=== PATIENT | female | born 1930 | race Caucasian/White ===

== ENCOUNTER 2017-01-26 10:52 | Inpatient (IN) | payer MEDICARE, BC ==
[2017-01-26] MEDS ORDERED: methylPREDNISolone SOD SUCCI 125 MG/2 ML VIAL IV STA (10:58)
[2017-01-26] MEDS ORDERED: MAGNESIUM SULFATE-D5W PMX 1 GM in DEXTROSE/WATER 1 100ML.BAG IVPB STA (10:58)
--- NOTE | 2017-01-26 11:02 | ED ---
SOB HPI - General Stated Complaint: Difficulty Breathing Time Seen by Provider: 01/26/17 10:52 Source: patient, EMS, RN notes reviewed Mode of arrival: EMS - History of Present Illness Initial Comments: This is a 86-year-old female history of COPD who states she's had about 3 days of increasing difficulty with breathing she's had a cough with green phlegm she is on home oxygen. EMS was called and she was found be hypoxemic. She did get an updraft in route with some improvement she still very dyspneic. She does however deny any overt fevers chills or sweats. No overt chest pain. No peripheral edema. MD Complaint: shortness of breath, cough - Related Data Home Medications Medication Instructions Recorded Confirmed Levothyroxine Sodium [Synthroid] 100 mcg PO DAILY 01/17/16 01/26/17 Multivit-Min/FA/Lycopene/Lut 1 tab PO HS 01/17/16 01/26/17 [Centrum Silver Tablet] ALPRAZolam [Xanax] 0.25 mg PO DAILY PRN 01/26/17 01/26/17 Aspirin 325 mg PO BID 01/26/17 01/26/17 Budesonide [Pulmicort] 0.5 mg INHALATION RT-BID 01/26/17 01/26/17 Ipratropium Nebulized [Atrovent 0.5 mg INHALATION RT-Q6H PRN 01/26/17 01/26/17 Nebulized] guaiFENesin [Mucinex] 600 mg PO Q12H PRN 01/26/17 01/26/17 Previous Rx's Medication Instructions Recorded Furosemide [Lasix] 20 mg PO DAILY #30 tab 01/25/16 Losartan [Cozaar] 50 mg PO DAILY #30 tab 01/25/16 Simvastatin [Zocor] 40 mg PO HS tab 01/25/16 Allergies Allergy/AdvReac Type Severity Reaction Status Date / Time Penicillins Allergy Unknown Verified 01/26/17 11:40 pneumococcal 23-valent Allergy Rash/Hives Verified 01/26/17 11:40 polysacchari [From Pneumovax 23] adhesive tape AdvReac Unknown Verified 01/26/17 11:40 Review of Systems ROS Statement: Those systems with pertinent positive or pertinent negative responses have been documented in the HPI. ROS Other: All systems not noted in ROS Statement are negative. Past Medical History Past Medical History: Asthma, Cancer, COPD, Hearing Disorder / Deafness, Hyperlipidemia, Myocardial Infarction ([place]), Osteoarthritis (OA), Respiratory Disorder, Thyroid Disorder Additional Past Medical History / Comment(s): 01/17/2016 Pt presented to [facility] ER via EMS with exacerbation of COPD starting yesterday. She is being admitted with acute exacerbation of COPD. Other HX: colon ca with SX, hypothyroid, larygotracheal bronchitis, pulmonary htn, arthiritis bilateral hands, [place] bilaterally, wears 3L at home, PA 09/2015 Last Myocardial Infarction Date:: 09/2016 History of Any Multi-Drug Resistant Organisms: None Reported Past Surgical History: Appendectomy, Bowel Resection, Section, Cholecystectomy, Hysterectomy, Orthopedic Surgery Additional Past Surgical History / Comment(s): colectomy for cancer, C- Sections x 3, L foot fx with surgical repair, colonoscopies with polypectomy. Past Anesthesia/Blood Transfusion Reactions: No Reported Reaction, Motion Sickness Additional Past Anesthesia/Blood Transfusion Reaction / Comment(s): Pt has never recieved blood. Past Psychological History: No Psychological Hx Reported Additional Psychological History / Comment(s): Pt resides with her spouse and their ervin. She is independent. She uses no assistive device. She drives. She has a nebulizer. Smoking Status: Former smoker Past Alcohol Use History: None Reported Additional Past Alcohol Use History / Comment(s): Pt quit smoking in 2009. She has one alcoholic drink on her birthday each year. Past Drug Use History: None Reported - Past Family History Father Additional Family Medical History / Comment(s): Pt did not know her father well. He was an alcoholic and from it. Mother Family Medical History: Myocardial Infarction ([place]) Additional Family Medical History / Comment(s): Mother of an PA at age 51yrs. General Exam - General Exam Comments Initial Comments: This is a well-developed well-nourished awake alert oriented 3 female she does appear dyspneic General appearance: alert, anxious, in distress Head exam: Present: atraumatic, normocephalic, normal inspection Eye exam: Present: normal appearance, PERRL, EOMI. Absent: scleral icterus, conjunctival injection, periorbital swelling ENT exam: Present: normal exam, mucous membranes moist Neck exam: Present: normal inspection. Absent: tenderness, meningismus, lymphadenopathy Respiratory exam: Present: wheezes, accessory muscle use, decreased breath sounds. Absent: respiratory distress, rales, rhonchi, stridor Cardiovascular Exam: Present: regular rate, normal rhythm, normal heart sounds. Absent: systolic murmur, diastolic murmur, rubs, gallop, clicks GI/Abdominal exam: Present: soft, normal bowel sounds. Absent: distended, tenderness, guarding, rebound, rigid Extremities exam: Present: normal inspection, full ROM, normal capillary refill. Absent: tenderness, pedal edema, joint swelling, calf tenderness Back exam: Present: normal inspection Neurological exam: Present: alert, oriented X3, CN II-XII intact Psychiatric exam: Present: normal affect, normal mood Skin exam: Present: warm, dry, intact, normal color. Absent: rash Course Vital Signs 01/26/17 01/26/17 01/26/17 10:57 11:32 12:41 Temperature 101.7 F H 99.4 F Pulse Rate 89 77 Respiratory 16 18 20 Rate Blood Pressure 132/61 122/57 O2 Sat by Pulse 95 95 Oximetry 01/26/17 13:17 Temperature Pulse Rate 77 Respiratory 20 Rate Blood Pressure 129/59 O2 Sat by Pulse 96 Oximetry - Reevaluation(s) Reevaluation #1: 01/26/17 13:13 Reevaluation patient did reveal that she felt a little bit better she was still wheezing however. All labs are back except for BNP. I did discuss case with Dr. Flores patient be admitted with consultation by Dr. Ceballos. Medical Decision Making - Medical Decision Making I did discuss findings with the patient and family. Patient will be admitted due to the fever white count and the cough and green phlegm patient will be started on antibiotics and dyspnea treatment for what appears be COPD exacerbation with CHF - Lab Data Result diagrams: 01/26/17 11:15 01/26/17 11:15 Lab Results 01/26/17 01/26/17 01/26/17 Range/Units 11:15 11:15 11:15 WBC 12.6 H (3.8-10.6) k/uL RBC 3.92 (3.80-5.40) m/uL Hgb 11.5 (11.4-16.0) gm/dL Hct 35.9 (34.0-46.0) % MCV 91.6 (80.0-100.0) fL MCH 29.3 (25.0-35.0) pg MCHC 32.0 (31.0-37.0) g/dL RDW 13.1 (11.5-15.5) % Plt Count 197 (150-450) k/uL Neutrophils % 80 % Lymphocytes % 13 % Monocytes % 5 % Eosinophils % 0 % Basophils % 0 % Neutrophils # 10.0 H (1.3-7.7) k/uL Lymphocytes # 1.6 (1.0-4.8) k/uL Monocytes # 0.7 (0-1.0) k/uL Eosinophils # 0.0 (0-0.7) k/uL Basophils # 0.0 (0-0.2) k/uL PT (9.0-12.0) sec INR (<1.1) APTT (22.0-30.0) sec Sodium 140 (137-145) mmol/L Potassium 4.2 (3.5-5.1) mmol/L Chloride 101 (98-107) mmol/L Carbon Dioxide 29 (22-30) mmol/L Anion Gap 10 mmol/L BUN 23 H (7-17) mg/dL Creatinine 0.80 (0.52-1.04) mg/dL Est GFR (MDRD) Af Amer >60 (>60 ml/min/1.73 sqM) Est GFR (MDRD) Non-Af >60 (>60 ml/min/1.73 sqM) Glucose 120 H (74-99) mg/dL Calcium 9.6 (8.4-10.2) mg/dL Magnesium 1.8 (1.6-2.3) mg/dL Total Bilirubin 1.3 (0.2-1.3) mg/dL AST 24 (14-36) U/L ALT 25 (9-52) U/L Alkaline Phosphatase 73 (38-126) U/L Total Creatine Kinase 56 (30-135) U/L CK-MB (CK-2) 0.8 (0.0-2.4) ng/mL CK-MB (CK-2) Rel Index 1.4 Troponin I 0.023 (0.000-0.034) ng/mL NT-Pro-B Natriuret Pep pg/mL Total Protein 6.6 (6.3-8.2) g/dL Albumin 3.7 (3.5-5.0) g/dL 01/26/17 01/26/17 Range/Units 11:15 11:15 WBC (3.8-10.6) k/uL RBC (3.80-5.40) m/uL Hgb (11.4-16.0) gm/dL Hct (34.0-46.0) % MCV (80.0-100.0) fL MCH (25.0-35.0) pg MCHC (31.0-37.0) g/dL RDW (11.5-15.5) % Plt Count (150-450) k/uL Neutrophils % % Lymphocytes % % Monocytes % % Eosinophils % % Basophils % % Neutrophils # (1.3-7.7) k/uL Lymphocytes # (1.0-4.8) k/uL Monocytes # (0-1.0) k/uL Eosinophils # (0-0.7) k/uL Basophils # (0-0.2) k/uL PT 11.1 (9.0-12.0) sec INR 1.1 (<1.1) APTT 31.3 H (22.0-30.0) sec Sodium (137-145) mmol/L Potassium (3.5-5.1) mmol/L Chloride (98-107) mmol/L Carbon Dioxide (22-30) mmol/L Anion Gap mmol/L BUN (7-17) mg/dL Creatinine (0.52-1.04) mg/dL Est GFR (MDRD) Af Amer (>60 ml/min/1.73 sqM) Est GFR (MDRD) Non-Af (>60 ml/min/1.73 sqM) Glucose (74-99) mg/dL Calcium (8.4-10.2) mg/dL Magnesium (1.6-2.3) mg/dL Total Bilirubin (0.2-1.3) mg/dL AST (14-36) U/L ALT (9-52) U/L Alkaline Phosphatase (38-126) U/L Total Creatine Kinase (30-135) U/L CK-MB (CK-2) (0.0-2.4) ng/mL CK-MB (CK-2) Rel Index Troponin I (0.000-0.034) ng/mL NT-Pro-B Natriuret Pep 3420 pg/mL Total Protein (6.3-8.2) g/dL Albumin (3.5-5.0) g/dL - Radiology Data Radiology results: report reviewed (I did review the x-ray reports no definite acute changes.), image reviewed Critical Care Time Critical Care Time: Yes Critical Care Time: 33 minutes of critical care time which includes initial monitoring of the EMS run and discussed with paramedics history and physical as well as lab and x-ray orders on the patient. Reevaluation several occasions for response to therapy. Discussion with the admitting physician admission orders and documentation the above. Disposition Clinical Impression: Acute exacerbation of chronic obstructive airways disease, Adult respiratory distress syndrome, CHF (congestive heart failure), Bronchitis, Acute febrile illness Disposition: ADMITTED IP TO THIS HOSP Referrals: Charanjit Torres MD [Primary Care Provider] - 1-2 days
[2017-01-26 11:34] LABS: Basophils % (A) 0 %; CH 30.2; CHCM 33.2; Eosinophils % (A) 0 %; HCT 35.9 % (34.0-46.0); HDW 2.91; HGB 11.5 gm/dL (11.4-16.0); Luc # (Auto) 0.26; Luc % (Auto) 2; Lymphocytes # (A) 1.6 k/uL (1.0-4.8); Lymphocytes % (A) 13 %; MCH 29.3 pg (25.0-35.0); MCV 91.6 fL (80.0-100.0); Mean Platelet Volume 7.7; Monocytes # (A) 0.7 k/uL (0-1.0); Monocytes % (A) 5 %; Neutrophils % (A) 80 %; RBC 3.92 m/uL (3.80-5.40); RDW 13.1 % (11.5-15.5); WBC 12.6 k/uL (3.8-10.6); WBC (Perox) 12.61
[2017-01-26 11:44] LABS: ALT 25 U/L (9-52); AST 24 U/L (14-36); Alkaline Phosphatase 73 U/L (38-126); Anion Gap 10 mmol/L; Blood Urea Nitrogen 23 mg/dL (7-17); Calcium 9.6 mg/dL (8.4-10.2); Carbon Dioxide 29 mmol/L (22-30); Chloride 101 mmol/L (98-107); Glucose 120 mg/dL (74-99); Magnesium 1.8 mg/dL (1.6-2.3); Non-African American GFR(MDRD) >60 (>60 ml/min/1.73 sqM); Potassium 4.2 mmol/L (3.5-5.1); Sodium 140 mmol/L (137-145); Total Bilirubin 1.3 mg/dL (0.2-1.3); Total Protein 6.6 g/dL (6.3-8.2)
--- NOTE | 2017-01-26 11:55 | XR ---
EXAMINATION TYPE: XR chest 2V DATE OF EXAM: 01/26/2017 11:48 AM HISTORY: difficulty breathing. REFERENCE: Previous study dated 01/22/2016. FINDINGS: The lungs are overinflated. The heart is mildly enlarged. There are chronic increased hayden ngs, particularly at the right lung base. There is some chronic scarring in the left midlung. There i s vascular congestion without cong edema. Pleural spaces are clear. IMPRESSION: 1. COPD. 2. CARDIOMEGALY. 3. SCARRING, LEFT MIDLUNG. 4. VASCULAR CONGESTION.
[2017-01-26 12:09] LABS: Creatine Kinase MB 0.8 ng/mL (0.0-2.4); Troponin I 0.023 ng/mL (0.000-0.034)
[2017-01-26 12:18] LABS: INR 1.1 (<1.1); Partial Thromboplastin Time 31.3 sec (22.0-30.0); Prothrombin Time 11.1 sec (9.0-12.0)
[2017-01-26] MEDS ORDERED: LEVOFLOXACIN 500MG-D5W PMX 500 MG in DEXTROSE/WATER 1 100ML.BAG IVPB STA (13:15)
[2017-01-26] MEDS ORDERED: FUROSEMIDE 10 MG/ML 4 ML VIAL IV STA (13:16)
[2017-01-26] MEDS ORDERED: NITROGLYCERIN OINT 1 INCH/GM PACKET TOPICAL STA (13:19)
[2017-01-26] MEDS ORDERED: ALPRAZolam 0.25 MG TAB PO PRN (13:24)
[2017-01-26] MEDS ORDERED: guaiFENesin 600 MG TABLET.ER PO PRN (13:24)
[2017-01-26] MEDS: IPRATROPIUM-ALBUTEROL 3 ML NEB INHALATION SCH ×3 (14:48→23:58)
[2017-01-26] MEDS ORDERED: FUROSEMIDE 10 MG/ML 2 ML VIAL IV ONE (15:18)
[2017-01-26] MEDS: methylPREDNISolone SOD SUCCI 125 MG/2 ML VIAL IV SCH ×2 (16:17→23:55)
[2017-01-26] MEDS: NITROGLYCERIN OINT 1 INCH/GM PACKET TOPICAL SCH ×2 (16:17→23:56)
[2017-01-26] MEDS: SODIUM CHLORIDE 0.9% 1,000 ML IV SCH (16:35)
--- NOTE | 2017-01-26 18:08 | HP ---
DATE OF ADMISSION: 01/26/2017 DATE OF SERVICE: 01/26/2017 CHIEF COMPLAINT: Severe shortness of breath. This is an 86-year-old white female who is known to have advanced chronic obstructive pulmonary disease. For the past week, patient was getting extremely dyspneic. She uses updraft treatments at home, but her condition was progressively deteriorating. She was brought to the emergency room. In the ER she was found to be febrile. Her CBC showed a WBC count of 12.6 and hemoglobin 11.5, platelet count of 197 and sodium 140, potassium 4.2, BUN 23, creatinine 0.80, blood sugar 120. Liver enzymes were within normal limits. BNP 3420. Chest x-ray showed cardiomegaly and mild vascular congestion. EKG showed no acute changes. Patient was admitted to the hospital for further evaluation and treatment. Her past medical history reveals that she has advanced chronic obstructive pulmonary disease and she has been seeing Dr. Tristen Ceballos for her lung problems. She also has hypertensive cardiovascular disease, history of coronary artery disease, hyperlipidemia and hypothyroidism. Her current medications include: 1. Mucinex 600 mg p.o. b.i.d. 2. Pulmicort. 3. Atrovent. 4. Aspirin 325 mg p.o. daily. 5. Simvastatin 40 mg p.o. daily. 6. Synthroid 100 mcg daily. 7. Xanax 0.25 mg daily p.r.n. 8. Losartan 50 mg p.o. daily. 9. Lasix 20 mg p.o. daily. ALLERGIES: PENICILLIN. She is a former smoker. She does not smoke now. FAMILY HISTORY: Positive for hypertension and lung disease. REVIEW OF SYSTEMS: Patient denies any headache. Appetite has been poor lately. She has severe shortness of breath. She has no chest pain. She has no cough. She is extremely short of breath and wheezy. She has no polyuria or dysuria. She has no neurological symptoms. Physical examination reveals an 86-year-old white female, moderately nourished. She is alert and oriented but extremely short of breath. She is using nasal oxygen constantly. Her temperature in the ER was 101.7 and respiration 18 per minute, blood pressure 132/62. There is no jaundice. There is no generalized lymphadenopathy. There are no petechiae or bruises. Neck is supple. There is no jugular venous distention. There is no goiter. There is no carotid bruit. Heart is in sinus rhythm. Lungs reveal diminished breath sound over both bases with a few scattered rhonchi and expiratory wheeze. Abdomen is soft and nontender. There is no mass palpable. Examination of the lower extremities reveals no pitting edema. Neurologic examination does not reveal any localizing signs. IMPRESSION: 1. Chronic obstructive pulmonary disease with acute exacerbation. 2. Acute bronchitis with asthma. 3. Hypertensive cardiovascular disease. 4. Coronary artery disease. 5. Hypothyroidism. PLAN: Patient will be admitted to hospital and will be started on IV antibiotics and updraft treatments and IV Solu-Medrol. We will also get a consultation from Dr. Tristen Ceballos, who is her assembler crimper. Prognosis guarded. The diagnoses, prognosis and therapeutic plans were discussed in detail with the patient.
[2017-01-26 20:57] LABS: Glucose,Whole Blood 207 mg/dL (75-99)
[2017-01-26] MEDS ORDERED: FUROSEMIDE 10 MG/ML 4 ML VIAL IV SCH (21:00)
[2017-01-26] MEDS: ATORVASTATIN 20 MG TAB PO SCH (21:25)
[2017-01-26] MEDS: INSULIN LISPRO (humaLOG) 300 UNIT/3 ML VIAL SQ SCH (21:25)
[2017-01-26] MEDS: ASPIRIN 325 MG TAB PO SCH (21:25)
[2017-01-26] MEDS: MULTIVITAMINS, THERA 1 EACH TAB PO SCH (21:26)
[2017-01-27] MEDS: IPRATROPIUM-ALBUTEROL 3 ML NEB INHALATION SCH ×6 (04:20→23:57)
[2017-01-27 05:42] LABS: Glucose,Whole Blood 179 mg/dL (75-99)
[2017-01-27] MEDS: methylPREDNISolone SOD SUCCI 125 MG/2 ML VIAL IV SCH ×4 (06:04→23:46)
[2017-01-27] MEDS: NITROGLYCERIN OINT 1 INCH/GM PACKET TOPICAL SCH ×4 (06:04→23:46)
[2017-01-27] MEDS: LEVOTHYROXINE 100 MCG TAB PO SCH (06:04)
[2017-01-27] MEDS: INSULIN LISPRO (humaLOG) 300 UNIT/3 ML VIAL SQ SCH ×4 (06:04→21:27)
[2017-01-27] MEDS: ASPIRIN 325 MG TAB PO SCH ×2 (08:51→21:25)
[2017-01-27] MEDS: LOSARTAN 50 MG TAB PO SCH (08:51)
[2017-01-27] MEDS: FUROSEMIDE 20 MG TAB PO SCH (08:51)
[2017-01-27] MEDS ORDERED: FUROSEMIDE 20 MG TAB PO SCH (09:00)
[2017-01-27 11:47] LABS: Glucose,Whole Blood 147 mg/dL (75-99)
--- NOTE | 2017-01-27 12:28 | PN ---
DATE OF SERVICE: 01/27/2017 This is an 86-year-old white female who was brought to the emergency room with severe shortness of breath and wheezing and she is known to have advanced chronic obstructive pulmonary disease. She was also found to have acute bronchitis and asthma. She has a past history of coronary artery disease and hypertensive cardiovascular disease. The patient was admitted to the hospital for further evaluation and treatment. Currently she is getting IV antibiotics and updraft treatments and IV Solu-Medrol and has been placed back on her on previous home medications. Patient is still very short of breath, but she is feeling slightly better than when she came. Chest x-ray showed some vascular congestion and she is getting Lasix. Dr. Tristen Ceballos has been consulted and patient has been following with him for her pulmonary problems. The patient is alert and oriented, but still very short of breath. Her blood pressure and other vital signs are stable. We will continue current medications and Dr. Tristen Ceballos is going to see the patient in consultation possibly today. Prognosis is guarded.
--- NOTE | 2017-01-27 13:39 | P.CNPUL ---
History of Present Illness Consult date: 01/27/17 Reason for consult: dyspnea, cough, COPD Chief complaint: cough and shortness of breath History of present illness: this is an 86-year-old female who presented to emergency department complaining of cough, shortness of breath for 3 days. The patient states that she has not been around anyone sick that she knows of. She does have a history of COPD and has followed with Dr. RADHA Ceballos in the office. She does wear home oxygen at 2 L nasal cannula around the clock. She also uses nebulizer and inhalers but does not know which ones. The patient has a cough productive of green phlegm. The emergency department she was also found to have a fever of 101.7. She states she has been going to pulmonary rehab recently. per the patient's home medicines dictation last she was on Atrovent, Pulmicort. Review of Systems All systems: negative Past Medical History Past Medical History: Asthma, Cancer, Heart Failure, COPD, Hearing Disorder / Deafness, Hyperlipidemia, Pneumonia, Respiratory Disorder, Thyroid Disorder Additional Past Medical History / Comment(s): Colon ca with SX, hypothyroid, tracheobronchitis, [place] bilaterally, wears 2L at home. Pt denies [place], arthritis, HTN or pulmonary HTN that are in PMR. Last Myocardial Infarction Date:: 09/2016 History of Any Multi-Drug Resistant Organisms: None Reported Past Surgical History: Appendectomy, Bowel Resection, Section, Cholecystectomy, Hysterectomy, Orthopedic Surgery, Tonsillectomy Additional Past Surgical History / Comment(s): colectomy for cancer, thyroidectomy, bilateral cataract removal with lens implants, C- Sections x 3, L foot fx with surgical repair, colonoscopies with polypectomy. Past Anesthesia/Blood Transfusion Reactions: No Reported Reaction, Motion Sickness Additional Past Anesthesia/Blood Transfusion Reaction / Comment(s): Pt has never recieved blood. Past Psychological History: Anxiety Additional Psychological History / Comment(s): Pt resides with her spouse and their ervin. She is independent. She uses no assistive device. She drives. She has a nebulizer and home oxygen. She lives in a single level home with 4 steps to get inside. Smoking Status: Former smoker Past Alcohol Use History: None Reported Additional Past Alcohol Use History / Comment(s): Pt quit smoking in 2009. She has one alcoholic drink on her birthday each year and a rare beer otherwise. Past Drug Use History: None Reported - Past Family History Father Additional Family Medical History / Comment(s): Pt did not know her father well. He was an alcoholic and from it. Mother Family Medical History: Myocardial Infarction ([place]) Additional Family Medical History / Comment(s): Mother of an [place] at age 51yrs. Medications and Allergies Home Medications Medication Instructions Recorded Confirmed Type Levothyroxine Sodium [Synthroid] 100 mcg PO DAILY 01/17/16 01/26/17 History Multivit-Min/FA/Lycopene/Lut 1 tab PO HS 01/17/16 01/26/17 History [Centrum Silver Tablet] ALPRAZolam [Xanax] 0.25 mg PO DAILY PRN 01/26/17 01/26/17 History Aspirin 325 mg PO BID 01/26/17 01/26/17 History Budesonide [Pulmicort] 0.5 mg INHALATION RT-BID 01/26/17 01/26/17 History Ipratropium Nebulized [Atrovent 0.5 mg INHALATION RT-Q6H PRN 01/26/17 01/26/17 History Nebulized] guaiFENesin [Mucinex] 600 mg PO Q12H PRN 01/26/17 01/26/17 History Allergies Allergy/AdvReac Type Severity Reaction Status Date / Time Penicillins Allergy Unknown Verified 01/26/17 11:40 pneumococcal 23-valent Allergy Rash/Hives Verified 01/26/17 11:40 polysacchari [From Pneumovax 23] adhesive tape AdvReac Unknown Verified 01/26/17 11:40 Physical Exam Osteopathic Statement: *. No significant issues noted on an osteopathic structural exam other than those noted in the History and Physical/Consult. Vitals: Vital Signs Temp Pulse Pulse Resp BP Pulse Ox 01/27/17 13:03 86 01/27/17 12:00 97.9 F 90 18 102/55 97 01/27/17 09:15 84 01/27/17 09:05 80 22 01/27/17 08:00 97.9 F 87 22 105/49 95 01/27/17 04:34 80 01/27/17 04:20 80 01/27/17 04:00 97.5 F L 81 18 97/45 93 L 01/27/17 00:14 88 01/27/17 00:00 83 18 107/55 95 01/26/17 23:59 88 01/26/17 20:02 92 01/26/17 20:00 97.4 F L 82 18 99/51 96 01/26/17 19:47 80 01/26/17 16:00 97.9 F 80 20 125/55 96 01/26/17 15:07 96 01/26/17 14:51 92 01/26/17 14:18 99.5 F 164 H 30 H 97 01/26/17 14:05 98.7 F Intake and Output 01/26/17 01/27/17 01/27/17 22:59 06:59 14:59 Intake Total 400 200 298 Balance 400 200 298 Intake: Oral 400 200 298 Other: Voiding Method Toilet Toilet Bedpan Bedpan # Bowel Movements 0 Weight 58.6 kg Gen.: Patient is alert and oriented 3, no acute distress Cardiovascular: Regular rate and rhythm, S1/S2 Lungs: Coarse breath sounds bilaterally with expiratory wheezing Abdomen: Soft nontender nondistended positive bowel sounds Extremities: No edema Results - Laboratory Findings CBC and BMP: 01/26/17 11:15 01/26/17 11:15 PT/INR, D-dimer PT 11.1 sec (9.0-12.0) 01/26/17 11:15 INR 1.1 (<1.1) 01/26/17 11:15 Abnormal lab findings: Abnormal Labs 01/26/17 01/27/17 01/27/17 20:55 05:37 11:41 POC Glucose (mg/dL) 207 H 179 H 147 H - Diagnostic Findings Chest x-ray: report reviewed, image reviewed Assessment and Plan Plan: acute on chronic hypoxic respiratory failure Acute exacerbation of COPD Emphysema Cardiomegaly Pulmonary vascular congestion Tracheobronchitis Sepsis with SIRS History of hypertension History of anxiety Hypothyroidism Dyslipidemia Former tobacco abuse O2 to maintain saturation greater than or equal to 88% Bronchodilators Pulmicort IV Solu-Medrol Antibiotics: Levaquin Sputum culture Mucinex Repeat CXR in AM Singulair Incentive spirometry and pulmonary hygiene GI and DVT prophylaxis Diuresis as able Continued smoking cessation outpatient pulmonary follow-up with Dr. RADHA Ceballos upon discharge Thank you for this consultation. We will continue to follow along.
[2017-01-27 13:55] LABS: Hemoglobin A1C 5.7 % (4.2-6.1)
[2017-01-27] MEDS ORDERED: LEVOFLOXACIN 500 MG TAB PO SCH (14:00)
[2017-01-27] MEDS: SODIUM CHLORIDE 0.9% 1,000 ML IV SCH (14:20)
[2017-01-27] MEDS: LEVOFLOXACIN 250MG-D5W PMX 250 MG in DEXTROSE/WATER 1 50ML.BAG IVPB SCH (14:20)
[2017-01-27 16:42] LABS: Glucose,Whole Blood 168 mg/dL (75-99)
[2017-01-27] MEDS: BUDESONIDE 0.5 MG/2 ML NEBU INHALATION SCH (20:51)
[2017-01-27 21:04] LABS: Glucose,Whole Blood 137 mg/dL (75-99)
[2017-01-27] MEDS: ATORVASTATIN 20 MG TAB PO SCH (21:25)
[2017-01-27] MEDS: MULTIVITAMINS, THERA 1 EACH TAB PO SCH (21:25)
[2017-01-27] MEDS: ZOLPIDEM 5 MG TAB PO PRN (21:25)
[2017-01-27] MEDS: MONTELUKAST 10 MG TAB PO SCH (21:26)
[2017-01-27] MEDS: DOCUSATE 100 MG CAP PO SCH (21:27)
[2017-01-28] MEDS: IPRATROPIUM-ALBUTEROL 3 ML NEB INHALATION SCH ×6 (04:11→23:49)
[2017-01-28 05:50] LABS: Glucose,Whole Blood 188 mg/dL (75-99)
[2017-01-28] MEDS: methylPREDNISolone SOD SUCCI 125 MG/2 ML VIAL IV SCH ×4 (06:29→23:03)
[2017-01-28] MEDS: LEVOTHYROXINE 100 MCG TAB PO SCH (06:30)
[2017-01-28] MEDS: INSULIN LISPRO (humaLOG) 300 UNIT/3 ML VIAL SQ SCH ×4 (06:30→22:31)
[2017-01-28] MEDS: NITROGLYCERIN OINT 1 INCH/GM PACKET TOPICAL SCH ×4 (06:30→23:09)
--- NOTE | 2017-01-28 06:50 | XR ---
EXAM: XR Chest, 2 Views. CLINICAL HISTORY: Reason: rule out pna TECHNIQUE: Frontal and lateral views of the chest. COMPARISON: Recent 01/26/17 radiographs. FINDINGS: Lungs: There are again mildly increased pulmonary vascular markings throughout, stable. As best seen on the lateral view there is increased density posteriorly at the left base, that may be on the basis of diaphragmatic elevation or eventration rather than a small infiltrate, the appearance of which is unchanged. Pleural spaces: Unremarkable. No pneumothorax. Heart: Stable cardiomegaly. Mediastinum: Unremarkable. Bones: Bones are stable including mild rightward curvature of the thoracic spine and multilevel degenerative changes. No acute fracture. Upper abdomen: Right upper quadrant clips suggest cholecystectomy. IMPRESSION: No definite interval change since the prior exam, as above.
[2017-01-28] MEDS: FUROSEMIDE 20 MG TAB PO SCH (08:23)
[2017-01-28] MEDS: DOCUSATE 100 MG CAP PO SCH ×2 (08:23→21:33)
[2017-01-28] MEDS: FAMOTIDINE 20 MG TAB PO SCH (08:23)
[2017-01-28] MEDS: LOSARTAN 50 MG TAB PO SCH (08:23)
[2017-01-28] MEDS: ASPIRIN 325 MG TAB PO SCH ×2 (08:23→21:32)
[2017-01-28] MEDS: ENOXAPARIN 40 MG/0.4 ML SYRINGE SQ SCH (08:24)
[2017-01-28] MEDS: BUDESONIDE 0.5 MG/2 ML NEBU INHALATION SCH ×2 (09:18→20:34)
[2017-01-28 11:56] LABS: Glucose,Whole Blood 171 mg/dL (75-99)
[2017-01-28] MEDS: LEVOFLOXACIN 250MG-D5W PMX 250 MG in DEXTROSE/WATER 1 50ML.BAG IVPB SCH (14:34)
[2017-01-28] MEDS: SODIUM CHLORIDE 0.9% 1,000 ML IV SCH (14:34)
--- NOTE | 2017-01-28 14:37 | P.PN ---
Subjective Principal diagnosis: acute exacerbation of COPD patient seen and examined. Patient states her breathing is a little bit better today. She was just up taking a shower. She denies cough, fevers, chills. Her daughter is at bedside. All their questions are answered to their apparent satisfaction. Objective - Vital Signs Vital signs: Vital Signs Temp 97.3 F L 01/28/17 12:00 Pulse 80 01/28/17 12:59 Resp 18 01/28/17 12:00 BP 113/50 01/28/17 12:00 Pulse Ox 95 01/28/17 12:00 Intake & Output 01/27/17 01/28/17 01/28/17 17:59 06:59 18:59 Intake Total 80 Balance 80 Weight Intake: IV Sodium Chloride 0.9% 1, 000 ml @ 20 mls/hr IV . Q24H NISHANT Rx#:[id number] Oral 80 Other: Voiding Method # Voids # Bowel Movements 0 - Exam Gen.: Patient is alert and oriented 3, no acute distress Cardiovascular: Regular rate and rhythm, S1/S2 Lungs: diminished breath sounds bilaterally, scattered expiratory wheezing Abdomen: Soft nontender nondistended positive bowel sounds Extremities: No edema - Labs CBC & Chem 7: 01/26/17 11:15 01/26/17 11:15 Labs: Abnormal Lab Results - Last 24 Hours (Table) 01/27/17 01/27/17 01/28/17 Range/Units 16:41 20:58 05:48 POC Glucose (mg/dL) 168 H 137 H 188 H (75-99) mg/dL 01/28/17 Range/Units 11:51 POC Glucose (mg/dL) 171 H (75-99) mg/dL Microbiology - Last 24 Hours (Table) 01/27/17 17:20 Gram Stain - Preliminary Sputum Assessment and Plan Plan: Acute on chronic hypoxic respiratory failure Acute exacerbation of COPD Emphysema Cardiomegaly Pulmonary vascular congestion Tracheobronchitis Sepsis with SIRS History of hypertension History of anxiety Hypothyroidism Dyslipidemia Former tobacco abuse O2 to maintain saturation greater than or equal to 88% Bronchodilators Pulmicort IV Solu-Medrol Antibiotics: Levaquin Sputum culture Mucinex Singulair Incentive spirometry and pulmonary hygiene GI and DVT prophylaxis Continued smoking cessation outpatient pulmonary follow-up with Dr. RADHA Ceballos upon discharge
[2017-01-28 16:44] LABS: Glucose,Whole Blood 136 mg/dL (75-99)
--- NOTE | 2017-01-28 18:51 | PN ---
DATE OF SERVICE: 01/28/2017 This is an 86-year-old white female who is known to have advanced chronic obstructive pulmonary disease and she was admitted to the hospital with severe shortness of breath and she was found to have chronic obstructive pulmonary disease with acute exacerbation, asthma and acute tracheobronchitis. Patient was started on IV antibiotics and updraft treatments and also she was placed back on her previous home medications. Patient was seen by Dr. Tristen Ceballos in consultation and patient is continuing on her current medications but today patient seems to be feeling better. She is still using nasal oxygen constantly, but overall she feels better. Her cough symptom is improving. She is getting updraft treatments and IV Solu-Medrol. We will increase her activities and when her condition becomes stable and improved, will discharge home. Patient was seen by me today for Dr. Torres who is her primary care physician and Dr. Torres has been off out of town and I was covering him during his absence. Dr. Torres will be coming back tomorrow and he will resume care of the patient starting tomorrow.
[2017-01-28] MEDS: ATORVASTATIN 20 MG TAB PO SCH (21:32)
[2017-01-28] MEDS: MULTIVITAMINS, THERA 1 EACH TAB PO SCH ×2 (21:33→23:03)
[2017-01-28] MEDS: MONTELUKAST 10 MG TAB PO SCH (21:33)
[2017-01-28 21:44] LABS: Glucose,Whole Blood 125 mg/dL (75-99)
[2017-01-28] MEDS: ZOLPIDEM 5 MG TAB PO PRN (23:03)
[2017-01-29] MEDS: IPRATROPIUM-ALBUTEROL 3 ML NEB INHALATION SCH ×5 (03:47→20:40)
[2017-01-29 06:14] LABS: Glucose,Whole Blood 177 mg/dL (75-99)
[2017-01-29] MEDS: INSULIN LISPRO (humaLOG) 300 UNIT/3 ML VIAL SQ SCH ×4 (06:30→21:31)
[2017-01-29] MEDS: LEVOTHYROXINE 100 MCG TAB PO SCH (06:31)
[2017-01-29] MEDS: NITROGLYCERIN OINT 1 INCH/GM PACKET TOPICAL SCH (06:31)
[2017-01-29] MEDS ORDERED: MAGNESIUM HYDROXIDE 2,400 MG/10 ML CUP PO PRN (07:03)
[2017-01-29] MEDS: BUDESONIDE 0.5 MG/2 ML NEBU INHALATION SCH ×2 (07:50→20:47)
[2017-01-29] MEDS: methylPREDNISolone SOD SUCCI 125 MG/2 ML VIAL IV SCH ×2 (08:13→16:12)
[2017-01-29] MEDS: DOCUSATE 100 MG CAP PO SCH ×2 (08:16→21:31)
[2017-01-29] MEDS: ASPIRIN 325 MG TAB PO SCH ×2 (08:16→21:31)
[2017-01-29] MEDS: ENOXAPARIN 40 MG/0.4 ML SYRINGE SQ SCH (08:16)
[2017-01-29] MEDS: FUROSEMIDE 20 MG TAB PO SCH (08:18)
[2017-01-29] MEDS: FAMOTIDINE 20 MG TAB PO SCH (08:18)
[2017-01-29] MEDS: LOSARTAN 50 MG TAB PO SCH (08:18)
--- NOTE | 2017-01-29 10:33 | ECHOF ---
Referral Reason:cardiomegaly MEASUREMENTS -------- HEIGHT: 157.5 cm WEIGHT: 58.5 kg BP: 127/53 IVSd: 1.4 cm (0.6 - 1.1) LVIDd: 5.1 cm (3.9 - 5.3) LVPWd: 1.4 cm (0.6 - 1.1) IVSs: 1.6 cm LVIDs: 4.4 cm LVPWs: 1.4 cm LA Diam: 3.9 cm (2.7 - 3.8) LAESV Index (A-L): 49.45 ml/m Ao Diam: 3.1 cm (2.0 - 3.7) AV Cusp: 1.3 cm (1.5 - 2.6) LA Diam: 3.8 cm (2.7 - 3.8) MV EXCURSION: 19.783 mm (> 18.000) MV EF SLOPE: 63 mm/s (70 - 150) EPSS: 1.2 cm MV E Corbin: 0.96 m/s MV DecT: 235 ms MV A Corbin: 1.00 m/s MV E/A Ratio: 0.97 AV maxP.06 mmHg AV meanP.83 mmHg RAP: 5.00 mmHg RVSP: 46.04 mmHg FINDINGS -------- Sinus rhythm. This was a technically adequate study. There is mild concentric left ventricular hypertrophy. Overall left ventricular systolic function is low-normal with, an EF between 50 - 55 %. The right ventricle is normal in size. LA is severely dilated >40 ml/m2 The right atrial size is normal. Moderate aortic stenosis with peak/mean pressure gradient of 28.06mmHg / 14.83mmHg, the aortic valve area by continuity equation is 1.4cm. Mild mitral annular calcification present. Mild mitral regurgitation is present. Mild tricuspid regurgitation present. There is mild to moderate pulmonary hypertension. The right ventricular systolic pressure, as measured by Doppler, is 46.04mmHg. There is no pulmonic regurgitation present. The aortic root size is normal. There is no pericardial effusion. CONCLUSIONS -------- 1. There is mild concentric left ventricular hypertrophy. 2. Overall left ventricular systolic function is low-normal with, an EF between 50 - 55 %. 3. LA is severely dilated >40 ml/m2 4. Moderate aortic stenosis with peak/mean pressure gradient of 28.06mmHg / 14.83mmHg, the aortic valve area by continuity equation is 1.4cm. 5. Mild mitral annular calcification present. 6. Mild mitral regurgitation is present. 7. Mild tricuspid regurgitation present. 8. There is mild to moderate pulmonary hypertension. 9. The right ventricular systolic pressure, as measured by Doppler, is 46.04mmHg. INS[employer]ANCE [employer] SALES MANAGER: Hedii Aldana RDCS
[2017-01-29 11:48] LABS: Glucose,Whole Blood 125 mg/dL (75-99)
[2017-01-29] MEDS ORDERED: BISACODYL 10 MG SUPP RECTAL STA (13:02)
[2017-01-29 13:27] VITALS: BMI 23.7
[2017-01-29 13:54] LABS: Basophils % (A) 0 %; CHCM 31.7; Eosinophils % (A) 0 %; HCT 36.6 % (34.0-46.0); HDW 2.82; HGB 11.5 gm/dL (11.4-16.0); Hypochromasia Slight; Luc # (Auto) 0.11; Luc % (Auto) 1; Lymphocytes # (A) 0.6 k/uL (1.0-4.8); Lymphocytes % (A) 3 %; MCH 29.9 pg (25.0-35.0); MCHC 31.4 g/dL (31.0-37.0); MCV 95.2 fL (80.0-100.0); Mean Platelet Volume 8.3; Monocytes # (A) 0.5 k/uL (0-1.0); Monocytes % (A) 3 %; Neutrophils # (A) 16.5 k/uL (1.3-7.7); Neutrophils % (A) 93 %; RBC 3.84 m/uL (3.80-5.40); RDW 13.2 % (11.5-15.5); WBC 17.8 k/uL (3.8-10.6); WBC (Perox) 18.84
[2017-01-29 14:16] LABS: Anion Gap 10 mmol/L; Blood Urea Nitrogen 38 mg/dL (7-17); Calcium 9.5 mg/dL (8.4-10.2); Carbon Dioxide 31 mmol/L (22-30); Chloride 104 mmol/L (98-107); Glucose 155 mg/dL (74-99); Non-African American GFR(MDRD) 60 (>60 ml/min/1.73 sqM); Potassium 4.2 mmol/L (3.5-5.1); Sodium 145 mmol/L (137-145)
[2017-01-29] MEDS: SODIUM CHLORIDE 0.9% 1,000 ML IV SCH ×2 (14:43→17:07)
[2017-01-29] MEDS: LEVOFLOXACIN 250 MG TAB PO SCH (14:58)
[2017-01-29 16:44] LABS: Glucose,Whole Blood 140 mg/dL (75-99)
--- NOTE | 2017-01-29 17:50 | PN ---
DATE OF SERVICE: 01/29/2017 HISTORY OF PRESENT ILLNESS: Patient is an 86-year-old female who came in with shortness of breath and cough with a known history of COPD where she follows with Dr. Tristen Ceballos. She is being followed for acute on chronic hypoxic respiratory failure, COPD and emphysema. She recently had an echocardiogram done that showed an EF of 50% to 55%. In addition, her RVSP was 46 mmHg and her LA was severely dilated. She has moderate aortic stenosis with mild to moderate pulmonary hypertension. Patient is complaining of problems with constipation today. She continues with IV steroids, Levaquin and nebulizer treatments. She states that she has been having a productive cough finally of green sputum. She does state that she is feeling better overall but would do considerably better if she had a bowel movement. On physical examination, vital signs show temperature of 96.8, heart rate 88, respiratory rate 18. Blood pressure is 122/62. Oxygen saturation on 3 L is 97%. Her labs for today showed glucose of 125. Blood cultures were negative. Sputum cultures negative. GENERAL: An 86-year-old female sitting up in chair. She is in no acute respiratory distress. She is oxygen-dependent. HEENT: Pupils are reactive. Mucous membranes are moist. NECK: Supple. Trachea midline. Lung sounds are diminished throughout. No clear rhonchi or rales heard. No significant wheezes. CARDIOVASCULAR: S1, S2 heard. Regular. ABDOMEN: Soft. Bowel sounds are heard. EXTREMITIES: No edema. NEUROLOGIC: She is awake, alert. IMPRESSION: 1. Acute on chronic hypoxic respiratory failure where patient is oxygen-dependent. 2. Acute exacerbation of chronic obstructive pulmonary disease with emphysema. 3. Pulmonary vascular congestion with tracheobronchitis. 4. Sepsis with systemic inflammatory response syndrome, improved. 5. Cardiomegaly with RVSP 46 mmHg with moderate aortic stenosis. 6. Known history of hypertension. 7. Known history of anxiety. 8. Former tobacco abuse. 9. Hypothyroidism. 10. Dyslipidemia. PLAN: Will order lactulose to help with her constipation. Will continue with oxygen to keep her saturations 88% or better. Continue with her nebulizer treatments as ordered. Continue with antibiotic therapy. Continue with IV steroids. Continue with pulmonary hygiene. Continue with GI and DVT prophylaxis. She will need to follow up with Dr. Tristen Ceballos on discharge. Medications have been reviewed. Patient is probably at about her baseline, respiratory-singh.
[2017-01-29 20:57] LABS: Glucose,Whole Blood 164 mg/dL (75-99)
[2017-01-29] MEDS: ATORVASTATIN 20 MG TAB PO SCH (21:31)
[2017-01-29] MEDS: MONTELUKAST 10 MG TAB PO SCH (21:32)
[2017-01-29] MEDS: MULTIVITAMINS, THERA 1 EACH TAB PO SCH (21:32)
[2017-01-29] MEDS: ZOLPIDEM 5 MG TAB PO PRN (22:19)
[2017-01-30] MEDS: methylPREDNISolone SOD SUCCI 125 MG/2 ML VIAL IV SCH
[2017-01-30] MEDS: IPRATROPIUM-ALBUTEROL 3 ML NEB INHALATION SCH ×6 (00:50→19:45)
[2017-01-30] MEDS ORDERED: IPRATROPIUM-ALBUTEROL 3 ML NEB INHALATION PRN (03:53)
[2017-01-30 06:02] LABS: Glucose,Whole Blood 157 mg/dL (75-99)
[2017-01-30] MEDS: LEVOTHYROXINE 100 MCG TAB PO SCH (07:18)
[2017-01-30] MEDS: INSULIN LISPRO (humaLOG) 300 UNIT/3 ML VIAL SQ SCH ×4 (07:18→21:30)
[2017-01-30] MEDS: LACTULOSE 20 GM/30 ML CUP PO SCH (08:48)
[2017-01-30] MEDS: ASPIRIN 325 MG TAB PO SCH ×2 (08:50→21:30)
[2017-01-30] MEDS: DOCUSATE 100 MG CAP PO SCH ×2 (08:50→21:31)
[2017-01-30] MEDS: FUROSEMIDE 20 MG TAB PO SCH (08:50)
[2017-01-30] MEDS: predniSONE 20 MG TAB PO SCH (08:50)
[2017-01-30] MEDS: LOSARTAN 50 MG TAB PO SCH (08:50)
[2017-01-30] MEDS: ENOXAPARIN 40 MG/0.4 ML SYRINGE SQ SCH (08:50)
[2017-01-30] MEDS: FAMOTIDINE 20 MG TAB PO SCH (08:51)
[2017-01-30] MEDS: BUDESONIDE 0.5 MG/2 ML NEBU INHALATION SCH ×2 (09:02→19:45)
--- NOTE | 2017-01-30 09:56 | PN ---
DATE OF SERVICE: 01/29/2017 CHIEF COMPLAINT: Re-evaluation. HISTORY OF PRESENT ILLNESS: This 86-year-old female who was admitted to the hospital because of shortness of breath. She has a significant cough and congestion. She has underlying history of significant COPD . The patient is feeling better today. REVIEW OF SYSTEMS: NEURO: Denies any headaches, dizziness. PSYCH: No anxiety. CARDIAC: No chest pain, angina, palpitation. RESPIRATORY: No shortness of breath, cough or expectoration. No shortness of breath at rest. Does have some dyspnea on exertion. Does have some cough. No hemoptysis. GI: No nausea, vomiting, abdominal pain, diarrhea, significant constipation. : No symptoms of dysuria, hematuria, urgency, frequency. EXTREMITIES: Denies pain or edema. CONSTITUTIONAL: No fever or chills. PHYSICAL EXAMINATION: Pleasant female in no distress. Vital signs reveal temperature 96.8, pulse 80, respirations 18, blood pressure 122/62, pulse ox of 97% on 3 liters. HEENT: Normocephalic. NECK: Supple. No JVD. Chest is clear to auscultation. RESPIRATORY: Normal, with generalized decreased air flow and wheezing or rhonchi appreciated present. CARDIAC: Distant heart sounds. S1, S2 with no gallops. Systolic murmur 2/6 left sternal border. ABDOMEN: Soft. Bowel sounds present. EXTREMITIES: No edema. NEUROLOGICAL: Awake, alert, oriented with well-coordinated movements. Laboratory assessment: CBC showed a hemoglobin of 11.5 white count 17.8. Electrolytes were normal except for CO2 of 31. BUN 38, creatinine 0.9. ASSESSMENT: 1. Acute tracheobronchitis. 2. Chronic obstructive pulmonary disease with exacerbation. 3. Constipation. 4. Remote history of carcinoma of the colon. PLAN: Continue present medical regimen. Patient ( ) is symptomatic. ( ). Patient's condition is stable at present continue current regimen. Potential discharge in the next 24 to 48 hours.
--- NOTE | 2017-01-30 10:18 | CDI ---
In responding to this query, please exercise your independent professional judgment. The [facility] Coding Staff and Clinical Documentation Specialists appreciate your assistance in clarifying documentation, maintaining compliance with coding guidelines, accurately documenting patients condition and capturing severity of illness. The fact that a question is asked does not imply that any particular answer is desired or expected. Communication forms are a method of clarifying documentation and are not made part of the Legal Health Record. Thank you in advance for your clarification. Last Revision, September 2015 Naheed Soriano [address] [facility] [place] [address] Documentation Clarification Form Date: 01/30/2017 10:07:00 AM From: Tanisha Alfredo Admit Date: 01/26/2017 1:20:00 PM Patient Name: Cherelle Benítez Visit Number: [id number] Dr. Charanjit Torres Pulmonary progress notes include documentation of 'Sepsis'. History/Risk Factors: Tracheobronchitis COPD Home O2 Clinical Indicators: WBC on admission was 12.6 Blood cultures: preliminary shows no growth Vitals signs on admission: temp 101.7, hr 89, rr 16, bp 132/61, sats 95% on 3L nc 'Sepsis' documented by Pulmonary Treatment: Antibiotics: IV Levaquin administered - changed to PO IV fluids @ 20 cc/hr In your professional opinion, can you please clarify if these findings signify one of the following conditions, whether the condition is POA, and cause, if known? Sepsis Ruled In Sepsis Ruled Out Unable to determine Other, please specify Please document in your progress notes and discharge summary in order to capture severity of illness and risk of mortality. Include clinical findings that support your diagnosis. FYI: Press F11 to launch patient chart. Place X here if this finding has no clinical significance, is not applicable or if you are not able to provide any additional documentation. ALEJANDRA
--- NOTE | 2017-01-30 10:32 | CDI ---
In responding to this query, please exercise your independent professional judgment. The [facility] Coding Staff and Clinical Documentation Specialists appreciate your assistance in clarifying documentation, maintaining compliance with coding guidelines, accurately documenting patients condition and capturing severity of illness. The fact that a question is asked does not imply that any particular answer is desired or expected. Communication forms are a method of clarifying documentation and are not made part of the Legal Health Record. Thank you in advance for your clarification. Last Revision, January 2016 Naheed Soriano [address] [facility] [place] [address] Documentation Clarification Form Date: 01/30/2017 10:18:00 AM From: Tanishabryanna Palaciosbayron Admit Date: 01/26/2017 1:20:00 PM Patient Name: Cherelle Benítez Visit Number: [id number] Dr. Charanjit Torres CHF is documented in the ED disposition. History/Risk Factors: COPD Previous [place] Hypertensive Cardiovascular Disease per H&P Clinical Indicators: Presented to ED with difficulty breathing, EMS found to be hypoxemic Respiratory exam on admission: wheezes, accessory muscle use, decreased breath sounds There was no peripheral edema VS/Pulse OX on admission: HR 89, RR 16, O2 sats 95% on 3L BNP on admission: 3420 Echocardiogram Results on 01/29: ef 50-55%, mild left ventricular hypertrophy, moderate pulmonary hypertension Chest X Ray: showed 'vascular congestion' Treatment: IV Lasix administered and changed to PO In your professional opinion, can you please clarify the acuity and type of CHF if known? Acute Chronic Acute on Chronic AND Systolic Diastolic Systolic and Diastolic Cor Pulmonale (Right Sided HF w/ Pulmonary HTN) Unable to determine Other, please specify Please document in your progress notes and discharge summary in order to capture severity of illness and risk of mortality. Include clinical findings that support your diagnosis. FYI: Press F11 to launch patient chart. Place X here if this finding has no clinical significance, is not applicable or if you are not able to provide any additional documentation. MTDD
[2017-01-30 11:49] LABS: Glucose,Whole Blood 123 mg/dL (75-99)
--- NOTE | 2017-01-30 14:08 | P.PN ---
Subjective Principal diagnosis: Acute exacerbation of COPD Patient seen and examined. Patient states her breathing is much better. She states she received a sleeping pill last night and is still very sleepy. She is otherwise doing well. She has no complaints are needed at this time. Objective - Vital Signs Vital signs: Vital Signs Temp 97.0 F L 01/30/17 12:00 Pulse 86 01/30/17 13:11 Resp 20 01/30/17 12:00 BP 120/74 01/30/17 12:00 Pulse Ox 98 01/30/17 12:00 Intake & Output 01/29/17 01/30/17 01/30/17 18:59 06:59 18:59 Intake Total 393 100 690 Balance 393 100 690 Weight 58.9 kg 59.5 kg Intake: IV 153 100 10 Sodium Chloride 0.9% 1, 153 100 10 000 ml @ 20 mls/hr IV . Q24H [facility] Rx#:[id number] Oral 240 680 Other: Voiding Method Toilet Toilet Toilet Diaper Diaper Diaper Incontinent Incontinent Incontinent # Voids 1 - Exam Gen.: Patient is alert and oriented 3, no acute distress Cardiovascular: Regular rate and rhythm, S1/S2 Lungs: diminished breath sounds bilaterally, scattered expiratory wheezing Abdomen: Soft nontender nondistended positive bowel sounds Extremities: No edema - Labs CBC & Chem 7: 01/29/17 13:30 01/29/17 13:30 Labs: Abnormal Lab Results - Last 24 Hours (Table) 01/29/17 01/29/17 01/29/17 Range/Units 13:30 16:42 20:55 Carbon Dioxide 31 H (22-30) mmol/L BUN 38 H (7-17) mg/dL Glucose 155 H (74-99) mg/dL POC Glucose (mg/dL) 140 H 164 H (75-99) mg/dL 01/30/17 01/30/17 Range/Units 06:01 11:47 Carbon Dioxide (22-30) mmol/L BUN (7-17) mg/dL Glucose (74-99) mg/dL POC Glucose (mg/dL) 157 H 123 H (75-99) mg/dL Microbiology - Last 24 Hours (Table) 01/27/17 17:20 Gram Stain - Final Sputum Sputum Culture - Final Assessment and Plan Plan: Acute on chronic hypoxic respiratory failure Acute exacerbation of COPD Emphysema Cardiomegaly Pulmonary vascular congestion Mild Pulmonary hypertension, Likely WHO group 2-3 Tracheobronchitis Sepsis with SIRS History of hypertension History of anxiety Hypothyroidism Dyslipidemia Former tobacco abuse O2 to maintain saturation greater than or equal to 88% Bronchodilators Pulmicort Prednisone taper Antibiotics: Levaquin Mucinex Singulair Incentive spirometry and pulmonary hygiene GI and DVT prophylaxis Continued smoking cessation outpatient pulmonary follow-up with Dr. RADHA Ceballos upon discharge OK to DC from pulmonary standpoint
[2017-01-30] MEDS: LEVOFLOXACIN 250 MG TAB PO SCH (15:15)
[2017-01-30 16:31] LABS: Glucose,Whole Blood 124 mg/dL (75-99)
[2017-01-30 20:18] LABS: Glucose,Whole Blood 142 mg/dL (75-99)
[2017-01-30] MEDS: MONTELUKAST 10 MG TAB PO SCH (21:30)
[2017-01-30] MEDS: MULTIVITAMINS, THERA 1 EACH TAB PO SCH (21:30)
[2017-01-30] MEDS: ATORVASTATIN 20 MG TAB PO SCH (21:30)
--- NOTE | 2017-01-30 22:57 | PN ---
DATE OF SERVICE: 01/30/2017 CHIEF COMPLAINT: Re-evaluation. HISTORY OF PRESENT ILLNESS: This is an 86-year-old was admitted to the hospital with shortness of breath. The patient has a history of COPD, suggestion of exacerbation of COPD. REVIEW OF SYSTEMS: NEURO: Denies any headaches, dizziness. PSYCH: No anxiety. CARDIAC: No chest pain, angina, palpitation. RESPIRATORY: Denies shortness of breath with oxygen. The patient has some cough. No hemoptysis. GI: No nausea, vomiting, abdominal pain, diarrhea. : No symptoms of dysuria, hematuria, urgency, frequency. EXTREMITIES: No pain or edema. CONSTITUTIONAL: No fever or chills. PHYSICAL EXAMINATION: Pleasant female in no distress. VITAL SIGNS: Temperature 97, pulse 81, respirations 18, blood pressure 132/66, pulse ox 99% on 2 liters. HEENT: Normocephalic. NECK: Supple. No JVD. CHEST: Clear to percussion. The patient has increased percussion noted bilaterally. The lung reyes reveal generalized decreased air flow. No rhonchi or wheezing appreciated today. CARDIAC: Distant heart sounds. S1, S2 with no gallops, murmurs. ABDOMEN: Soft. Bowel sounds normal. No organomegaly. No abdominal bruits. Extremities reveal no edema. Good pulses in both upper and lower extremities. Neurologically awake, alert, oriented with well-coordinated movements. ASSESSMENT: 1. Chronic obstructive pulmonary disease exacerbation. 2. Constipation, resolved. 3. History of carcinoma of the colon. 4. History of hypertension ( ). PLAN: The patient is stable. Continue present medical regimen. Patient's IV steroids will be discontinued. Started on oral prednisone. Potential discharge home tomorrow.
[2017-01-31] MEDS: LEVOTHYROXINE 100 MCG TAB PO SCH (06:02)
[2017-01-31] MEDS: INSULIN LISPRO (humaLOG) 300 UNIT/3 ML VIAL SQ SCH (06:27)
[2017-01-31 06:44] LABS: Glucose,Whole Blood 93 mg/dL (75-99)
[2017-01-31] MEDS: IPRATROPIUM-ALBUTEROL 3 ML NEB INHALATION SCH ×2 (07:12→11:17)
[2017-01-31] MEDS: BUDESONIDE 0.5 MG/2 ML NEBU INHALATION SCH (07:12)
[2017-01-31] MEDS: ENOXAPARIN 40 MG/0.4 ML SYRINGE SQ SCH (09:35)
[2017-01-31] MEDS: DOCUSATE 100 MG CAP PO SCH (09:35)
[2017-01-31] MEDS: ASPIRIN 325 MG TAB PO SCH (09:35)
[2017-01-31] MEDS: FUROSEMIDE 20 MG TAB PO SCH (09:36)
[2017-01-31] MEDS: FAMOTIDINE 20 MG TAB PO SCH (09:36)
[2017-01-31] MEDS: LACTULOSE 20 GM/30 ML CUP PO SCH (09:37)
[2017-01-31] MEDS: LOSARTAN 50 MG TAB PO SCH (09:38)
[2017-01-31] MEDS: predniSONE 20 MG TAB PO SCH (09:38)
[2017-01-31 11:44] VITALS: BP 127/60; PULSE 69; RESP 18; TEMP 96.8
--- NOTE | 2017-01-31 22:49 | PN ---
DATE OF SERVICE: 01/31/2017 CHIEF COMPLAINT: Re-evaluation. HISTORY OF PRESENT ILLNESS: This is an elderly female, 86 years of age, was admitted to the hospital with shortness of breath. The patient had COPD exacerbation. She is actually doing much better. REVIEW OF SYSTEMS: NEURO: Denies any headaches, dizziness. PSYCH: No anxiety. CARDIAC: No chest pain, angina, palpitation. RESPIRATORY: Denies shortness of breath at rest. Does have some mild dyspnea on exertion with activity, but no difficulty. EXTREMITIES: Reveal no pain or edema. CONSTITUTIONAL: No fevers, chills. PHYSICAL EXAMINATION: Pleasant female in no distress. VITAL SIGNS: Temperature 97.3, pulse 68, respirations 12, blood pressure 115/53. HEENT: Normocephalic. NECK: No JVD. Chest is clear to auscultation with decreased generalized air flow. No rhonchi or wheezing appreciated. CARDIAC: Distant heart sounds. S1, S2 with no gallops. Systolic murmur 2/6 left sternal border. ABDOMEN: Soft. Bowel sounds present. Extremities reveal no edema. NEUROLOGICAL: Awake, alert, oriented with well-coordinated movements. Laboratory assessment: ( ) negative blood cultures and normal respiratory jami on sputum culture. ASSESSMENT: 1. Chronic obstructive pulmonary disease exacerbation improved. 2. Hypertension. 3. Remote history of carcinoma of the colon. PLAN: The patient is stable. Continue present medical regimen. The patient's condition discussed with the patient. Prognosis guarded. Patient to follow up with ( ) in the next few days.
--- NOTE | 2017-02-06 13:23 | CDI ---
In responding to this query, please exercise your independent professional judgment. The [facility] Coding Staff and Clinical Documentation Specialists appreciate your assistance in clarifying documentation, maintaining compliance with coding guidelines, accurately documenting patients condition and capturing severity of illness. The fact that a question is asked does not imply that any particular answer is desired or expected. Communication forms are a method of clarifying documentation and are not made part of the Legal Health Record. Thank you in advance for your clarification. Last Revision, January 2016 Naheed Soriano [address] [facility] [place] [address] Documentation Clarification Form Date: 01/30/2017 10:18:00 AM From: Tanisha Fuentes Admit Date: 01/26/2017 1:20:00 PM Patient Name: Cherelle Benítez Visit Number: [id number] Discharge Date: 01/31/17 Dr. Charanjit Torres: CHF is documented in the ED disposition. History/Risk Factors: COPD Previous [place] Hypertensive Cardiovascular Disease per H&P Clinical Indicators: Presented to ED with difficulty breathing, EMS found to be hypoxemic Respiratory exam on admission: wheezes, accessory muscle use, decreased breath sounds There was no peripheral edema VS/Pulse OX on admission: HR 89, RR 16, O2 sats 95% on 3L BNP on admission: 3420 Echocardiogram Results on 01/29: ef 50-55%, mild left ventricular hypertrophy, moderate pulmonary hypertension Chest X Ray: showed 'vascular congestion' Treatment: IV Lasix administered and changed to PO In your professional opinion, can you please clarify the acuity and type of CHF if known? Acute Chronic Acute on Chronic AND Systolic Diastolic Systolic and Diastolic Cor Pulmonale (Right Sided HF w/ Pulmonary HTN) Unable to determine Other, please specify Please document in your progress notes and discharge summary in order to capture severity of illness and risk of mortality. Include clinical findings that support your diagnosis. FYI: Press F11 to launch patient chart. Place X here if this finding has no clinical significance, is not applicable or if you are not able to provide any additional documentation. MTDD
--- NOTE | 2017-02-06 13:25 | CDI ---
In responding to this query, please exercise your independent professional judgment. The [facility] Coding Staff and Clinical Documentation Specialists appreciate your assistance in clarifying documentation, maintaining compliance with coding guidelines, accurately documenting patients condition and capturing severity of illness. The fact that a question is asked does not imply that any particular answer is desired or expected. Communication forms are a method of clarifying documentation and are not made part of the Legal Health Record. Thank you in advance for your clarification. Last Revision, September 2015 Naheedfelipa Soriano [address] [facility] [place] [address] Documentation Clarification Form Date: 01/30/2017 10:07:00 AM From: Tanisha Fuentes Admit Date: 01/26/2017 1:20:00 PM Patient Name: Cherelle Benítez Visit Number: [id number] Discharge Date: 01/31/17 Dr. Charanjit Torres: Pulmonary progress notes include documentation of 'Sepsis'. History/Risk Factors: Tracheobronchitis COPD Home O2 Clinical Indicators: WBC on admission was 12.6 Blood cultures: preliminary shows no growth Vitals signs on admission: temp 101.7, hr 89, rr 16, bp 132/61, sats 95% on 3L nc 'Sepsis' documented by Pulmonary Treatment: Antibiotics: IV Levaquin administered - changed to PO IV fluids @ 20 cc/hr In your professional opinion, can you please clarify if these findings signify one of the following conditions, whether the condition is POA, and cause, if known? Sepsis Ruled In Sepsis Ruled Out Unable to determine Other, please specify Please document in your progress notes and discharge summary in order to capture severity of illness and risk of mortality. Include clinical findings that support your diagnosis. FYI: Press F11 to launch patient chart. Place X here if this finding has no clinical significance, is not applicable or if you are not able to provide any additional documentation. ALEJANDRA
--- NOTE | 2017-02-11 14:50 | P.DS ---
Providers Date of admission: 01/26/17 13:20 Attending physician: Charanjit Torres Primary care physician: Charanjit Torres Hospital Course: History present illness and Hospital course: This 86-year-old female was admitted to the hospital with complaints of shortness of breath cough congestion and a fever. Influenza was ruled out. Chest x-ray did not reveal any pneumonic process. Patient felt to have tracheobronchitis. The patient had no evidence of hypertension, history of mild temperature 101.7. The patient had no further fever after the initial fever. She had continued to have stable hemodynamics. The patient was seen by pulmonary who did label her as sepsis which I respectfully disagree. There was no clinical evidence of sepsis or any metabolic evidence. The patient had no lactic acid drawn. Patient's general condition improved and recovered. Patient is at time of discharge was stable. Patient does have a history of chronic respiratory failure. Her echocardiogram reveals 50-55% ejection fraction. She does have evidence of some pulmonary hypertension and probably had underlying mild diastolic distal function and associated mild congestive cardiac failure. Symptoms have improved significantly. At the time of discharge patient's stable. Final diagnoses 1. Acute on chronic respiratory failure 2. Tracheobronchitis 3. 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 History of carcinoma of the colon in remission. - Plan - Discharge Summary New Discharge Prescriptions: Levofloxacin [Levaquin] 250 mg PO Q24H #7 tab predniSONE 10 mg PO DIRECTED #32 tab Discharge Medication List Levothyroxine Sodium [Synthroid] 100 mcg PO DAILY 01/17/16 [History] Multivit-Min/FA/Lycopene/Lut [Centrum Silver Tablet] 1 tab PO HS 01/17/16 [ History] Furosemide [Lasix] 20 mg PO DAILY #30 tab 01/25/16 [Rx] Losartan [Cozaar] 50 mg PO DAILY #30 tab 01/25/16 [Rx] Simvastatin [Zocor] 40 mg PO HS tab 01/25/16 [Rx] ALPRAZolam [Xanax] 0.25 mg PO DAILY PRN 01/26/17 [History] Aspirin 325 mg PO BID 01/26/17 [History] Budesonide [Pulmicort] 0.5 mg INHALATION RT-BID 01/26/17 [History] Ipratropium Nebulized [Atrovent Nebulized] 0.5 mg INHALATION RT-Q6H PRN [History] guaiFENesin [Mucinex] 600 mg PO Q12H PRN 01/26/17 [History] Docusate [Colace] 100 mg PO BID cap 01/31/17 [Rx] Famotidine [Pepcid] 20 mg PO DAILY tab 01/31/17 [Rx] Ipratropium-Albuterol Nebulize [Duoneb 0.5 mg-3 mg/3 ml Soln] 3 ml INHALATION RT -QID ampul.neb 01/31/17 [Rx] Ipratropium-Albuterol Nebulize [Duoneb 0.5 mg-3 mg/3 ml Soln] 3 ml INHALATION RT -QID PRN #0 ampul.neb 01/31/17 [Rx] Levofloxacin [Levaquin] 250 mg PO Q24H #7 tab 01/31/17 [Rx] predniSONE 10 mg PO DIRECTED #32 tab 01/31/17 [Rx] Follow up Appointment(s)/Referral(s): Charanjit Torres MD [Primary Care Provider] - 02/05/17 2:15 pm Gabriel Ceballos MD [STAFF PHYSICIAN] - 02/09/17 4:00 pm Discharge Disposition: HOME SELF-CARE
== END 2017-01-31 12:15 | disposition home or self-care (01) | DRG 190 ==
LOC: EC 10:52 → 6SEL 13:20
PROVIDERS: ADMIT Internal Medicine; ATTEND Internal Medicine
DX: J44.0 Chronic obstructive pulmonary disease with (acute) lower respiratory infection (principal); J96.21 Acute and chronic respiratory failure with hypoxia; I50.30 Unspecified diastolic (congestive) heart failure; I11.0 Hypertensive heart disease with heart failure; I27.2 Other secondary pulmonary hypertension; J20.9 Acute bronchitis, unspecified; J44.1 Chronic obstructive pulmonary disease with (acute) exacerbation; I25.10 Atherosclerotic heart disease of native coronary artery without angina pectoris; E03.9 Hypothyroidism, unspecified; E78.5 Hyperlipidemia, unspecified; J45.909 Unspecified asthma, uncomplicated; H91.90 Unspecified hearing loss, unspecified ear; I25.2 Old myocardial infarction; F41.9 Anxiety disorder, unspecified; M19.90 Unspecified osteoarthritis, unspecified site; I35.0 Nonrheumatic aortic (valve) stenosis; K59.00 Constipation, unspecified; Z99.81 Dependence on supplemental oxygen; Z87.891 Personal history of nicotine dependence; Z85.038 Personal history of other malignant neoplasm of large intestine; Z79.51 Long term (current) use of inhaled steroids; Z79.82 Long term (current) use of aspirin; Z79.899 Other long term (current) drug therapy
CPT/HCPCS: 36415; 71020; 80048; 80053; 82550; 82553; 83036; 83735; 83880; 84484; 85025; 85610; 85730; 87040; 87070; 87205; 87502; 93005; 93306; 94640; 94760; 96365; 96367; 96375; 99291

== ENCOUNTER 2017-04-02 22:00 | Inpatient (IN) | payer MEDICARE, BC ==
[2017-04-02] MEDS ORDERED: IPRATROPIUM-ALBUTEROL 3 ML NEB INHALATION STA (22:06)
[2017-04-02] MEDS ORDERED: methylPREDNISolone SOD SUCCI 125 MG/2 ML VIAL IV STA (22:10)
--- NOTE | 2017-04-02 22:10 | ED ---
SOB HPI - General Chief Complaint: Shortness of Breath Stated Complaint: GEORGE Time Seen by Provider: 04/02/17 22:04 Source: patient, EMS Mode of arrival: EMS Limitations: no limitations - History of Present Illness Initial Comments: Is an 86-year-old female with a history of COPD and 2 L of oxygen at home who presents to the emergency department for worsening shortness of breath. She states it started this afternoon gradually worsened. She does state that she's had a little bit of a cough. She admits to some right-sided chest discomfort when she coughs. She denies any other complaints. She was given a DuoNeb treatment in route to the hospital by EMS. She states that she's not sure what usually triggers her COPD worse. She denies any fevers or chills. No other complaints. The patient has been admitted multiple times for COPD exacerbation. - Related Data Home Medications Medication Instructions Recorded Confirmed Levothyroxine Sodium [Synthroid] 100 mcg PO [id number] 01/17/16 04/02/17 Multivit-Min/FA/Lycopene/Lut 1 tab PO HS 01/17/16 04/02/17 [Centrum Silver Tablet] Aspirin 325 mg PO BID 01/26/17 04/02/17 guaiFENesin [Mucinex] 600 mg PO Q12H PRN 01/26/17 04/02/17 Budesonide [Pulmicort] 0.5 mg INHALATION RT-BID 04/02/17 04/02/17 Furosemide [Lasix] 20 mg PO Q48H 04/02/17 04/02/17 Ipratropium-Albuterol Nebulize 3 ml INHALATION RT-QID PRN 04/02/17 04/02/17 [Duoneb 0.5 mg-3 mg/3 ml Soln] Losartan [Cozaar] 50 mg PO QAM 04/02/17 04/02/17 Previous Rx's Medication Instructions Recorded Simvastatin [Zocor] 40 mg PO HS tab 01/25/16 Allergies Allergy/AdvReac Type Severity Reaction Status Date / Time Penicillins Allergy Unknown Verified 01/26/17 11:40 pneumococcal 23-valent Allergy Rash/Hives Verified 01/26/17 11:40 polysacchari [From Pneumovax 23] adhesive tape AdvReac Unknown Verified 01/26/17 11:40 Review of Systems ROS Statement: Those systems with pertinent positive or pertinent negative responses have been documented in the HPI. ROS Other: All systems not noted in ROS Statement are negative. Past Medical History Past Medical History: Asthma, Cancer, Heart Failure, COPD, Hearing Disorder / Deafness, Hyperlipidemia, Pneumonia, Respiratory Disorder, Thyroid Disorder Additional Past Medical History / Comment(s): Colon ca with SX, hypothyroid, tracheobronchitis, [place] bilaterally, wears 2L at home. Pt denies RI, arthritis, HTN or pulmonary HTN that are in PMR. Last Myocardial Infarction Date:: 09/2016 History of Any Multi-Drug Resistant Organisms: None Reported Past Surgical History: Appendectomy, Bowel Resection, Section, Cholecystectomy, Hysterectomy, Orthopedic Surgery, Tonsillectomy Additional Past Surgical History / Comment(s): colectomy for cancer, thyroidectomy, bilateral cataract removal with lens implants, C- Sections x 3, L foot fx with surgical repair, colonoscopies with polypectomy. Past Anesthesia/Blood Transfusion Reactions: No Reported Reaction, Motion Sickness Additional Past Anesthesia/Blood Transfusion Reaction / Comment(s): Pt has never recieved blood. Past Psychological History: Anxiety Additional Psychological History / Comment(s): Pt resides with her spouse and their ervin. She is independent. She uses no assistive device. She drives. She has a nebulizer and home oxygen. She lives in a single level home with 4 steps to get inside. Smoking Status: Former smoker Past Alcohol Use History: None Reported Additional Past Alcohol Use History / Comment(s): Pt quit smoking in 2009. She has one alcoholic drink on her birthday each year and a rare beer otherwise. Past Drug Use History: None Reported - Past Family History Father Additional Family Medical History / Comment(s): Pt did not know her father well. He was an alcoholic and from it. Mother Family Medical History: Myocardial Infarction (RI) Additional Family Medical History / Comment(s): Mother of an RI at age 51yrs. General Exam - General Exam Comments Initial Comments: Constitutional: Awake alert appears to be in moderate respiratory distress Head: Normocephalic atraumatic Eyes: no conjunctival injection No scleral icterus EOMI Neck: No JVD Supple Heart: Regular rate rhythm normal S1-S2 no murmurs Lungs: There is accessory muscle usage and moderate respiratory distress, very minimal expiratory wheezing and decreased breath sounds bilaterally Abdomen: Soft nondistended nontender Extremities: Non edematous DP pulses intact Radial pulses intact Neuro: A&Ox3 No focal neurologic deficits Psych: Appropriate mood and affect Limitations: no limitations Course Vital Signs 04/02/17 04/02/17 04/02/17 22:00 22:12 22:30 Temperature 99.2 F Pulse Rate 106 H 87 91 Respiratory 30 H Rate Blood Pressure 122/55 O2 Sat by Pulse 99 Oximetry 04/02/17 04/02/17 23:09 23:15 Temperature Pulse Rate 102 H Respiratory 26 H 26 H Rate Blood Pressure 130/59 O2 Sat by Pulse 98 Oximetry - Reevaluation(s) Reevaluation #1: 04/02/17 22:14 EKG showing sinus tachycardia with a rate of 105. There are no abnormal ST segment changes or T-wave inversions. QTC is 515. The rest of the intervals appear normal. There is some very minimal widening of the QRS complex which is nonspecific. Possible right bundle-branch etiology. No ectopy. Medical Decision Making - Medical Decision Making This is an 86-year-old female presents emergency department for shortness of breath. She was found to be in COPD and possibly CHF exacerbation. She was not able to be weaned off of BiPAP. She is currently on FiO2 of 50%. She is tolerating the BiPAP well. I spoke with Dr. Torres who knows the patient well who recommended admission. Patient will be admitted to the hospital with DuoNeb treatments, steroids, and Lasix Dr. Torres will take over care from this point forward. - Lab Data Result diagrams: 04/02/17 22:10 04/02/17 22:10 Lab Results 04/02/17 04/02/17 04/02/17 Range/Units 22:10 22:10 22:10 WBC 10.3 (3.8-10.6) k/uL RBC 3.42 L (3.80-5.40) m/uL Hgb 10.2 L (11.4-16.0) gm/dL Hct 32.2 L (34.0-46.0) % MCV 94.0 (80.0-100.0) fL MCH 29.9 (25.0-35.0) pg MCHC 31.8 (31.0-37.0) g/dL RDW 13.6 (11.5-15.5) % Plt Count 199 (150-450) k/uL Neutrophils % 79 % Lymphocytes % 13 % Monocytes % 3 % Eosinophils % 2 % Basophils % 0 % Neutrophils # 8.2 H (1.3-7.7) k/uL Lymphocytes # 1.4 (1.0-4.8) k/uL Monocytes # 0.4 (0-1.0) k/uL Eosinophils # 0.2 (0-0.7) k/uL Basophils # 0.0 (0-0.2) k/uL Hypochromasia Slight PT 10.4 (9.0-12.0) sec INR 1.0 (<1.1) APTT 27.3 (22.0-30.0) sec Sodium 140 (137-145) mmol/L Potassium 4.6 (3.5-5.1) mmol/L Chloride 108 H (98-107) mmol/L Carbon Dioxide 25 (22-30) mmol/L Anion Gap 7 mmol/L BUN 21 H (7-17) mg/dL Creatinine 0.68 (0.52-1.04) mg/dL Est GFR (MDRD) Af Amer >60 (>60 ml/min/1.73 sqM) Est GFR (MDRD) Non-Af >60 (>60 ml/min/1.73 sqM) Glucose 189 H (74-99) mg/dL Calcium 8.7 (8.4-10.2) mg/dL Magnesium 1.7 (1.6-2.3) mg/dL Total Bilirubin 0.6 (0.2-1.3) mg/dL AST 32 (14-36) U/L ALT 26 (9-52) U/L Alkaline Phosphatase 54 (38-126) U/L CK-MB (CK-2) (0.0-2.4) ng/mL Troponin I (0.000-0.034) ng/mL NT-Pro-B Natriuret Pep pg/mL Total Protein 6.0 L (6.3-8.2) g/dL Albumin 3.3 L (3.5-5.0) g/dL 04/02/17 04/02/17 Range/Units 22:10 22:10 WBC (3.8-10.6) k/uL RBC (3.80-5.40) m/uL Hgb (11.4-16.0) gm/dL Hct (34.0-46.0) % MCV (80.0-100.0) fL MCH (25.0-35.0) pg MCHC (31.0-37.0) g/dL RDW (11.5-15.5) % Plt Count (150-450) k/uL Neutrophils % % Lymphocytes % % Monocytes % % Eosinophils % % Basophils % % Neutrophils # (1.3-7.7) k/uL Lymphocytes # (1.0-4.8) k/uL Monocytes # (0-1.0) k/uL Eosinophils # (0-0.7) k/uL Basophils # (0-0.2) k/uL Hypochromasia PT (9.0-12.0) sec INR (<1.1) APTT (22.0-30.0) sec Sodium (137-145) mmol/L Potassium (3.5-5.1) mmol/L Chloride (98-107) mmol/L Carbon Dioxide (22-30) mmol/L Anion Gap mmol/L BUN (7-17) mg/dL Creatinine (0.52-1.04) mg/dL Est GFR (MDRD) Af Amer (>60 ml/min/1.73 sqM) Est GFR (MDRD) Non-Af (>60 ml/min/1.73 sqM) Glucose (74-99) mg/dL Calcium (8.4-10.2) mg/dL Magnesium (1.6-2.3) mg/dL Total Bilirubin (0.2-1.3) mg/dL AST (14-36) U/L ALT (9-52) U/L Alkaline Phosphatase (38-126) U/L CK-MB (CK-2) 2.8 H* (0.0-2.4) ng/mL Troponin I 0.229 H* (0.000-0.034) ng/mL NT-Pro-B Natriuret Pep 6810 pg/mL Total Protein (6.3-8.2) g/dL Albumin (3.5-5.0) g/dL Disposition Clinical Impression: COPD exacerbation, CHF exacerbation, NSTEMI (non-ST elevated myocardial infarction) Disposition: ADMITTED IP TO THIS HOSP Condition: Stable
[2017-04-02 22:24] LABS: Basophils % (A) 0 %; CH 29.4; CHCM 31.4; Eosinophils # (A) 0.2 k/uL (0-0.7); Eosinophils % (A) 2 %; HCT 32.2 % (34.0-46.0); HDW 2.93; HGB 10.2 gm/dL (11.4-16.0); Hypochromasia Slight; Luc # (Auto) 0.26; Luc % (Auto) 3; Lymphocytes # (A) 1.4 k/uL (1.0-4.8); Lymphocytes % (A) 13 %; MCH 29.9 pg (25.0-35.0); MCHC 31.8 g/dL (31.0-37.0); Mean Platelet Volume 7.8; Monocytes # (A) 0.4 k/uL (0-1.0); Monocytes % (A) 3 %; Neutrophils # (A) 8.2 k/uL (1.3-7.7); Neutrophils % (A) 79 %; RBC 3.42 m/uL (3.80-5.40); RDW 13.6 % (11.5-15.5); WBC 10.3 k/uL (3.8-10.6); WBC (Perox) 10.76
[2017-04-02 22:33] LABS: Partial Thromboplastin Time 27.3 sec (22.0-30.0); Prothrombin Time 10.4 sec (9.0-12.0)
[2017-04-02 22:39] LABS: ALT 26 U/L (9-52); AST 32 U/L (14-36); Alkaline Phosphatase 54 U/L (38-126); Anion Gap 7 mmol/L; Blood Urea Nitrogen 21 mg/dL (7-17); Calcium 8.7 mg/dL (8.4-10.2); Carbon Dioxide 25 mmol/L (22-30); Chloride 108 mmol/L (98-107); Glucose 189 mg/dL (74-99); Magnesium 1.7 mg/dL (1.6-2.3); Non-African American GFR(MDRD) >60 (>60 ml/min/1.73 sqM); Potassium 4.6 mmol/L (3.5-5.1); Sodium 140 mmol/L (137-145); Total Bilirubin 0.6 mg/dL (0.2-1.3)
--- NOTE | 2017-04-02 22:55 | XR ---
EXAM: XR Chest, 1 View CLINICAL HISTORY: Reason: sob TECHNIQUE: Frontal view of the chest. COMPARISON: 01/28/17 and 01/26/17 two-view exams. FINDINGS: Lungs: The pulmonary vascular markings remain prominent, perhaps somewhat more so than previously. There is minimal hazy density at the lung bases suggesting a combination of atelectasis and perhaps small amounts of pleural fluid. Pleural space: See above. Heart: Stable cardiomegaly. Mediastinum: Mediastinal contours are stable. Bones/joints: Degenerative change without acute displaced fracture seen. Upper abdomen: There is again probable elevation or eventration of the left diaphragm. Right upper quadrant clips suggest cholecystectomy. IMPRESSION: Constellation of findings suggests the presence of mild CHF. Follow-up is recommended to assess for clearing.
[2017-04-02] MEDS ORDERED: FUROSEMIDE 10 MG/ML 4 ML VIAL IV STA (23:00)
[2017-04-02 23:05] LABS: Creatine Kinase MB 2.8 ng/mL (0.0-2.4); Troponin I 0.229 ng/mL (0.000-0.034)
[2017-04-02] MEDS ORDERED: NALOXONE 0.4 MG/ML 1 ML VIAL IV PRN (23:50)
[2017-04-02] MEDS ORDERED: HEPARIN SODIUM,PORCINE 5,000 UNIT/ML 1 ML VIAL IV ONE (23:51)
[2017-04-02 23:55] LABS: VBG PH 7.38 (7.31-7.41)
[2017-04-03] MEDS: HEPARIN SODIUM,PORCINE/D5W PMX 25,000 UNIT in DEXTROSE/WATER 1 500ML.BAG IV SCH (00:41)
[2017-04-03 01:32] LABS: Glucose,Whole Blood 195 mg/dL (75-99)
[2017-04-03] MEDS: methylPREDNISolone SOD SUCCI 125 MG/2 ML VIAL IV SCH ×4 (01:38→17:13)
[2017-04-03 04:39] LABS: Glucose,Whole Blood 189 mg/dL (75-99)
[2017-04-03 05:34] LABS: Creatine Kinase MB 13.4 ng/mL (0.0-2.4); Troponin I 1.74 ng/mL (0.000-0.034)
[2017-04-03] MEDS: IPRATROPIUM-ALBUTEROL 3 ML NEB INHALATION PRN ×3 (06:03→21:08)
[2017-04-03] MEDS: BUDESONIDE 0.5 MG/2 ML NEBU INHALATION SCH ×2 (06:09→21:08)
[2017-04-03] MEDS: LEVOTHYROXINE 100 MCG TAB PO SCH (06:50)
[2017-04-03] MEDS: LEVOFLOXACIN 500 MG TAB PO SCH (06:50)
[2017-04-03 07:12] LABS: Glucose,Whole Blood 205 mg/dL (75-99)
[2017-04-03] MEDS: INSULIN LISPRO (humaLOG) 300 UNIT/3 ML VIAL SQ SCH ×4 (07:12→21:18)
[2017-04-03] MEDS ORDERED: guaiFENesin 600 MG TABLET.ER PO PRN (07:46)
[2017-04-03 08:35] LABS: Hemoglobin A1C 5.8 % (4.2-6.1)
[2017-04-03 08:36] LABS: Anion Gap 11 mmol/L; Blood Urea Nitrogen 21 mg/dL (7-17); Calcium 8.9 mg/dL (8.4-10.2); Carbon Dioxide 24 mmol/L (22-30); Chloride 107 mmol/L (98-107); Glucose 187 mg/dL (74-99); Non-African American GFR(MDRD) >60 (>60 ml/min/1.73 sqM); Sodium 142 mmol/L (137-145)
[2017-04-03] MEDS: ASPIRIN 325 MG TAB PO SCH ×2 (08:48→21:14)
[2017-04-03] MEDS: LOSARTAN 50 MG TAB PO SCH (08:48)
[2017-04-03 08:54] LABS: Basophils % (A) 0 %; CH 29.4; CHCM 31.7; Eosinophils % (A) 1 %; HCT 31.4 % (34.0-46.0); HDW 3.03; HGB 10.2 gm/dL (11.4-16.0); Hypochromasia Slight; Luc # (Auto) 0.04; Luc % (Auto) 1; Lymphocytes # (A) 0.6 k/uL (1.0-4.8); Lymphocytes % (A) 8 %; MCH 30.4 pg (25.0-35.0); MCHC 32.5 g/dL (31.0-37.0); MCV 93.4 fL (80.0-100.0); Mean Platelet Volume 9.4; Monocytes # (A) 0.1 k/uL (0-1.0); Monocytes % (A) 2 %; Neutrophils # (A) 5.9 k/uL (1.3-7.7); Neutrophils % (A) 89 %; RBC 3.36 m/uL (3.80-5.40); RDW 13.3 % (11.5-15.5); WBC 6.7 k/uL (3.8-10.6); WBC (Perox) 6.32
[2017-04-03] MEDS ORDERED: FUROSEMIDE 20 MG TAB PO SCH (09:00)
--- NOTE | 2017-04-03 11:52 | ECHOF ---
Referral Reason:chest pain/sob MEASUREMENTS -------- HEIGHT: 157.5 cm WEIGHT: 14.1 kg BP: 20/51 IVSd: 1.2 cm (0.6 - 1.1) LVIDd: 5.0 cm (3.9 - 5.3) LVPWd: 1.3 cm (0.6 - 1.1) IVSs: 1.4 cm LVIDs: 4.6 cm LVPWs: 1.4 cm LA Diam: 3.5 cm (2.7 - 3.8) LAESV Index (A-L): 98.19 ml/m Ao Diam: 3.0 cm (2.0 - 3.7) LA Diam: 4.0 cm (2.7 - 3.8) MV EXCURSION: 16.312 mm (> 18.000) MV EF SLOPE: 73 mm/s (70 - 150) EPSS: 1.2 cm MV E Corbin: 0.96 m/s MV DecT: 199 ms MV A Corbin: 0.97 m/s MV E/A Ratio: 0.99 AV maxP.47 mmHg AV meanP.12 mmHg RAP: 5.00 mmHg RVSP: 51.95 mmHg FINDINGS -------- Sinus rhythm. 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 There is mild concentric left ventricular hypertrophy. There is moderate global hypokinesis of LV . Overall left ventricular systolic function is moderate-severely impaired with, an EF between 30 - 35 %. Anterseptal Hypokinesis Inferior Hypokinesis Septal Hypokinesis The right ventricle is normal in size. LA is severely dilated >40 ml/m2 The right atrial size is normal. Peak/mean gradient across the Aortic Valve is 19.47mmHg / 11.12mmHg. Aov is stenotic with decrease opening. Aortic Valve Gradient is underestimated due to decreased EF. Mild mitral annular calcification present. Mild mitral regurgitation is present. Mild tricuspid regurgitation present. There is moderate pulmonary hypertension. The right ventricular systolic pressure, as measured by Doppler, is 51.95mmHg. Trace/mild (physiologic) pulmonic regurgitation. The aortic root size is normal. There is no pericardial effusion. CONCLUSIONS -------- 1. 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 Aov is stenotic with decrease opening. 3. Aortic Valve Gradient is underestimated due to decreased EF. 4. Mild mitral annular calcification present. 5. Mild mitral regurgitation is present. 6. Mild tricuspid regurgitation present. 7. There is moderate pulmonary hypertension. 8. The right ventricular systolic pressure, as measured by Doppler, is 51.95mmHg. 9. Trace/mild (physiologic) pulmonic regurgitation. 10. There is no pericardial effusion. 11. There is mild concentric left ventricular hypertrophy. 12. There is moderate global hypokinesis of LV . 13. Overall left ventricular systolic function is moderate-severely impaired with, an EF between 30 - 35 %. 14. Anterseptal Hypokinesis 15. Inferior Hypokinesis 16. Septal Hypokinesis 17. LA is severely dilated >40 ml/m2 18. Peak/mean gradient across the Aortic Valve is 19.47mmHg / 11.12mmHg. EXECUTIVE CANDIDATE DEVELOPER: Heidi Aldana RDCS
--- NOTE | 2017-04-03 11:57 | P.PN ---
Progress Note - Text Patient interviewed and examined, discussed with patient discussed with Dr. Torres Cardiac issues Presenting with Non-Q wave myocardial infarction, presented with shortness of breath and a viselike chest discomfort IVCD, and LBBB Aortic stenosis Advanced COPD/emphysema with pulmonary hypertension Burst lip breathing, chronic respiratory failure Hypertension Dyslipidemia Plan Right and left cardiac catheterization, evaluate coronary arteries for non-Q- wave myocardial infarction, evaluate right ventricular systolic pressures, evaluate aortic valve See full dictation by Dr. Marcos
[2017-04-03 12:02] LABS: Glucose,Whole Blood 127 mg/dL (75-99)
[2017-04-03] MEDS ORDERED: ASPIRIN 325 MG TAB PO STA (12:22)
[2017-04-03] MEDS ORDERED: ALPRAZolam 0.25 MG TAB PO PRN (12:22)
[2017-04-03] MEDS ORDERED: ALPRAZolam 0.5 MG TAB PO PRN (12:22)
[2017-04-03] MEDS ORDERED: NITROGLYCERIN SL TABS 0.4 MG TAB SUBLINGUAL PRN (12:22)
[2017-04-03] MEDS ORDERED: SODIUM CHLORIDE 0.9% 1,000 ML in EMPTY BAG 1 BAG IV ONE (12:22)
[2017-04-03] MEDS ORDERED: ATORVASTATIN 80 MG TAB PO STA (12:27)
--- NOTE | 2017-04-03 12:45 | CONS ---
DATE OF CONSULTATION: Mrs. Cherelle Benítez is an 86-year-old female who presented with shortness of breath and chest discomfort since yesterday. She felt this vice like sensation around her chest and came to the hospital. She feels hot and cold, but she does not have any fever or chills. White count was normal. She has a mild cough with no expectoration. Her main symptoms are short of breath. She is visibly short of breath at rest which she always has. She is always short of breath. She has advanced COPD with history of smoking. She stopped smoking now. Her main problem is chest discomfort. Her cardiac enzymes are abnormal. CPK is 111, troponin was 1.7. 12-lead ECG shows IVCD with a QRS width of 138 ms, sinus tachycardia. No definite ST segment abnormalities. She follows with Dr. Torres and Dr. Tristen Ceballos. Her past medical history of advanced chronic obstructive pulmonary disease, short of breath at rest. Chronic respiratory failure secondary to smoking, history of tracheobronchitis in the past, diastolic heart are and diastolic dysfunction, secondary pulmonary hypertension, carcinoma of the colon in remission. 2-D echo in the recent past history has shown normal LV size and systolic function. SOCIAL HISTORY: She was a heavy smoker in the past, now stopped smoking. No alcohol use. FAMILY HISTORY: Coronary artery disease. ALLERGIES TO PENICILLIN AND PNEUMOVAX. Medications at home include: 1. Inhalers. 2. Aspirin. 3. Levothyroxine. 4. Losartan. 5. Zocor 40 mg p.o. daily. 6. She also takes Lasix 20 mg every other day. REVIEW OF SYSTEMS: No fever, chills, or rigors. No cough or expectoration. No nausea, vomiting or diarrhea. No hematuria or dysuria. No strokes or seizures. Her main complaint is shortness of breath and vice like sensation in the chest, chest discomfort. On examination, blood pressure is 109/55 mmHg. She is afebrile, 96.7 degrees Fahrenheit, respirations are normal. Pulse rate is in the 70s to 80s. She is sitting in bed. Pursed lip breathing, mildly short of breath at rest which is chronic. She denies any chest discomfort at this time. ABDOMEN: Soft, nontender. EXTREMITIES: Warm. No edema. Heart sounds are S1 and S2 are normal. Ejection systolic soft ejection systolic audible. Breath sounds are reduced bilaterally with occasional rhonchi. LABS: Reviewed and electrolytes are normal. White count is normal. Hemoglobin is 10.6. CPK is 111, MB is 13.4. Troponin was 1.74. IMPRESSION: 1. Non-Q-wave myocardial infarction. 2. IVCD. 3. Moderate aortic stenosis by 2-D echo with dilated left atrium preserved LV systolic function in the past. 4. History of advanced chronic obstructive pulmonary disease/emphysema with burst of bleeding and chronic respiratory failure. 5. History of cancer colon in remission now. I had a discussion with the patient regarding management of coronary artery disease and myocardial infarction and I would suggest ( ) I had discussion about cardiac catheterization. She says she would like to find out why she is having chest discomfort and shortness of breath, which is worse than usual. I spoke to Dr. Torres and I will schedule her for cardiac catheterization, I will scheduled for right and left cardiac catheterization to evaluate for pulmonary hypertension as well as the degree of aortic stenosis and coronary angiography to evaluate the coronary arteries, because of her symptoms and abnormal troponins. I will also check a lipid panel. I will increase her dose of atorvastatin 40 mg p.o. daily and also add atenolol 12.5 mg p.o. daily, but continue aspirin and losartan.
[2017-04-03 12:50] LABS: Creatine Kinase MB 11.2 ng/mL (0.0-2.4); Troponin I 1.66 ng/mL (0.000-0.034)
[2017-04-03 12:51] LABS: Cholesterol 134 mg/dL (<200); HDL Cholesterol 61 mg/dL (40-60); Triglycerides 35 mg/dL (<150)
[2017-04-03] MEDS: ATENOLOL 12.5 MG TAB PO SCH (13:25)
[2017-04-03] MEDS ORDERED: HEPARIN SODIUM,PORCINE 5,000 UNIT/ML 1 ML VIAL IV PRN (13:36)
[2017-04-03 17:05] LABS: Glucose,Whole Blood 149 mg/dL (75-99)
[2017-04-03] MEDS ORDERED: ATORVASTATIN 20 MG TAB PO SCH (21:00)
[2017-04-03 21:07] LABS: Glucose,Whole Blood 157 mg/dL (75-99)
[2017-04-04] MEDS: methylPREDNISolone SOD SUCCI 125 MG/2 ML VIAL IV SCH ×4 (00:58→16:29)
[2017-04-04] MEDS: IPRATROPIUM-ALBUTEROL 3 ML NEB INHALATION PRN ×4 (02:27→23:53)
[2017-04-04 05:39] LABS: Anion Gap 9 mmol/L; Blood Urea Nitrogen 30 mg/dL (7-17); Calcium 9.1 mg/dL (8.4-10.2); Carbon Dioxide 27 mmol/L (22-30); Chloride 105 mmol/L (98-107); Glucose 161 mg/dL (74-99); Non-African American GFR(MDRD) >60 (>60 ml/min/1.73 sqM); Potassium 3.8 mmol/L (3.5-5.1); Sodium 141 mmol/L (137-145)
[2017-04-04] MEDS: LEVOTHYROXINE 100 MCG TAB PO SCH (05:59)
[2017-04-04 06:05] LABS: CH 29.3; CHCM 31.3; HCT 30.7 % (34.0-46.0); HDW 2.91; HGB 9.6 gm/dL (11.4-16.0); Hypochromasia Slight; MCH 29.4 pg (25.0-35.0); MCHC 31.2 g/dL (31.0-37.0); Mean Platelet Volume 8.3; RBC 3.27 m/uL (3.80-5.40); RDW 13.2 % (11.5-15.5); WBC 14.3 k/uL (3.8-10.6)
[2017-04-04] MEDS: HEPARIN SODIUM,PORCINE/D5W PMX 25,000 UNIT in DEXTROSE/WATER 1 500ML.BAG IV SCH (06:43)
[2017-04-04] MEDS: LEVOFLOXACIN 500 MG TAB PO SCH (06:43)
[2017-04-04] MEDS ORDERED: POTASSIUM CHLORIDE ER 20 MEQ TAB.ER PO SCH (07:00)
[2017-04-04 07:44] LABS: Glucose,Whole Blood 166 mg/dL (75-99)
[2017-04-04] MEDS: BUDESONIDE 0.5 MG/2 ML NEBU INHALATION SCH ×2 (07:44→20:03)
[2017-04-04] MEDS: INSULIN LISPRO (humaLOG) 300 UNIT/3 ML VIAL SQ SCH ×4 (08:14→20:54)
[2017-04-04] MEDS: ASPIRIN 325 MG TAB PO SCH (08:14)
[2017-04-04] MEDS: ATENOLOL 12.5 MG TAB PO SCH (08:14)
[2017-04-04] MEDS: LOSARTAN 50 MG TAB PO SCH (08:14)
[2017-04-04 09:22] VITALS: BMI 24.2
--- NOTE | 2017-04-04 11:15 | HP ---
DATE OF ADMISSION: 04/02/2017 CHIEF COMPLAINT: Shortness of breath. HISTORY OF PRESENT ILLNESS: This is an 86-year-old female presents with progressive shortness of breath for the past 3 days. The patient, however, states that yesterday she did have a chest pain, which retrosternal and lasted for over 10 to 15 minutes. The patient denied any radiation of the pain. She does have chronic shortness of breath which has been working gradually worsening over the past 3 days. She had no fever, chills, nausea, vomiting or heartburn associated with the pain. The patient has had no similar pain in the past. The patient does have a history of chronic respiratory failure associated with chronic obstructive pulmonary disease. She has no known history of coronary artery disease. Patient presents to the hospital for further findings. Past medical history is significant for COPD . The patient also is known to have history of COPD and history of hypertension. No history of diabetes mellitus. The patient did have a history of carcinoma of the colon back in 2010. No history of any liver disease, kidney disease, ulcers, TB, hepatitis. No history of any rheumatic fever, myocardial infarction or CVA. PAST SURGICAL HISTORY: History significant for cholecystectomy, C-sections times three, hysterectomy, appendectomy, and colectomy as mentioned above. PERSONAL HISTORY: Alcohol none. Ex-smoker, used to smoke heavy for over 40 years. ALLERGIES: PENICILLIN AND PNEUMOCOCCAL VACCINE PREVNAR 13, which caused local reaction and swelling. FAMILY MEDICAL HISTORY: The patient has 3 daughters, one has a history of degenerative arthritis affecting the lumbosacral spine. History of multiple sclerosis and she had one sister who of a stroke. Father had history of alcoholism. The medications at present include: 1. Xanax 0.25 p.r.n. 2. Aspirin 325 mg b.i.d. 3. Lipitor 20 mg daily. 4. Simvastatin 40 mg daily. 5. Multivitamin daily. 6. Losartan 50 mg daily. 7. Levothyroxine 100 mcg daily. 8. Lasix 20 mg every other day. 9. She also takes Pulmicort. 10. Uses updraft q.i.d. 11. She is also on oxygen 2 liters nasal cannula 11/06. REVIEW OF SYSTEMS: NEURO: Denies any headaches, dizziness. No double vision, blurred vision. No symptoms of TIA, syncope, seizures. PSYCH: No anxiety, depression. CARDIAC: Present complaint of chest pain and shortness of breath and cough. No hemoptysis. GI: No nausea, vomiting, abdominal pain, diarrhea, constipation, hematochezia, melena, heartburn. : No symptoms of dysuria, hematuria, urgency, frequency. EXTREMITIES: Denies pain or edema. CONSTITUTIONAL: No fever or chills. HEMATOLOGICAL: No anemia or bleeding disorder. ENDOCRINE: No history of diabetes mellitus. Does have a history of hypothyroidism. SKIN: No rashes. CONSTITUTIONAL: No fever or chills. PHYSICAL EXAMINATION: Pleasant female, at present in no distress. Vital signs revealed temperature 96.7, pulse 79, respirations 24, blood pressure 109/50, pulse ox 97% on 2 liters. HEENT: Normocephalic. NECK: No JVD. Pupils are reactive. Oral cavity moist, edentulous. Neck reveals no JVD, carotid bruits, or thyromegaly. Chest is clear to auscultation with generalized decreased air flow. Increased percussion noted bilateral. No rhonchi or wheezing appreciated at this time. CARDIAC: Distant heart sounds. S1, S2 with no gallops. Regular rhythm. Systolic murmur 2/6 left sternal border. ABDOMEN: Soft, protuberant. Bowel sounds are active. Extremities reveal no edema. Good pulses upper extremities. Mild decreased pedal pulses. Neurologically awake, alert, oriented x3 with well-coordinated movements. LABORATORY ASSESSMENT: Elevated troponin, hemoglobin 10.2, platelet count 199. Chemistry was normal range. Blood sugar was 189, random. Troponin was 0.229 at the time of admission with BNP 6810, albumin 3.3. Repeat troponin was 1.740. EKGs revealed left bundle branch block. ASSESSMENT: 1. Acute exacerbation of chronic obstructive pulmonary disease. 2. Acute on chronic respiratory failure. The patient requiring BiPAP support. 3. Symptoms strongly suggestive of coronary artery disease and possible subendocardial myocardial infarction. 4. Anemia of chronic ( ). 5. History of cancer of the colon. 6. Hypothyroidism. PLAN: The patient at present is stable. Continue present medical regimen. She is anticoagulated with heparin and continued on aspirin. We will have cardiology see the patient. The patient was seen by cardiology and contacted me saying that they plan to do a cardiac catheterization. The patient on steroids and Levaquin. Patient who is scheduled for cardiac cath tomorrow.
[2017-04-04] MEDS ORDERED: SODIUM CHLORIDE 0.9% 1,000 ML IV SCH (11:30)
[2017-04-04 12:01] LABS: Glucose,Whole Blood 129 mg/dL (75-99)
[2017-04-04] MEDS ORDERED: LIDOCAINE 2% INJ 20 MG/ML (20 ML MDV) ONE (12:47)
[2017-04-04] MEDS ORDERED: fentaNYL (PF) 50 MCG/ML 2 ML AMP ONE (12:48)
[2017-04-04] MEDS ORDERED: MIDAZOLAM 2 MG/2 ML VIAL ONE (12:48)
[2017-04-04] MEDS ORDERED: MIDAZOLAM 2 MG/2 ML VIAL IV ONE (12:55)
[2017-04-04] MEDS ORDERED: fentaNYL (PF) 50 MCG/ML 2 ML AMP IV ONE (12:55)
[2017-04-04] MEDS ORDERED: LIDOCAINE 2% INJ 20 MG/ML SQ ONE (13:02)
[2017-04-04] MEDS ORDERED: IV FLUID CONTINUATION 1,000 ML IV ONE (13:04)
[2017-04-04] MEDS ORDERED: IOHEXOL 350 MG/ML 125ML BOTTLE INJ ONE (13:32)
[2017-04-04] MEDS ORDERED: RX INFO: IV CONTRAST WAS GIVEN 1 EACH MISC MISCELLANE PRN (14:15)
[2017-04-04] MEDS ORDERED: HEPARIN SODIUM,PORCINE 5,000 UNIT/ML 1 ML VIAL IV PRN (14:17)
[2017-04-04 15:10] LABS: Basophils % (A) 0 %; CH 29.5; CHCM 31.1; Eosinophils % (A) 0 %; HCT 30.1 % (34.0-46.0); HDW 2.78; HGB 9.4 gm/dL (11.4-16.0); Hypochromasia Slight; Luc # (Auto) 0.06; Luc % (Auto) 0; Lymphocytes # (A) 0.7 k/uL (1.0-4.8); Lymphocytes % (A) 5 %; MCH 29.6 pg (25.0-35.0); MCHC 31.1 g/dL (31.0-37.0); MCV 95.2 fL (80.0-100.0); Mean Platelet Volume 7.6; Monocytes # (A) 0.3 k/uL (0-1.0); Monocytes % (A) 2 %; Neutrophils # (A) 12.3 k/uL (1.3-7.7); Neutrophils % (A) 92 %; RBC 3.16 m/uL (3.80-5.40); RDW 13.6 % (11.5-15.5); WBC 13.4 k/uL (3.8-10.6); WBC (Perox) 14.02
[2017-04-04 15:15] LABS: INR 1.1 (<1.1); Partial Thromboplastin Time 26.9 sec (22.0-30.0)
[2017-04-04] MEDS ORDERED: CLOPIDOGREL 75 MG TAB PO STA (15:55)
[2017-04-04] MEDS: SODIUM CHLORIDE 0.9% 1,000 ML IV SCH (16:27)
[2017-04-04] MEDS: NITROGLYCERIN OINT 1 INCH/GM PACKET TOPICAL SCH (16:32)
[2017-04-04 16:37] LABS: Glucose,Whole Blood 126 mg/dL (75-99)
[2017-04-04] MEDS ORDERED: HEPARIN SODIUM,PORCINE/D5W PMX 25,000 UNIT in DEXTROSE/WATER 1 500ML.BAG IV SCH (18:00)
--- NOTE | 2017-04-04 18:00 | PN ---
CHIEF COMPLAINT: Re-evaluation. HISTORY OF PRESENT ILLNESS: This is an 86-year-old who was admitted to the hospital with shortness of breath and subsequent chest pain. The patient is doing relatively well this morning, however, during the night she did have another episode of chest pain. The patient does have a left bundle branch block. Patient's cardiac enzymes were positive at the time of admission. The patient is being evaluated by boat canvas maker and installer and planned for cardiac catheterization. At the time of my dictation, the cardiac catheterization is also pending. Per nursing the patient is scheduled for an arthrectomy tomorrow. An echocardiogram does reveal significant left atrial dilatation and probably ischemic cardiomyopathy. The patient's breathing has improved. REVIEW OF SYSTEMS: NEURO: Denies any headaches, dizziness. PSYCH: No anxiety. CARDIAC: No chest pain, angina, palpitation, except for the episode during the night. RESPIRATORY: Present complaint of shortness of breath, which is back to almost baseline. Does have some cough with hardly any sputum production. She does have a history of chronic respiratory failure on home oxygen. GI: No nausea, vomiting, heartburn, diarrhea. No bowel movement. : No symptoms of dysuria, hematuria. EXTREMITIES: No pain or edema. CONSTITUTIONAL: No fever or chills. PHYSICAL EXAMINATION: Pleasant man in no distress. Vital signs revealed temperature 97.6, pulse 69, respirations 19, blood pressure 102/52, pulse ox 99% on 2 liters. HEENT: Normocephalic. NECK: No JVD. CHEST EXAMINATION: Generalized decreased air flow. No wheezing or rhonchi. CARDIAC: Distant heart sounds. S1, S2 with no gallops. Systolic murmur 2/6 left sternal border. ABDOMEN: Soft, with no palpable masses. Bowel sounds active. EXTREMITIES: No edema. Good pulses upper extremities. Decreased pedal pulses. NEUROLOGICALLY: Awake, alert, oriented with well coordinated movements. LABORATORY ASSESSMENT: CBC which revealed white count 13.4, hemoglobin 9.4 with no evidence of active bleeding. The INR was normal. ASSESSMENT: 1. Acute exacerbation of chronic obstructive pulmonary disease. 2. Acute respiratory failure. 3. Acute on chronic respiratory failure. 4. Chest pain with troponin leak suggestive of non-ST elevated myocardial infarction versus oxygen supply and demand causing troponin leak. Will await further cardiac evaluations. 5. Anemia. 6. Remote history of carcinoma of the colon. PLAN: The patient is stable. Continue present medical regimen. The patient's condition discussed with the patient. Awaiting cardiac cath.
--- NOTE | 2017-04-04 19:22 | CC ---
DATE OF SERVICE: This patient has a history of COPD, cardiomyopathy. Patient was admitted with chest discomfort suggestive of a non-Q-wave myocardial infarction with a positive troponin level. Patient has moderate to severely impaired left ventricular systolic function with an ejection fraction of 35% and mild aortic stenosis. Patient was recommended to have a cardiac catheterization for definitive diagnosis. PROCEDURE: Right groin was prepped and draped in the usual manner and the skin was infiltrated with 2% Xylocaine. The right femoral artery was entered using Seldinger technique. A #6 Egyptian sheath was placed in. Selective coronary angiography was then performed in multiple projections and left ventricular pressures were obtained. Patient tolerated the procedure well. Sheath was removed manually. The left main coronary artery is normal. The left anterior descending artery is mildly diffusely calcified. Mid LAD has about 30% to 40% stenosis. Distal LAD near the apex has 50% to 60% stenosis. Circumflex coronary artery is mildly diseased. There is mild irregularity noted in the proximal and mid portions. The right coronary artery is calcified and it proximally has 90% stenosis. Distally before bifurcation into the PDA and PLV branch it has an 80% stenosis. Left ventricular end-diastolic pressure was 25 to 30 mmHg prior to angiography. No significant gradient is noted across the aortic valve. FINAL IMPRESSION: There is significant disease in the proximal and distal RCA; 90% proximally and about 80% distally. There is diffuse irregularity noted in LAD and circumflex coronary arteries without any significant stenosis. There is no evidence of any significant aortic stenosis. Left ventricular end-diastolic pressure is elevated. RECOMMENDATIONS: Films were reviewed with Dr. Corado. In view that the patient's arteries are significantly calcified, the patient will be brought back tomorrow for the orbital atherectomy.
[2017-04-04 20:39] LABS: Glucose,Whole Blood 128 mg/dL (75-99)
[2017-04-04] MEDS ORDERED: ATORVASTATIN 40 MG TAB PO SCH (21:00)
[2017-04-04] MEDS: LACTULOSE 20 GM/30 ML CUP PO SCH (21:03)
[2017-04-05] MEDS: NITROGLYCERIN OINT 1 INCH/GM PACKET TOPICAL SCH (00:07)
[2017-04-05] MEDS: methylPREDNISolone SOD SUCCI 125 MG/2 ML VIAL IV SCH ×4 (00:08→18:44)
[2017-04-05 02:38] LABS: Basophils % (A) 0 %; CH 28.8; CHCM 30.9; Eosinophils % (A) 0 %; HCT 30.4 % (34.0-46.0); HDW 2.75; HGB 9.6 gm/dL (11.4-16.0); Hypochromasia Moderate; Luc # (Auto) 0.08; Luc % (Auto) 1; Lymphocytes # (A) 0.7 k/uL (1.0-4.8); Lymphocytes % (A) 5 %; MCH 29.6 pg (25.0-35.0); MCHC 31.6 g/dL (31.0-37.0); MCV 93.8 fL (80.0-100.0); Mean Platelet Volume 7.7; Monocytes # (A) 0.4 k/uL (0-1.0); Monocytes % (A) 3 %; Neutrophils # (A) 11.9 k/uL (1.3-7.7); Neutrophils % (A) 91 %; RBC 3.24 m/uL (3.80-5.40); RDW 13.6 % (11.5-15.5); WBC 13.1 k/uL (3.8-10.6); WBC (Perox) 12.65
[2017-04-05 06:13] LABS: Glucose,Whole Blood 180 mg/dL (75-99)
[2017-04-05] MEDS: IPRATROPIUM-ALBUTEROL 3 ML NEB INHALATION PRN ×3 (06:59→19:47)
[2017-04-05] MEDS: BUDESONIDE 0.5 MG/2 ML NEBU INHALATION SCH ×2 (06:59→19:48)
[2017-04-05] MEDS: INSULIN LISPRO (humaLOG) 300 UNIT/3 ML VIAL SQ SCH ×4 (07:08→21:43)
[2017-04-05] MEDS: LEVOTHYROXINE 100 MCG TAB PO SCH (07:13)
[2017-04-05] MEDS: LEVOFLOXACIN 250 MG TAB PO SCH (07:13)
[2017-04-05] MEDS ORDERED: diphenhydrAMINE 50 MG/ML 1 ML VIAL IVP ONE (08:00)
[2017-04-05] MEDS ORDERED: LIDOCAINE 2% INJ 20 MG/ML SQ ONE ×2 (08:01→08:19)
[2017-04-05] MEDS ORDERED: fentaNYL (PF) 50 MCG/ML 2 ML AMP IV ONE (08:02)
[2017-04-05] MEDS ORDERED: BIVALIRUDIN BOLUS 250 MG/50 ML IV ONE (08:23)
[2017-04-05] MEDS ORDERED: BIVALIRUDIN 250 MG in SODIUM CHLORIDE 0.9% 50 ML IV ONE (08:24)
[2017-04-05 08:58] LABS: Anion Gap 10 mmol/L; Blood Urea Nitrogen 39 mg/dL (7-17); Calcium 9.5 mg/dL (8.4-10.2); Carbon Dioxide 25 mmol/L (22-30); Chloride 109 mmol/L (98-107); Glucose 161 mg/dL (74-99); Non-African American GFR(MDRD) 59 (>60 ml/min/1.73 sqM); Potassium 5.2 mmol/L (3.5-5.1); Sodium 144 mmol/L (137-145)
[2017-04-05] MEDS ORDERED: ASPIRIN 81 MG CHEW PO SCH (09:00)
[2017-04-05] MEDS ORDERED: CLOPIDOGREL 75 MG TAB PO ONE (09:13)
[2017-04-05] MEDS ORDERED: ZOLPIDEM 5 MG TAB PO PRN (09:19)
[2017-04-05] MEDS ORDERED: NITROGLYCERIN SL TABS 0.4 MG TAB SUBLINGUAL PRN (09:19)
[2017-04-05] MEDS ORDERED: ATROPINE SULFATE 0.1 MG/ML 10ML SYRINGE IV PRN (09:19)
[2017-04-05] MEDS ORDERED: RX INFO: IV CONTRAST WAS GIVEN 1 EACH MISC MISCELLANE PRN (09:19)
[2017-04-05] MEDS ORDERED: MAG HYDROX/AL HYDROX/SIMETH 30 ML CUP PO PRN (09:19)
[2017-04-05] MEDS ORDERED: SODIUM CHLORIDE 0.9% 1,000 ML IV ONE (09:20)
[2017-04-05] MEDS ORDERED: IOHEXOL 350 MG/ML 125ML BOTTLE INJ ONE (09:20)
[2017-04-05] MEDS ORDERED: SODIUM CHLORIDE 0.9% 1,000 ML IV SCH (09:30)
[2017-04-05] MEDS ORDERED: FUROSEMIDE 10 MG/ML 4 ML VIAL IV ONE (09:36)
--- NOTE | 2017-04-05 09:54 | PTCA ---
DATE OF SERVICE: Ms. Benítez is an 86-year-old female with known history of hypertension, hyperlipidemia, diabetes mellitus as well history of chronic obstructive lung disease, who presented with non-ST segment elevation myocardial infarction and underwent cardiac catheterization on the march by Dr. Leif Foster Mario was found to have heavily calcified coronary arteries with severe stenosis involving a long segment of the right coronary artery. In view of that, recommendation was made regarding atherectomy and angioplasty and stenting. The procedure as well as risks and complications were discussed with the patient, who is in full understanding and agreement. PROCEDURE: Patient was brought to cathode washer in fasting semi-sedated state after receiving fentanyl and Benadryl and achieving moderate conscious sedated state. Following that using Xylocaine anesthesia and Seldinger technique, a 6 Romanian sheath was introduced in the left femoral vein and a 6 Romanian sheath in the left femoral artery. A temporary pacemaker was advanced to the right ventricle and pacing parameters were noted. Multiple attempts to advance guiding catheters through the left femoral artery sheaths were unsuccessful because of severe calcification and stenosis. In view of that, using Xylocaine anesthesia and Seldinger technique, a 6 Romanian sheath was introduced in the right femoral artery and subsequently 6 Romanian FR4 guiding catheter introduced in the system. After cannulating the right coronary ostium, the ViperWire was advanced with the help of a Finecross catheter. After positioned distally, the orbital 360 atherectomy device was advanced and multiple runs were done in the proximal and mid segment. Following that, the device was removed and the 2.5 x 12 mm Trek balloon was advanced and inflation in the proximal segment was done at a maximum of 10 atmospheres. Following that, the balloon was removed and a 2.5 x 23 mm Xience Alpine stent was deployed in the mid distal segment, post dilated at 16 atmospheres. Following that, the balloon was removed and a 2.5 x 33 mm Xience Alpine stent was deployed in the mid segment, post dilated to 16 atmospheres. Following that, the balloon was removed, and a 3.0 x 12 mm Xience Alpine stent was deployed in the proximal segment and post dilated at 14 atmospheres. After the last inflation, after appropriate wait the balloon and the guidewire withdrawn back in the guiding catheter. Images were obtained and repeated. Those images reveal stable successful stenting. At that point, the guiding catheter, the balloon and the guidewire removed. The sheaths were sutured in place . The patient was returned to her room in stable condition. Of note, the patient had chest discomfort with the inflations and has required a temporary pacemaker. She received Angiomax per protocol as well as received clopidogrel. The duration of the procedure was 73 minutes. RESULT: Successful stenting in the heavily calcified long segment of the proximal and mid right coronary artery with reduction in stenosis from 99% to 0%. RECOMMENDATION: Patient will be continued on aspirin, Plavix, beta jf, angiotensin receptor jf and statin. The importance of dual antiplatelet treatment was discussed with the patient and her family and are in full understanding and agreement. ALEJANDRA
--- NOTE | 2017-04-05 09:57 | LTR ---
April 05, 2017 MANNIE THOMAS MD RE: Cherelle Benítez Dear Dr. Thomas: I had the opportunity to perform coronary angioplasty and stenting on Mrs. Benítez at [facility] on the 05 of April and a full copy of the procedure note will be forwarded to you. In brief, she underwent successful stenting and atherectomy of a long segment of the right coronary artery. I am hopeful that this procedure will stabilize her status. Thank you again for allowing me the opportunity to participate in her care. Please feel free to call for any questions. Sincerely yours, KEVIN MARY MD
[2017-04-05 11:43] LABS: Glucose,Whole Blood 181 mg/dL (75-99)
[2017-04-05] MEDS: LACTULOSE 20 GM/30 ML CUP PO SCH (15:02)
[2017-04-05] MEDS: LOSARTAN 50 MG TAB PO SCH (15:03)
[2017-04-05] MEDS: SODIUM CHLORIDE 0.9% 1,000 ML IV SCH ×2 (15:08→17:38)
[2017-04-05 16:40] LABS: Glucose,Whole Blood 153 mg/dL (75-99)
[2017-04-05] MEDS: CARVEDILOL 3.125 MG TAB PO SCH (17:37)
[2017-04-05] MEDS: ATORVASTATIN 80 MG TAB PO SCH (20:54)
[2017-04-05 21:26] LABS: Glucose,Whole Blood 184 mg/dL (75-99)
--- NOTE | 2017-04-05 23:17 | PN ---
CHIEF COMPLAINT: Re-evaluation. HISTORY OF PRESENT ILLNESS: This lady was admitted to the hospital with shortness of breath. The patient was felt to have some congestive cardiac failure. The patient was felt to have acute exacerbation of COPD as well as acute congestive cardiac failure secondary to systolic dysfunction. The patient had mildly elevated cardiac enzymes progressively increased. In view of this, patient was taken for cardiac catheterization, noted to have significant blockage in the RCA system. There was a long lesion. She had significant calcified valves. In view of that she underwent atherectomy today. The patient is seen post procedure. She is tired of lying in bed with pressure on the left groin. Otherwise she feels well. Her breathing is better. She denies any chest pain. REVIEW OF SYSTEMS: NEURO: Denies any headaches, dizziness. PSYCH: No anxiety. CARDIAC: Denies chest pain, angina, palpitations. RESPIRATORY: Improved shortness of breath. Mild cough. No hemoptysis. GI: No nausea, vomiting, abdominal pain. No bowel movement. : No symptoms of dysuria, hematuria. EXTREMITIES: Some pain in the left groin. CONSTITUTIONAL: No fever or chills. PHYSICAL EXAMINATION: Pleasant female in no distress. VITAL SIGNS: Afebrile. Pulse 76, respirations 14, blood pressure 134/63, pulse ox 99% on 2 L. HEENT: Normocephalic. NECK: No JVD. Chest is clear to auscultation with generalized decreased air flow. No wheezing or rhonchi. CARDIAC: Distant heart sounds. S1, S2 with no gallops. Systolic murmur 2/6, left sternal border. ABDOMEN: Soft. Bowel sounds present. Extremities reveal no edema. Decreased pedal pulses. Neurologically awake, alert, oriented with well-coordinated movements in both upper extremities. LABORATORY ASSESSMENT: BUN 39, creatinine 0.91. Potassium was 5.2. Blood sugar is mildly elevated, controlled. PLAN: Continue present medical regimen. Patient's condition discussed with the patient. Patient has had atherectomy. Her COPD is improving. Potential discharge in 48 hours. Prognosis guarded. Patient's condition was discussed with the patient.
[2017-04-06] MEDS: methylPREDNISolone SOD SUCCI 125 MG/2 ML VIAL IV SCH ×2 (00:12→06:07)
[2017-04-06] MEDS: IPRATROPIUM-ALBUTEROL 3 ML NEB INHALATION PRN ×4 (01:23→20:41)
[2017-04-06 02:02] LABS: Anion Gap 7 mmol/L; Blood Urea Nitrogen 40 mg/dL (7-17); Calcium 9.2 mg/dL (8.4-10.2); Carbon Dioxide 25 mmol/L (22-30); Chloride 110 mmol/L (98-107); Glucose 109 mg/dL (74-99); Magnesium 2.2 mg/dL (1.6-2.3); Non-African American GFR(MDRD) 53 (>60 ml/min/1.73 sqM); Potassium 4.4 mmol/L (3.5-5.1); Sodium 142 mmol/L (137-145)
[2017-04-06] MEDS: LEVOFLOXACIN 250 MG TAB PO SCH (06:06)
[2017-04-06] MEDS: LEVOTHYROXINE 100 MCG TAB PO SCH (06:06)
[2017-04-06] MEDS: SODIUM CHLORIDE 0.9% 1,000 ML IV SCH (06:07)
[2017-04-06 06:50] LABS: Glucose,Whole Blood 154 mg/dL (75-99)
[2017-04-06] MEDS: INSULIN LISPRO (humaLOG) 300 UNIT/3 ML VIAL SQ SCH ×4 (06:58→22:28)
[2017-04-06] MEDS: CARVEDILOL 3.125 MG TAB PO SCH ×2 (06:58→16:57)
[2017-04-06 07:14] LABS: Basophils % (A) 0 %; CH 29.3; CHCM 31.3; Eosinophils % (A) 0 %; HCT 30.9 % (34.0-46.0); HDW 2.92; Hypochromasia Slight; Luc # (Auto) 0.05; Luc % (Auto) 1; Lymphocytes # (A) 0.7 k/uL (1.0-4.8); Lymphocytes % (A) 7 %; MCH 30.4 pg (25.0-35.0); MCHC 32.3 g/dL (31.0-37.0); MCV 94.1 fL (80.0-100.0); Mean Platelet Volume 7.8; Monocytes # (A) 0.4 k/uL (0-1.0); Monocytes % (A) 4 %; Neutrophils # (A) 8.9 k/uL (1.3-7.7); Neutrophils % (A) 88 %; RBC 3.29 m/uL (3.80-5.40); RDW 13.6 % (11.5-15.5); WBC 10.1 k/uL (3.8-10.6); WBC (Perox) 9.77
[2017-04-06 07:33] LABS: Anion Gap 6 mmol/L; Blood Urea Nitrogen 39 mg/dL (7-17); Calcium 8.9 mg/dL (8.4-10.2); Carbon Dioxide 26 mmol/L (22-30); Chloride 110 mmol/L (98-107); Glucose 145 mg/dL (74-99); Non-African American GFR(MDRD) 57 (>60 ml/min/1.73 sqM); Potassium 4.4 mmol/L (3.5-5.1); Sodium 142 mmol/L (137-145)
[2017-04-06] MEDS ORDERED: LACTULOSE 20 GM/30 ML CUP PO ONE (07:58)
[2017-04-06] MEDS: BUDESONIDE 0.5 MG/2 ML NEBU INHALATION SCH ×3 (08:23→20:42)
--- NOTE | 2017-04-06 08:33 | XR ---
EXAMINATION TYPE: XR chest 2V DATE OF EXAM: 04/06/2017 8:26 AM COMPARISON: 04/02/2017 INDICATION: Previous abnormal chest, left pleural effusion, short of breath TECHNIQUE: Single frontal view of the chest is obtained. FINDINGS: The heart size is mildly prominent. The pulmonary vasculature is mildly prominent. Left pleural effusion is present. This slightly increased. Left basilar infiltrate may be present. Co rrelate for atelectasis. Atypical pulmonary edema could be considered. Some Rigo B lines may be pre sent on the right. Correlate for early congestive heart failure. IMPRESSION: 1. Clinical correlation recommended for early congestive heart failure. 2. Mild left lower lobe infiltrate and/or small left pleural effusion.
[2017-04-06] MEDS: predniSONE 20 MG TAB PO SCH (09:07)
[2017-04-06] MEDS: CLOPIDOGREL 75 MG TAB PO SCH (09:07)
[2017-04-06] MEDS: LOSARTAN 50 MG TAB PO SCH (09:07)
[2017-04-06] MEDS: ASPIRIN 81 MG CHEW PO SCH (09:07)
[2017-04-06 11:59] LABS: Glucose,Whole Blood 164 mg/dL (75-99)
[2017-04-06] MEDS: SPIRONOLACTONE 25 MG TAB PO SCH (12:23)
--- NOTE | 2017-04-06 12:47 | PN ---
Cherelle Benítez is doing very well. She is not short of breath. She is lying flat and looks very comfortable in bed. I first saw her in the ICU. She presented with shortness of breath and chest discomfort which felt like a vice-like sensation. Her troponin was 1.7. She has an IVCD of left bundle branch block type with a QRS width of 138 ms. She is a patient of Dr. Torres and Dr. Tristen Ceballos. She has advanced chronic COPD. I recommended coronary angiography as an assessment of the aortic valve. Dr. Leif Martin performed the cardiac catheterization. This showed mid LAD stenosis of 30% to 40%, distal LAD of 50% to 60%, left circumflex showed mild disease. The right coronary artery was heavily calcified and has a proximal 90% stenosis and the PDA branch had its bifurcation and 80% stenosis. LVEDP was 25 to 30 mmHg prior to angiography. There was no significant gradient across the aortic valve. Dr. Corado performed the percutaneous coronary intervention and a drug-eluting stent was placed following atherectomy. She is pain free. She is not short of breath at this time. Her vitals are stable. Blood pressure is 117/93 mmHg, heart rates are normal. Respirations are normal. On examination, her breath sounds are reduced bilaterally without any rhonchi or crackles. Abdomen is soft. Heart sounds are normal. Extremities are warm. No edema. No JVD. Groin has healed well. IMPRESSION: 1. Coronary artery disease, triple vessel with ( ) disease involving the right coronary artery, status post atherectomy and stenting. 2. Non-Q-wave myocardial infarction on this admission. 3. Left bundle branch block with severe cardiomyopathy, ejection fraction of 25% to 30%. No significant aortic valve disease or gradient. Elevated LVEDP of 25 to 30 mmHg prior to coronary angiography. PLAN: Maximal medical therapy for heart failure as well as for coronary artery disease and atherosclerosis. I will see her as an outpatient subsequently.
[2017-04-06 16:27] LABS: Glucose,Whole Blood 142 mg/dL (75-99)
[2017-04-06 21:27] LABS: Glucose,Whole Blood 122 mg/dL (75-99)
[2017-04-06] MEDS: ATORVASTATIN 80 MG TAB PO SCH (22:29)
[2017-04-07] MEDS: IPRATROPIUM-ALBUTEROL 3 ML NEB INHALATION PRN ×3 (06:00→21:27)
[2017-04-07 06:28] LABS: Glucose,Whole Blood 108 mg/dL (75-99)
[2017-04-07] MEDS: INSULIN LISPRO (humaLOG) 300 UNIT/3 ML VIAL SQ SCH ×4 (06:42→22:02)
[2017-04-07] MEDS: CARVEDILOL 3.125 MG TAB PO SCH (06:44)
[2017-04-07] MEDS: LEVOFLOXACIN 250 MG TAB PO SCH (06:44)
[2017-04-07 07:28] LABS: Basophils % (A) 0 %; CH 28.9; CHCM 30.6; Eosinophils % (A) 0 %; HCT 31.5 % (34.0-46.0); HDW 2.76; HGB 9.8 gm/dL (11.4-16.0); Hypochromasia Moderate; Luc # (Auto) 0.17; Luc % (Auto) 2; Lymphocytes # (A) 1.3 k/uL (1.0-4.8); Lymphocytes % (A) 12 %; MCH 29.5 pg (25.0-35.0); MCHC 31.1 g/dL (31.0-37.0); MCV 94.8 fL (80.0-100.0); Monocytes # (A) 0.9 k/uL (0-1.0); Monocytes % (A) 9 %; Neutrophils # (A) 8.4 k/uL (1.3-7.7); Neutrophils % (A) 78 %; RBC 3.32 m/uL (3.80-5.40); RDW 13.8 % (11.5-15.5); WBC 10.8 k/uL (3.8-10.6); WBC (Perox) 11.38
[2017-04-07] MEDS: LEVOTHYROXINE 100 MCG TAB PO SCH (07:37)
--- NOTE | 2017-04-07 07:51 | PN ---
CHIEF COMPLAINT: Re-evaluation. HISTORY OF PRESENT ILLNESS: This is an 86-year-old female who was admitted to the hospital with shortness of breath with acute exacerbation of chronic obstructive pulmonary disease associated with CHF. She will also elevated chest pain and elevation of troponins. Subsequently undergone a cardiac cath and has had atherectomy of the right coronary. The patient is doing well. During the night she did have brief runs of nonsustained V. tach. The patient otherwise doing well. The patient is actually feeling relatively well. REVIEW OF SYSTEMS: NEURO: Denies any headaches, dizziness. PSYCH: No anxiety. CARDIAC: No chest pain, angina, palpitations. RESPIRATORY: No shortness of breath with oxygen. Does have some cough. No hemoptysis. GI: No nausea, vomiting, abdominal pain. No bowel movement. : No symptoms of dysuria, hematuria. Has IDC. EXTREMITIES: No pain. CONSTITUTIONAL: No fever or chills. PHYSICAL EXAMINATION: Pleasant female in no distress. Vital signs reveal temperature 97.6, pulse 95, respirations 18, blood pressure 110/53, pulse ox 95% with 2 liters nasal cannula. HEENT: Normocephalic. NECK: No JVD. Chest is clear to auscultation with decreased air flow at the bases especially left base with some dullness at the left base. CARDIAC: Distant heart sounds. S1, S2 with no gallops. Systolic murmur 2/6 left sternal border. Regular rhythm. ABDOMEN: Soft. Bowel sounds present. Extremities revealed no edema. Good pulses upper extremities. Decreased pedal pulses. NEUROLOGIC: Awake, alert, oriented with well-coordinated movements. Laboratory assessment: Chest x-ray ordered and suggested possibility of left pleural effusion with some CHF changes. Hemoglobin is 10.0, platelet count 193. BUN was 39. Glucose was 145. ASSESSMENT: 1. Acute non-ST elevated myocardial infarction. 2. Coronary atherosclerosis, status post right coronary artery atherectomy. 3. Brief run of nonsustained ventricular tachycardia. 4. Acute exacerbation of chronic obstructive pulmonary disease. 5. Acute on chronic respiratory failure. 6. Congestive cardiac failure secondary to systolic dysfunction. 7. Ischemic cardiomyopathy. 8. Mild chronic anemia. PLAN: The patient is stable. Continue present medical regimen. The patient's condition discussed with the patient. Prognosis guarded. Patient is being followed by cardiology. Potential discharge home in the next 24 to 48 hours.
[2017-04-07 08:12] LABS: Anion Gap 5 mmol/L; Blood Urea Nitrogen 45 mg/dL (7-17); Calcium 9.3 mg/dL (8.4-10.2); Carbon Dioxide 29 mmol/L (22-30); Chloride 110 mmol/L (98-107); Glucose 109 mg/dL (74-99); Non-African American GFR(MDRD) 53 (>60 ml/min/1.73 sqM); Potassium 4.5 mmol/L (3.5-5.1); Sodium 144 mmol/L (137-145)
[2017-04-07] MEDS: predniSONE 20 MG TAB PO SCH (08:52)
[2017-04-07] MEDS: LOSARTAN 50 MG TAB PO SCH (08:52)
[2017-04-07] MEDS: ASPIRIN 81 MG CHEW PO SCH (08:52)
[2017-04-07] MEDS: SPIRONOLACTONE 25 MG TAB PO SCH (08:52)
[2017-04-07] MEDS: CLOPIDOGREL 75 MG TAB PO SCH (08:52)
[2017-04-07] MEDS ORDERED: FUROSEMIDE 10 MG/ML 2 ML VIAL IV SCH (09:00)
[2017-04-07] MEDS: BUDESONIDE 0.5 MG/2 ML NEBU INHALATION SCH ×2 (09:54→21:27)
[2017-04-07 11:48] LABS: Glucose,Whole Blood 167 mg/dL (75-99)
--- NOTE | 2017-04-07 14:26 | P.PN ---
Subjective Principal diagnosis: Subendocardial myocardial infarction and COPD exacerbation History present illness, Hospital course: This 86-year-old female was admitted to the hospital with exacerbation of COPD and shortness of breath. Patient's also noted to have some congestive cardiac failure secondary to systolic dysfunction. She also has had chest pain and enzyme suggestion of some and subendocardial myocardial infarction. She did undergo cardiac catheterization and arthrectomy and stent placement. Patient is having some difficulty breathing and she still has evidence of CHF on x-ray. The patient otherwise feels well. On telemetry she does have some brief runs of nonsustained ventricular tachycardia. Patient's followed by cardiology. Denies any other symptoms of chest pain palpitations nausea vomiting. She has had increased urination today but had received Lasix this morning. REVIEW OF SYSTEMS: Neuro: Denies any headaches dizziness. Psych: Denies anxiety depression feels oriented. Cardiac: Denies chest pain and angina palpitations. Respiratory: Dyspnea with minimal activity some cough. GI: Denies nausea vomiting or abdominal pain. No diarrhea or constipation, no bowel movement yet. : Denies dysuria hematuria. Extremities: Denies pain. No edema. Skin: Intact. Constitutional: No fever, chills. Objective - Vital Signs Vital signs: Vital Signs Temp 96.9 F L 04/07/17 12:00 Pulse 65 04/07/17 12:00 Resp 18 04/07/17 12:00 BP 123/60 04/07/17 12:00 Pulse Ox 98 04/07/17 12:00 Intake & Output 04/06/17 04/07/17 04/07/17 18:59 06:59 18:59 Intake Total 480 520 Output Total 0 Balance 480 520 Weight 106 kg 60.1 kg Intake: Oral 480 520 Output: Urine 0 Other: Voiding Method Indwelling Catheter Bedside Commode Bedside Commode # Voids 1 1 # Bowel Movements 0 1 PHYSICAL EXAMINATION: Cooperative, at present in no acute distress. HEENT: Neck supple. No JVD. Chest: Clear to auscultation with generalized decreased airflow no wheezing rhonchi. Significant decrease in flow at the bases with some dullness in percussion bilateral bases Cardiac: Normal S1-S2 no gallops systolic murmur 2/6 left sternal border. Abdomen: Soft bowel sounds present. Extremities: No edema no tenderness (ecchymosis left groin Neurologically: Awake, alert, oriented with well-coordinated movements. - Labs CBC & Chem 7: 04/07/17 06:41 04/07/17 06:41 Labs: Abnormal Lab Results - Last 24 Hours (Table) 04/06/17 04/06/17 04/07/17 Range/Units 16:24 20:50 06:25 WBC (3.8-10.6) k/uL RBC (3.80-5.40) m/uL Hgb (11.4-16.0) gm/dL Hct (34.0-46.0) % Neutrophils # (1.3-7.7) k/uL Chloride (98-107) mmol/L BUN (7-17) mg/dL Glucose (74-99) mg/dL POC Glucose (mg/dL) 142 H 122 H 108 H (75-99) mg/dL 04/07/17 04/07/17 04/07/17 Range/Units 06:41 06:41 11:46 WBC 10.8 H (3.8-10.6) k/uL RBC 3.32 L (3.80-5.40) m/uL Hgb 9.8 L (11.4-16.0) gm/dL Hct 31.5 L (34.0-46.0) % Neutrophils # 8.4 H (1.3-7.7) k/uL Chloride 110 H (98-107) mmol/L BUN 45 H (7-17) mg/dL Glucose 109 H (74-99) mg/dL POC Glucose (mg/dL) 167 H (75-99) mg/dL Assessment and Plan Plan: ASSESSMENT: 1. Non-ST elevated myocardial infarction. 2. Coronary atherosclerosis post PTCA. 3. Acute congestive cardiac failure secondary to systolic dysfunction. 4. Acute on chronic respiratory failure. 5. COPD with exacerbation. 6. Anemia. 7. Remote history of carcinoma of the colon. 8. History of hypertension. PLAN: Continue present medical regimen patient's condition discussed with the patient and spouse. Also discussed with cardiology Dr. Olguin. He is going to evaluate the cardiac rhythms and adjust medications..
[2017-04-07] MEDS ORDERED: CARVEDILOL 3.125 MG TAB PO ONE (14:30)
--- NOTE | 2017-04-07 15:00 | P.PN ---
Subjective Mrs. Benítez is an 86-year-old female with advanced COPD scented with a non-ST elevation myocardial infarction. Underwent cardiac catheterization by Dr. VC Martin and subsequent stenting following arthrectomy by Dr. Corado. She has been having runs of nonsustained VT daily on the monitor. These are asymptomatic. This morning upon examination, patient is laying in bed says she feels her breathing is about her baseline. She does appear to be somewhat short of breath. Denies complaint of dizziness, palpitations or chest discomfort. Objective - Vital Signs Vital signs: Vital Signs Temp 96.9 F L 04/07/17 12:00 Pulse 65 04/07/17 12:00 Resp 18 04/07/17 12:00 BP 123/60 04/07/17 12:00 Pulse Ox 98 04/07/17 12:00 Intake & Output 04/06/17 04/07/17 04/07/17 18:59 06:59 18:59 Intake Total 480 638 Output Total 0 Balance 480 638 Weight 106 kg 60.1 kg Intake: Oral 480 638 Output: Urine 0 Other: Voiding Method Indwelling Catheter Bedside Commode Bedside Commode # Voids 1 1 # Bowel Movements 0 1 - Exam PHYSICAL EXAMINATION: HEENT: Head is atraumatic, normocephalic. Pupils equal, round. Neck is supple. There is no elevated jugular venous pressure. HEART EXAMINATION: Heart sounds regular, S1 and S2 normal. No murmur or gallop heard. CHEST EXAMINATION: Lungs reveal diminished breath sounds bilaterally. No chest wall tenderness is noted on palpation or with deep breathing. ABDOMEN: Soft, nontender. Bowel sounds are heard. No organomegaly noted. EXTREMITIES: 2+ peripheral pulses with no evidence of peripheral edema and no calf tenderness noted. Right groin soft without evidence of hematoma. NEUROLOGIC patient is awake, alert and oriented x3. . - Labs CBC & Chem 7: 04/07/17 06:41 04/07/17 06:41 Labs: Abnormal Lab Results - Last 24 Hours (Table) 04/06/17 04/06/17 04/07/17 Range/Units 16:24 20:50 06:25 WBC (3.8-10.6) k/uL RBC (3.80-5.40) m/uL Hgb (11.4-16.0) gm/dL Hct (34.0-46.0) % Neutrophils # (1.3-7.7) k/uL Chloride (98-107) mmol/L BUN (7-17) mg/dL Glucose (74-99) mg/dL POC Glucose (mg/dL) 142 H 122 H 108 H (75-99) mg/dL 04/07/17 04/07/17 04/07/17 Range/Units 06:41 06:41 11:46 WBC 10.8 H (3.8-10.6) k/uL RBC 3.32 L (3.80-5.40) m/uL Hgb 9.8 L (11.4-16.0) gm/dL Hct 31.5 L (34.0-46.0) % Neutrophils # 8.4 H (1.3-7.7) k/uL Chloride 110 H (98-107) mmol/L BUN 45 H (7-17) mg/dL Glucose 109 H (74-99) mg/dL POC Glucose (mg/dL) 167 H (75-99) mg/dL Assessment and Plan Plan: Assessment and plan #1 severe COPD #2 coronary artery disease, triple vessel status post arthrectomy and stenting of the RCA #[address] elevation myocardial infarction #4 left bundle branch block with severe cardiomyopathy, ejection fraction of 25- 30% #5 nonsustained ventricular tachycardia At this time we will change Lasix to 40 mg by mouth daily. We will increase the patient's carvedilol. We will continue to follow the patient and write further recommendations accordingly. SAFETY TECHNICIAN note has been reviewed, I agree with a documented findings and plan of care. Patient was seen and examined.
[2017-04-07 16:30] LABS: Glucose,Whole Blood 158 mg/dL (75-99)
[2017-04-07] MEDS: CARVEDILOL 6.25 MG TAB PO SCH (17:20)
[2017-04-07 21:17] LABS: Glucose,Whole Blood 171 mg/dL (75-99)
[2017-04-07] MEDS: ATORVASTATIN 80 MG TAB PO SCH (22:02)
--- NOTE | 2017-04-08 06:14 | P.PN ---
Subjective Principal diagnosis: NQWMI Patient is lying flat in bed. She looks comfortable. History status is a lot better than yesterday She denies any chest discomfort On examination Blood pressure 119/58 mmHg heart rate in the 60s afebrile 96.9F Heart sounds S1 and S2 are soft, soft systolic murmur Breath sounds are reduced bilaterally with bilateral rhonchi or sounds Abdomen soft nontender Extremities are warm no edema Impression Non-Q wave myocardial infarction Culprit vessel RCA Status post coronary stenting Nonobstructive CAD in LAD LVEDP 25 mmHg prior to angiogram Nonsustained ventricular tachycardia Pulmonary hypertension RVSP 50 mmHg Cardiomyopathy left ventricular ejection fraction 30-35% Severely dilated left atrium Aortic stenosis Suggest Continue aspirin 81 mg by mouth daily, atorvastatin 80 mg daily, carvedilol 6.25 mg twice daily Plavix and aspirin, Continue losartan and spironolactone Maximal medical treatment Objective - Vital Signs Vital signs: Vital Signs Temp 96.9 F L 04/08/17 00:00 Pulse 62 04/08/17 00:00 Resp 18 04/08/17 00:00 BP 119/58 04/08/17 00:00 Pulse Ox 98 04/08/17 00:00 Intake & Output 04/07/17 04/07/17 04/08/17 06:59 18:59 06:59 Intake Total 1118 Balance 1118 Weight 60.1 kg 58 kg Intake: Oral 1118 Other: Voiding Method Bedside Commode Bedside Commode Bedside Commode # Voids 1 3 1 # Bowel Movements 1 3 - Labs CBC & Chem 7: 04/07/17 06:41 04/07/17 06:41 Labs: Abnormal Lab Results - Last 24 Hours (Table) 04/07/17 04/07/17 04/07/17 Range/Units 06:25 06:41 06:41 WBC 10.8 H (3.8-10.6) k/uL RBC 3.32 L (3.80-5.40) m/uL Hgb 9.8 L (11.4-16.0) gm/dL Hct 31.5 L (34.0-46.0) % Neutrophils # 8.4 H (1.3-7.7) k/uL Chloride 110 H (98-107) mmol/L BUN 45 H (7-17) mg/dL Glucose 109 H (74-99) mg/dL POC Glucose (mg/dL) 108 H (75-99) mg/dL 04/07/17 04/07/17 04/07/17 Range/Units 11:46 16:29 21:07 WBC (3.8-10.6) k/uL RBC (3.80-5.40) m/uL Hgb (11.4-16.0) gm/dL Hct (34.0-46.0) % Neutrophils # (1.3-7.7) k/uL Chloride (98-107) mmol/L BUN (7-17) mg/dL Glucose (74-99) mg/dL POC Glucose (mg/dL) 167 H 158 H 171 H (75-99) mg/dL
[2017-04-08 06:32] LABS: Glucose,Whole Blood 97 mg/dL (75-99)
[2017-04-08] MEDS: INSULIN LISPRO (humaLOG) 300 UNIT/3 ML VIAL SQ SCH ×4 (06:35→22:19)
[2017-04-08] MEDS: LEVOFLOXACIN 250 MG TAB PO SCH (06:37)
[2017-04-08] MEDS: CARVEDILOL 6.25 MG TAB PO SCH ×2 (06:37→17:07)
[2017-04-08 07:00] LABS: Basophils % (A) 0 %; Eosinophils # (A) 0.1 k/uL (0-0.7); Eosinophils % (A) 1 %; HCT 28.9 % (34.0-46.0); HDW 2.76; HGB 9.3 gm/dL (11.4-16.0); Hypochromasia Slight; Luc # (Auto) 0.14; Luc % (Auto) 2; Lymphocytes # (A) 1.2 k/uL (1.0-4.8); Lymphocytes % (A) 13 %; MCH 30.2 pg (25.0-35.0); MCHC 32.2 g/dL (31.0-37.0); MCV 93.8 fL (80.0-100.0); Monocytes # (A) 0.7 k/uL (0-1.0); Monocytes % (A) 7 %; Neutrophils # (A) 7.2 k/uL (1.3-7.7); Neutrophils % (A) 78 %; RBC 3.08 m/uL (3.80-5.40); RDW 13.7 % (11.5-15.5); WBC 9.3 k/uL (3.8-10.6); WBC (Perox) 9.72
[2017-04-08 07:31] LABS: Reticulocyte % 1.4 % (0.5-2.0)
[2017-04-08 07:54] LABS: Anion Gap 4 mmol/L; Blood Urea Nitrogen 43 mg/dL (7-17); Calcium 8.8 mg/dL (8.4-10.2); Carbon Dioxide 30 mmol/L (22-30); Chloride 109 mmol/L (98-107); Glucose 87 mg/dL (74-99); Non-African American GFR(MDRD) >60 (>60 ml/min/1.73 sqM); Potassium 3.9 mmol/L (3.5-5.1); Sodium 143 mmol/L (137-145)
[2017-04-08] MEDS: CLOPIDOGREL 75 MG TAB PO SCH (08:31)
[2017-04-08] MEDS: LOSARTAN 50 MG TAB PO SCH (08:31)
[2017-04-08] MEDS: predniSONE 20 MG TAB PO SCH (08:31)
[2017-04-08] MEDS: ASPIRIN 81 MG CHEW PO SCH (08:31)
[2017-04-08] MEDS: SPIRONOLACTONE 25 MG TAB PO SCH (08:31)
[2017-04-08 09:44] LABS: Iron 30 ug/dL (37-170)
[2017-04-08 09:53] LABS: % Iron Saturation 12.1 % (20-50); Total Iron Binding Capacity 248 ug/dL (265-497)
[2017-04-08 12:23] LABS: Glucose,Whole Blood 134 mg/dL (75-99)
[2017-04-08] MEDS: BUDESONIDE 0.5 MG/2 ML NEBU INHALATION SCH ×2 (12:41→20:31)
[2017-04-08 17:49] LABS: Glucose,Whole Blood 168 mg/dL (75-99)
--- NOTE | 2017-04-08 19:36 | P.PN ---
Subjective history present illness: This 86-year-old was admitted to the hospital with acute on chronic respiratory failure. Patient had associated retrosternal chest pain. Troponins were elevated EKG did not reveal any acute changes she has a bundle branch block. Patient underwent cardiac catheterization and arthrectomy of a tight lesion in the right coronary artery. She is doing well regarding that. She does have improvement in her shortness of breath with periodic exacerbation symptoms related to congestive cardiac failure and underlying COPD. She has minimal cough now. Has no purulent sputum production. Denies any chest pain. Patient's medications been adjusted by check and transfer beader for nonsustained ventricular tachycardia. Patient does exhibit mild prerenal azotemia due to use of steroids and diuretics. Overall she is feeling better. She is at some increased stooling with loose stools. No blood or mucus REVIEW OF SYSTEMS: Neuro:[ Denies any headaches dizziness.] Psych: [Denies anxiety depression feels oriented.] Cardiac: [Denies chest pain and angina palpitations.] Respiratory: [Denies shortness of breath cough]. GI: [Denies nausea vomiting or abdominal pain. :[ Denies dysuria hematuria.] Extremities:[ Denies pain. No edema.] Skin:[ Intact]. Constitutional: [No fever, chills.] Objective - Vital Signs Vital signs: Vital Signs Temp 97.4 F L 04/08/17 16:00 Pulse 66 04/08/17 16:00 Resp 16 04/08/17 16:00 BP 132/63 04/08/17 16:00 Pulse Ox 99 04/08/17 16:00 Intake & Output 04/08/17 04/08/17 04/09/17 06:59 18:59 06:59 Intake Total 660 180 Output Total 0 Balance 660 180 Weight 58 kg Intake: Oral 660 180 Output: Urine 0 Other: Voiding Method Bedside Commode # Voids 1 2 # Bowel Movements 1 PHYSICAL EXAMINATION: Cooperative, at present in no acute distress. HEENT: [Neck supple. No JVD.] Chest: [Clear to auscultationwith generalized decreased airflow with patient at the bases no rhonchi or wheezing][some dullness on percussion percussion.at the bases] Cardiac: [Normal S1-S2] [no gallops] [systolic murmur 2/6 left sternal border]. Abdomen:[ Soft ][bowel sounds present.] Extremities: [No edema] [no tenderness ] Neurologically: [Awake, alert, oriented with well-coordinated movements.] - Labs CBC & Chem 7: 04/08/17 06:28 04/08/17 06:28 Labs: Abnormal Lab Results - Last 24 Hours (Table) 04/07/17 04/08/17 04/08/17 Range/Units 21:07 06:28 06:28 RBC 3.08 L (3.80-5.40) m/uL Hgb 9.3 L (11.4-16.0) gm/dL Hct 28.9 L (34.0-46.0) % Chloride 109 H (98-107) mmol/L BUN 43 H (7-17) mg/dL POC Glucose (mg/dL) 171 H (75-99) mg/dL Iron 30 L (37-170) ug/dL TIBC 248 L (265-497) ug/dL % Saturation 12.1 L (20-50) % 04/08/17 04/08/17 Range/Units 12:03 17:18 RBC (3.80-5.40) m/uL Hgb (11.4-16.0) gm/dL Hct (34.0-46.0) % Chloride (98-107) mmol/L BUN (7-17) mg/dL POC Glucose (mg/dL) 134 H 168 H (75-99) mg/dL Iron (37-170) ug/dL TIBC (265-497) ug/dL % Saturation (20-50) % Assessment and Plan Plan: ASSESSMENT: 1. Non-ST elevated myocardial infarction. 2. Coronary atherosclerosis post PTCA. 3. Acute congestive cardiac failure secondary to systolic dysfunction. 4. Acute on chronic respiratory failure. 5. COPD with exacerbation. 6. iron def. Anemia. 7. Remote history of carcinoma of the colon. 8. History of hypertension. PLAN: continue present medical regimen. Patient's anemia studies reveal iron deficiency. We will place the patient on IV iron. Billing her hemoglobin should help her breathing. Patient's condition discussed with patient andpossible discharge home within next 48 hours
[2017-04-08] MEDS: IPRATROPIUM-ALBUTEROL 3 ML NEB INHALATION PRN (20:31)
[2017-04-08 21:14] LABS: Glucose,Whole Blood 195 mg/dL (75-99)
[2017-04-08] MEDS: SODIUM FERRIC GLUCONAT-SUCROSE 125 MG in SODIUM CHLORIDE 0.9% 100 ML IVPB SCH (22:16)
[2017-04-08] MEDS: ATORVASTATIN 80 MG TAB PO SCH (22:16)
[2017-04-09 03:30] VITALS: RESP 18
[2017-04-09 06:18] LABS: Glucose,Whole Blood 103 mg/dL (75-99)
[2017-04-09 06:43] LABS: Basophils % (A) 0 %; CH 29.4; Eosinophils # (A) 0.2 k/uL (0-0.7); Eosinophils % (A) 2 %; HCT 31.6 % (34.0-46.0); HDW 2.78; HGB 9.6 gm/dL (11.4-16.0); Hypochromasia Slight; Luc # (Auto) 0.14; Luc % (Auto) 2; Lymphocytes # (A) 1.1 k/uL (1.0-4.8); Lymphocytes % (A) 11 %; MCH 28.8 pg (25.0-35.0); MCHC 30.2 g/dL (31.0-37.0); MCV 95.2 fL (80.0-100.0); Mean Platelet Volume 8.1; Monocytes # (A) 0.6 k/uL (0-1.0); Monocytes % (A) 6 %; Neutrophils # (A) 7.8 k/uL (1.3-7.7); Neutrophils % (A) 80 %; RBC 3.32 m/uL (3.80-5.40); RDW 13.9 % (11.5-15.5); WBC 9.8 k/uL (3.8-10.6); WBC (Perox) 10.28
[2017-04-09 07:07] VITALS: TEMP 97
[2017-04-09 07:43] LABS: Anion Gap 6 mmol/L; Blood Urea Nitrogen 39 mg/dL (7-17); Calcium 8.9 mg/dL (8.4-10.2); Carbon Dioxide 29 mmol/L (22-30); Chloride 109 mmol/L (98-107); Glucose 89 mg/dL (74-99); Non-African American GFR(MDRD) >60 (>60 ml/min/1.73 sqM); Potassium 3.9 mmol/L (3.5-5.1); Sodium 144 mmol/L (137-145)
[2017-04-09] MEDS: LEVOTHYROXINE 100 MCG TAB PO SCH (08:17)
[2017-04-09] MEDS: LEVOFLOXACIN 250 MG TAB PO SCH (08:18)
[2017-04-09] MEDS: CARVEDILOL 6.25 MG TAB PO SCH (08:18)
[2017-04-09] MEDS: INSULIN LISPRO (humaLOG) 300 UNIT/3 ML VIAL SQ SCH ×2 (08:19→11:25)
[2017-04-09] MEDS: CLOPIDOGREL 75 MG TAB PO SCH (08:31)
[2017-04-09] MEDS: ASPIRIN 81 MG CHEW PO SCH (08:31)
[2017-04-09] MEDS: SPIRONOLACTONE 25 MG TAB PO SCH (08:31)
[2017-04-09] MEDS: predniSONE 20 MG TAB PO SCH (08:31)
[2017-04-09] MEDS: SODIUM FERRIC GLUCONAT-SUCROSE 125 MG in SODIUM CHLORIDE 0.9% 100 ML IVPB SCH (08:31)
[2017-04-09] MEDS: LOSARTAN 50 MG TAB PO SCH (08:32)
[2017-04-09] MEDS: ATENOLOL 12.5 MG TAB PO SCH (09:24)
[2017-04-09] MEDS: NITROGLYCERIN OINT 1 INCH/GM PACKET TOPICAL SCH (09:24)
[2017-04-09] MEDS: BUDESONIDE 0.5 MG/2 ML NEBU INHALATION SCH (09:30)
[2017-04-09] MEDS: IPRATROPIUM-ALBUTEROL 3 ML NEB INHALATION PRN (09:30)
[2017-04-09 11:18] LABS: Glucose,Whole Blood 126 mg/dL (75-99)
[2017-04-09 11:34] VITALS: BP 149/65; PULSE 51
--- NOTE | 2017-04-09 13:05 | P.PN ---
Subjective Principal diagnosis: Non-Q-wave NC This is an 86-year-old female who presented to the hospital with a non -Q-wave myocardial infarction. She was taken to the cardiac catheterization lab by Dr. VC Martin where she was found to have significant disease in the proximal and distal RCA, subsequent to that she underwent successful stenting of the proximal and mid RCA by Dr. Corado. Patient was seen and examined this morning, she states that her breathing is much improved from presentation here. Denies any chest discomfort. Pressure 140/60 with a heart rate in the 70s. Patient may be able to be discharged home today, a follow-up appointment will be made with Dr. Olguin in the office in one week. Patient will be discharged home on aspirin 81 mg daily, Lipitor 80 mg daily, Coreg 6.25 mg twice a day, Plavix 75 mg daily, losartan 50 mg daily, Aldactone 25 mg daily, and sublingual nitroglycerin as needed for chest pain. Objective - Vital Signs Vital signs: Vital Signs Temp 97.0 F L 04/09/17 08:00 Pulse 51 L 04/09/17 11:33 Resp 18 04/09/17 11:33 BP 149/65 04/09/17 11:33 Pulse Ox 99 04/09/17 11:33 Intake & Output 04/08/17 04/09/17 04/09/17 18:59 06:59 18:59 Intake Total 660 180 280 Output Total 0 2 Balance 660 178 280 Weight 58.2 kg Intake: Intake, IV Titration 100 Amount Sodium Ferric Gluconat- 100 Sucrose 125 mg In Sodium Chloride 0.9% 100 ml @ 100 mls/hr IVPB DAILY [facility] Rx#:[id number] Oral 660 180 180 Output: Urine 0 Urine/Stool Mix 2 Other: Voiding Method Bedside Commode # Voids 2 # Bowel Movements 1 - Exam PHYSICAL EXAMINATION: HEENT: Head is atraumatic, normocephalic. Pupils equal, round. Neck is supple. There is no elevated jugular venous pressure. HEART EXAMINATION: Heart S1, S2 normal. No murmur or gallop heard. CHEST EXAMINATION: Lungs reveal decreased air exchange with fine wheezing throughout. ABDOMEN: Soft, nontender. Bowel sounds are heard. No organomegaly noted. EXTREMITIES: 2+ peripheral pulses with no evidence of peripheral edema and no calf tenderness noted. NEUROLOGIC patient is awake, alert and oriented -3. . - Labs CBC & Chem 7: 04/09/17 06:05 04/09/17 06:05 Labs: Abnormal Lab Results - Last 24 Hours (Table) 04/08/17 04/08/17 04/09/17 Range/Units 17:18 21:02 06:05 RBC 3.32 L (3.80-5.40) m/uL Hgb 9.6 L (11.4-16.0) gm/dL Hct 31.6 L (34.0-46.0) % MCHC 30.2 L (31.0-37.0) g/dL Neutrophils # 7.8 H (1.3-7.7) k/uL Chloride (98-107) mmol/L BUN (7-17) mg/dL POC Glucose (mg/dL) 168 H 195 H (75-99) mg/dL 04/09/17 04/09/17 04/09/17 Range/Units 06:05 06:16 11:17 RBC (3.80-5.40) m/uL Hgb (11.4-16.0) gm/dL Hct (34.0-46.0) % MCHC (31.0-37.0) g/dL Neutrophils # (1.3-7.7) k/uL Chloride 109 H (98-107) mmol/L BUN 39 H (7-17) mg/dL POC Glucose (mg/dL) 103 H 126 H (75-99) mg/dL Assessment and Plan (1) Iron deficiency anemia Status: Acute (2) S/P right coronary artery (RCA) stent placement Status: Acute (3) HTN (hypertension) Status: Acute (4) Hyperlipemia Status: Acute (5) COPD exacerbation Status: Acute (6) NSTEMI (non-ST elevated myocardial infarction) Status: Acute Plan: Cardiology's perspective, patient may be able to be discharged home today. We will make her a follow-up appointment to see Dr. Zuleta in the office in one week. Prescriptions have been provided for her medications and she has been educated regarding them. DNP note has been reviewed, I agree with a documented findings and plan of care. Patient was seen and examined.
--- NOTE | 2017-04-14 13:40 | P.DS ---
Providers Date of admission: 04/02/17 23:55 Attending physician: Charanjit Torres Consults: 04/03/17 07:45 Consult Physician Urgent Consulting Provider: Jonatan Aguilar Consult Reason/Comments: chest pain Do you want consulting provider notified?: Yes 04/05/17 09:19 Consult Physician Routine Consulting Provider: [facility] Consult Reason/Comments: Post Interventional patient Do you want consulting provider notified?: Already Contacted Primary care physician: Charanjit Torres [facility] Course: Hospital course: This 86-year-old female was admitted to the hospital after presenting with a complaint of shortness of breath. The patient's shortness of breath and been for about 3 days' duration. She has known history of chronic respiratory failure secondary to COPD. The patient denied any symptoms of any significant upper respiratory infection. She however the day prior to admission he did have some chest pain which was retrosternal and significant. The patient the time of admission did have elevated troponins. EKG has a bundle -branch block. The patient in view of this sent by cardiology recommended cardiac catheterization. Patient was treated for COPD as well. She had evidence of congestive cardiac failure. Echocardiogram revealed decreased ejection fraction. The patient had cardiac catheterization was noted to have a large calcified high-grade occlusion. She did undergo an arthrectomy in a staged basis. The patient general condition basically remained stable following that. She had some runs brief runs of nonsustained ventricular tachycardia. Her medications were adjusted. Her congestive cardiac failure improved with diuresis. Patient's prognosis remains guarded. She was discharged home in a stable condition. Medications and potential side effects were reviewed with patient and recommended never to stop Plavix or aspirin without discussing with physicians. The patient to continue using oxygen. Patient was also noted to be anemic suggestive and deficiency. She received 2 doses of IV iron infusions prior to discharge Final diagnoses to include 1. Acute subendocardial myocardial infarction 2. Coronary atherosclerosis 3. Ex-smoker 4. Dilated ischemic cardiomyopathy 5. Acute congestive cardiac failure secondary to systolic dysfunction 6. COPD with exacerbation 7. Iron deficiency anemia. 8. Remote history of carcinoma of the colon. Patient Condition at Discharge: Stable Plan - Discharge Summary New Discharge Prescriptions: Atorvastatin [Lipitor] 80 mg PO HS #30 tab Carvedilol [Coreg] 6.25 mg PO BID-W/MEALS #60 tab Clopidogrel [Plavix] 75 mg PO DAILY #90 tab Nitroglycerin Sl Tabs [Nitrostat] 0.4 mg SUBLINGUAL Q5M PRN #100 tab PRN Reason: Chest Pain predniSONE 10 mg PO DAILY #5 tab Spironolactone [Aldactone] 25 mg PO DAILY #90 tab Discharge Medication List Levothyroxine Sodium [Synthroid] 100 mcg PO MOTUWETHFRSA 01/17/16 [History] Multivit-Min/FA/Lycopen/Lutein [Centrum Silver Tablet] 1 tab PO HS 01/17/16 [ History] Simvastatin [Zocor] 40 mg PO HS tab 01/25/16 [Rx] Aspirin 325 mg PO BID 01/26/17 [History] guaiFENesin [Mucinex] 600 mg PO Q12H PRN 01/26/17 [History] Budesonide [Pulmicort] 0.5 mg INHALATION RT-BID 04/02/17 [History] Furosemide [Lasix] 20 mg PO Q48H 04/02/17 [History] Ipratropium-Albuterol Nebulize [Duoneb 0.5 mg-3 mg/3 ml Soln] 3 ml INHALATION RT -QID PRN 04/02/17 [History] Losartan [Cozaar] 50 mg PO QAM 04/02/17 [History] Atorvastatin [Lipitor] 80 mg PO HS #30 tab 04/09/17 [Rx] Carvedilol [Coreg] 6.25 mg PO BID-W/MEALS #60 tab 04/09/17 [Rx] Clopidogrel [Plavix] 75 mg PO DAILY #90 tab 04/09/17 [Rx] Nitroglycerin Sl Tabs [Nitrostat] 0.4 mg SUBLINGUAL Q5M PRN #100 tab 04/09/17 [ Rx] Spironolactone [Aldactone] 25 mg PO DAILY #90 tab 04/09/17 [Rx] predniSONE 10 mg PO DAILY #5 tab 04/09/17 [Rx] Follow up Appointment(s)/Referral(s): Abhi Olguin MD [STAFF PHYSICIAN] - 04/19/17 9:45 am Charanjit Torres MD [Primary Care Provider] - 04/11/17 10:15 am Discharge Disposition: HOME SELF-CARE
== END 2017-04-09 14:16 | disposition home or self-care (01) | DRG 246 ==
LOC: EC 22:00 → 6ICU 23:55 → 6SEL 04-04 13:25
PROVIDERS: ADMIT Internal Medicine; ATTEND Internal Medicine
PROC: 4A023N7 Measurement of Cardiac Sampling and Pressure, Left Heart, Percutaneous Approach (ICD-10-PCS; 2017-04-04)
PROC: B2111ZZ Fluoroscopy of Multiple Coronary Arteries using Low Osmolar Contrast (ICD-10-PCS; 2017-04-04)
PROC: B2151ZZ Fluoroscopy of Left Heart using Low Osmolar Contrast (ICD-10-PCS; 2017-04-04)
PROC: X2C0361 Extirpation of Matter from Coronary Artery, One Artery using Orbital Atherectomy Technology, Percutaneous Approach, New Technology Group 1 (ICD-10-PCS; 2017-04-05)
PROC: B2101ZZ Fluoroscopy of Single Coronary Artery using Low Osmolar Contrast (ICD-10-PCS; 2017-04-05)
PROC: 027036Z Dilation of Coronary Artery, One Artery with Three Drug-eluting Intraluminal Devices, Percutaneous Approach (ICD-10-PCS; principal; 2017-04-05 07:43)
DX: I21.4 Non-ST elevation (NSTEMI) myocardial infarction (principal); J96.20 Acute and chronic respiratory failure, unspecified whether with hypoxia or hypercapnia; I47.2 Ventricular tachycardia; I50.23 Acute on chronic systolic (congestive) heart failure; J44.1 Chronic obstructive pulmonary disease with (acute) exacerbation; I25.5 Ischemic cardiomyopathy; I44.7 Left bundle-branch block, unspecified; I27.2 Other secondary pulmonary hypertension; I25.10 Atherosclerotic heart disease of native coronary artery without angina pectoris; D50.9 Iron deficiency anemia, unspecified; I11.0 Hypertensive heart disease with heart failure; R79.89 Other specified abnormal findings of blood chemistry; T38.0X5A Adverse effect of glucocorticoids and synthetic analogues, initial encounter; T50.1X5A Adverse effect of loop [high-ceiling] diuretics, initial encounter; I45.9 Conduction disorder, unspecified; I35.0 Nonrheumatic aortic (valve) stenosis; E78.5 Hyperlipidemia, unspecified; I25.2 Old myocardial infarction; E03.9 Hypothyroidism, unspecified; F41.9 Anxiety disorder, unspecified; H91.93 Unspecified hearing loss, bilateral; Z99.81 Dependence on supplemental oxygen; Z85.038 Personal history of other malignant neoplasm of large intestine; Z87.891 Personal history of nicotine dependence; Z82.3 Family history of stroke; Z82.0 Family history of epilepsy and other diseases of the nervous system; Z79.82 Long term (current) use of aspirin; Z79.899 Other long term (current) drug therapy; Z82.49 Family history of ischemic heart disease and other diseases of the circulatory system; Z98.42 Cataract extraction status, left eye; Z98.41 Cataract extraction status, right eye; Z96.1 Presence of intraocular lens; Z71.3 Dietary counseling and surveillance; Z90.49 Acquired absence of other specified parts of digestive tract; Z90.710 Acquired absence of both cervix and uterus; Z81.1 Family history of alcohol abuse and dependence; Z87.81 Personal history of (healed) traumatic fracture; Z86.010 Personal history of colon polyps; Z87.01 Personal history of pneumonia (recurrent); Z86.19 Personal history of other infectious and parasitic diseases; Z87.09 Personal history of other diseases of the respiratory system; Z88.0 Allergy status to penicillin; Z88.7 Allergy status to serum and vaccine; Z91.048 Other nonmedicinal substance allergy status; Z79.51 Long term (current) use of inhaled steroids; Z86.39 Personal history of other endocrine, nutritional and metabolic disease
CPT/HCPCS: 36415; 71010; 71020; 80048; 80053; 80061; 82550; 82553; 82728; 82803; 83036; 83540; 83550; 83735; 83880; 84484; 85025; 85027; 85045; 85347; 85610; 85730; 93005; 93306; 93460; 94640; 94660; 94760

== ENCOUNTER 2017-09-25 19:55 | Inpatient (IN) | payer MEDICARE, BC ==
[2017-09-25] MEDS ORDERED: methylPREDNISolone SOD SUCCI 125 MG/2 ML VIAL IV STA (20:01)
[2017-09-25] MEDS ORDERED: SODIUM CHLORIDE 0.9% 1,000 ML IV STA (20:01)
[2017-09-25] MEDS ORDERED: IPRATROPIUM-ALBUTEROL 3 ML NEB INHALATION STA (20:01)
--- NOTE | 2017-09-25 20:05 | ED ---
SOB HPI - General Stated Complaint: poss pneumonia Time Seen by Provider: 09/25/17 19:55 Source: patient, EMS, RN notes reviewed Mode of arrival: EMS - History of Present Illness Initial Comments: This is a 87-year-old female who presents by EMS with complaints of shortness of breath not feeling well for the past couple days fever cough with yellow phlegm. She's had increased weakness decreased appetite also chills. She was history of COPD history of [place] 3 no other complaints such as nausea vomiting or diarrhea MD Complaint: shortness of breath, cough - Related Data Home Medications Medication Instructions Recorded Confirmed Levothyroxine Sodium [Synthroid] 100 mcg PO MOTUWETHFRSA 01/17/16 04/02/17 Multivit-Min/FA/Lycopen/Lutein 1 tab PO HS 01/17/16 04/02/17 [Centrum Silver Tablet] Aspirin 325 mg PO BID 01/26/17 04/02/17 guaiFENesin [Mucinex] 600 mg PO Q12H PRN 01/26/17 04/02/17 Budesonide [Pulmicort] 0.5 mg INHALATION RT-BID 04/02/17 04/02/17 Furosemide [Lasix] 20 mg PO Q48H 04/02/17 04/02/17 Ipratropium-Albuterol Nebulize 3 ml INHALATION RT-QID PRN 04/02/17 04/02/17 [Duoneb 0.5 mg-3 mg/3 ml Soln] Losartan [Cozaar] 50 mg PO QAM 04/02/17 04/02/17 Previous Rx's Medication Instructions Recorded Simvastatin [Zocor] 40 mg PO HS tab 01/25/16 Atorvastatin [Lipitor] 80 mg PO HS #30 tab 04/09/17 Carvedilol [Coreg] 6.25 mg PO BID-W/MEALS #60 tab 04/09/17 Clopidogrel [Plavix] 75 mg PO DAILY #90 tab 04/09/17 Nitroglycerin Sl Tabs [Nitrostat] 0.4 mg SUBLINGUAL Q5M PRN #100 tab 04/09/17 Spironolactone [Aldactone] 25 mg PO DAILY #90 tab 04/09/17 predniSONE 10 mg PO DAILY #5 tab 04/09/17 Allergies Allergy/AdvReac Type Severity Reaction Status Date / Time Penicillins Allergy Unknown Verified 01/26/17 11:40 pneumococcal 23-valent Allergy Rash/Hives Verified 01/26/17 11:40 polysacchari [From Pneumovax 23] adhesive tape AdvReac Unknown Verified 01/26/17 11:40 Review of Systems ROS Statement: Those systems with pertinent positive or pertinent negative responses have been documented in the HPI. ROS Other: All systems not noted in ROS Statement are negative. Past Medical History Past Medical History: Asthma, Cancer, Heart Failure, COPD, Hearing Disorder / Deafness, Hyperlipidemia, Pneumonia, Respiratory Disorder, Thyroid Disorder Additional Past Medical History / Comment(s): Colon ca with SX, hypothyroid, tracheobronchitis, [place] bilaterally, wears 2L at home. Pt denies FL, arthritis, HTN or pulmonary HTN that are in PMR. Last Myocardial Infarction Date:: 09/2016 History of Any Multi-Drug Resistant Organisms: None Reported Past Surgical History: Appendectomy, Bowel Resection, Section, Cholecystectomy, Hysterectomy, Orthopedic Surgery, Tonsillectomy Additional Past Surgical History / Comment(s): colectomy for cancer, thyroidectomy, bilateral cataract removal with lens implants, C- Sections x 3, L foot fx with surgical repair, colonoscopies with polypectomy. Past Anesthesia/Blood Transfusion Reactions: No Reported Reaction, Motion Sickness Additional Past Anesthesia/Blood Transfusion Reaction / Comment(s): Pt has never recieved blood. Past Psychological History: Anxiety Additional Psychological History / Comment(s): Pt resides with her spouse and their ervin. She is independent. She uses no assistive device. She drives. She has a nebulizer and home oxygen. She lives in a single level home with 4 steps to get inside. Smoking Status: Never smoker Past Alcohol Use History: None Reported Additional Past Alcohol Use History / Comment(s): Pt quit smoking in 2009. She has one alcoholic drink on her birthday each year and a rare beer otherwise. Past Drug Use History: None Reported - Past Family History Father Additional Family Medical History / Comment(s): Pt did not know her father well. He was an alcoholic and from it. Mother Family Medical History: Myocardial Infarction (FL) Additional Family Medical History / Comment(s): Mother of an FL at age 51yrs. General Exam - General Exam Comments Initial Comments: This is a well-developed well-nourished awake alert oriented x 3 female General appearance: alert, in no apparent distress Head exam: Present: atraumatic, normocephalic, normal inspection Eye exam: Present: normal appearance, PERRL, EOMI. Absent: scleral icterus, conjunctival injection, periorbital swelling ENT exam: Present: mucous membranes dry Neck exam: Present: normal inspection. Absent: tenderness, meningismus, lymphadenopathy Respiratory exam: Present: rales, decreased breath sounds. Absent: respiratory distress, wheezes, stridor Cardiovascular Exam: Present: regular rate, normal rhythm, normal heart sounds. Absent: systolic murmur, diastolic murmur, rubs, gallop, clicks GI/Abdominal exam: Present: soft, normal bowel sounds. Absent: distended, tenderness, guarding, rebound, rigid Extremities exam: Present: normal inspection, full ROM, normal capillary refill. Absent: tenderness, pedal edema, joint swelling, calf tenderness Back exam: Present: normal inspection Neurological exam: Present: alert, oriented X3, CN II-XII intact Psychiatric exam: Present: normal affect, normal mood Skin exam: Present: warm, dry, intact, normal color. Absent: rash Course Vital Signs 09/25/17 09/25/17 09/25/17 19:57 20:04 20:42 Temperature 101.3 F H Pulse Rate 95 84 Respiratory 26 H Rate Blood Pressure 160/66 O2 Sat by Pulse 89 L 97 Oximetry 09/25/17 09/25/17 20:54 22:38 Temperature 98.1 F Pulse Rate 84 71 Respiratory 20 Rate Blood Pressure 117/56 O2 Sat by Pulse 97 Oximetry - Reevaluation(s) Reevaluation #1: 09/25/17 23:02 Reevaluation patient reveals some minimal improvement her sats are in the low 90s she does desaturate with effort and speech. Medical Decision Making - Medical Decision Making Reevaluation patient reveals some increased aeration with more prominent rales at the bases. I did discuss the findings with the patient family members as well as Dr. Torres patient be admitted. He does not seem to be bacterial source for the fever is likely viral. We treated symptomatically she'll be placed on IV Lasix pain with updraft treatments. - Lab Data Result diagrams: 09/25/17 20:10 09/25/17 20:10 Lab Results 09/25/17 09/25/17 09/25/17 Range/Units 20:05 20:10 20:10 WBC 8.6 (3.8-10.6) k/uL RBC 3.65 L (3.80-5.40) m/uL Hgb 11.1 L (11.4-16.0) gm/dL Hct 34.0 (34.0-46.0) % MCV 93.3 (80.0-100.0) fL MCH 30.5 (25.0-35.0) pg MCHC 32.7 (31.0-37.0) g/dL RDW 14.6 (11.5-15.5) % Plt Count 194 (150-450) k/uL Neutrophils % 75 % Lymphocytes % 14 % Monocytes % 7 % Eosinophils % 2 % Basophils % 0 % Neutrophils # 6.5 (1.3-7.7) k/uL Lymphocytes # 1.2 (1.0-4.8) k/uL Monocytes # 0.6 (0-1.0) k/uL Eosinophils # 0.2 (0-0.7) k/uL Basophils # 0.0 (0-0.2) k/uL PT (9.0-12.0) sec INR (<1.2) APTT (22.0-30.0) sec Sodium (137-145) mmol/L Potassium (3.5-5.1) mmol/L Chloride (98-107) mmol/L Carbon Dioxide (22-30) mmol/L Anion Gap mmol/L BUN (7-17) mg/dL Creatinine (0.52-1.04) mg/dL Est GFR (MDRD) Af Amer (>60 ml/min/1.73 sqM) Est GFR (MDRD) Non-Af (>60 ml/min/1.73 sqM) Glucose (74-99) mg/dL Plasma Lactic Acid Ethan (0.7-2.0) mmol/L Calcium (8.4-10.2) mg/dL Magnesium (1.6-2.3) mg/dL Total Bilirubin (0.2-1.3) mg/dL AST (14-36) U/L ALT (9-52) U/L Alkaline Phosphatase (38-126) U/L Total Creatine Kinase 31 (30-135) U/L CK-MB (CK-2) 0.8 (0.0-2.4) ng/mL CK-MB (CK-2) Rel Index 2.6 Troponin I 0.022 (0.000-0.034) ng/mL NT-Pro-B Natriuret Pep pg/mL Total Protein (6.3-8.2) g/dL Albumin (3.5-5.0) g/dL Influenza Type A RNA Not Detected (Not Detectd) Influenza Type B (PCR) Not Detected (Not Detectd) 09/25/17 09/25/17 09/25/17 Range/Units 20:10 20:10 20:10 WBC (3.8-10.6) k/uL RBC (3.80-5.40) m/uL Hgb (11.4-16.0) gm/dL Hct (34.0-46.0) % MCV (80.0-100.0) fL MCH (25.0-35.0) pg MCHC (31.0-37.0) g/dL RDW (11.5-15.5) % Plt Count (150-450) k/uL Neutrophils % % Lymphocytes % % Monocytes % % Eosinophils % % Basophils % % Neutrophils # (1.3-7.7) k/uL Lymphocytes # (1.0-4.8) k/uL Monocytes # (0-1.0) k/uL Eosinophils # (0-0.7) k/uL Basophils # (0-0.2) k/uL PT 11.1 (9.0-12.0) sec INR 1.1 (<1.2) APTT 29.7 (22.0-30.0) sec Sodium 141 (137-145) mmol/L Potassium 4.2 (3.5-5.1) mmol/L Chloride 104 (98-107) mmol/L Carbon Dioxide 31 H (22-30) mmol/L Anion Gap 6 mmol/L BUN 18 H (7-17) mg/dL Creatinine 0.70 (0.52-1.04) mg/dL Est GFR (MDRD) Af Amer >60 (>60 ml/min/1.73 sqM) Est GFR (MDRD) Non-Af >60 (>60 ml/min/1.73 sqM) Glucose 127 H (74-99) mg/dL Plasma Lactic Acid Ethan (0.7-2.0) mmol/L Calcium 9.4 (8.4-10.2) mg/dL Magnesium 1.5 L (1.6-2.3) mg/dL Total Bilirubin 1.2 (0.2-1.3) mg/dL AST 25 (14-36) U/L ALT 35 (9-52) U/L Alkaline Phosphatase 74 (38-126) U/L Total Creatine Kinase (30-135) U/L CK-MB (CK-2) (0.0-2.4) ng/mL CK-MB (CK-2) Rel Index Troponin I (0.000-0.034) ng/mL NT-Pro-B Natriuret Pep 08687 pg/mL Total Protein 6.2 L (6.3-8.2) g/dL Albumin 3.7 (3.5-5.0) g/dL Influenza Type A RNA (Not Detectd) Influenza Type B (PCR) (Not Detectd) 09/25/17 Range/Units 20:10 WBC (3.8-10.6) k/uL RBC (3.80-5.40) m/uL Hgb (11.4-16.0) gm/dL Hct (34.0-46.0) % MCV (80.0-100.0) fL MCH (25.0-35.0) pg MCHC (31.0-37.0) g/dL RDW (11.5-15.5) % Plt Count (150-450) k/uL Neutrophils % % Lymphocytes % % Monocytes % % Eosinophils % % Basophils % % Neutrophils # (1.3-7.7) k/uL Lymphocytes # (1.0-4.8) k/uL Monocytes # (0-1.0) k/uL Eosinophils # (0-0.7) k/uL Basophils # (0-0.2) k/uL PT (9.0-12.0) sec INR (<1.2) APTT (22.0-30.0) sec Sodium (137-145) mmol/L Potassium (3.5-5.1) mmol/L Chloride (98-107) mmol/L Carbon Dioxide (22-30) mmol/L Anion Gap mmol/L BUN (7-17) mg/dL Creatinine (0.52-1.04) mg/dL Est GFR (MDRD) Af Amer (>60 ml/min/1.73 sqM) Est GFR (MDRD) Non-Af (>60 ml/min/1.73 sqM) Glucose (74-99) mg/dL Plasma Lactic Acid Ethan 0.7 (0.7-2.0) mmol/L Calcium (8.4-10.2) mg/dL Magnesium (1.6-2.3) mg/dL Total Bilirubin (0.2-1.3) mg/dL AST (14-36) U/L ALT (9-52) U/L Alkaline Phosphatase (38-126) U/L Total Creatine Kinase (30-135) U/L CK-MB (CK-2) (0.0-2.4) ng/mL CK-MB (CK-2) Rel Index Troponin I (0.000-0.034) ng/mL NT-Pro-B Natriuret Pep pg/mL Total Protein (6.3-8.2) g/dL Albumin (3.5-5.0) g/dL Influenza Type A RNA (Not Detectd) Influenza Type B (PCR) (Not Detectd) - EKG Data -: EKG Interpreted by [place] EKG shows normal: sinus rhythm (Sinus rhythm of 88. Interval 162 QRS 136 QT since QTC of 400/44 nonspecific interventricular block.) - Radiology Data Radiology results: report reviewed (No definite infiltrates borderline heart size. No definite infiltrate there are some increased markings), image reviewed Critical Care Time Critical Care Time: Yes Critical Care Time: 3 minutes of critical care time which includes initial presentation with history physical labs x-rays reevaluation the patient several occasions discussion with the patient family members and different times. Discussed with Dr. Song admission orders documentation of the above Disposition Clinical Impression: Congestive heart failure (CHF), Febrile illness, acute, Acute exacerbation of chronic obstructive airways disease Disposition: ADMITTED IP TO THIS HOSP Condition: Stable Referrals: Charanjit Torres MD [Primary Care Provider] - 1-2 days
[2017-09-25 20:28] LABS: Basophils % (A) 0 %; CH 29.6; Eosinophils # (A) 0.2 k/uL (0-0.7); Eosinophils % (A) 2 %; HDW 2.61; HGB 11.1 gm/dL (11.4-16.0); Luc # (Auto) 0.17; Luc % (Auto) 2; Lymphocytes # (A) 1.2 k/uL (1.0-4.8); Lymphocytes % (A) 14 %; MCH 30.5 pg (25.0-35.0); MCHC 32.7 g/dL (31.0-37.0); MCV 93.3 fL (80.0-100.0); Mean Platelet Volume 8.1; Monocytes # (A) 0.6 k/uL (0-1.0); Monocytes % (A) 7 %; Neutrophils # (A) 6.5 k/uL (1.3-7.7); Neutrophils % (A) 75 %; RBC 3.65 m/uL (3.80-5.40); RDW 14.6 % (11.5-15.5); WBC 8.6 k/uL (3.8-10.6); WBC (Perox) 8.95
[2017-09-25 20:40] LABS: INR 1.1 (<1.2); Partial Thromboplastin Time 29.7 sec (22.0-30.0); Prothrombin Time 11.1 sec (9.0-12.0)
[2017-09-25 20:41] LABS: ALT 35 U/L (9-52); AST 25 U/L (14-36); Alkaline Phosphatase 74 U/L (38-126); Anion Gap 6 mmol/L; Blood Urea Nitrogen 18 mg/dL (7-17); Calcium 9.4 mg/dL (8.4-10.2); Carbon Dioxide 31 mmol/L (22-30); Chloride 104 mmol/L (98-107); Glucose 127 mg/dL (74-99); Magnesium 1.5 mg/dL (1.6-2.3); Non-African American GFR(MDRD) >60 (>60 ml/min/1.73 sqM); Potassium 4.2 mmol/L (3.5-5.1); Sodium 141 mmol/L (137-145); Total Bilirubin 1.2 mg/dL (0.2-1.3); Total Protein 6.2 g/dL (6.3-8.2)
[2017-09-25 20:57] LABS: Creatine Kinase MB 0.8 ng/mL (0.0-2.4); Troponin I 0.022 ng/mL (0.000-0.034)
[2017-09-25] MEDS ORDERED: MAGNESIUM SULFATE-D5W PMX 1 GM in DEXTROSE/WATER 1 100ML.BAG IVPB ONE (21:02)
--- NOTE | 2017-09-25 21:18 | XR ---
EXAMINATION TYPE: XR chest 2V DATE OF EXAM: 09/25/2017 COMPARISON: 04/06/2017 HISTORY: Shortness of breath TECHNIQUE: Frontal and lateral views of the chest are obtained. FINDINGS: Scattered senescent parenchymal changes noted. Hyperinflation compatible with COPD. No evidence for infiltrate. No evidence for atelectasis. Heart size is stable. Mediastinal structures are stable and grossly unremarkable. No evidence for hilar prominence. Degenerative changes dorsal spine. IMPRESSION: 1. No evidence for acute pulmonary disease.
[2017-09-25] MEDS ORDERED: FUROSEMIDE 10 MG/ML 4 ML VIAL IV STA (22:47)
[2017-09-25] MEDS ORDERED: NITROGLYCERIN SL TABS 0.4 MG TAB SUBLINGUAL PRN (23:10)
[2017-09-25] MEDS ORDERED: guaiFENesin 600 MG TABLET.ER PO PRN (23:10)
--- NOTE | 2017-09-25 23:18 | ED ---
Medical Decision Making - Lab Data Result diagrams: 09/25/17 20:10 09/25/17 20:10 Lab Results 09/25/17 09/25/17 09/25/17 Range/Units 20:05 20:10 20:10 WBC 8.6 (3.8-10.6) k/uL RBC 3.65 L (3.80-5.40) m/uL Hgb 11.1 L (11.4-16.0) gm/dL Hct 34.0 (34.0-46.0) % MCV 93.3 (80.0-100.0) fL MCH 30.5 (25.0-35.0) pg MCHC 32.7 (31.0-37.0) g/dL RDW 14.6 (11.5-15.5) % Plt Count 194 (150-450) k/uL Neutrophils % 75 % Lymphocytes % 14 % Monocytes % 7 % Eosinophils % 2 % Basophils % 0 % Neutrophils # 6.5 (1.3-7.7) k/uL Lymphocytes # 1.2 (1.0-4.8) k/uL Monocytes # 0.6 (0-1.0) k/uL Eosinophils # 0.2 (0-0.7) k/uL Basophils # 0.0 (0-0.2) k/uL PT (9.0-12.0) sec INR (<1.2) APTT (22.0-30.0) sec Sodium (137-145) mmol/L Potassium (3.5-5.1) mmol/L Chloride (98-107) mmol/L Carbon Dioxide (22-30) mmol/L Anion Gap mmol/L BUN (7-17) mg/dL Creatinine (0.52-1.04) mg/dL Est GFR (MDRD) Af Amer (>60 ml/min/1.73 sqM) Est GFR (MDRD) Non-Af (>60 ml/min/1.73 sqM) Glucose (74-99) mg/dL Plasma Lactic Acid Ethan (0.7-2.0) mmol/L Calcium (8.4-10.2) mg/dL Magnesium (1.6-2.3) mg/dL Total Bilirubin (0.2-1.3) mg/dL AST (14-36) U/L ALT (9-52) U/L Alkaline Phosphatase (38-126) U/L Total Creatine Kinase 31 (30-135) U/L CK-MB (CK-2) 0.8 (0.0-2.4) ng/mL CK-MB (CK-2) Rel Index 2.6 Troponin I 0.022 (0.000-0.034) ng/mL NT-Pro-B Natriuret Pep pg/mL Total Protein (6.3-8.2) g/dL Albumin (3.5-5.0) g/dL Influenza Type A RNA Not Detected (Not Detectd) Influenza Type B (PCR) Not Detected (Not Detectd) 09/25/17 09/25/17 09/25/17 Range/Units 20:10 20:10 20:10 WBC (3.8-10.6) k/uL RBC (3.80-5.40) m/uL Hgb (11.4-16.0) gm/dL Hct (34.0-46.0) % MCV (80.0-100.0) fL MCH (25.0-35.0) pg MCHC (31.0-37.0) g/dL RDW (11.5-15.5) % Plt Count (150-450) k/uL Neutrophils % % Lymphocytes % % Monocytes % % Eosinophils % % Basophils % % Neutrophils # (1.3-7.7) k/uL Lymphocytes # (1.0-4.8) k/uL Monocytes # (0-1.0) k/uL Eosinophils # (0-0.7) k/uL Basophils # (0-0.2) k/uL PT 11.1 (9.0-12.0) sec INR 1.1 (<1.2) APTT 29.7 (22.0-30.0) sec Sodium 141 (137-145) mmol/L Potassium 4.2 (3.5-5.1) mmol/L Chloride 104 (98-107) mmol/L Carbon Dioxide 31 H (22-30) mmol/L Anion Gap 6 mmol/L BUN 18 H (7-17) mg/dL Creatinine 0.70 (0.52-1.04) mg/dL Est GFR (MDRD) Af Amer >60 (>60 ml/min/1.73 sqM) Est GFR (MDRD) Non-Af >60 (>60 ml/min/1.73 sqM) Glucose 127 H (74-99) mg/dL Plasma Lactic Acid Ethan (0.7-2.0) mmol/L Calcium 9.4 (8.4-10.2) mg/dL Magnesium 1.5 L (1.6-2.3) mg/dL Total Bilirubin 1.2 (0.2-1.3) mg/dL AST 25 (14-36) U/L ALT 35 (9-52) U/L Alkaline Phosphatase 74 (38-126) U/L Total Creatine Kinase (30-135) U/L CK-MB (CK-2) (0.0-2.4) ng/mL CK-MB (CK-2) Rel Index Troponin I (0.000-0.034) ng/mL NT-Pro-B Natriuret Pep 97913 pg/mL Total Protein 6.2 L (6.3-8.2) g/dL Albumin 3.7 (3.5-5.0) g/dL Influenza Type A RNA (Not Detectd) Influenza Type B (PCR) (Not Detectd) 09/25/17 Range/Units 20:10 WBC (3.8-10.6) k/uL RBC (3.80-5.40) m/uL Hgb (11.4-16.0) gm/dL Hct (34.0-46.0) % MCV (80.0-100.0) fL MCH (25.0-35.0) pg MCHC (31.0-37.0) g/dL RDW (11.5-15.5) % Plt Count (150-450) k/uL Neutrophils % % Lymphocytes % % Monocytes % % Eosinophils % % Basophils % % Neutrophils # (1.3-7.7) k/uL Lymphocytes # (1.0-4.8) k/uL Monocytes # (0-1.0) k/uL Eosinophils # (0-0.7) k/uL Basophils # (0-0.2) k/uL PT (9.0-12.0) sec INR (<1.2) APTT (22.0-30.0) sec Sodium (137-145) mmol/L Potassium (3.5-5.1) mmol/L Chloride (98-107) mmol/L Carbon Dioxide (22-30) mmol/L Anion Gap mmol/L BUN (7-17) mg/dL Creatinine (0.52-1.04) mg/dL Est GFR (MDRD) Af Amer (>60 ml/min/1.73 sqM) Est GFR (MDRD) Non-Af (>60 ml/min/1.73 sqM) Glucose (74-99) mg/dL Plasma Lactic Acid Ethan 0.7 (0.7-2.0) mmol/L Calcium (8.4-10.2) mg/dL Magnesium (1.6-2.3) mg/dL Total Bilirubin (0.2-1.3) mg/dL AST (14-36) U/L ALT (9-52) U/L Alkaline Phosphatase (38-126) U/L Total Creatine Kinase (30-135) U/L CK-MB (CK-2) (0.0-2.4) ng/mL CK-MB (CK-2) Rel Index Troponin I (0.000-0.034) ng/mL NT-Pro-B Natriuret Pep pg/mL Total Protein (6.3-8.2) g/dL Albumin (3.5-5.0) g/dL Influenza Type A RNA (Not Detectd) Influenza Type B (PCR) (Not Detectd) Disposition Clinical Impression: Congestive heart failure (CHF), Febrile illness, acute, Acute exacerbation of chronic obstructive airways disease, Bronchitis Disposition: ADMITTED IP TO THIS HOSP Condition: Stable Referrals: Charanjit Torres MD [Primary Care Provider] - 1-2 days
[2017-09-26] MEDS ORDERED: IPRATROPIUM-ALBUTEROL 3 ML NEB INHALATION SCH
[2017-09-26] MEDS: FUROSEMIDE 10 MG/ML 4 ML VIAL IV SCH ×4 (03:06→23:03)
[2017-09-26] MEDS ORDERED: methylPREDNISolone SOD SUCCI 125 MG/2 ML VIAL IV SCH (06:00)
[2017-09-26 06:35] VITALS: BMI 21.9
[2017-09-26] MEDS: CARVEDILOL 6.25 MG TAB PO SCH ×2 (08:21→16:52)
[2017-09-26] MEDS: LEVOTHYROXINE 100 MCG TAB PO SCH (08:21)
[2017-09-26] MEDS: LOSARTAN 50 MG TAB PO SCH (08:21)
[2017-09-26] MEDS: SPIRONOLACTONE 25 MG TAB PO SCH (08:21)
[2017-09-26] MEDS: ASPIRIN 325 MG TAB PO SCH ×2 (08:21→20:51)
[2017-09-26] MEDS: IPRATROPIUM-ALBUTEROL 3 ML NEB INHALATION SCH ×3 (08:37→21:27)
[2017-09-26] MEDS: CLOPIDOGREL 75 MG TAB PO SCH (08:48)
[2017-09-26] MEDS ORDERED: FUROSEMIDE 20 MG TAB PO SCH (09:00)
[2017-09-26] MEDS ORDERED: NITROGLYCERIN OINT 1 INCH/GM PACKET TOPICAL SCH (09:00)
[2017-09-26] MEDS ORDERED: INSULIN LISPRO (humaLOG) 300 UNIT/3 ML VIAL SQ SCH (12:30)
[2017-09-26] MEDS: ATORVASTATIN 80 MG TAB PO SCH (20:51)
[2017-09-26] MEDS: MULTIVITAMINS, THERA 1 EACH TAB PO SCH (20:51)
[2017-09-26] MEDS ORDERED: NON-FORMULARY DRUG (Simvastatin 40 MG) PO SCH (21:00)
--- NOTE | 2017-09-26 21:08 | HP ---
HISTORY AND PHYSICAL ATTENDING PHYSICIAN: Dr. Lilia Torres. CHIEF COMPLAINT: Shortness of breath. HISTORY OF PRESENT ILLNESS: This 87-year-old female presents to the emergency room because of some progressive shortness of breath for the past couple of days. The patient was trying to take it easy at home, continued with her updrafts to see if it will subside. 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 The patient, however, presents to the emergency room. At that time, she is noted to have a temperature 101.3 and some significant shortness of breath. The patient basically is requiring increased oxygen. She does have a history of chronic respiratory failure. The patient's chest x-ray was unremarkable except for some COPD changes. However, a laboratory evaluation revealed a markedly elevated BNP of 11,600. She has had a history of coronary artery disease. The patient was negative for influenza. She does have some cough, but no significant sputum production. Denies any chest pain or palpitations. PAST MEDICAL HISTORY: Significant for COPD secondary to history of smoking. She is a nonsmoker now. History of coronary artery disease with recent PTCA on April 05 of the right coronary artery. History of past congestive cardiac failure secondary to systolic dysfunction, history of COPD, history of carcinoma of the colon. The patient does have some degenerative arthritis. PAST SURGICAL HISTORY: Significant for partial colectomy, cholecystectomy, x3, hysterectomy, appendectomy. PERSONAL HISTORY: Alcohol: None. Ex-smoker. Used to smoke heavy for over 40 years, has not smoked for about 10 years. ALLERGIES: TO PENICILLIN AND PNEUMOCOCCAL VACCINE WHICH CAUSED A LOCAL REACTION OF SWELLING. FAMILY MEDICAL HISTORY: The patient has 3 daughters. One has a history of degenerative arthritis affecting the lumbosacral spine. Another one has a history of multiple sclerosis. She had one sister who of a stroke. Father had a history of alcoholism. MEDICATIONS: At present include: 1. DuoNeb updrafts. 2. Mucinex. 3. Losartan 50 mg daily. 4. Levothyroxine 100 mcg 6 days a week. 5. Lasix 20 mg every other day. 6. Pulmicort 0.5 mg inhalation b.i.d. 7. Spironolactone 25 mg daily. 8. Nitrostat sublingual. 9. Plavix 75 mg daily. 10.Coreg 6.25 mg b.i.d. with meals. 11.Lipitor 80 mg daily. 12.Aspirin 325 mg b.i.d. REVIEW OF SYSTEMS: NEURO: Denies any headaches, dizziness. PSYCH: No anxiety, depression. CARDIAC: Denies chest pain, angina, palpitation. RESPIRATORY: Present complaint of shortness of breath. Mild cough. No hemoptysis. GI: No nausea, vomiting, abdominal pain, diarrhea. : No symptoms of dysuria, hematuria, urgency, frequency. EXTREMITIES: Denies pain, edema. CONSTITUTIONAL: No fever, chills. PHYSICAL EXAMINATION: Elderly female, presently in no distress. Vital signs reveal as mentioned about temperature was 101.3, pulse 95, respirations 26, blood pressure 160/66, pulse ox of 89% on room air. HEENT: Normocephalic. NECK: 1+ JVD. No thyromegaly or supraclavicular lymphadenopathy. CHEST: Clear to percussion. Patient has generalized decreased air flow. A few crackles at the right base. CARDIAC: Distant heart sounds S1, S2 with no gallops. Systolic murmur 2/6 left sternal border. ABDOMEN: Soft. Bowel sounds present. Extremities reveal no edema NEUROLOGICAL: Awake, alert, oriented x3 with well-coordinated movements, both upper and lower extremities. LABORATORY ASSESSMENT: CBC which revealed a hemoglobin of 11.1. INR is normal. Electrolytes reveal CO2 count of 31, otherwise normal potassium, sodium. BUN 18, creatinine 0.7, glucose 127. Magnesium 1.5. Troponin 0.022. BNP 11,600. Albumin 3.7. Chest x-ray as mentioned above. EKG reveals LVH. ASSESSMENT: 1. Acute on chronic congestive cardiac failure secondary to systolic dysfunction. 2. Fever, source unclear. Possible respiratory. 3. Chronic obstructive pulmonary disease. 4. Remote history of carcinoma of the colon. 5. Coronary artery disease with recent stent placement. 6. Mild chronic anemia. PLAN: The patient is stable at present. Condition has improved with diuresis. ER had put the patient's steroids. Will discontinue the steroids. The ER put the patient also on IV fluids which we will discontinue. Continue with IV Lasix. Potentially discharge in the next 48 hours. Patient's general condition discussed with the patient. Prognosis guarded. MMODL / IJN: [id number] /
[2017-09-27] MEDS: IPRATROPIUM-ALBUTEROL 3 ML NEB INHALATION SCH ×3 (07:02→20:11)
[2017-09-27] MEDS: ASPIRIN 325 MG TAB PO SCH ×2 (07:55→20:09)
[2017-09-27] MEDS: CARVEDILOL 6.25 MG TAB PO SCH ×2 (07:55→18:12)
[2017-09-27] MEDS: LEVOTHYROXINE 100 MCG TAB PO SCH (07:55)
[2017-09-27] MEDS: LOSARTAN 50 MG TAB PO SCH (07:55)
[2017-09-27] MEDS: CLOPIDOGREL 75 MG TAB PO SCH (07:55)
[2017-09-27] MEDS: SPIRONOLACTONE 25 MG TAB PO SCH (07:55)
[2017-09-27 08:28] LABS: Anion Gap 7 mmol/L; Blood Urea Nitrogen 22 mg/dL (7-17); Calcium 9.2 mg/dL (8.4-10.2); Carbon Dioxide 30 mmol/L (22-30); Chloride 105 mmol/L (98-107); Glucose 158 mg/dL (74-99); Non-African American GFR(MDRD) >60 (>60 ml/min/1.73 sqM); Potassium 3.7 mmol/L (3.5-5.1); Sodium 142 mmol/L (137-145)
[2017-09-27] MEDS: FUROSEMIDE 10 MG/ML 4 ML VIAL IV SCH ×2 (10:01→20:09)
[2017-09-27] MEDS: ATORVASTATIN 80 MG TAB PO SCH (20:09)
[2017-09-27] MEDS: MULTIVITAMINS, THERA 1 EACH TAB PO SCH (20:09)
[2017-09-28 06:25] VITALS: BP 118/62; PULSE 66; RESP 16; TEMP 97.4
[2017-09-28] MEDS ORDERED: ATORVASTATIN 40 MG TAB PO SCH (07:09)
[2017-09-28] MEDS: LOSARTAN 50 MG TAB PO SCH (08:40)
[2017-09-28] MEDS: CARVEDILOL 6.25 MG TAB PO SCH (08:41)
[2017-09-28] MEDS: CLOPIDOGREL 75 MG TAB PO SCH (08:41)
[2017-09-28] MEDS: LEVOTHYROXINE 100 MCG TAB PO SCH (08:41)
[2017-09-28] MEDS: SPIRONOLACTONE 25 MG TAB PO SCH (08:41)
--- NOTE | 2017-09-28 08:54 | PN ---
PROGRESS NOTE ATTENDING PHYSICIAN: Dr. Noelle Torres. CHIEF COMPLAINT: Re-evaluation. HISTORY OF PRESENT ILLNESS: 87-year-old who was admitted to the hospital with shortness of breath. The patient also had a temperature of 101.3, which is not clear why she had a fever. The patient actually feeling fairly well. She has had no further fever. She has not had any antibiotics. She had congestive heart failure symptoms which have resolved. REVIEW OF SYSTEMS: Neuro: Denies any headaches or dizziness. Psych: No anxiety. Cardiac: No chest pain, angina or palpitations. Respiratory: Denies shortness of breath. Does have some cough. No hemoptysis. GI no nausea, vomiting, abdominal pain, diarrhea. : No symptoms or hematuria. EXTREMITIES: No edema. Constitutional: No fever, chills. PHYSICAL EXAMINATION: Pleasant female in no distress. Vital signs: Actually the patient's weight has gone up by half a kg. Temperature is 96.6, pulse 84, respirations 18, blood pressure 105/49, pulse ox 100% on 3 L. HEENT: Normocephalic. Neck no JVD. CHEST: Clear to auscultation. Cardiac normal S1, S2 with no gallop. Systolic murmur 2/6. [place]. ABDOMEN: Soft. Bowel sounds present. EXTREMITIES: No edema. Neurological awake, alert, oriented with well-coordinated movements. LABORATORY ASSESSMENT: None today. ASSESSMENT: 1. Acute congestive cardiac failure secondary to systolic dysfunction. 2. Acute on chronic respiratory failure. 3. Chronic obstructive pulmonary disease. 4. Remote history of carcinoma colon. PLAN: The patient is stable. Continue present medical regimen. Patient's condition discussed with the patient. Prognosis guarded. Potential discharge home tomorrow. MMODL / IJN: [id number] /
[2017-09-28] MEDS ORDERED: FUROSEMIDE 40 MG TAB PO SCH ×2 (09:00)
[2017-09-28] MEDS ORDERED: ASPIRIN 81 MG PO SCH (09:00)
[2017-09-28 09:11] LABS: Anion Gap 9 mmol/L; Blood Urea Nitrogen 36 mg/dL (7-17); Calcium 9.2 mg/dL (8.4-10.2); Carbon Dioxide 33 mmol/L (22-30); Chloride 103 mmol/L (98-107); Glucose 107 mg/dL (74-99); Non-African American GFR(MDRD) 55 (>60 ml/min/1.73 sqM); Potassium 3.9 mmol/L (3.5-5.1); Sodium 145 mmol/L (137-145)
--- NOTE | 2017-10-20 12:18 | P.DS ---
Providers Date of admission: 09/25/17 23:06 Attending physician: Charanjit Torres Primary care physician: Charanjit Torres Hospital Course: Hospital course: This 87-year-old female is admitted to the hospital after presenting to the emergency room with shortness of breath. She is also febrile with a temperature of 102.5. No evidence of any source of infection. Patient' s shortness of breath was felt to be secondary to congestive heart failure. The patient does have underlying history of COPD. 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 Patient had no evidence of any upper respiratory infections unit tract infection or any cellulitis. Following admission patient's diuresed and her respiratory status significantly improved. The patient in view of this is discharged home. Medications as ordered. Final diagnosis to include 1. 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 Acute on chronic respiratory failure 3. Chronic obstructive lung disease 4. Remote history of carcinoma: Patient Condition at Discharge: Stable Plan - Discharge Summary Discharge Rx Participant: Yes New Discharge Prescriptions: New Aspirin 81 mg PO DAILY chew Furosemide [Lasix] 40 mg PO DAILY #30 tab Ipratropium-Albuterol Nebulize [Duoneb 0.5 mg-3 mg/3 ml Soln] 3 ml INHALATION RT-TID ampul.neb Continue Levothyroxine Sodium [Synthroid] 100 mcg PO MOTUWETHFRSA guaiFENesin [Mucinex] 600 mg PO Q12H PRN PRN Reason: Congestion Losartan [Cozaar] 50 mg PO QAM Budesonide [Pulmicort] 0.5 mg INHALATION RT-BID Ipratropium-Albuterol Nebulize [Duoneb 0.5 mg-3 mg/3 ml Soln] 3 ml INHALATION RT-QID PRN PRN Reason: Shortness Of Breath Atorvastatin [Lipitor] 80 mg PO HS #30 tab Carvedilol [Coreg] 6.25 mg PO BID-W/MEALS #60 tab Clopidogrel [Plavix] 75 mg PO DAILY #90 tab Nitroglycerin Sl Tabs [Nitrostat] 0.4 mg SUBLINGUAL Q5M PRN #100 tab PRN Reason: Chest Pain Spironolactone [Aldactone] 25 mg PO DAILY #90 tab Discontinued Aspirin 325 mg PO BID Furosemide [Lasix] 20 mg PO Q48H No Action ALPRAZolam [Xanax] 0.25 mg PO DAILY PRN PRN Reason: Anxiety Ciprofloxacin HCl [Cipro] 500 mg PO Q12HR #10 tablet Discharge Medication List Levothyroxine Sodium [Synthroid] 100 mcg PO MOTUWETHFRSA 01/17/16 [History] guaiFENesin [Mucinex] 600 mg PO Q12H PRN 01/26/17 [History] Budesonide [Pulmicort] 0.5 mg INHALATION RT-BID 04/02/17 [History] Ipratropium-Albuterol Nebulize [Duoneb 0.5 mg-3 mg/3 ml Soln] 3 ml INHALATION RT -QID PRN 04/02/17 [History] Losartan [Cozaar] 50 mg PO QAM 04/02/17 [History] Atorvastatin [Lipitor] 80 mg PO HS #30 tab 04/09/17 [Rx] Carvedilol [Coreg] 6.25 mg PO BID-W/MEALS #60 tab 04/09/17 [Rx] Clopidogrel [Plavix] 75 mg PO DAILY #90 tab 04/09/17 [Rx] Nitroglycerin Sl Tabs [Nitrostat] 0.4 mg SUBLINGUAL Q5M PRN #100 tab 04/09/17 [ Rx] Spironolactone [Aldactone] 25 mg PO DAILY #90 tab 04/09/17 [Rx] Aspirin 81 mg PO DAILY chew 09/28/17 [Rx] Furosemide [Lasix] 40 mg PO DAILY #30 tab 09/28/17 [Rx] Ipratropium-Albuterol Nebulize [Duoneb 0.5 mg-3 mg/3 ml Soln] 3 ml INHALATION RT -TID ampul.neb 09/28/17 [Rx] ALPRAZolam [Xanax] 0.25 mg PO DAILY PRN 10/13/17 [History] Ciprofloxacin HCl [Cipro] 500 mg PO Q12HR #10 tablet 10/13/17 [Rx] Follow up Appointment(s)/Referral(s): Charanjit Torres MD [Primary Care Provider] - 10/03/17 11:30 am Patient Instructions/Handouts: Heart Failure (DC), COPD (Chronic Obstructive Pulmonary Disease) (DC) Activity/Diet/Wound Care/Special Instructions: WEIGH SELF DAILY AND MONITOR Cardiac diet. Activity as tolerated. Home oxygen via nasal cannula at 2 liters. Discharge Disposition: HOME SELF-CARE
== END 2017-09-28 10:32 | disposition home or self-care (01) | DRG 291 ==
LOC: EC 19:55 → 4MS4W 23:06
PROVIDERS: ADMIT Internal Medicine; ATTEND Internal Medicine
DX: I11.0 Hypertensive heart disease with heart failure (principal); J96.20 Acute and chronic respiratory failure, unspecified whether with hypoxia or hypercapnia; J44.1 Chronic obstructive pulmonary disease with (acute) exacerbation; D64.9 Anemia, unspecified; I25.10 Atherosclerotic heart disease of native coronary artery without angina pectoris; I50.23 Acute on chronic systolic (congestive) heart failure; Z96.1 Presence of intraocular lens; M19.90 Unspecified osteoarthritis, unspecified site; H91.90 Unspecified hearing loss, unspecified ear; E03.9 Hypothyroidism, unspecified; F41.9 Anxiety disorder, unspecified; E78.5 Hyperlipidemia, unspecified; Z95.5 Presence of coronary angioplasty implant and graft; Z85.038 Personal history of other malignant neoplasm of large intestine; Z79.899 Other long term (current) drug therapy; Z79.82 Long term (current) use of aspirin; Z79.02 Long term (current) use of antithrombotics/antiplatelets; Z87.891 Personal history of nicotine dependence; Z82.49 Family history of ischemic heart disease and other diseases of the circulatory system; Z82.0 Family history of epilepsy and other diseases of the nervous system; Z82.3 Family history of stroke; Z98.41 Cataract extraction status, right eye; Z98.42 Cataract extraction status, left eye; Z90.710 Acquired absence of both cervix and uterus; Z90.49 Acquired absence of other specified parts of digestive tract; I25.2 Old myocardial infarction; Z88.0 Allergy status to penicillin; Z88.7 Allergy status to serum and vaccine; Z87.01 Personal history of pneumonia (recurrent); Z90.89 Acquired absence of other organs; Z99.81 Dependence on supplemental oxygen
CPT/HCPCS: 36415; 71020; 80048; 80053; 82550; 82553; 83036; 83605; 83735; 83880; 84484; 85025; 85610; 85730; 87040; 87502; 93005; 94640; 94760; 96361; 96365; 96366; 96375; 99285

== ENCOUNTER 2017-10-13 15:17 | Emergency (ER) | payer MEDICARE, BC ==
--- NOTE | 2017-10-13 15:57 | ED ---
General Adult HPI - General Chief complaint: Recheck/Abnormal Lab/Rx Stated complaint: DIZZINESS Time Seen by Provider: 10/13/17 15:34 Source: patient, family, EMS, RN notes reviewed, old records reviewed Mode of arrival: ambulatory Limitations: no limitations - History of Present Illness Initial comments: Chief complaint and history of present illness an 87-year-old female here with her significant other. Her called the ambulance because the patient was cold and clammy, shortness of breath increasing for 2 days as well as weakness. Patient denies any pain at this time - Related Data Home Medications Medication Instructions Recorded Confirmed Levothyroxine Sodium [Synthroid] 100 mcg PO [id number] 01/17/16 10/13/17 guaiFENesin [Mucinex] 600 mg PO Q12H PRN 01/26/17 10/13/17 Budesonide [Pulmicort] 0.5 mg INHALATION RT-BID 04/02/17 10/13/17 Ipratropium-Albuterol Nebulize 3 ml INHALATION RT-QID PRN 04/02/17 10/13/17 [Duoneb 0.5 mg-3 mg/3 ml Soln] Losartan [Cozaar] 50 mg PO QAM 04/02/17 10/13/17 ALPRAZolam [Xanax] 0.25 mg PO DAILY PRN 10/13/17 10/13/17 Previous Rx's Medication Instructions Recorded Atorvastatin [Lipitor] 80 mg PO HS #30 tab 04/09/17 Carvedilol [Coreg] 6.25 mg PO BID-W/MEALS #60 tab 04/09/17 Clopidogrel [Plavix] 75 mg PO DAILY #90 tab 04/09/17 Nitroglycerin Sl Tabs [Nitrostat] 0.4 mg SUBLINGUAL Q5M PRN #100 tab 04/09/17 Spironolactone [Aldactone] 25 mg PO DAILY #90 tab 04/09/17 Aspirin 81 mg PO DAILY chew 09/28/17 Furosemide [Lasix] 40 mg PO DAILY #30 tab 09/28/17 Ipratropium-Albuterol Nebulize 3 ml INHALATION RT-TID ampul.neb 09/28/17 [Duoneb 0.5 mg-3 mg/3 ml Soln] Ciprofloxacin HCl [Cipro] 500 mg PO Q12HR #10 tablet 10/13/17 Allergies Allergy/AdvReac Type Severity Reaction Status Date / Time Penicillins Allergy Unknown Verified 10/13/17 15:24 pneumococcal 23-valent Allergy Rash/Hives Verified 10/13/17 15:24 polysacchari [From Pneumovax 23] adhesive tape AdvReac Unknown Verified 10/13/17 15:24 Review of Systems ROS Statement: Those systems with pertinent positive or pertinent negative responses have been documented in the HPI. review of systems not complaining any visual acuity changes, no headache denies chest pain reports she is always short of breath, on oxygen at home all the time with history of COPD. Also recent history of CHF. Denies nausea vomiting or diarrhea states she is extremely weak the last 2 days. Did not fall. Uses a walker to get around when she needs to. No neuro deficits complained of. All systems are reviewed.Past medical problems significant for colon cancer, CHF, COPD, hearing disorder, hyperlipidemia, previous pneumonia, hypothyroidism. The patient's surgeries include bowel resection, appendectomy, , gallbladder, hysterectomy, foot surgery, tonsillectomy. Family history noncontributory. ALLERGIES to penicillin and pneumococcal polysaccharide. And adhesive tape. She reports quit smoking 7 years ago denies alcohol use. ROS Other: All systems not noted in ROS Statement are negative. Past Medical History Past Medical History: Cancer, Heart Failure, COPD, Hearing Disorder / Deafness, Hyperlipidemia, Pneumonia, Respiratory Disorder, Thyroid Disorder Additional Past Medical History / Comment(s): Colon ca with SX, hypothyroid, tracheobronchitis, [place] bilaterally, wears 2L at home. Pt denies AK, arthritis, HTN or pulmonary HTN that are in PMR. Recent heart stent placement on April 05, 2017. Last Myocardial Infarction Date:: 09/2016 History of Any Multi-Drug Resistant Organisms: None Reported Past Surgical History: Appendectomy, Bowel Resection, Section, Cholecystectomy, Hysterectomy, Orthopedic Surgery, Tonsillectomy Additional Past Surgical History / Comment(s): colectomy for cancer, thyroidectomy, bilateral cataract removal with lens implants, C- Sections x 3, L foot fx with surgical repair, colonoscopies with polypectomy. Past Anesthesia/Blood Transfusion Reactions: No Reported Reaction, Motion Sickness Additional Past Anesthesia/Blood Transfusion Reaction / Comment(s): none. Past Psychological History: Anxiety Smoking Status: Former smoker Past Alcohol Use History: None Reported Past Drug Use History: None Reported - Past Family History Father Additional Family Medical History / Comment(s): Pt did not know her father well. He was an alcoholic and from it. Mother Family Medical History: Myocardial Infarction (AK) Additional Family Medical History / Comment(s): Mother of an AK at age 51yrs. General Exam - General Exam Comments Initial Comments: General: The patient is awake , though complains of being tired and sleepy for 2 days. Complains of shortness of breath. On oxygen 24 hours a day at home. Denying any headache or chest pain. No nausea no vomiting no diarrhea. Complains of generalized weakness. Vital signs shows temperature 97.7 pulse 60 respiratory rate 22 pulse ox 98% on 2 L blood pressure 151/67 Eye: Pupils are equal, round and reactive to light, extra-ocular movements are intact ; there is normal conjunctiva bilaterally. No signs of icterus. evidence of cataract surgery. Ears, nose, mouth and throat: There are moist mucous membranes and no oral lesions. Neck: The neck is supple, there is no tenderness , no carotid bruit, thyroid not enlarged, no anterior cervical lymphadenopathy.. Cardiovascular: There is a regular rate and rhythm. No murmur, rub or gallop is appreciated.sinus bradycardia by EKG rate 59. Respiratory: workup in her rales both bases. Gastrointestinal: Soft, non-distended, non-tender abdomen without masses or organomegaly noted. There is no rebound or guarding present. No CVA tenderness. Bowel sounds are unremarkable. Back: There is no tenderness to palpation in the midline. There is no obvious deformity. No rashes noted. Musculoskeletal: Normal ROM, no tenderness, There is no pedal edema. There is no calf tenderness or swelling. Sensation intact. Pulses equal bilaterally 2+. Neurological: alert, oriented, answering questions appropriately. Complains of generalized weakness. No focal or lateralizing findings. Skin: Skin is warm and dry and no rashes or lesions are noted. Psychiatric: Cooperative, appropriate mood & affect, Limitations: no limitations Course Vital Signs 10/13/17 10/13/17 10/13/17 15:20 15:33 16:26 Temperature 97.7 F Pulse Rate 60 52 L Respiratory 22 22 20 Rate Blood Pressure 151/67 150/67 O2 Sat by Pulse 98 99 Oximetry EKG Findings - EKG Comments: EKG Findings:: EKG was done and reviewed at 1539 showing sinus bradycardia rate 58 possible left bundle branch block, sinus bradycardia. TN interval is 180 QRS 148 QTc 505 QTc 498. No acute ST elevation no ectopy. Dr. Kyle this EKG was compared to one done on September 25 of this year and they are similar. Dr. Klye Medical Decision Making - Medical Decision Making Medical decision-making. The patient is here because of weakness, extremely tired. She had an episode of being cold and clammy at home Labs show white count 6.6 hemoglobin 10 hematocrit 33. INR 1.1. Potassium 3.9 with a BUN of 31 creatinine 0.98 and GFR 54. Glucose 137. BNP elevated 2530. urine shows 36 whites positive leukoesterase. Cultures pending. The patient be placed on Cipro starting in emergency room. chest x-ray was done and reviewed by radiologist his findings are; the heart is borderline enlarged. Large appearance to the main right pulmonary artery on the lateral view. Diffuse interstitial prominence and hyperinflation. Rounded density posterior left base appears unchanged and probably represents an area of focal diaphragmatic eventration no significant pleural effusion. Impression 1 COPD, chronic parenchymal changes, and borderline heart size. Additional findings suggest underlying pulmonary arterial hypertension. Rounded masslike density posterior base was present back to thousand 14 and probably represents an area of focal diaphragmatic eventration. As read by Dr. Lyons patient rested and has good color, sees well. Speaks clearly and is oriented. Wants to go home. Advised to take Cipro twice a day for the next 5 days. Advised to have the urine rechecked several days afterwards to make sure infections gone away. - Lab Data Result diagrams: 10/13/17 15:30 10/13/17 15:30 Lab Results 10/13/17 10/13/17 10/13/17 Range/Units 15:30 15:30 15:30 WBC 6.6 (3.8-10.6) k/uL RBC 3.64 L (3.80-5.40) m/uL Hgb 10.8 L (11.4-16.0) gm/dL Hct 33.2 L (34.0-46.0) % MCV 91.1 (80.0-100.0) fL MCH 29.8 (25.0-35.0) pg MCHC 32.7 (31.0-37.0) g/dL RDW 12.6 (11.5-15.5) % Plt Count 209 (150-450) k/uL Neutrophils % 66 % Lymphocytes % 21 % Monocytes % 6 % Eosinophils % 4 % Basophils % 1 % Neutrophils # 4.3 (1.3-7.7) k/uL Lymphocytes # 1.4 (1.0-4.8) k/uL Monocytes # 0.4 (0-1.0) k/uL Eosinophils # 0.2 (0-0.7) k/uL Basophils # 0.0 (0-0.2) k/uL PT (9.0-12.0) sec INR (<1.2) APTT (22.0-30.0) sec Sodium 139 (137-145) mmol/L Potassium 3.9 (3.5-5.1) mmol/L Chloride 100 (98-107) mmol/L Carbon Dioxide 31 H (22-30) mmol/L Anion Gap 8 mmol/L BUN 31 H (7-17) mg/dL Creatinine 0.98 (0.52-1.04) mg/dL Est GFR (MDRD) Af Amer >60 (>60 ml/min/1.73 sqM) Est GFR (MDRD) Non-Af 54 (>60 ml/min/1.73 sqM) Glucose 137 H (74-99) mg/dL Calcium 9.7 (8.4-10.2) mg/dL Magnesium 1.8 (1.6-2.3) mg/dL Total Bilirubin 0.9 (0.2-1.3) mg/dL AST 29 (14-36) U/L ALT 31 (9-52) U/L Alkaline Phosphatase 71 (38-126) U/L Total Creatine Kinase 34 (30-135) U/L CK-MB (CK-2) 0.8 (0.0-2.4) ng/mL CK-MB (CK-2) Rel Index 2.4 Troponin I <0.012 (0.000-0.034) ng/mL NT-Pro-B Natriuret Pep pg/mL Total Protein 6.5 (6.3-8.2) g/dL Albumin 3.9 (3.5-5.0) g/dL Urine Color Urine Appearance (Clear) Urine pH (5.0-8.0) Ur Specific [place] (1.001-1.035) Urine Protein (Negative) Urine Glucose (UA) (Negative) Urine Ketones (Negative) Urine Blood (Negative) Urine Nitrite (Negative) Urine Bilirubin (Negative) Urine Urobilinogen (<2.0) mg/dL Ur Leukocyte Esterase (Negative) Urine WBC (0-5) /hpf Ur Squamous Epith Cells (0-4) /hpf Urine Bacteria (None) /hpf Hyaline Casts (0-2) /lpf Urine Mucus (None) /hpf 10/13/17 10/13/17 10/13/17 Range/Units 15:30 15:30 17:30 WBC (3.8-10.6) k/uL RBC (3.80-5.40) m/uL Hgb (11.4-16.0) gm/dL Hct (34.0-46.0) % MCV (80.0-100.0) fL MCH (25.0-35.0) pg MCHC (31.0-37.0) g/dL RDW (11.5-15.5) % Plt Count (150-450) k/uL Neutrophils % % Lymphocytes % % Monocytes % % Eosinophils % % Basophils % % Neutrophils # (1.3-7.7) k/uL Lymphocytes # (1.0-4.8) k/uL Monocytes # (0-1.0) k/uL Eosinophils # (0-0.7) k/uL Basophils # (0-0.2) k/uL PT 11.0 (9.0-12.0) sec INR 1.1 (<1.2) APTT 29.3 (22.0-30.0) sec Sodium (137-145) mmol/L Potassium (3.5-5.1) mmol/L Chloride (98-107) mmol/L Carbon Dioxide (22-30) mmol/L Anion Gap mmol/L BUN (7-17) mg/dL Creatinine (0.52-1.04) mg/dL Est GFR (MDRD) Af Amer (>60 ml/min/1.73 sqM) Est GFR (MDRD) Non-Af (>60 ml/min/1.73 sqM) Glucose (74-99) mg/dL Calcium (8.4-10.2) mg/dL Magnesium (1.6-2.3) mg/dL Total Bilirubin (0.2-1.3) mg/dL AST (14-36) U/L ALT (9-52) U/L Alkaline Phosphatase (38-126) U/L Total Creatine Kinase (30-135) U/L CK-MB (CK-2) (0.0-2.4) ng/mL CK-MB (CK-2) Rel Index Troponin I (0.000-0.034) ng/mL NT-Pro-B Natriuret Pep 2530 pg/mL Total Protein (6.3-8.2) g/dL Albumin (3.5-5.0) g/dL Urine Color Light Yellow Urine Appearance Cloudy H (Clear) Urine pH 6.0 (5.0-8.0) Ur Specific [place] 1.008 (1.001-1.035) Urine Protein Negative (Negative) Urine Glucose (UA) Negative (Negative) Urine Ketones Negative (Negative) Urine Blood Negative (Negative) Urine Nitrite Negative (Negative) Urine Bilirubin Negative (Negative) Urine Urobilinogen 2.0 (<2.0) mg/dL Ur Leukocyte Esterase Large H (Negative) Urine WBC 36 H (0-5) /hpf Ur Squamous Epith Cells 4 (0-4) /hpf Urine Bacteria Rare H (None) /hpf Hyaline Casts 7 H (0-2) /lpf Urine Mucus Rare H (None) /hpf Disposition Clinical Impression: Weakness generalized, UTI (urinary tract infection) Disposition: HOME SELF-CARE Condition: Stable Instructions: Urinary Tract Infection in Women (ED) Additional Instructions: Take medications as directed including Cipro 1 tablet twice day for 5 days. Suggested that she have urine rechecked several days later. Prescriptions: Ciprofloxacin HCl [Cipro] 500 mg PO Q12HR #10 tablet Referrals: Charanjit Torres MD [Primary Care Provider] - 1-2 days Time of Disposition: 18:30
[2017-10-13 15:58] LABS: Basophils % (A) 1 %; CH 30.6; CHCM 33.7; Eosinophils # (A) 0.2 k/uL (0-0.7); Eosinophils % (A) 4 %; HCT 33.2 % (34.0-46.0); HDW 2.73; HGB 10.8 gm/dL (11.4-16.0); Luc # (Auto) 0.24; Luc % (Auto) 4; Lymphocytes # (A) 1.4 k/uL (1.0-4.8); Lymphocytes % (A) 21 %; MCH 29.8 pg (25.0-35.0); MCHC 32.7 g/dL (31.0-37.0); MCV 91.1 fL (80.0-100.0); Mean Platelet Volume 7.3; Monocytes # (A) 0.4 k/uL (0-1.0); Monocytes % (A) 6 %; Neutrophils # (A) 4.3 k/uL (1.3-7.7); Neutrophils % (A) 66 %; RBC 3.64 m/uL (3.80-5.40); RDW 12.6 % (11.5-15.5); WBC 6.6 k/uL (3.8-10.6); WBC (Perox) 6.93
[2017-10-13 16:07] LABS: INR 1.1 (<1.2); Partial Thromboplastin Time 29.3 sec (22.0-30.0)
[2017-10-13 16:09] LABS: ALT 31 U/L (9-52); AST 29 U/L (14-36); Alkaline Phosphatase 71 U/L (38-126); Anion Gap 8 mmol/L; Blood Urea Nitrogen 31 mg/dL (7-17); Calcium 9.7 mg/dL (8.4-10.2); Carbon Dioxide 31 mmol/L (22-30); Chloride 100 mmol/L (98-107); Glucose 137 mg/dL (74-99); Magnesium 1.8 mg/dL (1.6-2.3); Non-African American GFR(MDRD) 54 (>60 ml/min/1.73 sqM); Sodium 139 mmol/L (137-145); Total Bilirubin 0.9 mg/dL (0.2-1.3); Total Protein 6.5 g/dL (6.3-8.2)
[2017-10-13 16:14] LABS: Potassium 3.9 mmol/L (3.5-5.1)
--- NOTE | 2017-10-13 16:15 | XR ---
EXAMINATION TYPE: XR chest 2V DATE OF EXAM: 10/13/2017 COMPARISON: 09/25/2017 and 10/31/2014. HISTORY: 87-year-old female difficulty in breathing TECHNIQUE: AP and lateral views FINDINGS: The heart is borderline enlarged. Large appearance to the main right pulmonary artery on the lateral view. Diffuse interstitial prominence and hyperinflation. Rounded density posterior left base appears unchanged and probably represents an area of focal diaphragmatic eventration. No significant pleural effusion. IMPRESSION: 1. COPD, chronic parenchymal changes, and borderline heart size. Additional findings suggest underlyi ng pulmonary arterial hypertension. 2. Rounded masslike density posterior base was present back in 2013 and probably represents an area o f focal diaphragmatic eventration.
[2017-10-13 17:05] LABS: Creatine Kinase 34 U/L (30-135)
[2017-10-13 17:17] LABS: Creatine Kinase MB 0.8 ng/mL (0.0-2.4); Troponin I <0.012 ng/mL (0.000-0.034)
[2017-10-13 17:56] LABS: Appearance,Urine Cloudy (Clear); Bacteria,Urine Rare /hpf; Bilirubin,Urine Negative (Negative); Glucose,Urine (UA) Negative (Negative); Ketones,Urine Negative (Negative); Leukocyte Esterase,Urine Large (Negative); Mucus,Urine Rare /hpf; Nitrite,Urine Negative (Negative); Particle Count 3886; Protein,Urine Negative (Negative); Specific Gravity,Urine 1.008 (1.001-1.035); Squamous Epithelial Cell,Urine 4 /hpf (0-4); UA Billing (MACRO vs. MICRO) MICRO; WBC,Urine 36 /hpf (0-5)
[2017-10-13] MEDS ORDERED: CIPROFLOXACIN HCL 500 MG TAB PO STA (18:29)
[2017-10-13 18:42] VITALS: BP 130/81; PULSE 78; RESP 16; TEMP 97.8
== END 2017-10-13 18:44 | disposition home or self-care (01) ==
LOC: EC 15:17
DX: N39.0 Urinary tract infection, site not specified (principal); R53.1 Weakness; J44.9 Chronic obstructive pulmonary disease, unspecified; E03.9 Hypothyroidism, unspecified; I50.9 Heart failure, unspecified; Z95.5 Presence of coronary angioplasty implant and graft; Z87.891 Personal history of nicotine dependence; Z85.038 Personal history of other malignant neoplasm of large intestine; Z79.51 Long term (current) use of inhaled steroids; Z79.899 Other long term (current) drug therapy; Z88.0 Allergy status to penicillin; Z88.7 Allergy status to serum and vaccine; Z91.048 Other nonmedicinal substance allergy status
CPT/HCPCS: 36415; 71020; 80053; 81001; 82550; 82553; 83735; 83880; 84484; 85025; 85610; 85730; 93005; 99285

== ENCOUNTER 2018-04-18 15:02 | Emergency (ER) | payer BC, MEDICARE ==
[2018-04-18] MEDS ORDERED: SODIUM CHLORIDE 0.9% 1,000 ML IV STA (15:19)
[2018-04-18] MEDS ORDERED: SODIUM CHLORIDE 0.9% 500 ML IV STA (15:19)
[2018-04-18] MEDS ORDERED: KETOROLAC 30 MG/ML 1 ML VIAL IVP STA (15:19)
--- NOTE | 2018-04-18 15:33 | ED ---
Abdominal Pain HPI - General Chief Complaint: Abdominal Pain Stated Complaint: Abd Pain Time Seen by Provider: 04/18/18 15:02 Source: patient, EMS, RN notes reviewed Mode of arrival: EMS Limitations: no limitations - History of Present Illness Initial Comments: This is a 87-year-old female with a history of COPD history of colon cancer and medical issues who presents by EMS today with complaints of abdominal pain and watery brown diarrhea. She states the symptoms started about 2 days ago she's also had burning with urination she states the pain is 15/10 in severity sharp in nature lower abdominal. She denies any overt fevers chills or sweats she does complain some weakness she's had decreased oral intake. MD Complaint: abdominal pain - Related Data Home Medications Medication Instructions Recorded Confirmed Levothyroxine Sodium [Synthroid] 100 mcg PO MOTUWETHFRSA 01/17/16 04/18/18 Budesonide [Pulmicort] 0.5 mg INHALATION RT-BID 04/02/17 04/18/18 Losartan [Cozaar] 50 mg PO QAM 04/02/17 04/18/18 ALPRAZolam [Xanax] 0.25 mg PO DAILY PRN 10/13/17 04/18/18 Aspirin 325 mg PO BID 04/18/18 04/18/18 Ferrous Sulfate [Feosol] 325 mg PO DAILY 04/18/18 04/18/18 Ipratropium-Albuterol Nebulize 3 ml INHALATION RT-QID PRN 04/18/18 04/18/18 [Duoneb 0.5 mg-3 mg/3 ml Soln] Multivit with Calcium,Iron,Min 1 tab PO DAILY 04/18/18 04/18/18 [Women's Multivitamin] Spironolactone [Aldactone] 12.5 mg PO DAILY 04/18/18 04/18/18 Previous Rx's Medication Instructions Recorded Atorvastatin [Lipitor] 80 mg PO HS #30 tab 04/09/17 Clopidogrel [Plavix] 75 mg PO DAILY #90 tab 04/09/17 Nitroglycerin Sl Tabs [Nitrostat] 0.4 mg SUBLINGUAL Q5M PRN #100 tab 04/09/17 Furosemide [Lasix] 40 mg PO DAILY #30 tab 09/28/17 Acetaminophen-Codeine 300-30mg 1 tab PO Q6H PRN 3 Days #12 tablet 04/18/18 [Tylenol w/codeine #3] Allergies Allergy/AdvReac Type Severity Reaction Status Date / Time Penicillins Allergy Unknown Verified 04/18/18 15:13 pneumococcal 23-valent Allergy Rash/Hives Verified 04/18/18 15:13 polysacchari [From Pneumovax 23] adhesive tape AdvReac Unknown Verified 04/18/18 15:13 Review of Systems ROS Statement: Those systems with pertinent positive or pertinent negative responses have been documented in the HPI. ROS Other: All systems not noted in ROS Statement are negative. Past Medical History Past Medical History: Cancer, Heart Failure, COPD, Hearing Disorder / Deafness, Hyperlipidemia, Pneumonia, Respiratory Disorder, Thyroid Disorder Additional Past Medical History / Comment(s): Colon ca with SX, hypothyroid, tracheobronchitis, [place] bilaterally, wears 2L at home. Pt denies PR, arthritis, HTN or pulmonary HTN that are in PMR. Recent heart stent placement on April 05, 2017. Last Myocardial Infarction Date:: 09/2016 History of Any Multi-Drug Resistant Organisms: None Reported Past Surgical History: Appendectomy, Bowel Resection, Section, Cholecystectomy, Hysterectomy, Orthopedic Surgery, Tonsillectomy Additional Past Surgical History / Comment(s): colectomy for cancer, thyroidectomy, bilateral cataract removal with lens implants, C- Sections x 3, L foot fx with surgical repair, colonoscopies with polypectomy. Past Anesthesia/Blood Transfusion Reactions: No Reported Reaction, Motion Sickness Additional Past Anesthesia/Blood Transfusion Reaction / Comment(s): none. Past Psychological History: Anxiety Smoking Status: Former smoker Past Alcohol Use History: None Reported Past Drug Use History: None Reported - Past Family History Father Additional Family Medical History / Comment(s): Pt did not know her father well. He was an alcoholic and from it. Mother Family Medical History: Myocardial Infarction (PR) Additional Family Medical History / Comment(s): Mother of an PR at age 51yrs. General Exam - General Exam Comments Initial Comments: This is a well-developed well-nourished awake alert oriented 3 female Limitations: no limitations General appearance: alert, anxious Head exam: Present: atraumatic, normocephalic, normal inspection Eye exam: Present: normal appearance, PERRL, EOMI. Absent: scleral icterus, conjunctival injection, periorbital swelling ENT exam: Present: mucous membranes dry Neck exam: Present: normal inspection. Absent: tenderness, meningismus, lymphadenopathy Respiratory exam: Present: normal lung sounds bilaterally. Absent: respiratory distress, wheezes, rales, rhonchi, stridor Cardiovascular Exam: Present: regular rate, normal rhythm, normal heart sounds. Absent: systolic murmur, diastolic murmur, rubs, gallop, clicks GI/Abdominal exam: Present: soft, tenderness (Tenderness palpation of the suprapubic region with some voluntary guarding no rebound), normal bowel sounds. Absent: distended, guarding, rebound, rigid, bruit, pulsatile mass, hernia Rectal exam: Present: deferred Extremities exam: Present: normal inspection, full ROM, normal capillary refill. Absent: tenderness, pedal edema, joint swelling, calf tenderness Back exam: Present: normal inspection Neurological exam: Present: alert, oriented X3, CN II-XII intact Psychiatric exam: Present: normal affect, normal mood Skin exam: Present: warm, dry, intact, normal color. Absent: rash Course Vital Signs 04/18/18 04/18/18 04/18/18 15:06 16:50 18:18 Temperature 97.5 F L Pulse Rate 80 75 75 Respiratory 18 18 16 Rate Blood Pressure 141/54 129/58 141/60 O2 Sat by Pulse 92 L 98 98 Oximetry Medical Decision Making - Medical Decision Making Reevaluation patient reveals she felt much improved after the catheterization placed to decompress the bladder though was not much urine at this time no definite evidence of infection patient is feeling improved CAT scan was negative for acute processes I did discuss case Dr. Torres patient be discharged with some pain medication increase oral fluids follow-up with Dr. Torres and return when necessary - Lab Data Result diagrams: 04/18/18 15:18 04/18/18 15:18 Lab Results 04/18/18 04/18/18 04/18/18 Range/Units 15:18 15:18 15:42 WBC 9.2 (3.8-10.6) k/uL RBC 3.45 L (3.80-5.40) m/uL Hgb 10.8 L (11.4-16.0) gm/dL Hct 31.8 L (34.0-46.0) % MCV 92.2 (80.0-100.0) fL MCH 31.3 (25.0-35.0) pg MCHC 33.9 (31.0-37.0) g/dL RDW 13.0 (11.5-15.5) % Plt Count 203 (150-450) k/uL Neutrophils % 81 % Lymphocytes % 10 % Monocytes % 6 % Eosinophils % 1 % Basophils % 0 % Neutrophils # 7.4 (1.3-7.7) k/uL Lymphocytes # 0.9 L (1.0-4.8) k/uL Monocytes # 0.5 (0-1.0) k/uL Eosinophils # 0.1 (0-0.7) k/uL Basophils # 0.0 (0-0.2) k/uL Sodium 138 (137-145) mmol/L Potassium 4.0 (3.5-5.1) mmol/L Chloride 103 (98-107) mmol/L Carbon Dioxide 21 L (22-30) mmol/L Anion Gap 14 mmol/L BUN 36 H (7-17) mg/dL Creatinine 1.53 H (0.52-1.04) mg/dL Est GFR (CKD-EPI)AfAm 36 (>60 ml/min/1.73 sqM) Est GFR (CKD-EPI)NonAf 31 (>60 ml/min/1.73 sqM) Glucose 100 H (74-99) mg/dL Calcium 9.4 (8.4-10.2) mg/dL Magnesium 1.7 (1.6-2.3) mg/dL Total Bilirubin 1.3 (0.2-1.3) mg/dL AST 28 (14-36) U/L ALT 31 (9-52) U/L Alkaline Phosphatase 71 (38-126) U/L Total Protein 6.0 L (6.3-8.2) g/dL Albumin 3.7 (3.5-5.0) g/dL Amylase 47 (30-110) U/L Lipase 62 (23-300) U/L Urine Color Urine Appearance (Clear) Urine pH (5.0-8.0) Ur Specific [place] (1.001-1.035) Urine Protein (Negative) Urine Glucose (UA) (Negative) Urine Ketones (Negative) Urine Blood (Negative) Urine Nitrite (Negative) Urine Bilirubin (Negative) Urine Urobilinogen (<2.0) mg/dL Ur Leukocyte Esterase (Negative) Urine RBC (0-5) /hpf Urine WBC (0-5) /hpf Hyaline Casts (0-2) /lpf C. difficile (EIA) Intrp Negative (Negative) 04/18/18 Range/Units 16:36 WBC (3.8-10.6) k/uL RBC (3.80-5.40) m/uL Hgb (11.4-16.0) gm/dL Hct (34.0-46.0) % MCV (80.0-100.0) fL MCH (25.0-35.0) pg MCHC (31.0-37.0) g/dL RDW (11.5-15.5) % Plt Count (150-450) k/uL Neutrophils % % Lymphocytes % % Monocytes % % Eosinophils % % Basophils % % Neutrophils # (1.3-7.7) k/uL Lymphocytes # (1.0-4.8) k/uL Monocytes # (0-1.0) k/uL Eosinophils # (0-0.7) k/uL Basophils # (0-0.2) k/uL Sodium (137-145) mmol/L Potassium (3.5-5.1) mmol/L Chloride (98-107) mmol/L Carbon Dioxide (22-30) mmol/L Anion Gap mmol/L BUN (7-17) mg/dL Creatinine (0.52-1.04) mg/dL Est GFR (CKD-EPI)AfAm (>60 ml/min/1.73 sqM) Est GFR (CKD-EPI)NonAf (>60 ml/min/1.73 sqM) Glucose (74-99) mg/dL Calcium (8.4-10.2) mg/dL Magnesium (1.6-2.3) mg/dL Total Bilirubin (0.2-1.3) mg/dL AST (14-36) U/L ALT (9-52) U/L Alkaline Phosphatase (38-126) U/L Total Protein (6.3-8.2) g/dL Albumin (3.5-5.0) g/dL Amylase (30-110) U/L Lipase (23-300) U/L Urine Color Yellow Urine Appearance Clear (Clear) Urine pH 5.0 (5.0-8.0) Ur Specific [place] 1.013 (1.001-1.035) Urine Protein Negative (Negative) Urine Glucose (UA) Negative (Negative) Urine Ketones Negative (Negative) Urine Blood Negative (Negative) Urine Nitrite Negative (Negative) Urine Bilirubin Negative (Negative) Urine Urobilinogen <2.0 (<2.0) mg/dL Ur Leukocyte Esterase Trace H (Negative) Urine RBC <1 (0-5) /hpf Urine WBC 1 (0-5) /hpf Hyaline Casts 7 H (0-2) /lpf C. difficile (EIA) Intrp (Negative) - Radiology Data Radiology results: report reviewed (I did review the imaging and reports no acute findings.), image reviewed Disposition Clinical Impression: Enteritis, Dehydration, Abdominal pain, Spastic intestine Disposition: HOME SELF-CARE Condition: Good Instructions: Abdominal Pain (ED), Irritable Bowel Syndrome (ED), Enteritis (ED ), Dehydration (ED) Prescriptions: Acetaminophen-Codeine 300-30mg [Tylenol w/codeine #3] 1 tab PO Q6H PRN 3 Days # 12 tablet PRN Reason: Pain Is patient prescribed a controlled substance at d/c from ED?: Yes When asked, does pt state using other controlled substances?: No If prescribed controlled substance>3 days was MAPS reviewed?: Prescribed <3 Days If opioid is for acute pain is fill amount 7 days or less?: Yes If Rx opioid, was Start Talking consent form obtained?: No Referrals: Charanjit Torres MD [Primary Care Provider] - 1-2 days
[2018-04-18 15:58] LABS: Basophils % (A) 0 %; Eosinophils # (A) 0.1 k/uL (0-0.7); Eosinophils % (A) 1 %; HCT 31.8 % (34.0-46.0); HGB 10.8 gm/dL (11.4-16.0); Lymphocytes # (A) 0.9 k/uL (1.0-4.8); Lymphocytes % (A) 10 %; MCH 31.3 pg (25.0-35.0); MCHC 33.9 g/dL (31.0-37.0); MCV 92.2 fL (80.0-100.0); Mean Platelet Volume 7.6; Monocytes # (A) 0.5 k/uL (0-1.0); Monocytes % (A) 6 %; Neutrophils # (A) 7.4 k/uL (1.3-7.7); Neutrophils % (A) 81 %; Platelet Count 203 k/uL (150-450); RBC 3.45 m/uL (3.80-5.40); WBC 9.2 k/uL (3.8-10.6)
--- NOTE | 2018-04-18 16:01 | XR ---
EXAMINATION TYPE: XR KUB DATE OF EXAM: 04/18/2018 3:55 PM CLINICAL HISTORY: Diarrhea for 2 days TECHNIQUE: Single upright image of the abdomen is obtained. COMPARISON: None. FINDINGS: There are multiple colonic air-fluid levels with no evidence of dilated large or small chica l. There is a levoscoliosis of the lumbar spine. Surgical clips are seen within the right para midlin e pelvis and right upper quadrant. Extensive degenerative changes the lumbar spine and moderate degen erative changes of the femoral acetabular joints are seen. No pneumoperitoneum is appreciated. Athero sclerosis of the abdominal aorta is seen. Lung bases are unremarkable. No suspicious calcification. 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 Nonobstructive bowel gas pattern.
[2018-04-18 16:02] LABS: Albumin 3.7 g/dL (3.5-5.0); Calcium 9.4 mg/dL (8.4-10.2); Magnesium 1.7 mg/dL (1.6-2.3); Total Bilirubin 1.3 mg/dL (0.2-1.3)
--- NOTE | 2018-04-18 16:03 | XR ---
EXAMINATION TYPE: XR chest 2V DATE OF EXAM: 04/18/2018 COMPARISON: 10/13/2017 HISTORY: Diarrhea and history of COPD. Chest pain. TECHNIQUE: Frontal and lateral views of the chest are obtained. FINDINGS: Is eventration of the right hemidiaphragm. Chronic changes of COPD are seen as pulmonary h yperinflation and biapical lucency. There is diffuse osseous demineralization and a dextroscoliosis o f the thoracic spine as well as degenerative changes of the shoulders. No new focal consolidation or pneumothorax is seen. No pleural effusion. IMPRESSION: No acute cardiopulmonary process. Radiographic sequela of COPD.
[2018-04-18 16:50] LABS: Appearance,Urine Clear (Clear); Bilirubin,Urine Negative (Negative); Blood,Urine Negative (Negative); Color,Urine Yellow; Glucose,Urine (UA) Negative (Negative); Hyaline Casts,Urine 7 /lpf (0-2); Ketones,Urine Negative (Negative); Leukocyte Esterase,Urine Trace (Negative); Nitrite,Urine Negative (Negative); Protein,Urine Negative (Negative); RBC,Urine <1 /hpf (0-5); Specific Gravity,Urine 1.013 (1.001-1.035); Urobilinogen,Urine <2.0 mg/dL (<2.0); WBC,Urine 1 /hpf (0-5)
--- NOTE | 2018-04-18 19:00 | CT ---
EXAMINATION TYPE: CT abdomen pelvis wo con DATE OF EXAM: 04/18/2018 COMPARISON: 3 views reveals the bones and joints and soft tissues are well seen radiographically, and are unremarkable. HISTORY: Abdominal pain x 2 days with diarrhea. History of colon cancer. CT DLP: 218 mGycm Automated exposure control for dose reduction was used. TECHNIQUE: Helical acquisition of images was performed from the lung bases through the pelvis. FINDINGS: LUNG BASES: No significant abnormality is appreciated. LIVER/GB: No significant abnormality is appreciated. PANCREAS: No significant abnormality is seen. SPLEEN: No significant abnormality is seen. ADRENALS: No significant abnormality is seen. KIDNEYS: No significant abnormality is seen. FREE AIR: No free air is visualized RETROPERITONEAL ADENOPATHY: None visualized REPRODUCTIVE ORGANS: No significant abnormality is seen URINARY BLADDER: No significant abnormality is seen. PELVIC ADENOPATHY: None visualized. OSSEOUS STRUCTURES: No significant abnormality is seen. BOWEL: No significant abnormality is seen. VASCULATURE: Nonaneurysmal atherosclerotic calcifications are seen throughout the visualized arterial anatomy, to a prominent degree, including coronary calcifications. IMPRESSION: NO ACUTE ABDOMINAL PELVIC PROCESS, CT WITHOUT CONTRAST.
[2018-04-18 19:36] VITALS: BP 154/62; PULSE 81; RESP 18; TEMP 97.8
== END 2018-04-18 19:35 | disposition home or self-care (01) ==
LOC: EC 15:02
DX: E86.0 Dehydration (principal); K52.9 Noninfective gastroenteritis and colitis, unspecified; R30.0 Dysuria; J44.9 Chronic obstructive pulmonary disease, unspecified; I50.9 Heart failure, unspecified; M19.90 Unspecified osteoarthritis, unspecified site; I25.2 Old myocardial infarction; H91.93 Unspecified hearing loss, bilateral; E89.0 Postprocedural hypothyroidism; Z87.891 Personal history of nicotine dependence; Z79.51 Long term (current) use of inhaled steroids; Z79.82 Long term (current) use of aspirin; Z79.899 Other long term (current) drug therapy; Z88.0 Allergy status to penicillin; Z88.1 Allergy status to other antibiotic agents; Z91.09 Other allergy status, other than to drugs and biological substances; Z85.038 Personal history of other malignant neoplasm of large intestine; Z90.49 Acquired absence of other specified parts of digestive tract
CPT/HCPCS: 36415; 51798; 71046; 74018; 74176; 80053; 81001; 82150; 83690; 83735; 85025; 87324; 96361; 96374; 99285

== ENCOUNTER 2018-12-10 11:06 | Inpatient (IN) | payer MEDICARE ==
[2018-12-10] MEDS ORDERED: methylPREDNISolone SOD SUCCI 125 MG/2 ML VIAL IV STA (11:42)
[2018-12-10] MEDS ORDERED: SODIUM CHLORIDE 0.9% 1,000 ML IV STA (11:42)
[2018-12-10] MEDS ORDERED: IPRATROPIUM-ALBUTEROL 3 ML NEB INHALATION STA (11:42)
--- NOTE | 2018-12-10 11:45 | ED ---
General Adult HPI - General Chief complaint: Shortness of Breath Stated complaint: Dyspnea Time Seen by Provider: 12/10/18 11:10 Source: patient, family, EMS, RN notes reviewed Mode of arrival: EMS Limitations: no limitations - History of Present Illness Initial comments: Patient is a pleasant 88-year-old female presenting to the emergency Department with complaints of difficulty breathing. Onset of symptoms was a few days ago. Patient did start oral steroids. Patient saw her doctor yesterday and received a steroid injection. Symptoms started worsening again last night. Patient does claim a cough with large amount of yellow sputum. No fevers. No chest pain. No leg pain or leg swelling. Symptoms are similar to previous COPD. Patient states her did recently of pneumonia. - Related Data Home Medications Medication Instructions Recorded Confirmed Levothyroxine Sodium [Synthroid] 100 mcg PO [id number] 01/17/16 12/10/18 Budesonide [Pulmicort] 0.5 mg INHALATION RT-BID 04/02/17 12/10/18 Losartan [Cozaar] 25 mg PO HS 04/02/17 12/10/18 Ferrous Sulfate [Feosol] 325 mg PO DAILY 04/18/18 12/10/18 Ipratropium-Albuterol Nebulize 3 ml INHALATION RT-QID PRN 04/18/18 12/10/18 [Duoneb 0.5 mg-3 mg/3 ml Soln] Multivit with Calcium,Iron,Min 1 tab PO DAILY 04/18/18 12/10/18 [Women's Multivitamin] Spironolactone [Aldactone] 12.5 mg PO DAILY 04/18/18 12/10/18 Aspirin EC [Ecotrin Low Dose] 81 mg PO DAILY 12/10/18 12/10/18 Carvedilol [Coreg] 6.25 mg PO BID 12/10/18 12/10/18 Previous Rx's Medication Instructions Recorded Atorvastatin [Lipitor] 80 mg PO HS #30 tab 04/09/17 Clopidogrel [Plavix] 75 mg PO DAILY #90 tab 04/09/17 Nitroglycerin Sl Tabs [Nitrostat] 0.4 mg SUBLINGUAL Q5M PRN #100 tab 04/09/17 Furosemide [Lasix] 40 mg PO DAILY #30 tab 09/28/17 Allergies Allergy/AdvReac Type Severity Reaction Status Date / Time Penicillins Allergy Unknown Verified 12/10/18 11:16 pneumococcal 23-valent Allergy Rash/Hives Verified 12/10/18 11:16 polysacchari [From Pneumovax 23] adhesive tape AdvReac Unknown Verified 12/10/18 11:16 Review of Systems ROS Statement: Those systems with pertinent positive or pertinent negative responses have been documented in the HPI. ROS Other: All systems not noted in ROS Statement are negative. Constitutional: Denies: fever, chills Eyes: Denies: eye pain ENT: Denies: ear pain Respiratory: Reports: cough, dyspnea Cardiovascular: Denies: chest pain Endocrine: Reports: fatigue Gastrointestinal: Denies: abdominal pain Genitourinary: Denies: dysuria Musculoskeletal: Denies: back pain Skin: Denies: rash Neurological: Denies: weakness Past Medical History Past Medical History: Cancer, Heart Failure, COPD, Hearing Disorder / Deafness, Hyperlipidemia, Pneumonia, Respiratory Disorder, Thyroid Disorder Additional Past Medical History / Comment(s): Colon ca with SX, hypothyroid, tracheobronchitis, huslia bilaterally, wears 2L at home. Pt denies SD, arthritis, HTN or pulmonary HTN that are in PMR. Recent heart stent placement on April 05, 2017. Last Myocardial Infarction Date:: 09/2016 History of Any Multi-Drug Resistant Organisms: None Reported Past Surgical History: Appendectomy, Bowel Resection, Section, Cholecystectomy, Hysterectomy, Orthopedic Surgery, Tonsillectomy Additional Past Surgical History / Comment(s): colectomy for cancer, thyroidectomy, bilateral cataract removal with lens implants, C- Sections x 3, L foot fx with surgical repair, colonoscopies with polypectomy. Past Anesthesia/Blood Transfusion Reactions: No Reported Reaction, Motion Sickness Additional Past Anesthesia/Blood Transfusion Reaction / Comment(s): none. Past Psychological History: Anxiety Smoking Status: Former smoker Past Alcohol Use History: None Reported Past Drug Use History: None Reported - Past Family History Father Additional Family Medical History / Comment(s): Pt did not know her father well. He was an alcoholic and from it. Mother Family Medical History: Myocardial Infarction (SD) Additional Family Medical History / Comment(s): Mother of an SD at age 51yrs. General Exam Limitations: no limitations General appearance: alert Head exam: Present: atraumatic Eye exam: Present: normal appearance, PERRL ENT exam: Present: normal oropharynx Neck exam: Present: normal inspection Respiratory exam: Present: respiratory distress, wheezes, decreased breath sounds Cardiovascular Exam: Present: tachycardia GI/Abdominal exam: Present: soft. Absent: tenderness Extremities exam: Present: normal inspection. Absent: pedal edema, calf tenderness Back exam: Present: normal inspection Neurological exam: Present: alert Psychiatric exam: Present: normal affect, normal mood Skin exam: Present: normal color Course Vital Signs 12/10/18 12/10/18 12/10/18 11:09 11:12 11:46 Temperature 99.1 F Pulse Rate 99 88 Respiratory 28 H 28 H Rate Blood Pressure 106/58 O2 Sat by Pulse 100 Oximetry 12/10/18 12/10/18 12/10/18 11:58 12:33 13:00 Temperature 98.3 F Pulse Rate 85 80 81 Respiratory 22 16 Rate Blood Pressure 142/61 O2 Sat by Pulse 99 100 Oximetry EKG Findings - EKG Comments: EKG Findings:: Normal sinus rhythm 98. OH 160. QRS 1:30. QT 374. QTC 477. Normal axis. Left bundle branch block. Nonspecific ST-T. Medical Decision Making - Medical Decision Making Patient reevaluated and is somewhat improved. Patient still remained somewhat short of breath. No chest discomfort. Daughter adds that patient did have chest discomfort earlier and patient at that point is agreeable to this. Daughter states chest discomfort improved with nitroglycerin. Case was discussed in detail with Dr. Torres, who is familiar with his patient and will admit, no consults at this time. He is agreeable to start heparin pending second troponin. Patient and family were updated on results and plan. - Lab Data Result diagrams: 12/10/18 12:20 12/10/18 12:20 Lab Results 12/10/18 12/10/18 12/10/18 Range/Units 12:20 12:20 12:20 WBC 13.9 H (3.8-10.6) k/uL RBC 2.90 L (3.80-5.40) m/uL Hgb 8.8 L (11.4-16.0) gm/dL Hct 27.3 L (34.0-46.0) % MCV 94.2 (80.0-100.0) fL MCH 30.4 (25.0-35.0) pg MCHC 32.3 (31.0-37.0) g/dL RDW 12.8 (11.5-15.5) % Plt Count 185 (150-450) k/uL Neutrophils % 85 % Lymphocytes % 9 % Monocytes % 5 % Eosinophils % 0 % Basophils % 0 % Neutrophils # 11.8 H (1.3-7.7) k/uL Lymphocytes # 1.2 (1.0-4.8) k/uL Monocytes # 0.7 (0-1.0) k/uL Eosinophils # 0.0 (0-0.7) k/uL Basophils # 0.0 (0-0.2) k/uL PT (9.0-12.0) sec INR (<1.2) APTT (22.0-30.0) sec Sodium 141 (137-145) mmol/L Potassium 4.2 (3.5-5.1) mmol/L Chloride 110 H (98-107) mmol/L Carbon Dioxide 26 (22-30) mmol/L Anion Gap 5 mmol/L BUN 27 H (7-17) mg/dL Creatinine 0.95 (0.52-1.04) mg/dL Est GFR (CKD-EPI)AfAm 63 (>60 ml/min/1.73 sqM) Est GFR (CKD-EPI)NonAf 55 (>60 ml/min/1.73 sqM) Glucose 129 H (74-99) mg/dL Plasma Lactic Acid Ethan (0.7-2.0) mmol/L Calcium 8.9 (8.4-10.2) mg/dL Magnesium 1.8 (1.6-2.3) mg/dL Total Bilirubin 0.6 (0.2-1.3) mg/dL AST 35 (14-36) U/L ALT 41 (9-52) U/L Alkaline Phosphatase 58 (38-126) U/L Total Creatine Kinase 40 (30-135) U/L CK-MB (CK-2) 1.4 (0.0-2.4) ng/mL CK-MB (CK-2) Rel Index 3.5 Troponin I 0.105 H* (0.000-0.034) ng/mL Total Protein 5.7 L (6.3-8.2) g/dL Albumin 3.2 L (3.5-5.0) g/dL 12/10/18 12/10/18 Range/Units 12:20 12:20 WBC (3.8-10.6) k/uL RBC (3.80-5.40) m/uL Hgb (11.4-16.0) gm/dL Hct (34.0-46.0) % MCV (80.0-100.0) fL MCH (25.0-35.0) pg MCHC (31.0-37.0) g/dL RDW (11.5-15.5) % Plt Count (150-450) k/uL Neutrophils % % Lymphocytes % % Monocytes % % Eosinophils % % Basophils % % Neutrophils # (1.3-7.7) k/uL Lymphocytes # (1.0-4.8) k/uL Monocytes # (0-1.0) k/uL Eosinophils # (0-0.7) k/uL Basophils # (0-0.2) k/uL PT 10.1 (9.0-12.0) sec INR 0.9 (<1.2) APTT 25.1 (22.0-30.0) sec Sodium (137-145) mmol/L Potassium (3.5-5.1) mmol/L Chloride (98-107) mmol/L Carbon Dioxide (22-30) mmol/L Anion Gap mmol/L BUN (7-17) mg/dL Creatinine (0.52-1.04) mg/dL Est GFR (CKD-EPI)AfAm (>60 ml/min/1.73 sqM) Est GFR (CKD-EPI)NonAf (>60 ml/min/1.73 sqM) Glucose (74-99) mg/dL Plasma Lactic Acid Ethan 1.5 (0.7-2.0) mmol/L Calcium (8.4-10.2) mg/dL Magnesium (1.6-2.3) mg/dL Total Bilirubin (0.2-1.3) mg/dL AST (14-36) U/L ALT (9-52) U/L Alkaline Phosphatase (38-126) U/L Total Creatine Kinase (30-135) U/L CK-MB (CK-2) (0.0-2.4) ng/mL CK-MB (CK-2) Rel Index Troponin I (0.000-0.034) ng/mL Total Protein (6.3-8.2) g/dL Albumin (3.5-5.0) g/dL - Radiology Data Radiology results: image reviewed (Chest x-ray does not show acute abnormality) Disposition Clinical Impression: Acute exacerbation of chronic obstructive airways disease Disposition: [facility]ITT[facility] Condition: Serious Is patient prescribed a controlled substance at d/c from ED?: No Referrals: Charanjit Torres MD [Primary Care Provider] - 1-2 days Decision Time: 15:21
--- NOTE | 2018-12-10 12:55 | XR ---
EXAMINATION TYPE: XR chest 2V DATE OF EXAM: 12/10/2018 COMPARISON: Chest x-ray April 18, 2018. HISTORY: History of COPD with shortness of breath TECHNIQUE: Frontal and lateral views of the chest are obtained. FINDINGS: There is background chronic emphysematous change with eventration of both hemidiaphragms re demonstrated There is no new suspicious focal air space opacity, pleural effusion, or pneumothorax se en. The cardiac silhouette size is mildly enlarged on current study with atherosclerotic thoracic ao rta. The osseous structures remain demineralized. IMPRESSION: Chronic emphysematous and parenchymal changes with new cardiomegaly but no new suspiciou s focal infiltrate.
[2018-12-10 13:00] LABS: Basophils % (A) 0 %; Eosinophils % (A) 0 %; HCT 27.3 % (34.0-46.0); HGB 8.8 gm/dL (11.4-16.0); Lymphocytes # (A) 1.2 k/uL (1.0-4.8); Lymphocytes % (A) 9 %; MCH 30.4 pg (25.0-35.0); MCHC 32.3 g/dL (31.0-37.0); MCV 94.2 fL (80.0-100.0); Mean Platelet Volume 7.6; Monocytes # (A) 0.7 k/uL (0-1.0); Monocytes % (A) 5 %; Neutrophils # (A) 11.8 k/uL (1.3-7.7); Neutrophils % (A) 85 %; Platelet Count 185 k/uL (150-450); RDW 12.8 % (11.5-15.5); WBC 13.9 k/uL (3.8-10.6)
[2018-12-10 13:06] LABS: Albumin 3.2 g/dL (3.5-5.0); Calcium 8.9 mg/dL (8.4-10.2); Magnesium 1.8 mg/dL (1.6-2.3); Potassium 4.2 mmol/L (3.5-5.1); Total Bilirubin 0.6 mg/dL (0.2-1.3); Total Protein 5.7 g/dL (6.3-8.2)
[2018-12-10 13:10] LABS: INR 0.9 (<1.2); Partial Thromboplastin Time 25.1 sec (22.0-30.0); Prothrombin Time 10.1 sec (9.0-12.0)
[2018-12-10 13:28] LABS: Creatine Kinase MB 1.4 ng/mL (0.0-2.4)
[2018-12-10 13:54] LABS: Troponin I 0.105 ng/mL (0.000-0.034)
[2018-12-10] MEDS ORDERED: ASPIRIN 81 MG PO STA (15:21)
[2018-12-10] MEDS ORDERED: NITROGLYCERIN SL TABS 0.4 MG TAB SUBLINGUAL PRN ×2 (15:21→18:06)
[2018-12-10] MEDS ORDERED: HEPARIN SODIUM,PORCINE 5,000 UNIT/ML 1 ML VIAL IV PRN (15:21)
[2018-12-10] MEDS ORDERED: HEPARIN SODIUM,PORCINE 5,000 UNIT/ML 1 ML VIAL IV ONE (15:21)
[2018-12-10] MEDS ORDERED: HEPARIN SOD,PORK IN 0.45% NACL 25,000 UNIT in 0.45% NACL 1 250ML.BAG IV SCH (15:30)
[2018-12-10] MEDS: IPRATROPIUM-ALBUTEROL 3 ML NEB INHALATION SCH ×2 (15:55→20:44)
[2018-12-10] MEDS ORDERED: IPRATROPIUM-ALBUTEROL 3 ML NEB INHALATION PRN (18:06)
[2018-12-10] MEDS ORDERED: FUROSEMIDE 10 MG/ML 2 ML VIAL IV ONE (18:20)
[2018-12-10] MEDS: methylPREDNISolone SOD SUCCI 125 MG/2 ML VIAL IV SCH ×2 (19:44→23:19)
[2018-12-10] MEDS: NITROGLYCERIN OINT 1 INCH/GM PACKET TOPICAL SCH ×2 (19:45→23:19)
[2018-12-10 19:58] LABS: Glucose,Whole Blood 198 mg/dL (75-99)
[2018-12-10] MEDS: CARVEDILOL 6.25 MG TAB PO SCH (19:59)
[2018-12-10 20:05] LABS: Creatine Kinase MB 1.7 ng/mL (0.0-2.4)
[2018-12-10 20:11] LABS: Troponin I 0.107 ng/mL (0.000-0.034)
[2018-12-10] MEDS: BUDESONIDE 0.5 MG/2 ML NEBU INHALATION SCH (20:44)
[2018-12-10] MEDS: INSULIN ASPART 100 UNIT/ML 1 ML 10 ML VIAL SQ SCH (21:07)
[2018-12-10] MEDS: LOSARTAN 25 MG TAB PO SCH (21:07)
[2018-12-10] MEDS: ATORVASTATIN 80 MG TAB PO SCH (21:07)
--- NOTE | 2018-12-11 00:13 | HP ---
HISTORY AND PHYSICAL ATTENDING PHYSICIAN: Dr. Noelle Torres. DATE OF ADMISSION: 12/10/2018. CHIEF COMPLAINT: Shortness of breath. HISTORY OF PRESENT ILLNESS: An 88-year-old female presents to the emergency room with increased shortness of breath. The patient was seen last week in the office as well as yesterday. She has had a history of chronic COPD and has some evidence of exacerbation with an upper respiratory viral infection. She was placed on steroids. She was re-evaluated yesterday. Continues to be afebrile. Mild shortness of breath. The patient was only doing updrafts twice a day, recommended to do at least 4 times a day. The patient was also given a steroid injection and continued on prednisone. She was on tapering prednisone and she had 30 mg a day yesterday. The patient, however, got increased shortness of breath and presented to the emergency room in view of this. She denied any fevers or chills. During the night she had heavy pressure sensation in the chest. There were no palpitations, fevers, chills, or chest pain except for the heavy feeling in the chest. 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 She also had some degenerative arthritis. PERSONAL HISTORY: No alcohol. She is an ex-smoker. She smoked heavy for about 40 years. Has quit smoking about 11 years now. PAST SURGICAL HISTORY: Significant for partial colectomy, cholecystectomy, C-sections x3, hysterectomy, appendectomy. SOCIAL HISTORY: Patient's this week. She has daughters who are helping her out. FAMILY MEDICAL HISTORY: Has 3 daughters, 1 has a history of degenerative arthritis of the lumbosacral spine. Another has a history of multiple sclerosis, The patient has a sister who of a stroke and patient's father had a history of alcohol dependence. MEDICATIONS: Medications at present include: 1. Multivitamins. 2. Calcium. 3. Cozaar 25 mg daily. 4. Coreg 6.25 mg b.i.d. 5. Synthroid 100 mcg 6 days a week. 6. DuoNeb q.i.d. 7. Lasix 40 daily. 8. Pulmicort 0.5 inhalation b.i.d. 9. Aspirin 81 mg daily. 10.Spironolactone 12.5 mg daily. 11.Nitroglycerin sublingual p.r.n. 12.Ferrous sulfate 1 daily. 13.Plavix 75 mg daily. 14.Atorvastatin 80 mg daily. REVIEW OF SYSTEMS: NEURO: Neuro denies any headaches, dizziness. No double vision or blurred vision. No symptoms of TIA, syncope, seizures. PSYCH: Denied any anxiety, depression. She is grieving appropriately. CARDIAC: Denies chest pain. Did have some heaviness in the chest last night. Denies any palpitations. RESPIRATORY: Presently complains of shortness of breath. No hemoptysis. Has had a cough. No sputum production. GI: No nausea, vomiting, abdominal pain, diarrhea. Appetite fair. No abdominal pain. No diarrhea. Does some mild chronic constipation. No hematochezia, melena. : No symptoms of dysuria, hematuria, urgency, frequency. EXTREMITIES: Denies pain, edema. CONSTITUTIONAL: No fevers or chills. PHYSICAL EXAMINATION: Chronically ill-appearing elderly female at present, improved with emergency room treatment. The patient was markedly dyspneic when she arrived, according to the nurse. Vital signs at the time of my evaluation revealed temperature 98.2, pulse 81, respirations 20, pulse ox 96 percent. Blood pressure earlier was 114/62. ER visit temperature initial was 99.1, pulse 90, respirations 28, blood pressure 106/58, 100% on 6 liters nasal cannula. HEENT: Normocephalic. Neck supple. Pupils are reactive. Nostrils clear. Oral cavity is moist. Ears reveal no drainage. Oral cavity is moist. Edentulous. Pharynx clear. Ears reveal no drainage. NECK: No JVD, carotid bruits or thyromegaly. CHEST: Examination increased percussion bilateral noted bilaterally. The patient is using some accessory muscles to breathe. Does have bilateral expiratory wheeze. Scattered rhonchi. CARDIAC: Sounds S1, S2 with no gallops. Systolic murmur 2/6 left sternal border. Regular rhythm. ABDOMEN: Soft. Bowel sounds present. No organomegaly. No abdominal bruits. Extremities reveal no edema. Good pulses both upper extremities. Decreased pedal pulses. NEUROLOGIC: Awake, alert, oriented with well-coordinated movements. LABORATORY ASSESSMENT: CBC revealed a white count of 13.9, hemoglobin is 8.8. PT/INR is normal. PTT normal. Electrolytes normal. BUN 27, creatinine 0.959. Random glucose 129. Lactic acid 1.5. Normal hepatic function. CPK is normal at 40. Troponin 0.105, albumin 3.2. Chest x- ray, no acute infiltrates. EKG, sinus rhythm, complete left bundle branch block. Chest x-ray suggests COPD changes and cardiomegaly with no suspicious of focal infiltrate. ASSESSMENT: 1. Chronic obstructive pulmonary disease with exacerbation. 2. Acute on chronic respiratory failure. 3. 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 4. History of coronary artery disease. 5. Anemia. 6. History of cancer of the colon. 7. Grief with recent loss of spouse. PLAN: Continue present medical regimen with steroids, updrafts, oxygen and Lasix. The patient was initially anticoagulated. Rule rule subendocardial WA. The patient's 2nd troponin also pretty much the same, indicating that the patient has this mismatch related troponin leak. Do not feel the patient has myocardial infarction. The patient is on heparin and will be evaluated by Cardiology. The patient will have anemia workup done with blood studies. The patient's condition is not good enough to have a colonoscopy done. We have discussed this with her previously and she declined that. Approach that after her condition settles down again. Prognosis guarded. MMODL / JOSE MIGUELN: [id number] /
[2018-12-11 01:01] LABS: Creatine Kinase MB 1.7 ng/mL (0.0-2.4)
[2018-12-11 01:08] LABS: Troponin I 0.088 ng/mL (0.000-0.034)
[2018-12-11 01:56] LABS: Glucose,Whole Blood 135 mg/dL (75-99)
[2018-12-11] MEDS ORDERED: FUROSEMIDE 10 MG/ML 4 ML VIAL IV STA (02:26)
[2018-12-11] MEDS: IPRATROPIUM-ALBUTEROL 3 ML NEB INHALATION PRN ×2 (02:27→23:28)
[2018-12-11] MEDS: ALPRAZolam 0.25 MG TAB PO PRN (02:27)
[2018-12-11] MEDS: guaiFENesin 600 MG TABLET.ER PO SCH ×3 (02:28→20:48)
[2018-12-11 02:45] LABS: Basophils % (A) 0 %; Eosinophils # (A) 0.1 k/uL (0-0.7); Eosinophils % (A) 1 %; HCT 27.9 % (34.0-46.0); HGB 9.2 gm/dL (11.4-16.0); Lymphocytes # (A) 0.9 k/uL (1.0-4.8); Lymphocytes % (A) 7 %; MCHC 32.8 g/dL (31.0-37.0); MCV 94.6 fL (80.0-100.0); Mean Platelet Volume 7.2; Monocytes # (A) 0.3 k/uL (0-1.0); Monocytes % (A) 3 %; Neutrophils % (A) 89 %; Platelet Count 208 k/uL (150-450); RBC 2.95 m/uL (3.80-5.40); RDW 12.7 % (11.5-15.5); WBC 12.4 k/uL (3.8-10.6)
[2018-12-11 03:04] LABS: Calcium 8.9 mg/dL (8.4-10.2); Potassium 4.4 mmol/L (3.5-5.1)
[2018-12-11 05:30] LABS: Glucose,Whole Blood 151 mg/dL (75-99)
[2018-12-11] MEDS: NITROGLYCERIN OINT 1 INCH/GM PACKET TOPICAL SCH (06:27)
[2018-12-11] MEDS: methylPREDNISolone SOD SUCCI 125 MG/2 ML VIAL IV SCH ×4 (06:27→23:02)
[2018-12-11] MEDS: LEVOTHYROXINE 100 MCG TAB PO SCH (06:28)
[2018-12-11] MEDS: INSULIN ASPART 100 UNIT/ML 1 ML 10 ML VIAL SQ SCH ×4 (06:28→20:59)
[2018-12-11] MEDS: CARVEDILOL 6.25 MG TAB PO SCH ×2 (06:29→18:12)
[2018-12-11] MEDS: IPRATROPIUM-ALBUTEROL 3 ML NEB INHALATION SCH ×4 (08:03→19:26)
[2018-12-11] MEDS: BUDESONIDE 0.5 MG/2 ML NEBU INHALATION SCH ×2 (08:03→19:26)
[2018-12-11] MEDS: CLOPIDOGREL 75 MG TAB PO SCH (08:37)
[2018-12-11] MEDS: SPIRONOLACTONE 25 MG TAB PO SCH (08:38)
[2018-12-11] MEDS: PANTOPRAZOLE 40 MG/10 ML VIAL IVP SCH (08:38)
[2018-12-11] MEDS: AZITHROMYCIN 500 MG TAB PO SCH (08:38)
[2018-12-11] MEDS: FUROSEMIDE 10 MG/ML 2 ML VIAL IV SCH ×2 (08:38→20:48)
[2018-12-11] MEDS: ASPIRIN 325 MG TAB PO SCH (08:38)
[2018-12-11] MEDS: HEPARIN SODIUM,PORCINE 5,000 UNIT/ML 1 ML VIAL SQ SCH ×3 (08:47→23:02)
[2018-12-11] MEDS ORDERED: FUROSEMIDE 40 MG TAB PO SCH (09:00)
[2018-12-11 09:25] LABS: HCT 25.7 % (34.0-46.0); HGB 8.3 gm/dL (11.4-16.0); MCH 29.9 pg (25.0-35.0); MCHC 32.2 g/dL (31.0-37.0); Mean Platelet Volume 7.2; Platelet Count 186 k/uL (150-450); RBC 2.76 m/uL (3.80-5.40); RDW 12.4 % (11.5-15.5); WBC 11.8 k/uL (3.8-10.6)
[2018-12-11 09:52] LABS: Reticulocyte % 1.2 % (0.5-2.0)
[2018-12-11 10:01] LABS: Calcium 8.7 mg/dL (8.4-10.2); Potassium 3.8 mmol/L (3.5-5.1)
--- NOTE | 2018-12-11 11:29 | P.CRDCN ---
History of Present Illness Consult date: 12/11/18 Requesting physician: Charanjit Torres Consult reason: chest pain Chief complaint: Shortness of breath History of present illness: This is an 88-year-old female who presented to the hospital with symptoms of progressively worsening shortness of breath. She follows as an outpatient with Dr. Torres, she had been placed on steroids as an outpatient and had increased her amount of updraft treatments that she was taking at home. In spite of the fact that she was on this treatment as an outpatient, she increasingly was getting more and more short of breath she came to the emergency room for further evaluation. Last evening, patient was complaining of significant amount of chest pressure and heaviness through the night last night. She states that it felt like an elephant was sitting on her chest. For this reason a cardiology consultation was requested. Patient does have a known history of coronary artery disease, she underwent successful stenting of a heavily calcified long segment of the proximal and mid RCA in March 2017, she also has history of hypertension, hyperlipidemia, diabetes, advanced COPD, and history of smoking. Chest x-ray on admission here showed chronic emphysema and parenchymal changes with new cardiomegaly but no new suspicious focal infiltrate. EKG on admission here showed a normal sinus rhythm with a left bundle-branch block pattern, no acute changes noted. Blood pressure 115/40 with a heart rate in the 60s, 97% on high flow cannula. White blood cell count 11.8, hemoglobin 8.3, platelet count 186. Sodium 142, potassium 3.8, BUN 32 and creatinine 1.0. Influenza A and B-. At the time of my examination this morning, patient is lying down in bed, appears to be quite short of breath, persistent cough. Denies chest pressure at present. Past Medical History Past Medical History: Cancer, Heart Failure, COPD, Hearing Disorder / Deafness, Hyperlipidemia, Myocardial Infarction (NV), Pneumonia, Respiratory Disorder, Thyroid Disorder Additional Past Medical History / Comment(s): Colon ca with SX, hypothyroid, tracheobronchitis, diverticulitis,ch[place]im[place] bilaterally, wears 2L at home. Pt denies arthritis, HTN or pulmonary HTN that are in PMR. Recent heart stent placement on April 05, 2017. Last Myocardial Infarction Date:: 2016 History of Any Multi-Drug Resistant Organisms: None Reported Past Surgical History: Appendectomy, Bowel Resection, Section, Cholecystectomy, Hysterectomy, Orthopedic Surgery, Tonsillectomy Additional Past Surgical History / Comment(s): colectomy for cancer, thyroidectomy, bilateral cataract removal with lens implants, C- Sections x 3, L foot fx with surgical repair, colonoscopies with polypectomy. Past Anesthesia/Blood Transfusion Reactions: Motion Sickness Additional Past Anesthesia/Blood Transfusion Reaction / Comment(s): has never had a blood transfusion Smoking Status: Former smoker - Past Family History Father Additional Family Medical History / Comment(s): Pt did not know her father well. He was an alcoholic and from it. Mother Family Medical History: Myocardial Infarction (NV) Additional Family Medical History / Comment(s): Mother of an NV at age 51yrs. Medications and Allergies Home Medications Medication Instructions Recorded Confirmed Type Levothyroxine Sodium [Synthroid] 100 mcg PO MOTUWETHFRSA 01/17/16 12/10/18 History Budesonide [Pulmicort] 0.5 mg INHALATION RT-BID 04/02/17 12/10/18 History Losartan [Cozaar] 25 mg PO HS 04/02/17 12/10/18 History Atorvastatin [Lipitor] 80 mg PO HS #30 tab 04/09/17 12/10/18 Rx Clopidogrel [Plavix] 75 mg PO DAILY #90 tab 04/09/17 12/10/18 Rx Nitroglycerin Sl Tabs [Nitrostat] 0.4 mg SUBLINGUAL Q5M PRN #100 tab 04/09/17 Rx Furosemide [Lasix] 40 mg PO DAILY #30 tab 09/28/17 12/10/18 Rx Ferrous Sulfate [Feosol] 325 mg PO DAILY 04/18/18 12/10/18 History Ipratropium-Albuterol Nebulize 3 ml INHALATION RT-QID PRN 04/18/18 12/10/18 History [Duoneb 0.5 mg-3 mg/3 ml Soln] Multivit with Calcium,Iron,Min 1 tab PO DAILY 04/18/18 12/10/18 History [Women's Multivitamin] Spironolactone [Aldactone] 12.5 mg PO DAILY 04/18/18 12/10/18 History Aspirin EC [Ecotrin Low Dose] 81 mg PO DAILY 12/10/18 12/10/18 History Carvedilol [Coreg] 6.25 mg PO BID 12/10/18 12/10/18 History Allergies Allergy/AdvReac Type Severity Reaction Status Date / Time Penicillins Allergy Unknown Verified 12/10/18 11:16 pneumococcal 23-valent Allergy Rash/Hives Verified 12/10/18 11:16 polysacchari [From Pneumovax 23] adhesive tape AdvReac Unknown Verified 12/10/18 11:16 Physical Exam Vitals: Vital Signs Temp Pulse Pulse Resp BP BP Pulse Ox 12/11/18 08:20 90 12/11/18 08:03 88 12/11/18 06:20 112/56 12/11/18 04:00 98.2 F 65 20 115/48 97 12/11/18 03:45 63 22 12/11/18 02:45 92 12/11/18 02:27 92 12/11/18 00:00 98 F 63 22 123/52 96 12/10/18 21:01 80 12/10/18 20:44 80 12/10/18 20:00 97.9 F 73 21 152/61 98 12/10/18 19:02 98.2 F 81 20 96 12/10/18 17:00 72 18 114/62 97 12/10/18 16:04 75 12/10/18 15:56 75 20 12/10/18 13:00 98.3 F 81 16 142/61 100 12/10/18 12:33 80 22 99 12/10/18 11:58 85 12/10/18 11:46 88 Intake and Output 12/10/18 12/11/18 12/11/18 22:59 06:59 14:59 Intake Total 500 559.456 90 Output Total 700 600 600 Balance -200 -40.544 -510 Intake: IV 220 normal saline 220 Intake, IV Titration 39.456 Amount Heparin Sod,Pork in 0.45% 39.456 NaCl 25,000 unit In 0.45 % NaCl 1 250ml.bag @ 12 UNITS/KG/HR 5.76 mls/hr IV .Q24H COUNT INCLUDES THE [facility] Rx#: [id number] Oral 500 300 90 Output: Urine 700 600 600 Other: Voiding Method Bedside Commode Bedside Commode # Voids 1 Weight 58.5 kg PHYSICAL EXAMINATION: GENERAL: 88-year-old, frail appearing female, markedly dyspneic. HEENT: Head is atraumatic, normocephalic. Pupils equal, round. Sclera anicteric. Conjunctiva are clear. Mucous membranes of the mouth are moist. Neck is supple. There is no elevated jugular venous pressure. No carotid bruit is heard. HEART EXAMINATION: Heart S1 S2 1 systolic murmur is heard. CHEST EXAMINATION: Lungs reveal bilateral expiratory wheezing with scattered rhonchi throughout. ABDOMEN: Soft, nontender. Bowel sounds are heard. No organomegaly noted. EXTREMITIES: 2+ peripheral pulses with no evidence of peripheral edema and no calf tenderness noted. NEUROLOGIC patient is awake, alert and oriented 3 . . Results 12/11/18 08:33 12/11/18 08:33 Cardiac Enzymes 12/10/18 12/10/18 12/10/18 Range/Units 12:20 12:20 19:05 AST 35 (14-36) U/L CK-MB (CK-2) 1.4 1.7 (0.0-2.4) ng/mL Troponin I 0.105 H* 0.107 H* (0.000-0.034) ng/mL 12/11/18 Range/Units 00:11 AST (14-36) U/L CK-MB (CK-2) 1.7 (0.0-2.4) ng/mL Troponin I 0.088 H* (0.000-0.034) ng/mL Coagulation 12/10/18 12/11/18 12/11/18 Range/Units 12:20 00:11 08:33 PT 10.1 (9.0-12.0) sec APTT 25.1 106.4 H* 47.2 H (22.0-30.0) sec Lipids 12/11/18 Range/Units 08:33 Triglycerides 36 (<150) mg/dL Cholesterol 90 (<200) mg/dL HDL Cholesterol 47 (40-60) mg/dL CBC 12/10/18 12/11/18 12/11/18 Range/Units 12:20 02:14 08:33 WBC 13.9 H 12.4 H 11.8 H (3.8-10.6) k/uL RBC 2.90 L 2.95 L 2.76 L (3.80-5.40) m/uL Hgb 8.8 L 9.2 L 8.3 L (11.4-16.0) gm/dL Hct 27.3 L 27.9 L 25.7 L (34.0-46.0) % Plt Count 185 208 186 (150-450) k/uL Comprehensive Metabolic Panel 12/10/18 12/11/18 12/11/18 Range/Units 12:20 02:14 08:33 Sodium 141 141 142 (137-145) mmol/L Potassium 4.2 4.4 3.8 (3.5-5.1) mmol/L Chloride 110 H 108 H 107 (98-107) mmol/L Carbon Dioxide 26 26 30 (22-30) mmol/L BUN 27 H 29 H 32 H (7-17) mg/dL Creatinine 0.95 0.95 1.03 (0.52-1.04) mg/dL Glucose 129 H 118 H 109 H (74-99) mg/dL Calcium 8.9 8.9 8.7 (8.4-10.2) mg/dL AST 35 (14-36) U/L ALT 41 (9-52) U/L Alkaline Phosphatase 58 (38-126) U/L Total Protein 5.7 L (6.3-8.2) g/dL Albumin 3.2 L (3.5-5.0) g/dL Current Medications Generic Name Dose Route Start Last Admin Trade Name Freq PRN Reason Stop Dose Admin Albuterol/Ipratropium 3 ml 12/10/18 16:00 12/11/18 08:03 Duoneb 0.5 Mg-3 Mg/3 Ml Soln INHALATION 3 ml RT-QID NISHANT Administration Albuterol/Ipratropium 3 ml 12/10/18 15:21 12/11/18 02:27 Duoneb 0.5 Mg-3 Mg/3 Ml Soln INHALATION 3 ml RT-Q4H PRN Administration Shortness Of Breath Or Wheezing Albuterol/Ipratropium 3 ml 12/10/18 18:06 Duoneb 0.5 Mg-3 Mg/3 Ml Soln INHALATION RT-QID PRN Shortness Of Breath Alprazolam 0.25 mg 12/11/18 02:18 12/11/18 02:27 Xanax PO 0.25 mg TID PRN Administration Agitation or Acute Anxiety Aspirin 325 mg 12/11/18 09:00 12/11/18 08:38 Aspirin PO 325 mg DAILY COUNT INCLUDES THE [facility] Administration Atorvastatin Calcium 80 mg 12/10/18 21:00 12/10/18 21:07 Lipitor PO 80 mg HS NISHANT Administration Azithromycin 500 mg 12/11/18 09:00 12/11/18 08:38 Zithromax PO 500 mg DAILY NISHANT Administration Budesonide 0.5 mg 12/10/18 20:00 12/11/18 08:03 Pulmicort INHALATION 0.5 mg RT-BID COUNT INCLUDES THE [facility] Administration Carvedilol 6.25 mg 12/10/18 19:00 12/11/18 06:29 Coreg PO 6.25 mg AC-BID COUNT INCLUDES THE [facility] Administration Clopidogrel Bisulfate 75 mg 12/11/18 09:00 12/11/18 08:37 Plavix PO 75 mg DAILY COUNT INCLUDES THE [facility] Administration Furosemide 20 mg 12/11/18 09:00 12/11/18 08:38 Lasix IV 20 mg Q12HR COUNT INCLUDES THE [facility] Administration Guaifenesin 1,200 mg 12/11/18 02:30 12/11/18 08:46 Mucinex PO 1,200 mg Q12HR COUNT INCLUDES THE [facility] Administration Heparin Sodium (Porcine) 5,000 unit 12/11/18 09:00 12/11/18 08:47 Heparin SQ Not Given Q8HR COUNT INCLUDES THE [facility] Insulin Aspart 0 unit 12/10/18 21:00 12/11/18 06:28 Novolog SQ 2 unit ACHS COUNT INCLUDES THE [facility] Administration Protocol Levothyroxine Sodium 100 mcg 12/11/18 06:30 12/11/18 06:28 Synthroid PO 100 mcg MOTUWETHFRSA COUNT INCLUDES THE [facility] Administration Losartan Potassium 25 mg 12/10/18 21:00 12/10/18 21:07 Cozaar PO 25 mg HS COUNT INCLUDES THE [facility] Administration Methylprednisolone Sodium Succinate 60 mg 12/10/18 18:00 12/11/18 06:27 Solu-Medrol IV 60 mg Q6HR COUNT INCLUDES THE [facility] Administration Multivitamins 1 each 12/11/18 12:00 Theragran PO DAILY@1200 COUNT INCLUDES THE [facility] Nitroglycerin 0.4 mg 12/10/18 15:21 Nitrostat SUBLINGUAL Q5M PRN Chest Pain Nitroglycerin 0.4 mg 12/10/18 18:06 Nitrostat SUBLINGUAL Q5M PRN Chest Pain Pantoprazole Sodium 40 mg 12/11/18 09:00 12/11/18 08:38 Protonix IVP 40 mg DAILY NISHANT Administration Sodium Chloride 10 ml 12/10/18 21:00 12/11/18 08:39 Saline Flush IV 10 ml BID NISHANT Administration Spironolactone 12.5 mg 12/11/18 09:00 12/11/18 08:38 Aldactone PO 12.5 mg DAILY NISHANT Administration Intake and Output 12/10/18 12/11/18 12/11/18 22:59 06:59 14:59 Intake Total 500 559.456 90 Output Total 700 600 600 Balance -200 -40.544 -510 Intake: IV 220 normal saline 220 Intake, IV Titration 39.456 Amount Heparin Sod,Pork in 0.45% 39.456 NaCl 25,000 unit In 0.45 % NaCl 1 250ml.bag @ 12 UNITS/KG/HR 5.76 mls/hr IV .Q24H NISHANT Rx#: [id number] Oral 500 300 90 Output: Urine 700 600 600 Other: Voiding Method Bedside Commode Bedside Commode # Voids 1 Weight 58.5 kg 12/11/18 08:33 12/11/18 08:33 EKG Interpretations (text) EKG shows a normal sinus rhythm with a left bundle-branch block pattern Assessment and Plan Plan: Assessment and plan #1 COPD exacerbation #2 chest pain in a patient with known history of coronary artery disease. Troponins 0.10, 0.10, 0.08. EKG shows normal sinus rhythm with a left bundle- branch block pattern #3 known history of coronary artery disease with history of successful stenting to have a calcified segment of the proximal and mid RCA in 2017 #4 advanced COPD #5 hypertension #6 hyperlipidemia #7 prior history of smoking #8 anemia Plan Patient's troponin abnormality not consistent with acute coronary syndrome with no significant rise and fall pattern, likely secondary to oxygen supply and demand mismatch. We will obtain an echocardiogram with Doppler study. Patient did have an echo performed in March 2017 which revealed an ejection fraction of 30 -35%, moderate pulmonary hypertension, anterior septal inferior and septal hypokinesia noted at that time. We will decrease her aspirin 81 mg daily, continue Lipitor 80, Coreg, Plavix, Cozaar and Aldactone. Obtain BNP level. Further recommendations to follow. DNP note has been reviewed, I agree with a documented findings and plan of care. Patient was seen and examined.
[2018-12-11 11:54] LABS: Glucose,Whole Blood 142 mg/dL (75-99)
[2018-12-11] MEDS: MULTIVITAMINS, THERA 1 EACH TAB PO SCH (12:14)
[2018-12-11 16:38] LABS: Glucose,Whole Blood 156 mg/dL (75-99)
[2018-12-11 16:59] LABS: Iron Saturation 26.54 (12.00-45.00)
--- NOTE | 2018-12-11 18:22 | PN ---
PROGRESS NOTE CHIEF COMPLAINT: Re-evaluation. HISTORY OF PRESENT ILLNESS: This 88-year-old female was admitted to the hospital with complaints of shortness of breath. The patient has underlying history of COPD. She also has a history of coronary artery disease. Her troponin was borderline elevated; however, it was felt to be secondary to oxygen supply/demand mismatch. The patient has no chest pain. She initially at the time of admission had said she had a very heavy chest. The patient during the night had significant dyspnea. She was recommended to use BiPAP, but she refused. The patient has been on oxygen via mask and was given some Lasix. She does feel comfortable this morning, though she is still a little dyspneic with activity. She has been on heparin, which is going to be discontinued. She is anemic with a hemoglobin of 8.3, with no evidence of any acute bleeding. Platelet count is normal 186. REVIEW OF SYSTEMS: NEURO: Denies any headaches, dizziness. PSYCH: Some apprehension, anxiety because of spouse having passed this last week. CARDIAC: Denies chest pain, angina, palpitations. RESPIRATORY: Patient complaint of shortness of breath, cough. No hemoptysis. GI: No nausea, vomiting, abdominal pain, diarrhea. No hematochezia or melena. : No symptoms of dysuria or hematuria, urgency, frequency. EXTREMITIES: Denies pain, edema. CONSTITUTIONAL: No fever or chills. PHYSICAL EXAMINATION: Pleasant female, at present in no distress, though she is mildly tachypneic. Vital signs reveal temperature 98.1, pulse 59, respirations 20, blood pressure 116/70, pulse ox 97% on high-flow cannula. HEENT: Normocephalic. NECK: Supple. No JVD. CHEST EXAMINATION: Increased percussion noted bilaterally. Generalized decreased air flow, especially at the bases. Patient has some expiratory wheeze and rhonchi. CARDIAC: Distant heart sounds S1, S2 with no gallops. Systolic murmur 2/6, left sternal border. ABDOMEN: Soft. Bowel sounds present. No organomegaly. No abdominal bruits. Extremities reveal no edema. Neurologically awake, alert, oriented x3 with well-coordinated movements. LABORATORY ASSESSMENT: Hemoglobin 8.3, white count 11.8, platelets 186. Retic count 1.2. PTT is 47.2, BUN 32, creatinine 1.03, glucose 109, iron 56, TIBC 211, ferritin 636. Influenza is negative. ASSESSMENT: 1. Acute exacerbation of chronic obstructive pulmonary disease. 2. Tracheobronchitis. 3. Acute congestive cardiac failure failure secondary to systolic dysfunction. 4. Anemia. 5. Grief. PLAN: The patient is stable. Continue present medical regimen. Patient's condition was discussed with the patient and daughter, who is a nurse. Prognosis remains guarded. Patient has requested NO CPR. MMODL / IJN: [id number] /
[2018-12-11 20:46] LABS: Glucose,Whole Blood 145 mg/dL (75-99)
[2018-12-11] MEDS: ATORVASTATIN 80 MG TAB PO SCH (20:48)
[2018-12-11] MEDS: LOSARTAN 25 MG TAB PO SCH (20:48)
[2018-12-12 05:26] LABS: Glucose,Whole Blood 156 mg/dL (75-99)
[2018-12-12] MEDS: CARVEDILOL 6.25 MG TAB PO SCH ×2 (05:52→17:35)
[2018-12-12] MEDS: LEVOTHYROXINE 100 MCG TAB PO SCH (06:31)
[2018-12-12] MEDS: methylPREDNISolone SOD SUCCI 125 MG/2 ML VIAL IV SCH ×4 (06:31→23:20)
[2018-12-12] MEDS: INSULIN ASPART 100 UNIT/ML 1 ML 10 ML VIAL SQ SCH ×4 (06:31→21:41)
[2018-12-12 06:52] LABS: Mean Platelet Volume 7.9; Platelet Count 201 k/uL (150-450)
[2018-12-12 07:04] LABS: Calcium 8.7 mg/dL (8.4-10.2); Potassium 3.4 mmol/L (3.5-5.1)
[2018-12-12] MEDS: BUDESONIDE 0.5 MG/2 ML NEBU INHALATION SCH ×2 (07:49→21:26)
[2018-12-12] MEDS: IPRATROPIUM-ALBUTEROL 3 ML NEB INHALATION SCH ×4 (07:49→21:26)
[2018-12-12] MEDS: PANTOPRAZOLE 40 MG/10 ML VIAL IVP SCH (08:45)
[2018-12-12] MEDS: SPIRONOLACTONE 25 MG TAB PO SCH (08:46)
[2018-12-12] MEDS: guaiFENesin 600 MG TABLET.ER PO SCH ×2 (08:46→21:45)
[2018-12-12] MEDS: ASPIRIN 325 MG TAB PO SCH (08:46)
[2018-12-12] MEDS: HEPARIN SODIUM,PORCINE 5,000 UNIT/ML 1 ML VIAL SQ SCH ×3 (08:46→23:20)
[2018-12-12] MEDS: FUROSEMIDE 10 MG/ML 2 ML VIAL IV SCH (08:46)
[2018-12-12] MEDS: AZITHROMYCIN 500 MG TAB PO SCH (08:46)
[2018-12-12] MEDS: CLOPIDOGREL 75 MG TAB PO SCH (08:46)
--- NOTE | 2018-12-12 09:44 | ECHOF ---
Referral Reason:chest pain MEASUREMENTS -------- HEIGHT: 157.5 cm WEIGHT: 58.1 kg BP: 112/56 RVIDd: 2.5 cm (< 3.3) IVSd: 1.2 cm (0.6 - 1.1) LVIDd: 4.9 cm (3.9 - 5.3) LVPWd: 1.1 cm (0.6 - 1.1) IVSs: 1.5 cm LVIDs: 4.0 cm LVPWs: 1.3 cm LA Diam: 3.0 cm (2.7 - 3.8) LAESV Index (A-L): 38.17 ml/m Ao Diam: 2.8 cm (2.0 - 3.7) AV Cusp: 1.6 cm (1.5 - 2.6) MV EXCURSION: 21.150 mm (> 18.000) MV EF SLOPE: 76 mm/s (70 - 150) EPSS: 1.0 cm MV E Corbin: 1.00 m/s MV DecT: 226 ms MV A Corbin: 1.25 m/s MV E/A Ratio: 0.80 AV maxP.25 mmHg AV meanP.39 mmHg RAP: 5.00 mmHg RVSP: 35.45 mmHg FINDINGS -------- BBB This was a technically good study. The left ventricular size is normal. There is borderline concentric left ventricular hypertrophy. Overall left ventricular systolic function is moderately impaired with, an EF between 35 - 40 %. B suresh inferoseptal LV wall motion is hypokinetic. Mid inferoseptal LV wall motion is hypokinetic. The right ventricle is normal in size. LA is moderately dilated 34-39 ml/m2 The right atrium is normal in size. There is mild aortic valve sclerosis. There is mild aortic stenosis present. Peak/mean gradient a cross the Aortic Valve is 23.25mmHg / 12.39mmHg. The mitral valve leaflets are mildly thickened. Mild mitral regurgitation is present. Mild tricuspid regurgitation present. There is mild pulmonary hypertension. The right ventricular systolic pressure, as measured by Doppler, is 35.45mmHg. Trace/mild (physiologic) pulmonic regurgitation. The aortic root size is normal. Normal inferior vena cava with normal inspiratory collapse consistent with estimated right atrial pre ssure of 5 mmHg. There is no pericardial effusion. CONCLUSIONS -------- 1. BBB 2. This was a technically good study. 3. The left ventricular size is normal. 4. There is borderline concentric left ventricular hypertrophy. 5. Overall left ventricular systolic function is moderately impaired with, an EF between 35 - 40 %. 6. Basal inferoseptal LV wall motion is hypokinetic. 7. Mid inferoseptal LV wall motion is hypokinetic. 8. The right ventricle is normal in size. 9. LA is moderately dilated 34-39 ml/m2 10. The right atrium is normal in size. 11. There is mild aortic valve sclerosis. 12. There is mild aortic stenosis present. 13. Peak/mean gradient across the Aortic Valve is 23.25mmHg / 12.39mmHg. 14. The mitral valve leaflets are mildly thickened. 15. Mild mitral regurgitation is present. 16. Mild tricuspid regurgitation present. 17. There is mild pulmonary hypertension. 18. The right ventricular systolic pressure, as measured by Doppler, is 35.45mmHg. 19. Trace/mild (physiologic) pulmonic regurgitation. 20. The aortic root size is normal. 21. Normal inferior vena cava with normal inspiratory collapse consistent with estimated right atrial pressure of 5 mmHg. 22. There is no pericardial effusion. CREW DIRECTOR: Risa Augustine RDCS
[2018-12-12 09:50] VITALS: BMI 18.8
[2018-12-12] MEDS: MULTIVITAMINS, THERA 1 EACH TAB PO SCH (11:43)
[2018-12-12 11:46] LABS: Glucose,Whole Blood 144 mg/dL (75-99)
--- NOTE | 2018-12-12 11:48 | XR ---
EXAMINATION TYPE: XR chest 1V DATE OF EXAM: 12/12/2018 COMPARISON: 12/10/2018 INDICATION: Short of breath TECHNIQUE: Single frontal view of the chest is obtained. FINDINGS: The heart size is normal. The pulmonary vasculature is normal. There is a focal area of increased density at the left base. Pneumonia or mass could be considered. T his should be followed to clearing. IMPRESSION: 1. Left basilar density. Pneumonia and mass could be considered. This should be followed to clearing. CT chest can be performed for additional evaluation.
[2018-12-12] MEDS: POTASSIUM CHLORIDE ER 20 MEQ TAB.ER PO SCH ×2 (13:22→14:30)
--- NOTE | 2018-12-12 13:24 | P.PN ---
Subjective Progress Note Date: 12/12/18 Principal diagnosis: Mildly abnormal cardiac enzymes This is a pleasant 88-year-old female patient with a past medical history significant for advanced chronic obstructive pulmonary disease, chronic hypoxic respiratory failure on home oxygen, coronary artery disease, as well as multiple comorbid conditions, was admitted to the hospital with acute on chronic respiratory failure secondary to COPD exacerbation. We get involved in the care of the patient because she did mention that she has some chest discomfort. The EKG showed sinus rhythm with LBBB. The cardiac enzymes came in to be slightly abnormal but below 1 and not consistent with acute coronary event. The echocardiogram revealed impaired LV function with EF around 35% with mild aortic stenosis. On follow-up with the patient today, 12/12/2018, she stated that she did have a good night's. She stated that the shortness of breath is slightly better. The creatinine is a slightly worse. Denies having any chest pain or chest discomfort at this moment. Objective - Vital Signs Vital signs: Vital Signs Temp 97.4 F L 12/12/18 08:00 Pulse 60 12/12/18 11:42 Resp 21 12/12/18 11:42 BP 136/59 12/12/18 11:42 Pulse Ox 91 L 12/12/18 11:42 Intake & Output 12/11/18 12/12/18 12/12/18 18:59 06:59 18:59 Intake Total 450 370 360 Output Total 600 600 500 Balance -150 -230 -140 Weight 46.9 kg 46.9 kg Intake: IV 170 normal saline 170 Oral 450 200 360 Output: Urine 600 600 500 Other: Voiding Method Bedside Commode Bedside Commode Bedside Commode # Voids 1 1 - Constitutional General appearance: Present: mild distress - Respiratory Respiratory: bilateral: diminished - Cardiovascular Rhythm: regular Heart sounds: normal: S1, S2 Abnormal Heart Sounds: Present: systolic murmur - Labs CBC & Chem 7: 12/12/18 06:15 12/12/18 06:15 Labs: Abnormal Lab Results - Last 24 Hours (Table) 12/11/18 12/11/18 12/11/18 Range/Units 08:34 16:36 20:43 Potassium (3.5-5.1) mmol/L Chloride (98-107) mmol/L BUN (7-17) mg/dL Creatinine (0.52-1.04) mg/dL Glucose (74-99) mg/dL POC Glucose (mg/dL) 156 H 145 H (75-99) mg/dL TIBC 211 L (228-460) ug/dL Ferritin 636.7 H (10.0-291.0) ng/mL 12/12/18 12/12/18 12/12/18 Range/Units 05:25 06:15 11:22 Potassium 3.4 L (3.5-5.1) mmol/L Chloride 108 H (98-107) mmol/L BUN 46 H (7-17) mg/dL Creatinine 1.15 H (0.52-1.04) mg/dL Glucose 141 H (74-99) mg/dL POC Glucose (mg/dL) 156 H 144 H (75-99) mg/dL TIBC (228-460) ug/dL Ferritin (10.0-291.0) ng/mL Microbiology - Last 24 Hours (Table) 12/10/18 11:50 Blood Culture - Preliminary Blood No Growth after 24 hours Assessment and Plan Assessment: Assessment #1 COPD exacerbation. #2 known advanced chronic obstructive pulmonary disease/chronic respiratory failure, hypoxic #3 known severe coronary artery disease and prior coronary artery angioplasty and stenting #4 ischemic cardiomyopathy with EF around 30% #5 mild aortic stenosis #6 all tubal comorbid conditions Plan #1 conservative medical approach from the cardiac standpoint, giving the patient age as well as the absence of any chest pain or chest discomfort #2 continue the aspirin and statin and coronary #3 monitor the kidney function and electrolytes #4 possible discharge in the next 24 hours
[2018-12-12] MEDS: ALPRAZolam 0.25 MG TAB PO PRN (15:27)
[2018-12-12 17:13] LABS: Glucose,Whole Blood 165 mg/dL (75-99)
[2018-12-12 20:31] LABS: Glucose,Whole Blood 127 mg/dL (75-99)
[2018-12-12] MEDS: LOSARTAN 25 MG TAB PO SCH (21:45)
[2018-12-12] MEDS: ATORVASTATIN 80 MG TAB PO SCH (21:45)
[2018-12-13] MEDS: methylPREDNISolone SOD SUCCI 125 MG/2 ML VIAL IV SCH ×4 (05:34→23:33)
[2018-12-13] MEDS: LEVOTHYROXINE 100 MCG TAB PO SCH (05:34)
[2018-12-13] MEDS: IPRATROPIUM-ALBUTEROL 3 ML NEB INHALATION SCH ×4 (06:54→20:20)
[2018-12-13] MEDS: BUDESONIDE 0.5 MG/2 ML NEBU INHALATION SCH ×2 (06:54→20:20)
[2018-12-13 07:12] LABS: Glucose,Whole Blood 159 mg/dL (75-99)
[2018-12-13 08:05] LABS: Mean Platelet Volume 7.9; Platelet Count 246 k/uL (150-450)
[2018-12-13 08:22] LABS: Calcium 9.3 mg/dL (8.4-10.2)
[2018-12-13] MEDS: guaiFENesin 600 MG TABLET.ER PO SCH ×2 (09:00→20:40)
[2018-12-13] MEDS: HEPARIN SODIUM,PORCINE 5,000 UNIT/ML 1 ML VIAL SQ SCH ×2 (09:00→16:28)
[2018-12-13] MEDS: CLOPIDOGREL 75 MG TAB PO SCH (09:00)
[2018-12-13] MEDS: SPIRONOLACTONE 25 MG TAB PO SCH (09:00)
[2018-12-13] MEDS: PANTOPRAZOLE 40 MG TABLET PO SCH (09:00)
[2018-12-13] MEDS: INSULIN ASPART 100 UNIT/ML 1 ML 10 ML VIAL SQ SCH ×4 (09:01→20:46)
[2018-12-13] MEDS: ASPIRIN 325 MG TAB PO SCH (09:01)
[2018-12-13] MEDS: CARVEDILOL 6.25 MG TAB PO SCH ×2 (09:01→16:06)
[2018-12-13] MEDS: LEVOFLOXACIN 250MG-D5W PMX 250 MG in DEXTROSE/WATER 1 50ML.BAG IVPB SCH (10:11)
[2018-12-13 11:53] LABS: Glucose,Whole Blood 116 mg/dL (75-99)
[2018-12-13] MEDS: MULTIVITAMINS, THERA 1 EACH TAB PO SCH (12:37)
--- NOTE | 2018-12-13 12:48 | XR ---
EXAMINATION TYPE: XR chest 1V portable DATE OF EXAM: 12/13/2018 HISTORY: Shortness of breath. COMPARISON: 12/12/2018 TECHNIQUE: Single view of the chest is submitted. FINDINGS: Demonstrated are scattered senescent parenchymal change. Hyperinflation compatible with COPD. Focal eventration left hemidiaphragm. Suspect small effusions. There is no evidence for focal infiltrate. The heart is enlarged Hilar and mediastinal structures are within normal limits. Degenerative changes are seen of the dorsal spine. IMPRESSION: 1. Small effusions with cardiomegaly. No evidence for overt failure.
--- NOTE | 2018-12-13 14:04 | P.CNPUL ---
<Charlee Glover E - Last Filed: 12/13/18 13:57> History of Present Illness Consult date: 12/13/18 Requesting physician: Charanjit Torres Reason for consult: COPD Chief complaint: shortness of breath History of present illness: HPI: This is an 88-year-old female being seen examined and evaluated today for consultation. This patient is well-known to our services. This patient came into the hospital with progressive worsening shortness of breath cough and congestion. She was bringing up yellow sputum. She was using breathing treatments at home which were not helping. She does use 2 L of supplemental oxygen via nasal cannula at home 11/06 as well. She did have a chest x-ray which did show chronic emphysema and parenchymal changes and cardiomegaly with no suspicious focal infiltrates. Repeat chest x-ray yesterday did show small effusions as well. She does have a past medical history of COPD, colon cancer status post resection 2010, nicotine dependence. She smoked half a pack per day for over 30-40 years, is not currently smoking. Her influenza A and B were both negative. Upon examination the patient is in mild acute respiratory distress. She is on airvo, at 40 L high flow. She states she has seen Dr. Ceballos in the past however has not followed up with him in many years. Review of Systems 14 point review of systems was completed and is negative unless noted above in the HPI Past Medical History Past Medical History: Cancer, Heart Failure, COPD, Hearing Disorder / Deafness, Hyperlipidemia, Myocardial Infarction ([place]), Pneumonia, Respiratory Disorder, Thyroid Disorder Additional Past Medical History / Comment(s): Colon ca with SX, hypothyroid, tracheobronchitis, diverticulitis,sun'aq bilaterally, wears 2L at home. Pt denies arthritis, HTN or pulmonary HTN that are in PMR. Recent heart stent placement on April 05, 2017. Last Myocardial Infarction Date:: 2017 History of Any Multi-Drug Resistant Organisms: None Reported Past Surgical History: Appendectomy, Bowel Resection, Section, Cholecystectomy, Hysterectomy, Orthopedic Surgery, Tonsillectomy Additional Past Surgical History / Comment(s): colectomy for cancer, thyroidectomy, bilateral cataract removal with lens implants, C- Sections x 3, L foot fx with surgical repair, colonoscopies with polypectomy. Past Anesthesia/Blood Transfusion Reactions: Motion Sickness Additional Past Anesthesia/Blood Transfusion Reaction / Comment(s): has never had a blood transfusion Smoking Status: Former smoker - Past Family History Father Additional Family Medical History / Comment(s): Pt did not know her father well. He was an alcoholic and from it. Mother Family Medical History: Myocardial Infarction ([place]) Additional Family Medical History / Comment(s): Mother of an MN at age 51yrs. Medications and Allergies Home Medications Medication Instructions Recorded Confirmed Type Levothyroxine Sodium [Synthroid] 100 mcg PO MOTUWETHFRSA 01/17/16 12/10/18 History Budesonide [Pulmicort] 0.5 mg INHALATION RT-BID 04/02/17 12/10/18 History Losartan [Cozaar] 25 mg PO HS 04/02/17 12/10/18 History Atorvastatin [Lipitor] 80 mg PO HS #30 tab 04/09/17 12/10/18 Rx Clopidogrel [Plavix] 75 mg PO DAILY #90 tab 04/09/17 12/10/18 Rx Nitroglycerin Sl Tabs [Nitrostat] 0.4 mg SUBLINGUAL Q5M PRN #100 tab 04/09/17 Rx Furosemide [Lasix] 40 mg PO DAILY #30 tab 09/28/17 12/10/18 Rx Ferrous Sulfate [Feosol] 325 mg PO DAILY 04/18/18 12/10/18 History Ipratropium-Albuterol Nebulize 3 ml INHALATION RT-QID PRN 04/18/18 12/10/18 History [Duoneb 0.5 mg-3 mg/3 ml Soln] Multivit with Calcium,Iron,Min 1 tab PO DAILY 04/18/18 12/10/18 History [Women's Multivitamin] Spironolactone [Aldactone] 12.5 mg PO DAILY 04/18/18 12/10/18 History Aspirin EC [Ecotrin Low Dose] 81 mg PO DAILY 12/10/18 12/10/18 History Carvedilol [Coreg] 6.25 mg PO BID 12/10/18 12/10/18 History Allergies Allergy/AdvReac Type Severity Reaction Status Date / Time Penicillins Allergy Unknown Verified 12/10/18 11:16 pneumococcal 23-valent Allergy Rash/Hives Verified 12/10/18 11:16 polysacchari [From Pneumovax 23] adhesive tape AdvReac Unknown Verified 12/10/18 11:16 Physical Exam Vitals: Vital Signs Temp Pulse Pulse Pulse Resp BP Pulse Ox 12/13/18 11:02 68 12/13/18 10:55 64 12/13/18 09:07 97.4 F L 65 16 136/56 96 12/13/18 07:10 68 12/13/18 06:58 69 12/13/18 00:00 97.6 F 59 L 22 107/44 97 12/12/18 21:42 72 12/12/18 21:28 72 12/12/18 19:50 98.0 F 60 96 22 110/53 12/12/18 15:43 69 15 114/55 97 12/12/18 15:10 74 12/12/18 15:00 73 Intake and Output 12/12/18 12/13/18 12/13/18 22:59 06:59 14:59 Intake Total 280 760 Balance 280 760 Intake: Oral 280 560 Other 200 Other: # Voids 1 3 GENERAL EXAM: Alert, , comfortable in mild distress. HEAD: Normocephalic. EYES: Normal reaction of pupils, equal size. NOSE: Clear with pink turbinates. THROAT: No erythema or exudates. NECK: No masses, no JVD. CHEST: No chest wall deformity. LUNGS: Lungs noted to have poor air entry with inspiratory and expiratory wheezes. Bases diminished CVS: S1 and S2 normal with no audible mumurs, regular rhythm. ABDOMEN: No hepatosplenomegaly, normal bowel sounds, no guarding or rigidity. EXTREMITIES: No edema noted, pedal pulses palpable. CENTRAL NERVOUS SYSTEM: No focal deficits, tone is normal in all 4 extremities. Results - Laboratory Findings CBC and BMP: 12/13/18 07:01 12/13/18 07:01 PT/INR, D-dimer PT 10.1 sec (9.0-12.0) 12/10/18 12:20 INR 0.9 (<1.2) 12/10/18 12:20 Abnormal lab findings: Abnormal Labs 12/10/18 12/10/18 12/10/18 12:20 12:20 12:20 WBC 13.9 H RBC 2.90 L Hgb 8.8 L Hct 27.3 L Neutrophils # 11.8 H Lymphocytes # APTT Potassium Chloride 110 H BUN 27 H Creatinine Glucose 129 H POC Glucose (mg/dL) TIBC Ferritin Troponin I 0.105 H* Total Protein 5.7 L Albumin 3.2 L 12/10/18 12/10/18 12/11/18 19:05 19:56 00:11 WBC RBC Hgb Hct Neutrophils # Lymphocytes # APTT 106.4 H* Potassium Chloride BUN Creatinine Glucose POC Glucose (mg/dL) 198 H TIBC Ferritin Troponin I 0.107 H* Total Protein Albumin 12/11/18 12/11/18 12/11/18 00:11 01:55 02:14 WBC 12.4 H RBC 2.95 L Hgb 9.2 L Hct 27.9 L Neutrophils # 11.0 H Lymphocytes # 0.9 L APTT Potassium Chloride BUN Creatinine Glucose POC Glucose (mg/dL) 135 H TIBC Ferritin Troponin I 0.088 H* Total Protein Albumin 12/11/18 12/11/18 12/11/18 02:14 05:28 08:33 WBC 11.8 H RBC 2.76 L Hgb 8.3 L Hct 25.7 L Neutrophils # Lymphocytes # APTT Potassium Chloride 108 H BUN 29 H Creatinine Glucose 118 H POC Glucose (mg/dL) 151 H TIBC Ferritin Troponin I Total Protein Albumin 12/11/18 12/11/18 12/11/18 08:33 08:33 08:34 WBC RBC Hgb Hct Neutrophils # Lymphocytes # APTT 47.2 H Potassium Chloride BUN 32 H Creatinine Glucose 109 H POC Glucose (mg/dL) TIBC 211 L Ferritin 636.7 H Troponin I Total Protein Albumin 12/11/18 12/11/18 12/11/18 11:50 16:36 20:43 WBC RBC Hgb Hct Neutrophils # Lymphocytes # APTT Potassium Chloride BUN Creatinine Glucose POC Glucose (mg/dL) 142 H 156 H 145 H TIBC Ferritin Troponin I Total Protein Albumin 12/12/18 12/12/18 12/12/18 05:25 06:15 11:22 WBC RBC Hgb Hct Neutrophils # Lymphocytes # APTT Potassium 3.4 L Chloride 108 H BUN 46 H Creatinine 1.15 H Glucose 141 H POC Glucose (mg/dL) 156 H 144 H TIBC Ferritin Troponin I Total Protein Albumin 12/12/18 12/12/18 12/13/18 17:01 20:19 07:01 WBC RBC Hgb Hct Neutrophils # Lymphocytes # APTT Potassium Chloride 110 H BUN 50 H Creatinine 1.11 H Glucose 160 H POC Glucose (mg/dL) 165 H 127 H TIBC Ferritin Troponin I Total Protein Albumin 12/13/18 12/13/18 07:01 11:41 WBC RBC Hgb Hct Neutrophils # Lymphocytes # APTT Potassium Chloride BUN Creatinine Glucose POC Glucose (mg/dL) 159 H 116 H TIBC Ferritin Troponin I Total Protein Albumin - Diagnostic Findings Chest x-ray: report reviewed, image reviewed Assessment and Plan Assessment: Assessment Acute on chronic hypoxic respiratory failure requiring supplemental oxygen Acute exacerbation of COPD Acute on chronic congestive heart failure Bilateral small pleural effusions Tracheobronchitis Plan Medications have been reviewed and will be continued as ordered. Continue with antibiotics and steroids as ordered Obtain sputum culture Chest x-rays reviewed Influenza A and B both negative Continue with pulmonary hygiene, coughing and deep breathing exercises, and supportive care. Supplemental oxygen to maintain oxygen saturations of 92% or better. Continue nebulizer treatments. GI and DVT prophylaxis. We will continue to monitor labs/results and adjust treatment as necessary. Further recommendations pending. I, the signing physician performed an examination of the patient, discussed and directed their management with the nurse practitioner. I have reviewed the nurse practitioner's note and agree with the documented findings, orders and plan of care. Nurse practitioner acting as a scribe for the signing physician. <Danuta Peralta - Last Filed: 12/13/18 16:03> Physical Exam Osteopathic Statement: *. No significant issues noted on an osteopathic structural exam other than those noted in the History and Physical/Consult. Vitals: Vital Signs Temp Pulse Pulse Pulse Resp BP Pulse Ox 12/13/18 15:35 68 12/13/18 15:14 67 95 12/13/18 14:38 97.9 F 55 L 109/60 98 12/13/18 11:02 68 12/13/18 10:55 64 12/13/18 09:07 97.4 F L 65 16 136/56 96 12/13/18 07:10 68 12/13/18 06:58 69 12/13/18 00:00 97.6 F 59 L 22 107/44 97 12/12/18 21:42 72 12/12/18 21:28 72 12/12/18 19:50 98.0 F 60 96 22 110/53 Intake and Output 12/13/18 12/13/18 12/13/18 06:59 14:59 22:59 Intake Total 280 760 Balance 280 760 Intake: Oral 280 560 Other 200 Other: # Voids 1 3 Results - Laboratory Findings CBC and BMP: 12/13/18 07:01 12/13/18 07:01 PT/INR, D-dimer PT 10.1 sec (9.0-12.0) 12/10/18 12:20 INR 0.9 (<1.2) 12/10/18 12:20 Abnormal lab findings: Abnormal Labs 12/10/18 12/10/18 12/10/18 12:20 12:20 12:20 WBC 13.9 H RBC 2.90 L Hgb 8.8 L Hct 27.3 L Neutrophils # 11.8 H Lymphocytes # APTT Potassium Chloride 110 H BUN 27 H Creatinine Glucose 129 H POC Glucose (mg/dL) TIBC Ferritin Troponin I 0.105 H* Total Protein 5.7 L Albumin 3.2 L 12/10/18 12/10/18 12/11/18 19:05 19:56 00:11 WBC RBC Hgb Hct Neutrophils # Lymphocytes # APTT 106.4 H* Potassium Chloride BUN Creatinine Glucose POC Glucose (mg/dL) 198 H TIBC Ferritin Troponin I 0.107 H* Total Protein Albumin 12/11/18 12/11/18 12/11/18 00:11 01:55 02:14 WBC 12.4 H RBC 2.95 L Hgb 9.2 L Hct 27.9 L Neutrophils # 11.0 H Lymphocytes # 0.9 L APTT Potassium Chloride BUN Creatinine Glucose POC Glucose (mg/dL) 135 H TIBC Ferritin Troponin I 0.088 H* Total Protein Albumin 12/11/18 12/11/18 12/11/18 02:14 05:28 08:33 WBC 11.8 H RBC 2.76 L Hgb 8.3 L Hct 25.7 L Neutrophils # Lymphocytes # APTT Potassium Chloride 108 H BUN 29 H Creatinine Glucose 118 H POC Glucose (mg/dL) 151 H TIBC Ferritin Troponin I Total Protein Albumin 12/11/18 12/11/18 12/11/18 08:33 08:33 08:34 WBC RBC Hgb Hct Neutrophils # Lymphocytes # APTT 47.2 H Potassium Chloride BUN 32 H Creatinine Glucose 109 H POC Glucose (mg/dL) TIBC 211 L Ferritin 636.7 H Troponin I Total Protein Albumin 12/11/18 12/11/18 12/11/18 11:50 16:36 20:43 WBC RBC Hgb Hct Neutrophils # Lymphocytes # APTT Potassium Chloride BUN Creatinine Glucose POC Glucose (mg/dL) 142 H 156 H 145 H TIBC Ferritin Troponin I Total Protein Albumin 12/12/18 12/12/18 12/12/18 05:25 06:15 11:22 WBC RBC Hgb Hct Neutrophils # Lymphocytes # APTT Potassium 3.4 L Chloride 108 H BUN 46 H Creatinine 1.15 H Glucose 141 H POC Glucose (mg/dL) 156 H 144 H TIBC Ferritin Troponin I Total Protein Albumin 12/12/18 12/12/18 12/13/18 17:01 20:19 07:01 WBC RBC Hgb Hct Neutrophils # Lymphocytes # APTT Potassium Chloride 110 H BUN 50 H Creatinine 1.11 H Glucose 160 H POC Glucose (mg/dL) 165 H 127 H TIBC Ferritin Troponin I Total Protein Albumin 12/13/18 12/13/18 07:01 11:41 WBC RBC Hgb Hct Neutrophils # Lymphocytes # APTT Potassium Chloride BUN Creatinine Glucose POC Glucose (mg/dL) 159 H 116 H TIBC Ferritin Troponin I Total Protein Albumin Assessment and Plan Plan: Patient seen and examined. Patient is on Airvo 27% FiO2 with 40 L/min flow. Patient's O2 sat is 97%. She does have conversational dyspnea. CXR shows tiny bilateral effusions, chronic emphysematous changes. Will order CT of the chest due to changes seen at the left base on CXR with possible eventration of the left hemidiaphragm. ~Danuta Peralta DO
--- NOTE | 2018-12-13 14:48 | CDI ---
Documentation Clarification Form Date: 12/13/2018 2:27:19 PM From: Yulisa Ramos RN, CCDS Admit Date: 12/10/2018 3:22:00 PM Patient Name: Cherelle Benítez Visit Number: [id number] Discharge Date: ATTENTION: The Clinical Documentation Specialists (CDI) and [facility] Coding Staff appreciate your assistance in clarifying documentation. Please respond to the clarification below the line at the bottom and electronically sign. The CDI & [facility] Coding staff will review the response and follow-up if needed. Please note: Queries are made part of the Legal Health Record. If you have any questions, please contact the author of this message via ITS. Dr. Charanjit Torres A diagnosis of anemia lacks specificity to accurately reflect your patients severity of condition and clarification is needed. History/Risk Factors: Heart Failure, COPD, Colon cancer, Clinical indicators: Present with shortness of breath with dyspnea. The patient is using some accessory muscles to breath. Does have bilateral expiratory wheeze scattered rhonchi. Hemoglobin: 8.8, 9.2 8.3 Hematocrit: 27.3, 27.9 25.7 Treatment: monitoring CBC Theragram PO In order to capture the severity of condition, please clarify the type of anemia and etiology if known: Acute blood loss anemia Acute on chronic blood loss anemia Chronic blood loss anemia Iron deficiency anemia Nutritional anemia Unable to determine Other, please specify (Last Revision: August 2017) MTDD
[2018-12-13] MEDS ORDERED: HEPARIN SODIUM,PORCINE 5,000 UNIT/ML 1 ML VIAL IV ONE (16:36)
[2018-12-13 17:06] LABS: Glucose,Whole Blood 133 mg/dL (75-99)
[2018-12-13] MEDS: HEPARIN SOD,PORK IN 0.45% NACL 25,000 UNIT in 0.45% NACL 1 250ML.BAG IV SCH (17:13)
[2018-12-13 18:24] LABS: Basophils % (A) 0 %; Eosinophils % (A) 0 %; HGB 9.5 gm/dL (11.4-16.0); Lymphocytes % (A) 6 %; MCH 31.1 pg (25.0-35.0); MCHC 32.8 g/dL (31.0-37.0); MCV 94.8 fL (80.0-100.0); Mean Platelet Volume 7.9; Monocytes # (A) 0.9 k/uL (0-1.0); Monocytes % (A) 5 %; Neutrophils # (A) 14.9 k/uL (1.3-7.7); Neutrophils % (A) 88 %; Platelet Count 270 k/uL (150-450); RBC 3.06 m/uL (3.80-5.40)
[2018-12-13 18:47] LABS: INR 1.1 (<1.2); Prothrombin Time 11.2 sec (9.0-12.0)
[2018-12-13 18:50] LABS: Partial Thromboplastin Time >200.0 sec (22.0-30.0)
[2018-12-13 20:31] LABS: Glucose,Whole Blood 192 mg/dL (75-99)
[2018-12-13] MEDS: ATORVASTATIN 80 MG TAB PO SCH (20:40)
[2018-12-13] MEDS: LOSARTAN 25 MG TAB PO SCH (20:40)
[2018-12-13] MEDS: IPRATROPIUM-ALBUTEROL 3 ML NEB INHALATION PRN (23:57)
--- NOTE | 2018-12-14 00:01 | PN ---
PROGRESS NOTE ATTENDING PHYSICIAN: Dr. Noelle Torres. CHIEF COMPLAINT: Re-evaluation. HISTORY OF PRESENT ILLNESS: This 88-year-old female who was admitted to the hospital with shortness of breath. The patient was noted to have evidence of exacerbation of her COPD. She has also some evidence of congestive cardiac failure. She is feeling weak. Otherwise, breathing at times is extremely difficult, especially in the night. REVIEW OF SYSTEMS: Neuro denies any headaches, dizziness. Psych: No anxiety. Cardiac: No chest pain, angina, palpitations. Respiratory: Shortness of breath. Blood pressure at rest respiratory shortness of breath, cough. No hemoptysis. GI no nausea, vomiting, abdominal pain, and some diarrhea. no symptoms dysuria or hematuria. Extremities: No pain or edema. CONSTITUTIONAL: No fever or chills. PHYSICAL EXAMINATION: Vital signs reveals temperature 97.4, pulse 65, respirations 16, blood pressure 136/56, pulse ox 96% on 40% FiO2. HEENT: Normocephalic. Neck no JVD. Chest examination decreased . She has had decreased air flow. Bilateral rhonchi. Cardiac distant sounds S1, S2 with no gallop. Systolic murmur 2/6 left sternal border. ABDOMEN: Soft. Bowel sounds present. EXTREMITIES: No edema. NEUROLOGICAL: Awake, alert, oriented x3 with well-coordinated movements. LABORATORY ASSESSMENT: Reveals a hemoglobin 9.5, white count of 17,000, PTT greater than 200, with no evidence of bleeding. Electrolytes normal. BUN 50, creatinine 1.11. Blood sugars mildly elevated at 159. ASSESSMENT: 1. Acute bilateral chronic respiratory failure. 2. Acute patient's COPD. 3. Acute on chronic congestive cardiac failure. 4. Severe systolic dysfunction. 5. Acute kidney injury. PLAN: Continue present medical regimen. Patient's condition discussed with the patient. Prognosis is guarded. The patient's condition is not improving. We will ask pulmonary to evaluate the patient as well. MMODL / IJN: [id number] /
[2018-12-14 02:37] LABS: Basophils % (A) 0 %; Eosinophils % (A) 0 %; HCT 29.6 % (34.0-46.0); HGB 9.4 gm/dL (11.4-16.0); Lymphocytes # (A) 0.6 k/uL (1.0-4.8); Lymphocytes % (A) 4 %; MCH 30.4 pg (25.0-35.0); MCHC 31.8 g/dL (31.0-37.0); MCV 95.5 fL (80.0-100.0); Mean Platelet Volume 7.6; Monocytes # (A) 0.4 k/uL (0-1.0); Monocytes % (A) 3 %; Neutrophils # (A) 13.4 k/uL (1.3-7.7); Neutrophils % (A) 92 %; Platelet Count 244 k/uL (150-450); WBC 14.5 k/uL (3.8-10.6)
[2018-12-14] MEDS: methylPREDNISolone SOD SUCCI 125 MG/2 ML VIAL IV SCH ×3 (05:29→23:49)
[2018-12-14] MEDS: LEVOTHYROXINE 100 MCG TAB PO SCH (05:41)
[2018-12-14 06:59] LABS: Glucose,Whole Blood 169 mg/dL (75-99)
[2018-12-14] MEDS: IPRATROPIUM-ALBUTEROL 3 ML NEB INHALATION SCH ×2 (07:42→21:31)
[2018-12-14] MEDS: BUDESONIDE 0.5 MG/2 ML NEBU INHALATION SCH ×2 (07:42→21:32)
[2018-12-14 08:59] LABS: Basophils % (A) 0 %; Eosinophils % (A) 0 %; HCT 29.1 % (34.0-46.0); HGB 9.3 gm/dL (11.4-16.0); Lymphocytes # (A) 0.7 k/uL (1.0-4.8); Lymphocytes % (A) 4 %; MCH 30.6 pg (25.0-35.0); MCHC 31.8 g/dL (31.0-37.0); MCV 96.4 fL (80.0-100.0); Mean Platelet Volume 7.8; Monocytes # (A) 0.3 k/uL (0-1.0); Monocytes % (A) 2 %; Neutrophils # (A) 14.5 k/uL (1.3-7.7); Neutrophils % (A) 93 %; Platelet Count 250 k/uL (150-450); RBC 3.02 m/uL (3.80-5.40); RDW 12.8 % (11.5-15.5); WBC 15.6 k/uL (3.8-10.6)
[2018-12-14 09:12] LABS: INR 1.1 (<1.2)
[2018-12-14] MEDS: INSULIN ASPART 100 UNIT/ML 1 ML 10 ML VIAL SQ SCH ×4 (09:12→23:50)
[2018-12-14 09:13] LABS: Prothrombin Time 11.2 sec (9.0-12.0)
[2018-12-14 09:20] LABS: Partial Thromboplastin Time 143.9 sec (22.0-30.0)
[2018-12-14 09:22] LABS: Calcium 9.2 mg/dL (8.4-10.2); Potassium 4.2 mmol/L (3.5-5.1); Total Bilirubin 0.7 mg/dL (0.2-1.3); Total Protein 5.7 g/dL (6.3-8.2)
[2018-12-14] MEDS: LEVOFLOXACIN 250MG-D5W PMX 250 MG in DEXTROSE/WATER 1 50ML.BAG IVPB SCH (10:23)
[2018-12-14] MEDS: PANTOPRAZOLE 40 MG TABLET PO SCH (10:32)
[2018-12-14] MEDS: MULTIVITAMINS, THERA 1 EACH TAB PO SCH (10:32)
[2018-12-14] MEDS: CARVEDILOL 6.25 MG TAB PO SCH ×2 (10:33→18:50)
[2018-12-14] MEDS: SPIRONOLACTONE 25 MG TAB PO SCH (10:33)
[2018-12-14] MEDS: guaiFENesin 600 MG TABLET.ER PO SCH ×2 (10:34→23:50)
--- NOTE | 2018-12-14 10:50 | CT ---
EXAMINATION TYPE: CT angio chest DATE OF EXAM: 12/14/2018 10:42 AM COMPARISON: None. HISTORY: Lt Hemidiaphragm Eventration on CXR CT DLP: 202.7 mGycm Automated exposure control for dose reduction was used. CONTRAST: CTA scan of the thorax is performed with IV Contrast, patient injected with 69 mL of Isovue 370, pulm onary embolism protocol. . There are diffuse emphysematous changes throughout the lungs. There is a 4 mm subpleural nodule which is noncalcified and best seen on image 23 in the posterior segment of the right upper lobe. There are some calcified pleural plaque present on the left. There is no significant axillary, internal mammary, mediastinal or hilar adenopathy. There is no evidence of pulmonary embolus. The heart is mildly enlarged. The aorta is normal in caliber without evidence of dissection. There is fullness in the left adrenal gland without a discrete mass. The gallbladder is been removed. There is degenerative disc disease, facet arthropathy and hypertrophic spondylosis within the spine. IMPRESSION: 1. THIS EXAMINATION IS NEGATIVE FOR PULMONARY EMBOLUS. 2. CHANGES CONSISTENT WITH EMPHYSEMA. 3. SOLITARY RIGHT-SIDED PULMONARY NODULE. 4. CARDIOMEGALY. 5. FULLNESS OF THE LEFT ADRENAL GLAND. 6. DEGENERATIVE CHANGES WITHIN THE SPINE.
--- NOTE | 2018-12-14 11:54 | P.PN ---
Subjective Progress Note Date: 12/14/18 History of present illness: HPI: This is an 88-year-old female being seen examined and evaluated today for consultation. This patient is well-known to our services. This patient came into the hospital with progressive worsening shortness of breath cough and congestion. She was bringing up yellow sputum. She was using breathing treatments at home which were not helping. She does use 2 L of supplemental oxygen via nasal cannula at home 11/06 as well. She did have a chest x-ray which did show chronic emphysema and parenchymal changes and cardiomegaly with no suspicious focal infiltrates. Repeat chest x-ray yesterday did show small effusions as well. She does have a past medical history of COPD, colon cancer status post resection 2010, nicotine dependence. She smoked half a pack per day for over 30-40 years, is not currently smoking. Her influenza A and B were both negative. Upon examination the patient is in mild acute respiratory distress. She is on airvo, at 40 L high flow. She states she has seen Dr. Ceballos in the past however has not followed up with him in many years. Interval History: 12/14/18- patient is being seen examined and evaluated today on rounds. She is resting up in bed on airvo 40L high flow nasal cannula. She continues to have shortness of breath cough and congestion. She has provided a sputum sample which will be sent down to the lab. The patient was started on a heparin drip yesterday for a probable PE. A CTA of the chest was ordered, however could not be completed yesterday therefore she will go down for the CTA today. All labs and reports have been reviewed. She has been afebrile no further complaints. Objective - Vital Signs Vital signs: Vital Signs Temp 98.0 F 12/14/18 07:36 Pulse 72 12/14/18 07:58 Resp 18 12/14/18 07:38 BP 126/57 12/14/18 07:36 Pulse Ox 93 L 12/14/18 07:36 Intake & Output 12/13/18 12/14/18 12/14/18 18:59 06:59 18:59 Intake Total 760 604.893 Balance 760 604.893 Intake: Intake, IV Titration 14.893 Amount Heparin Sod,Pork in 0.45% 14.893 NaCl 25,000 unit In 0.45 % NaCl 1 250ml.bag @ 12 UNITS/KG/HR 5.62 mls/hr IV .Q24H [facility] Rx#: [id number] Oral 560 590 Other 200 Other: Voiding Method Bedside Commode Bedside Commode # Voids 3 1 - Exam GENERAL EXAM: Alert, , comfortable in mild distress. HEAD: Normocephalic. EYES: Normal reaction of pupils, equal size. NOSE: Clear with pink turbinates. THROAT: No erythema or exudates. NECK: No masses, no JVD. CHEST: No chest wall deformity. LUNGS: Lungs noted to have poor air entry with inspiratory and expiratory wheezes. Bases diminished CVS: S1 and S2 normal with no audible mumurs, regular rhythm. ABDOMEN: No hepatosplenomegaly, normal bowel sounds, no guarding or rigidity. EXTREMITIES: No edema noted, pedal pulses palpable. CENTRAL NERVOUS SYSTEM: No focal deficits, tone is normal in all 4 extremities. - Labs CBC & Chem 7: 12/14/18 07:10 12/14/18 07:10 Labs: Abnormal Lab Results - Last 24 Hours (Table) 12/13/18 12/13/18 12/13/18 Range/Units 11:41 16:55 17:43 WBC 17.0 H (3.8-10.6) k/uL RBC 3.06 L (3.80-5.40) m/uL Hgb 9.5 L (11.4-16.0) gm/dL Hct 29.0 L (34.0-46.0) % Neutrophils # 14.9 H (1.3-7.7) k/uL Lymphocytes # (1.0-4.8) k/uL APTT (22.0-30.0) sec Chloride (98-107) mmol/L BUN (7-17) mg/dL Glucose (74-99) mg/dL POC Glucose (mg/dL) 116 H 133 H (75-99) mg/dL Total Protein (6.3-8.2) g/dL Albumin (3.5-5.0) g/dL 12/13/18 12/13/18 12/14/18 Range/Units 17:43 20:29 02:01 WBC (3.8-10.6) k/uL RBC (3.80-5.40) m/uL Hgb (11.4-16.0) gm/dL Hct (34.0-46.0) % Neutrophils # (1.3-7.7) k/uL Lymphocytes # (1.0-4.8) k/uL APTT >200.0 H* >200.0 H* (22.0-30.0) sec Chloride (98-107) mmol/L BUN (7-17) mg/dL Glucose (74-99) mg/dL POC Glucose (mg/dL) 192 H (75-99) mg/dL Total Protein (6.3-8.2) g/dL Albumin (3.5-5.0) g/dL 12/14/18 12/14/18 12/14/18 Range/Units 02:09 06:48 07:10 WBC 14.5 H (3.8-10.6) k/uL RBC 3.10 L (3.80-5.40) m/uL Hgb 9.4 L (11.4-16.0) gm/dL Hct 29.6 L (34.0-46.0) % Neutrophils # 13.4 H (1.3-7.7) k/uL Lymphocytes # 0.6 L (1.0-4.8) k/uL APTT 143.9 H* (22.0-30.0) sec Chloride (98-107) mmol/L BUN (7-17) mg/dL Glucose (74-99) mg/dL POC Glucose (mg/dL) 169 H (75-99) mg/dL Total Protein (6.3-8.2) g/dL Albumin (3.5-5.0) g/dL 12/14/18 12/14/18 Range/Units 07:10 07:10 WBC 15.6 H (3.8-10.6) k/uL RBC 3.02 L (3.80-5.40) m/uL Hgb 9.3 L (11.4-16.0) gm/dL Hct 29.1 L (34.0-46.0) % Neutrophils # 14.5 H (1.3-7.7) k/uL Lymphocytes # 0.7 L (1.0-4.8) k/uL APTT (22.0-30.0) sec Chloride 111 H (98-107) mmol/L BUN 49 H (7-17) mg/dL Glucose 144 H (74-99) mg/dL POC Glucose (mg/dL) (75-99) mg/dL Total Protein 5.7 L (6.3-8.2) g/dL Albumin 3.0 L (3.5-5.0) g/dL Microbiology - Last 24 Hours (Table) 12/10/18 11:50 Blood Culture - Preliminary Blood No Growth after 72 hours Assessment and Plan Assessment: Assessment Acute on chronic hypoxic respiratory failure requiring supplemental oxygen Acute exacerbation of COPD Acute on chronic congestive heart failure Bilateral small pleural effusions Tracheobronchitis Plan Medications have been reviewed and will be continued as ordered. Continue with antibiotics and steroids as ordered Obtain CTA of the chest Heparin drip until PE is ruled out Obtain sputum culture Chest x-rays reviewed Influenza A and B both negative Continue with pulmonary hygiene, coughing and deep breathing exercises, and supportive care. Supplemental oxygen to maintain oxygen saturations of 92% or better. Titrate oxygen down as tolerated Continue nebulizer treatments. GI and DVT prophylaxis. We will continue to monitor labs/results and adjust treatment as necessary. Further recommendations pending. I, the signing physician performed an examination of the patient, discussed and directed their management with the nurse practitioner. I have reviewed the nurse practitioner's note and agree with the documented findings, orders and plan of care. Nurse practitioner acting as a scribe for the signing physician.
[2018-12-14 12:14] LABS: Glucose,Whole Blood 152 mg/dL (75-99)
[2018-12-14 18:47] LABS: Glucose,Whole Blood 127 mg/dL (75-99)
[2018-12-14] MEDS: CLOPIDOGREL 75 MG TAB PO SCH (18:49)
[2018-12-14] MEDS: ASPIRIN 325 MG TAB PO SCH (18:49)
[2018-12-14 20:38] LABS: Glucose,Whole Blood 171 mg/dL (75-99)
[2018-12-14] MEDS: IPRATROPIUM-ALBUTEROL 3 ML NEB INHALATION PRN (23:24)
[2018-12-14] MEDS: HEPARIN SOD,PORK IN 0.45% NACL 25,000 UNIT in 0.45% NACL 1 250ML.BAG IV SCH (23:49)
[2018-12-14] MEDS: ATORVASTATIN 80 MG TAB PO SCH (23:49)
[2018-12-14] MEDS: LOSARTAN 25 MG TAB PO SCH (23:50)
[2018-12-15] MEDS: methylPREDNISolone SOD SUCCI 125 MG/2 ML VIAL IV SCH ×5 (00:11→23:24)
[2018-12-15 07:11] LABS: Glucose,Whole Blood 180 mg/dL (75-99)
[2018-12-15] MEDS: IPRATROPIUM-ALBUTEROL 3 ML NEB INHALATION SCH ×4 (07:34→20:29)
[2018-12-15] MEDS: BUDESONIDE 0.5 MG/2 ML NEBU INHALATION SCH ×2 (07:34→20:29)
--- NOTE | 2018-12-15 07:37 | PN ---
PROGRESS NOTE ATTENDING PHYSICIAN: Dr. Noelle Torres. CHIEF COMPLAINT: Re-evaluation. HISTORY OF PRESENT ILLNESS: 88-year-old gentleman was admitted to the hospital for shortness of breath. The patient has underlying history of severe COPD. She also has congestive cardiac failure. She is feeling some better today. Does have some dyspnea with minimal activity. Pulmonary is seeing the patient. They did order a CT scan of the chest, CTA which was negative for pulmonary embolism; cardiomegaly and changes consistent with emphysema. REVIEW OF SYSTEMS: NEURO: Denies any headaches, dizziness. PSYCH: Some anxiety. CARDIAC: Denies chest pain, angina, palpitations. RESPIRATORY: ( ) shortness of breath, cough. No hemoptysis. GI: No nausea, vomiting, abdominal pain, diarrhea. : No symptoms of dysuria or hematuria. EXTREMITIES: No pain, edema. CONSTITUTIONAL: No fever chills. PHYSICAL EXAMINATION: Pleasant female who gets dyspneic with minimal activity. She has a significant tight congested cough but not able to bring up much phlegm. Vital signs reveal temperature 98, pulse 70, respirations 18, blood pressure 126/57, pulse ox 93% on 40% FiO2. HEENT: Normocephalic. NECK: No JVD. CHEST: Increased percussion. Lung reyes reveal bilateral rhonchi and occasional expiratory wheeze. CARDIAC: Distant heart sounds S1, S2 with no gallop. Systolic murmur 2/6 left sternal border. ABDOMEN: Soft. Bowel sounds present. EXTREMITIES: Reveal no edema. Neurologically awake, alert, oriented with well-coordinated movements. LABORATORY ASSESSMENT: CBC which had a hemoglobin of 9.3, white count 15.6. INR normal. PTT was 143. Electrolytes normal. BUN 49, creatinine 0.97. ASSESSMENT: 1. Acute exacerbation of chronic obstructive pulmonary disease. 2. Acute on chronic respiratory failure. 3. Tracheobronchitis. 4. Acute on chronic congestive cardiac failure with systolic dysfunction, improved. 5. Stable coronary artery disease. 6. Grief. PLAN: Patient is stable. Continue present medical regimen. Patient's condition discussed with the patient. Prognosis is guarded. Continue present antibiotic, steroids, oxygen, and subcu heparin. MMODL / IJN: [id number] /
[2018-12-15 07:47] LABS: Basophils % (A) 0 %; Eosinophils % (A) 0 %; HCT 27.8 % (34.0-46.0); Lymphocytes # (A) 0.6 k/uL (1.0-4.8); Lymphocytes % (A) 5 %; MCH 30.6 pg (25.0-35.0); MCHC 32.4 g/dL (31.0-37.0); MCV 94.6 fL (80.0-100.0); Mean Platelet Volume 6.9; Monocytes # (A) 0.4 k/uL (0-1.0); Monocytes % (A) 3 %; Neutrophils # (A) 10.8 k/uL (1.3-7.7); Neutrophils % (A) 91 %; Platelet Count 236 k/uL (150-450); RBC 2.94 m/uL (3.80-5.40); RDW 12.7 % (11.5-15.5); WBC 11.8 k/uL (3.8-10.6)
[2018-12-15 07:52] LABS: Partial Thromboplastin Time 24.8 sec (22.0-30.0); Prothrombin Time 10.5 sec (9.0-12.0)
[2018-12-15 08:33] LABS: Calcium 9.1 mg/dL (8.4-10.2); Potassium 4.9 mmol/L (3.5-5.1)
[2018-12-15] MEDS: MULTIVITAMINS, THERA 1 EACH TAB PO SCH (09:11)
[2018-12-15] MEDS: LEVOFLOXACIN 250MG-D5W PMX 250 MG in DEXTROSE/WATER 1 50ML.BAG IVPB SCH (09:11)
[2018-12-15] MEDS: CARVEDILOL 6.25 MG TAB PO SCH ×2 (09:11→17:17)
[2018-12-15] MEDS: CLOPIDOGREL 75 MG TAB PO SCH (09:11)
[2018-12-15] MEDS: PANTOPRAZOLE 40 MG TABLET PO SCH (09:12)
[2018-12-15] MEDS: ASPIRIN 325 MG TAB PO SCH (09:12)
[2018-12-15] MEDS: SPIRONOLACTONE 25 MG TAB PO SCH (09:12)
[2018-12-15] MEDS: guaiFENesin 600 MG TABLET.ER PO SCH ×2 (09:12→21:40)
[2018-12-15] MEDS: INSULIN ASPART 100 UNIT/ML 1 ML 10 ML VIAL SQ SCH ×4 (09:18→21:55)
[2018-12-15] MEDS: HEPARIN SOD,PORK IN 0.45% NACL 25,000 UNIT in 0.45% NACL 1 250ML.BAG IV SCH (10:50)
[2018-12-15 11:37] LABS: Glucose,Whole Blood 240 mg/dL (75-99)
--- NOTE | 2018-12-15 12:00 | P.PN ---
Subjective Progress Note Date: 12/15/18 History of present illness: HPI: This is an 88-year-old female being seen examined and evaluated today for consultation. This patient is well-known to our services. This patient came into the hospital with progressive worsening shortness of breath cough and congestion. She was bringing up yellow sputum. She was using breathing treatments at home which were not helping. She does use 2 L of supplemental oxygen via nasal cannula at home 11/06 as well. She did have a chest x-ray which did show chronic emphysema and parenchymal changes and cardiomegaly with no suspicious focal infiltrates. Repeat chest x-ray yesterday did show small effusions as well. She does have a past medical history of COPD, colon cancer status post resection 2010, nicotine dependence. She smoked half a pack per day for over 30-40 years, is not currently smoking. Her influenza A and B were both negative. Upon examination the patient is in mild acute respiratory distress. She is on airvo, at 40 L high flow. She states she has seen Dr. Ceballos in the past however has not followed up with him in many years. Interval History: 12/14/18- patient is being seen examined and evaluated today on rounds. She is resting up in bed on airvo 40L high flow nasal cannula. She continues to have shortness of breath cough and congestion. She has provided a sputum sample which will be sent down to the lab. The patient was started on a heparin drip yesterday for a probable PE. A CTA of the chest was ordered, however could not be completed yesterday therefore she will go down for the CTA today. All labs and reports have been reviewed. She has been afebrile no further complaints. 12/15/18- patient is being seen examined and evaluated today on rounds. She is resting up in bed on 5 L of supplemental oxygen via nasal cannula. Her shortness of breath continues to improve. She does have a cough and congestion. She has provided a sputum sample which was never sent down to the lab yesterday she will require a new specimen to be obtained. She did have a CTA which was negative for any PE did show emphysema and a solitary right pulmonary nodules well as cardiomegaly. These are discussed with her. Heparin drip has been discontinued. All labs and reports reviewed. Objective - Vital Signs Vital signs: Vital Signs Temp 97.9 F 12/15/18 09:01 Pulse 76 12/15/18 11:30 Resp 17 12/15/18 09:21 BP 132/53 12/15/18 09:01 Pulse Ox 97 12/15/18 09:01 Intake & Output 12/14/18 12/15/18 12/15/18 18:59 06:59 18:59 Weight 46.9 kg Other: Voiding Method Bedside Commode Bedside Commode Bedside Commode # Voids 3 1 - Exam GENERAL EXAM: Alert, , comfortable in no distress. HEAD: Normocephalic. EYES: Normal reaction of pupils, equal size. NOSE: Clear with pink turbinates. THROAT: No erythema or exudates. NECK: No masses, no JVD. CHEST: No chest wall deformity. LUNGS: Lungs noted to have poor air entry with inspiratory and expiratory wheezes. Bases diminished CVS: S1 and S2 normal with no audible mumurs, regular rhythm. ABDOMEN: No hepatosplenomegaly, normal bowel sounds, no guarding or rigidity. EXTREMITIES: No edema noted, pedal pulses palpable. CENTRAL NERVOUS SYSTEM: No focal deficits, tone is normal in all 4 extremities. - Labs CBC & Chem 7: 12/15/18 07:02 12/15/18 07:02 Labs: Abnormal Lab Results - Last 24 Hours (Table) 12/14/18 12/14/18 12/14/18 Range/Units 12:03 17:21 20:27 WBC (3.8-10.6) k/uL RBC (3.80-5.40) m/uL Hgb (11.4-16.0) gm/dL Hct (34.0-46.0) % Neutrophils # (1.3-7.7) k/uL Lymphocytes # (1.0-4.8) k/uL Chloride (98-107) mmol/L BUN (7-17) mg/dL Glucose (74-99) mg/dL POC Glucose (mg/dL) 152 H 127 H 171 H (75-99) mg/dL 12/15/18 12/15/18 12/15/18 Range/Units 07:00 07:02 07:02 WBC 11.8 H (3.8-10.6) k/uL RBC 2.94 L (3.80-5.40) m/uL Hgb 9.0 L (11.4-16.0) gm/dL Hct 27.8 L (34.0-46.0) % Neutrophils # 10.8 H (1.3-7.7) k/uL Lymphocytes # 0.6 L (1.0-4.8) k/uL Chloride 112 H (98-107) mmol/L BUN 45 H (7-17) mg/dL Glucose 157 H (74-99) mg/dL POC Glucose (mg/dL) 180 H (75-99) mg/dL 12/15/18 Range/Units 11:25 WBC (3.8-10.6) k/uL RBC (3.80-5.40) m/uL Hgb (11.4-16.0) gm/dL Hct (34.0-46.0) % Neutrophils # (1.3-7.7) k/uL Lymphocytes # (1.0-4.8) k/uL Chloride (98-107) mmol/L BUN (7-17) mg/dL Glucose (74-99) mg/dL POC Glucose (mg/dL) 240 H (75-99) mg/dL Microbiology - Last 24 Hours (Table) 12/10/18 11:50 Blood Culture - Preliminary Blood No Growth after 96 hours Assessment and Plan Assessment: Assessment Acute on chronic hypoxic respiratory failure requiring supplemental oxygen Acute exacerbation of COPD Acute on chronic congestive heart failure Bilateral small pleural effusions Tracheobronchitis Plan Medications have been reviewed and will be continued as ordered. Continue with antibiotics and steroids as ordered CTA of the chest reviewed Heparin drip discontinued Obtain sputum culture Chest x-rays reviewed Influenza A and B both negative Continue with pulmonary hygiene, coughing and deep breathing exercises, and supportive care. Supplemental oxygen to maintain oxygen saturations of 92% or better. Titrate oxygen down as tolerated Continue nebulizer treatments. GI and DVT prophylaxis. We will continue to monitor labs/results and adjust treatment as necessary. Further recommendations pending. I, the signing physician performed an examination of the patient, discussed and directed their management with the nurse practitioner. I have reviewed the nurse practitioner's note and agree with the documented findings, orders and plan of care. Nurse practitioner acting as a scribe for the signing physician.
[2018-12-15 17:26] LABS: Glucose,Whole Blood 104 mg/dL (75-99)
[2018-12-15 19:39] LABS: Glucose,Whole Blood 179 mg/dL (75-99)
[2018-12-15] MEDS: ATORVASTATIN 80 MG TAB PO SCH (21:11)
[2018-12-15] MEDS: LOSARTAN 25 MG TAB PO SCH (21:12)
[2018-12-15] MEDS: HEPARIN SODIUM,PORCINE 5,000 UNIT/ML 1 ML VIAL SQ SCH (21:12)
[2018-12-15] MEDS: IPRATROPIUM-ALBUTEROL 3 ML NEB INHALATION PRN (22:56)
--- NOTE | 2018-12-16 00:31 | PN ---
PROGRESS NOTE ATTENDING PHYSICIAN: Dr. Noelle Torres. CHIEF COMPLAINT: Re-evaluation. HISTORY OF PRESENT ILLNESS: This lady was admitted to the hospital with shortness of breath. The patient has evidence suggestive of tracheobronchitis and exacerbation of COPD. She also has some congestive cardiac failure. The patient did develop acute renal failure, nonoliguric, but she was on diuresis. The patient was seen by Pulmonary, who ordered a CAT scan. However, the patient's CT scan does not reveal any evidence of pulmonary embolus. The patient continues to have dyspnea. Cardiac echocardiogram has revealed about the same degree of systolic dysfunction as prior to this acute illness. I suspect the patient's dyspnea is purely more of pulmonary element. We will continue the present regimen. Pulmonary has seen the patient as mentioned above. REVIEW OF SYSTEMS: Neuro: Denies any headaches or dizziness. Psych: No anxiety, some grief relating to spouse passing away. Cardiac: No chest pain, angina, palpitations. Respiratory: Shortness of breath, cough. No hemoptysis. GI no nausea, vomiting, abdominal pain, diarrhea. She had diarrhea yesterday. no symptoms of dysuria or hematuria. Extremities: No pain or edema. Constitutional: No fever or chills. PHYSICAL EXAMINATION: Pleasant female in no distress. Vital signs reveals temperature 97.9, pulse 66, respirations 20, blood pressure 132/53, pulse ox 97% on 5 L. HEENT: Normocephalic. Neck no JVD. CHEST: Clear to percussion, markedly decreased air flow, especially right base. CARDIAC: Distant heart sounds S1, S2 with no gallops. Systolic murmur 2/6 left sternal border. ABDOMEN: Soft. Bowel sounds active. Extremities revealed no edema. No tenderness. Neurologically awake, alert, oriented with well-coordinated movements. LAB ASSESSMENT: Negative blood culture, hemoglobin 9, BUN 45, creatinine 0.91. ASSESSMENT: 1. Acute on chronic respiratory failure. 2. Acute exacerbation of chronic obstructive pulmonary disease. 3. Acute bronchitis. 4. Acute on chronic congestive cardiac failure secondary to systolic dysfunction. 5. Acute kidney injury, improved. 6. Anemia, chronic. PLAN: The patient is stable. Continue present medical regimen. Patient's condition discussed with the patient. Prognosis guarded. Blood sugars monitored and covered. The patient should has a fairly thick sticky mucus and it is difficult for her to bring up the cough. When she coughs she does have a significant rattle. Continue present regimen. Prognosis guarded. Recheck patient's status tomorrow. Hopefully, patient will be able to be discharged in the next 48 hours. I suggested possibly rehab facility placement. She is going to consider that. MMLUNAL / JOSE MIGUELN: [id number] /
[2018-12-16] MEDS: LEVOTHYROXINE 100 MCG TAB PO SCH (05:27)
[2018-12-16] MEDS: methylPREDNISolone SOD SUCCI 125 MG/2 ML VIAL IV SCH ×2 (05:27→12:49)
[2018-12-16 07:13] LABS: Glucose,Whole Blood 208 mg/dL (75-99)
[2018-12-16] MEDS: SPIRONOLACTONE 25 MG TAB PO SCH (07:13)
[2018-12-16] MEDS: HEPARIN SODIUM,PORCINE 5,000 UNIT/ML 1 ML VIAL SQ SCH ×2 (07:13→21:58)
[2018-12-16] MEDS: CARVEDILOL 6.25 MG TAB PO SCH ×2 (07:14→16:25)
[2018-12-16] MEDS: PANTOPRAZOLE 40 MG TABLET PO SCH (07:14)
[2018-12-16] MEDS: CLOPIDOGREL 75 MG TAB PO SCH (07:14)
[2018-12-16] MEDS: ASPIRIN 325 MG TAB PO SCH (07:14)
[2018-12-16] MEDS: guaiFENesin 600 MG TABLET.ER PO SCH ×2 (07:14→21:58)
[2018-12-16] MEDS: MULTIVITAMINS, THERA 1 EACH TAB PO SCH (07:14)
[2018-12-16] MEDS: LEVOFLOXACIN 250MG-D5W PMX 250 MG in DEXTROSE/WATER 1 50ML.BAG IVPB SCH (07:14)
[2018-12-16 07:16] LABS: Basophils % (A) 0 %; Eosinophils % (A) 0 %; HCT 28.3 % (34.0-46.0); Lymphocytes # (A) 0.7 k/uL (1.0-4.8); Lymphocytes % (A) 4 %; MCH 30.2 pg (25.0-35.0); MCHC 31.7 g/dL (31.0-37.0); MCV 95.2 fL (80.0-100.0); Mean Platelet Volume 7.6; Monocytes # (A) 0.4 k/uL (0-1.0); Monocytes % (A) 3 %; Neutrophils # (A) 15.2 k/uL (1.3-7.7); Neutrophils % (A) 93 %; Platelet Count 228 k/uL (150-450); RBC 2.98 m/uL (3.80-5.40); WBC 16.4 k/uL (3.8-10.6)
[2018-12-16] MEDS: INSULIN ASPART 100 UNIT/ML 1 ML 10 ML VIAL SQ SCH ×4 (07:27→21:59)
[2018-12-16] MEDS: BUDESONIDE 0.5 MG/2 ML NEBU INHALATION SCH (08:20)
[2018-12-16] MEDS: IPRATROPIUM-ALBUTEROL 3 ML NEB INHALATION SCH ×5 (08:20→23:14)
--- NOTE | 2018-12-16 09:26 | P.PN ---
Subjective Progress Note Date: 12/16/18 History of present illness: HPI: This is an 88-year-old female being seen examined and evaluated today for consultation. This patient is well-known to our services. This patient came into the hospital with progressive worsening shortness of breath cough and congestion. She was bringing up yellow sputum. She was using breathing treatments at home which were not helping. She does use 2 L of supplemental oxygen via nasal cannula at home 11/06 as well. She did have a chest x-ray which did show chronic emphysema and parenchymal changes and cardiomegaly with no suspicious focal infiltrates. Repeat chest x-ray yesterday did show small effusions as well. She does have a past medical history of COPD, colon cancer status post resection 2010, nicotine dependence. She smoked half a pack per day for over 30-40 years, is not currently smoking. Her influenza A and B were both negative. Upon examination the patient is in mild acute respiratory distress. She is on airvo, at 40 L high flow. She states she has seen Dr. Ceballos in the past however has not followed up with him in many years. Interval History: 12/14/18- patient is being seen examined and evaluated today on rounds. She is resting up in bed on airvo 40L high flow nasal cannula. She continues to have shortness of breath cough and congestion. She has provided a sputum sample which will be sent down to the lab. The patient was started on a heparin drip yesterday for a probable PE. A CTA of the chest was ordered, however could not be completed yesterday therefore she will go down for the CTA today. All labs and reports have been reviewed. She has been afebrile no further complaints. 12/15/18- patient is being seen examined and evaluated today on rounds. She is resting up in bed on 5 L of supplemental oxygen via nasal cannula. Her shortness of breath continues to improve. She does have a cough and congestion. She has provided a sputum sample which was never sent down to the lab yesterday she will require a new specimen to be obtained. She did have a CTA which was negative for any PE did show emphysema and a solitary right pulmonary nodules well as cardiomegaly. These are discussed with her. Heparin drip has been discontinued. All labs and reports reviewed. 12/16/18- patient is being seen examined and evaluated today on rounds. She is resting up in bed on 5 L of supplemental oxygen. She has more congested today. Her sputum sample was never sent down to the lab therefore the specimen is no longer good. We will obtain a new sputum sample. Continues with her shortness of breath with exertion and activity. We will obtain a repeat chest x-ray today. We will add Mucomyst inhalation. Family at bedside updated on plan of care. Objective - Vital Signs Vital signs: Vital Signs Temp 98.1 F 12/16/18 07:38 Pulse 76 12/16/18 08:38 Resp 16 12/16/18 07:38 BP 153/63 12/16/18 07:38 Pulse Ox 98 12/16/18 07:38 Intake & Output 12/15/18 12/16/18 12/16/18 18:59 06:59 18:59 Other: Voiding Method Bedside Commode Bedside Commode # Voids 1 - Exam GENERAL EXAM: Alert, , comfortable in no distress. HEAD: Normocephalic. EYES: Normal reaction of pupils, equal size. NOSE: Clear with pink turbinates. THROAT: No erythema or exudates. NECK: No masses, no JVD. CHEST: No chest wall deformity. LUNGS: Lungs noted to be coarse with inspiratory and expiratory rhonchi and wheezes. CVS: S1 and S2 normal with no audible mumurs, regular rhythm. ABDOMEN: No hepatosplenomegaly, normal bowel sounds, no guarding or rigidity. EXTREMITIES: No edema noted, pedal pulses palpable. CENTRAL NERVOUS SYSTEM: No focal deficits, tone is normal in all 4 extremities. - Labs CBC & Chem 7: 12/16/18 06:15 12/15/18 07:02 Labs: Abnormal Lab Results - Last 24 Hours (Table) 12/15/18 12/15/18 12/15/18 Range/Units 11:25 17:15 19:27 WBC (3.8-10.6) k/uL RBC (3.80-5.40) m/uL Hgb (11.4-16.0) gm/dL Hct (34.0-46.0) % Neutrophils # (1.3-7.7) k/uL Lymphocytes # (1.0-4.8) k/uL POC Glucose (mg/dL) 240 H 104 H 179 H (75-99) mg/dL 12/16/18 12/16/18 Range/Units 06:15 07:02 WBC 16.4 H (3.8-10.6) k/uL RBC 2.98 L (3.80-5.40) m/uL Hgb 9.0 L (11.4-16.0) gm/dL Hct 28.3 L (34.0-46.0) % Neutrophils # 15.2 H (1.3-7.7) k/uL Lymphocytes # 0.7 L (1.0-4.8) k/uL POC Glucose (mg/dL) 208 H (75-99) mg/dL Microbiology - Last 24 Hours (Table) 12/10/18 11:50 Blood Culture - Preliminary Blood No Growth after 120 hours Assessment and Plan Assessment: Assessment Acute on chronic hypoxic respiratory failure requiring supplemental oxygen Acute exacerbation of COPD Acute on chronic congestive heart failure Bilateral small pleural effusions Tracheobronchitis Plan Medications have been reviewed and will be continued as ordered. Continue with antibiotics and steroids as ordered Add Mucomyst inhalation Get repeat x-ray of the chest CTA of the chest reviewed Heparin drip discontinued Obtain sputum culture Influenza A and B both negative Continue with pulmonary hygiene, coughing and deep breathing exercises, and supportive care. Supplemental oxygen to maintain oxygen saturations of 92% or better. Titrate oxygen down as tolerated Continue nebulizer treatments. GI and DVT prophylaxis. We will continue to monitor labs/results and adjust treatment as necessary. Further recommendations pending. I, the signing physician performed an examination of the patient, discussed and directed their management with the nurse practitioner. I have reviewed the nurse practitioner's note and agree with the documented findings, orders and plan of care. Nurse practitioner acting as a scribe for the signing physician.
[2018-12-16 11:36] LABS: Glucose,Whole Blood 146 mg/dL (75-99)
[2018-12-16] MEDS: ACETYLCYSTEINE 800 MG/4 ML VIAL INHALATION SCH ×3 (12:10→19:32)
[2018-12-16] MEDS ORDERED: methylPREDNISolone SOD SUCCI 40 MG/ML 1 ML VIAL IV SCH (16:00)
--- NOTE | 2018-12-16 17:12 | XR ---
EXAMINATION TYPE: XR chest 2V DATE OF EXAM: 12/16/2018 COMPARISON: 12/13/2018 HISTORY: Short of breath TECHNIQUE: Frontal and lateral views of the chest are obtained. FINDINGS: There is no heart failure. There is coarse lung markings in the left lower lobe. There is slight blunting of left costophrenic angle. There is a 1 cm nodular density in the lateral right uppe r lobe. Heart is enlarged. IMPRESSION: Cardiomegaly. Mild left basilar infiltrate and pleural fluid. There is clearing of the h eart failure compared to 04/06/2017. Right upper lobe nodule unchanged compared to yesterday. Right up per lobe nodular density unchanged compared to 04/18/2018.
[2018-12-16 17:30] LABS: Glucose,Whole Blood 128 mg/dL (75-99)
[2018-12-16] MEDS: BUDESONIDE 1 MG/2 ML NEBU INHALATION SCH (19:33)
[2018-12-16 20:50] LABS: Glucose,Whole Blood 233 mg/dL (75-99)
[2018-12-16] MEDS: ATORVASTATIN 80 MG TAB PO SCH (21:58)
[2018-12-16] MEDS: MIRTAZAPINE 15 MG TAB PO SCH (21:59)
[2018-12-16] MEDS: LOSARTAN 25 MG TAB PO SCH (21:59)
--- NOTE | 2018-12-16 23:56 | PN ---
PROGRESS NOTE CHIEF COMPLAINT: Re-evaluation. HISTORY OF PRESENT ILLNESS: This is an elderly female, 88 years old, who was admitted to the hospital as she had difficulty breathing. The patient has acute exacerbation of COPD. She has underlying history of chronic respiratory failure. Workup was suggestive of tracheobronchitis. The patient is on Levaquin, updrafts and steroids. The patient is showing some slow progress and improvement. I have reviewed with her daughter regarding placement in a nursing facility for rehab. The patient and her daughter agree. REVIEW OF SYSTEMS: NEURO: Denies any headaches, dizziness. PSYCH: No anxiety. Some depression and grief. CARDIAC: No chest pain, angina, palpitations. RESPIRATORY: Shortness of breath, cough. No hemoptysis. GI: No nausea, vomiting, abdominal pain, diarrhea. : No symptoms of dysuria or hematuria. EXTREMITIES: No pain, edema. CONSTITUTIONAL: No fever, chills. PHYSICAL EXAMINATION: Pleasant female, at present in no distress. VITAL SIGNS: Temperature 98.1, pulse 61, respirations 16, blood pressure 153/63, pulse ox 98% on 5 L. HEENT: Normocephalic. NECK: No JVD. CHEST: Clear to percussion. Decreased air flow at the bases, especially at the left base. CARDIAC: Normal S1, S2 with no gallops. Systolic murmur 2/6, left sternal border. ABDOMEN: Soft. No palpable masses. Bowel sounds normal. No organomegaly. No abdominal bruits. EXTREMITIES: No edema. No tenderness. Neurologically awake, alert, oriented with well-coordinated movements. LABORATORY ASSESSMENT: White count 16.4, hemoglobin 9.0, glucose 208. ASSESSMENT: 1. Acute exacerbation of chronic obstructive pulmonary disease. 2. Acute on chronic respiratory failure. 3. Acute kidney injury, improving. 4. Anemia, chronic. 5. Chronic congestive cardiac failure secondary to systolic dysfunction. PLAN: Continue present medical regimen. Patient's condition was discussed with the patient, her daughter and, as mentioned above, plan for nursing facility rehab. MMODL / JOSE MIGUELN: [id number] /
[2018-12-17] MEDS: IPRATROPIUM-ALBUTEROL 3 ML NEB INHALATION SCH ×5 (03:37→19:43)
[2018-12-17] MEDS: LEVOTHYROXINE 100 MCG TAB PO SCH (06:20)
[2018-12-17 07:02] LABS: Basophils % (A) 0 %; Eosinophils % (A) 0 %; HGB 9.2 gm/dL (11.4-16.0); Hypochromasia Slight; Lymphocytes # (A) 0.7 k/uL (1.0-4.8); Lymphocytes % (A) 5 %; MCH 30.5 pg (25.0-35.0); MCHC 31.7 g/dL (31.0-37.0); MCV 96.2 fL (80.0-100.0); Mean Platelet Volume 7.5; Monocytes # (A) 0.7 k/uL (0-1.0); Monocytes % (A) 4 %; Neutrophils # (A) 14.3 k/uL (1.3-7.7); Neutrophils % (A) 90 %; Platelet Count 223 k/uL (150-450); RBC 3.01 m/uL (3.80-5.40); RDW 13.1 % (11.5-15.5); WBC 15.9 k/uL (3.8-10.6)
[2018-12-17 07:04] LABS: Glucose,Whole Blood 135 mg/dL (75-99)
[2018-12-17 07:15] LABS: Calcium 9.2 mg/dL (8.4-10.2); Potassium 4.5 mmol/L (3.5-5.1)
[2018-12-17] MEDS: BUDESONIDE 1 MG/2 ML NEBU INHALATION SCH ×2 (09:19→19:43)
[2018-12-17] MEDS: ACETYLCYSTEINE 800 MG/4 ML VIAL INHALATION SCH ×4 (09:20→19:42)
[2018-12-17] MEDS: HEPARIN SODIUM,PORCINE 5,000 UNIT/ML 1 ML VIAL SQ SCH ×2 (09:22→21:42)
[2018-12-17] MEDS: ASPIRIN 325 MG TAB PO SCH (09:22)
[2018-12-17] MEDS: MULTIVITAMINS, THERA 1 EACH TAB PO SCH (09:23)
[2018-12-17] MEDS: PANTOPRAZOLE 40 MG TABLET PO SCH (09:23)
[2018-12-17] MEDS: CLOPIDOGREL 75 MG TAB PO SCH (09:23)
[2018-12-17] MEDS: guaiFENesin 600 MG TABLET.ER PO SCH ×2 (09:23→21:42)
[2018-12-17] MEDS: CARVEDILOL 6.25 MG TAB PO SCH ×2 (09:24→17:30)
[2018-12-17] MEDS: INSULIN ASPART 100 UNIT/ML 1 ML 10 ML VIAL SQ SCH ×4 (09:24→21:42)
[2018-12-17] MEDS: predniSONE 20 MG TAB PO SCH (09:25)
[2018-12-17] MEDS: LEVOFLOXACIN 250 MG TAB PO SCH (09:29)
[2018-12-17] MEDS: SPIRONOLACTONE 25 MG TAB PO SCH (09:30)
--- NOTE | 2018-12-17 11:02 | P.PN ---
Subjective Progress Note Date: 12/17/18 HPI: This is an 88-year-old female being seen examined and evaluated today for consultation. This patient is well-known to our services. This patient came into the hospital with progressive worsening shortness of breath cough and congestion. She was bringing up yellow sputum. She was using breathing treatments at home which were not helping. She does use 2 L of supplemental oxygen via nasal cannula at home 11/06 as well. She did have a chest x-ray which did show chronic emphysema and parenchymal changes and cardiomegaly with no suspicious focal infiltrates. Repeat chest x-ray yesterday did show small effusions as well. She does have a past medical history of COPD, colon cancer status post resection 2010, nicotine dependence. She smoked half a pack per day for over 30-40 years, is not currently smoking. Her influenza A and B were both negative. Upon examination the patient is in mild acute respiratory distress. She is on airvo, at 40 L high flow. She states she has seen Dr. Ceballos in the past however has not followed up with him in many years. Interval History: 12/14/18- patient is being seen examined and evaluated today on rounds. She is resting up in bed on airvo 40L high flow nasal cannula. She continues to have shortness of breath cough and congestion. She has provided a sputum sample which will be sent down to the lab. The patient was started on a heparin drip yesterday for a probable PE. A CTA of the chest was ordered, however could not be completed yesterday therefore she will go down for the CTA today. All labs and reports have been reviewed. She has been afebrile no further complaints. 12/15/18- patient is being seen examined and evaluated today on rounds. She is resting up in bed on 5 L of supplemental oxygen via nasal cannula. Her shortness of breath continues to improve. She does have a cough and congestion. She has provided a sputum sample which was never sent down to the lab yesterday she will require a new specimen to be obtained. She did have a CTA which was negative for any PE did show emphysema and a solitary right pulmonary nodules well as cardiomegaly. These are discussed with her. Heparin drip has been discontinued. All labs and reports reviewed. 12/16/18- patient is being seen examined and evaluated today on rounds. She is resting up in bed on 5 L of supplemental oxygen. She has more congested today. Her sputum sample was never sent down to the lab therefore the specimen is no longer good. We will obtain a new sputum sample. Continues with her shortness of breath with exertion and activity. We will obtain a repeat chest x-ray today. We will add Mucomyst inhalation. Family at bedside updated on plan of care. 12/17/2017: Patient seen and examined with family at bedside. The patient states her cough is starting to improve. She feels like she is able to expectorate her sputum. The patient is down to her home dose of oxygen which is 2 L nasal cannula. She was able to ambulate in the hallway on 2 L and her O2 saturation remains 93%. She is hoping to go home instead of to rehab because her 's is this weekend. Objective - Vital Signs Vital signs: Vital Signs Temp 98.0 F 12/17/18 09:34 Pulse 68 12/17/18 09:44 Resp 20 12/17/18 09:34 BP 160/67 12/17/18 09:34 Pulse Ox 99 12/17/18 09:34 Intake & Output 12/16/18 12/17/18 12/17/18 18:59 06:59 18:59 Intake Total 790 150 296 Balance 790 150 296 Weight 46.9 kg Intake: Oral 590 150 296 Other 200 Other: Voiding Method Bedside Commode # Voids 3 1 - Exam GENERAL EXAM: Alert, , comfortable in no distress. HEAD: Normocephalic. EYES: Normal reaction of pupils, equal size. NOSE: Clear with pink turbinates. THROAT: No erythema or exudates. NECK: No masses, no JVD. CHEST: No chest wall deformity. LUNGS: Coarse upper airway breath sounds,diminished in the lower zones CVS: S1 and S2 normal with no audible mumurs, regular rhythm. ABDOMEN: No hepatosplenomegaly, normal bowel sounds, no guarding or rigidity. EXTREMITIES: No edema noted, pedal pulses palpable. CENTRAL NERVOUS SYSTEM: No focal deficits, tone is normal in all 4 extremities. - Labs CBC & Chem 7: 12/17/18 06:33 12/17/18 06:33 Labs: Abnormal Lab Results - Last 24 Hours (Table) 12/16/18 12/16/18 12/16/18 Range/Units 11:24 17:19 20:48 WBC (3.8-10.6) k/uL RBC (3.80-5.40) m/uL Hgb (11.4-16.0) gm/dL Hct (34.0-46.0) % Neutrophils # (1.3-7.7) k/uL Lymphocytes # (1.0-4.8) k/uL Chloride (98-107) mmol/L BUN (7-17) mg/dL POC Glucose (mg/dL) 146 H 128 H 233 H (75-99) mg/dL 12/17/18 12/17/18 12/17/18 Range/Units 06:33 06:33 06:53 WBC 15.9 H (3.8-10.6) k/uL RBC 3.01 L (3.80-5.40) m/uL Hgb 9.2 L (11.4-16.0) gm/dL Hct 29.0 L (34.0-46.0) % Neutrophils # 14.3 H (1.3-7.7) k/uL Lymphocytes # 0.7 L (1.0-4.8) k/uL Chloride 113 H (98-107) mmol/L BUN 38 H (7-17) mg/dL POC Glucose (mg/dL) 135 H (75-99) mg/dL Microbiology - Last 24 Hours (Table) 12/16/18 13:10 Gram Stain - Preliminary Sputum 12/10/18 11:50 Blood Culture - Final Blood No Growth after 144 hours Assessment and Plan Assessment: Acute on chronic hypoxic respiratory failure requiring supplemental oxygen Acute exacerbation of COPD Acute on chronic congestive heart failure Left lower lobe atelectasis versus pneumonia Bilateral small pleural effusions Tracheobronchitis Plan Medications have been reviewed and will be continued as ordered. Continue with antibiotics and steroid taper Continue Mucomyst inhalation Influenza A and B both negative Continue with pulmonary hygiene, coughing and deep breathing exercises, and supportive care. Supplemental oxygen to maintain oxygen saturations of 92% or better. Titrate oxygen down as tolerated Continue nebulizer treatments. GI and DVT prophylaxis. Chest PT and flutter therapy Encourage ambulation Ok to DC from pulmonary standpoint. Follow up in 2-3 days
[2018-12-17 11:45] LABS: Glucose,Whole Blood 156 mg/dL (75-99)
[2018-12-17 17:05] LABS: Glucose,Whole Blood 97 mg/dL (75-99)
[2018-12-17] MEDS: MIRTAZAPINE 15 MG TAB PO SCH (21:41)
[2018-12-17] MEDS: ATORVASTATIN 80 MG TAB PO SCH (21:42)
[2018-12-17] MEDS: LOSARTAN 25 MG TAB PO SCH (21:42)
[2018-12-17 21:48] LABS: Glucose,Whole Blood 160 mg/dL (75-99)
--- NOTE | 2018-12-17 22:42 | PN ---
PROGRESS NOTE CHIEF COMPLAINT: Re-evaluation. HISTORY OF PRESENT ILLNESS: This patient is an 88-year-old female who was admitted to the hospital with acute exacerbation of COPD and acute on chronic respiratory failure. She is doing somewhat better. She was recommended to go to rehab. However, she feels she is strong enough to be home. I did discuss with her daughter that as long as somebody else is staying with her, she should be okay with present activity status. The patient denies any other symptoms of chest pain. She has a cough with minimal sputum production. REVIEW OF SYSTEMS: NEURO: Denies any headaches, dizziness. PSYCH: No anxiety. CARDIAC: No chest pain, angina, palpitations. RESPIRATORY: Shortness of breath with cough. No hemoptysis. GI: No nausea, vomiting, abdominal pain, diarrhea. : No symptoms of dysuria or hematuria. EXTREMITIES: No pain, edema. CONSTITUTIONAL: No fever, chills. PHYSICAL EXAMINATION: Pleasant 88-year-old. Vital signs revealed temperature 98, pulse 55, respirations 20, blood pressure 160/67, pulse ox of 99% on 3 L. HEENT: Normocephalic. NECK: No JVD. CHEST EXAMINATION: Clear to percussion. Decreased air flow bilaterally. Bilateral rhonchi which do clear with cough. CARDIAC: Normal S1, S2 with no gallops. Distant heart sounds. Systolic murmur 2/6, left sternal border. ABDOMEN: Soft. Bowel sounds present. EXTREMITIES: No edema. No tenderness. Neurologically awake, alert, oriented with well-coordinated movements. LABORATORY ASSESSMENT: Blood sugars in adequate range. CBC reveals white count of 15.9, hemoglobin 9.2, BUN 38, creatinine 0.99. ASSESSMENT: 1. Acute exacerbation of chronic obstructive pulmonary disease, improving. 2. Acute on chronic respiratory failure, improving. 3. Acute kidney injury, resolved. 4. Congestive cardiac failure secondary to systolic dysfunction, improved. 5. Tracheobronchitis. PLAN: The patient is stable. Continue present medical regimen. Patient's condition discussed with the patient and daughter. Potential discharge tomorrow. MMODL / IJN: [id number] /
[2018-12-18] MEDS: IPRATROPIUM-ALBUTEROL 3 ML NEB INHALATION SCH ×3 (00:52→09:31)
[2018-12-18 03:20] VITALS: RESP 16
[2018-12-18] MEDS: LEVOTHYROXINE 100 MCG TAB PO SCH (05:53)
[2018-12-18 07:26] LABS: Glucose,Whole Blood 114 mg/dL (75-99)
[2018-12-18 08:03] VITALS: BP 137/66; TEMP 98.5
[2018-12-18] MEDS: BUDESONIDE 1 MG/2 ML NEBU INHALATION SCH (09:31)
[2018-12-18] MEDS: ACETYLCYSTEINE 800 MG/4 ML VIAL INHALATION SCH (09:31)
[2018-12-18 09:37] VITALS: PULSE 76
[2018-12-18] MEDS: guaiFENesin 600 MG TABLET.ER PO SCH (10:50)
[2018-12-18] MEDS: CLOPIDOGREL 75 MG TAB PO SCH (10:50)
[2018-12-18] MEDS: LEVOFLOXACIN 250 MG TAB PO SCH (10:51)
[2018-12-18] MEDS: MULTIVITAMINS, THERA 1 EACH TAB PO SCH (10:51)
[2018-12-18] MEDS: ASPIRIN 325 MG TAB PO SCH (10:51)
[2018-12-18] MEDS: PANTOPRAZOLE 40 MG TABLET PO SCH (10:51)
[2018-12-18] MEDS: predniSONE 20 MG TAB PO SCH (10:51)
[2018-12-18] MEDS: SPIRONOLACTONE 25 MG TAB PO SCH (10:51)
[2018-12-18] MEDS: CARVEDILOL 6.25 MG TAB PO SCH (10:51)
[2018-12-18] MEDS: HEPARIN SODIUM,PORCINE 5,000 UNIT/ML 1 ML VIAL SQ SCH ×2 (10:52→10:59)
[2018-12-18] MEDS: INSULIN ASPART 100 UNIT/ML 1 ML 10 ML VIAL SQ SCH (10:57)
== END 2018-12-18 11:35 | disposition home health service (06) | DRG 190 ==
LOC: EC 11:06 → 3SCARD 15:22 → 4SSUR 12-12 14:48
PROVIDERS: ADMIT Internal Medicine; ATTEND Internal Medicine
DX: J44.1 Chronic obstructive pulmonary disease with (acute) exacerbation (principal); I50.23 Acute on chronic systolic (congestive) heart failure; J96.21 Acute and chronic respiratory failure with hypoxia; N17.9 Acute kidney failure, unspecified; J98.11 Atelectasis; D64.9 Anemia, unspecified; E11.9 Type 2 diabetes mellitus without complications; E78.5 Hyperlipidemia, unspecified; E89.0 Postprocedural hypothyroidism; H91.90 Unspecified hearing loss, unspecified ear; I11.0 Hypertensive heart disease with heart failure; I25.10 Atherosclerotic heart disease of native coronary artery without angina pectoris; I25.2 Old myocardial infarction; I25.5 Ischemic cardiomyopathy; I44.7 Left bundle-branch block, unspecified; J20.9 Acute bronchitis, unspecified; J44.0 Chronic obstructive pulmonary disease with (acute) lower respiratory infection; F41.9 Anxiety disorder, unspecified; K57.90 Diverticulosis of intestine, part unspecified, without perforation or abscess without bleeding; R77.9 Abnormality of plasma protein, unspecified; R07.9 Chest pain, unspecified; I27.20 Pulmonary hypertension, unspecified; M19.90 Unspecified osteoarthritis, unspecified site; I35.0 Nonrheumatic aortic (valve) stenosis; F43.20 Adjustment disorder, unspecified; R91.1 Solitary pulmonary nodule; Z79.02 Long term (current) use of antithrombotics/antiplatelets; Z79.82 Long term (current) use of aspirin; Z79.890 Hormone replacement therapy; Z79.899 Other long term (current) drug therapy; Z99.81 Dependence on supplemental oxygen; Z98.42 Cataract extraction status, left eye; Z98.41 Cataract extraction status, right eye; Z96.1 Presence of intraocular lens; Z95.5 Presence of coronary angioplasty implant and graft; Z90.710 Acquired absence of both cervix and uterus; Z87.891 Personal history of nicotine dependence; Z85.038 Personal history of other malignant neoplasm of large intestine; Z87.01 Personal history of pneumonia (recurrent); Z90.49 Acquired absence of other specified parts of digestive tract; Z88.0 Allergy status to penicillin; Z88.7 Allergy status to serum and vaccine; Z82.3 Family history of stroke; Z82.49 Family history of ischemic heart disease and other diseases of the circulatory system; Z82.0 Family history of epilepsy and other diseases of the nervous system; Z81.1 Family history of alcohol abuse and dependence
CPT/HCPCS: 36415; 71045; 71046; 71275; 80048; 80053; 80061; 82550; 82553; 82728; 83540; 83550; 83605; 83735; 83880; 84484; 85025; 85027; 85045; 85049; 85610; 85730; 87040; 87070; 87205; 87502; 93005; 93306; 94640; 94667; 94760; 96361; 96365; 96375; 96376; 99285

== ENCOUNTER 2018-12-30 03:42 | Emergency (ER) | payer MEDICARE ==
--- NOTE | 2018-12-30 04:18 | XR ---
EXAM: XR Chest, 1 View CLINICAL HISTORY: ITS.REASON XR Reason: chest pain TECHNIQUE: Frontal view of the chest. COMPARISON: 12/13/18 chest x-ray IMPRESSION: Unchanged heart size. All core eventration of the left hemidiaphragm. No consolidation or pleural effusion.
[2018-12-30 04:23] LABS: Basophils % (A) 0 %; Eosinophils # (A) 0.2 k/uL (0-0.7); Eosinophils % (A) 3 %; HGB 9.5 gm/dL (11.4-16.0); Lymphocytes # (A) 1.1 k/uL (1.0-4.8); Lymphocytes % (A) 17 %; MCHC 31.7 g/dL (31.0-37.0); MCV 94.5 fL (80.0-100.0); Mean Platelet Volume 7.3; Monocytes # (A) 0.3 k/uL (0-1.0); Monocytes % (A) 5 %; Neutrophils # (A) 4.8 k/uL (1.3-7.7); Neutrophils % (A) 73 %; Platelet Count 138 k/uL (150-450); RBC 3.18 m/uL (3.80-5.40); RDW 14.7 % (11.5-15.5); WBC 6.6 k/uL (3.8-10.6)
[2018-12-30 04:28] LABS: INR 0.9 (<1.2); Partial Thromboplastin Time 23.7 sec (22.0-30.0)
[2018-12-30 04:37] LABS: Albumin 3.1 g/dL (3.5-5.0); Calcium 8.9 mg/dL (8.4-10.2); Magnesium 1.8 mg/dL (1.6-2.3); Potassium 4.1 mmol/L (3.5-5.1); Total Bilirubin 0.6 mg/dL (0.2-1.3); Total Protein 5.6 g/dL (6.3-8.2)
[2018-12-30 04:56] LABS: Creatine Kinase MB 1.8 ng/mL (0.0-2.4)
[2018-12-30 05:16] LABS: Troponin I 0.112 ng/mL (0.000-0.034)
--- NOTE | 2018-12-30 05:38 | ED ---
Chest Pain HPI - General Chief Complaint: Chest Pain Stated Complaint: Chest Pain Time Seen by Provider: 12/30/18 03:53 Source: patient Mode of arrival: EMS Limitations: no limitations - History of Present Illness MD Complaint: chest pain -: hour(s) Onset: awoke with symptoms Pain Location: substernal Pain Radiation: none Severity: severe Quality: heaviness Consistency: now resolved Improves With: nitroglycerin Worsens With: nothing Anginal Symptoms: dyspnea Treatments Prior to Arrival: aspirin, nitroglycerin, oxygen - Related Data Home Medications Medication Instructions Recorded Confirmed Levothyroxine Sodium [Synthroid] 100 mcg PO [id number] 01/17/16 12/30/18 Budesonide [Pulmicort] 0.5 mg INHALATION RT-BID 04/02/17 12/30/18 Losartan [Cozaar] 25 mg PO HS 04/02/17 12/30/18 Ferrous Sulfate [Feosol] 325 mg PO DAILY 04/18/18 12/30/18 Ipratropium-Albuterol Nebulize 3 ml INHALATION RT-QID PRN 04/18/18 12/30/18 [Duoneb 0.5 mg-3 mg/3 ml Soln] Multivit with Calcium,Iron,Min 1 tab PO DAILY 04/18/18 12/30/18 [Women's Multivitamin] Spironolactone [Aldactone] 12.5 mg PO DAILY 04/18/18 12/30/18 Aspirin EC [Ecotrin Low Dose] 81 mg PO DAILY 12/10/18 12/30/18 Carvedilol [Coreg] 6.25 mg PO BID 12/10/18 12/30/18 Previous Rx's Medication Instructions Recorded Atorvastatin [Lipitor] 80 mg PO HS #30 tab 04/09/17 Clopidogrel [Plavix] 75 mg PO DAILY #90 tab 04/09/17 Nitroglycerin Sl Tabs [Nitrostat] 0.4 mg SUBLINGUAL Q5M PRN #100 tab 04/09/17 Furosemide [Lasix] 40 mg PO DAILY #30 tab 09/28/17 Mirtazapine [Remeron] 7.5 mg PO HS #30 tab 12/18/18 predniSONE See Taper PO TID #32 tab 12/18/18 Allergies Allergy/AdvReac Type Severity Reaction Status Date / Time Penicillins Allergy Unknown Verified 12/10/18 11:16 pneumococcal 23-valent Allergy Rash/Hives Verified 12/10/18 11:16 polysacchari [From Pneumovax 23] adhesive tape AdvReac Unknown Verified 12/10/18 11:16 Review of Systems ROS Statement: Those systems with pertinent positive or pertinent negative responses have been documented in the HPI. ROS Other: All systems not noted in ROS Statement are negative. Constitutional: Denies: fever, chills Respiratory: Reports: dyspnea. Denies: cough Cardiovascular: Reports: chest pain, palpitations. Denies: orthopnea, edema, syncope Gastrointestinal: Denies: abdominal pain, nausea, vomiting Genitourinary: Denies: dysuria, hematuria Musculoskeletal: Denies: back pain Skin: Denies: rash Neurological: Denies: headache, weakness, numbness Psychiatric: Reports: anxiety EKG Findings - EKG Comments: EKG Findings:: The ECG appears show sinus rhythm with a couple of couplets and one PVC, the rate is 66 bpm. There is a left bundle-branch block which is present from the previous ECG. - EKG Results: EKG: interpreted by ERMD, sinus rhythm, normal axis - Blocks, Mum[place], Hypertrophy, ST Abn: AV and intraventricular conduction: left bundle branch block (fixed/intermittent , complete/incomplete) Past Medical History Past Medical History: Cancer, Heart Failure, COPD, Hearing Disorder / Deafness, Hyperlipidemia, Myocardial Infarction ([place]), Pneumonia, Respiratory Disorder, Thyroid Disorder Additional Past Medical History / Comment(s): Colon ca with SX, hypothyroid, tracheobronchitis, diverticulitis,buckland bilaterally, wears 2L at home. Pt denies arthritis, HTN or pulmonary HTN that are in PMR. Recent heart stent placement on April 05, 2017. Last Myocardial Infarction Date:: 2016 History of Any Multi-Drug Resistant Organisms: None Reported Past Surgical History: Appendectomy, Bowel Resection, Section, Cholecystectomy, Hysterectomy, Orthopedic Surgery, Tonsillectomy Additional Past Surgical History / Comment(s): colectomy for cancer, thyroidectomy, bilateral cataract removal with lens implants, C- Sections x 3, L foot fx with surgical repair, colonoscopies with polypectomy. Past Anesthesia/Blood Transfusion Reactions: Motion Sickness Additional Past Anesthesia/Blood Transfusion Reaction / Comment(s): has never had a blood transfusion Past Psychological History: Anxiety Smoking Status: Former smoker - Past Family History Father Additional Family Medical History / Comment(s): Pt did not know her father well. He was an alcoholic and from it. Mother Family Medical History: Myocardial Infarction ([place]) Additional Family Medical History / Comment(s): Mother of an [place] at age 51yrs. General Exam Limitations: no limitations General appearance: alert, in no apparent distress Head exam: Present: atraumatic, normocephalic Eye exam: Present: normal appearance. Absent: scleral icterus, conjunctival injection ENT exam: Present: normal oropharynx Neck exam: Present: normal inspection Respiratory exam: Present: normal lung sounds bilaterally. Absent: respiratory distress, wheezes, rales, rhonchi, stridor Cardiovascular Exam: Present: regular rate, normal rhythm, normal heart sounds. Absent: systolic murmur, diastolic murmur, rubs, gallop GI/Abdominal exam: Present: soft. Absent: distended, tenderness, guarding, rebound, mass Extremities exam: Present: normal inspection, normal capillary refill. Absent: pedal edema, calf tenderness Back exam: Present: normal inspection. Absent: CVA tenderness (R), CVA tenderness (L) Neurological exam: Present: alert Skin exam: Present: warm, dry, intact, normal color. Absent: rash Course Vital Signs 12/30/18 03:55 Temperature 97.8 F Pulse Rate 69 Respiratory 24 Rate Blood Pressure 128/57 O2 Sat by Pulse 94 L Oximetry Chest Pain [facility] Patient is a 88-year-old woman who did have an episode of chest pain that woke her from sleep, and was relieved with nitroglycerin. As with a similar episode last month, she does have mild elevation of her troponin. I did discuss admission to have the forest fire management officer's see the patient, but the patient is declining. Case discussed with patient's daughters who are at the bedside, and they phoned a third daughter. After family discussion they are okay with the patient going home, as her symptoms have resolved. She did just have admission for this 2 weeks ago. She'll follow with the forest fire management officer. Disposition Clinical Impression: NSTEMI (non-ST elevated myocardial infarction) Disposition: Left Against Medical Advice Condition: Poor Instructions (If sedation given, give patient instructions): Heart Attack (DC) Is patient prescribed a controlled substance at d/c from ED?: No Referrals: Charanjit Torres MD [Primary Care Provider] - 1-2 days
[2018-12-30 06:23] VITALS: BP 137/52; PULSE 68; RESP 16; TEMP 97.7
== END 2018-12-30 06:23 | disposition left against medical advice (07) ==
LOC: EC 03:42
DX: I21.4 Non-ST elevation (NSTEMI) myocardial infarction (principal); I11.0 Hypertensive heart disease with heart failure; I50.9 Heart failure, unspecified; J44.9 Chronic obstructive pulmonary disease, unspecified; I25.2 Old myocardial infarction; E03.9 Hypothyroidism, unspecified; Z79.890 Hormone replacement therapy; Z79.51 Long term (current) use of inhaled steroids; Z79.02 Long term (current) use of antithrombotics/antiplatelets; Z79.82 Long term (current) use of aspirin; Z79.899 Other long term (current) drug therapy; Z88.0 Allergy status to penicillin; Z88.7 Allergy status to serum and vaccine; Z91.048 Other nonmedicinal substance allergy status; Z87.891 Personal history of nicotine dependence; Z95.5 Presence of coronary angioplasty implant and graft; Z85.038 Personal history of other malignant neoplasm of large intestine
CPT/HCPCS: 36415; 71045; 80053; 82550; 82553; 83735; 83880; 84484; 85025; 85610; 85730; 93005; 99285

== ENCOUNTER 2019-10-11 09:37 | Emergency (ER) | payer MEDICARE ==
[2019-10-11] MEDS ORDERED: SODIUM CHLORIDE 0.9% 500 ML 500 ML IV ONE ×2 (09:58→13:22)
[2019-10-11] MEDS ORDERED: SODIUM CHLORIDE 0.9% 1,000 ML IV ONE ×2 (09:58)
[2019-10-11] MEDS ORDERED: IPRATROPIUM-ALBUTEROL 3 ML NEB INHALATION STA (10:18)
[2019-10-11 10:20] LABS: Basophils % (A) 0 %; Eosinophils # (A) 0.1 k/uL (0-0.7); Eosinophils % (A) 2 %; HCT 27.7 % (34.0-46.0); HGB 9.2 gm/dL (11.4-16.0); Lymphocytes # (A) 1.7 k/uL (1.0-4.8); Lymphocytes % (A) 28 %; MCH 31.8 pg (25.0-35.0); MCHC 33.1 g/dL (31.0-37.0); MCV 95.9 fL (80.0-100.0); Mean Platelet Volume 6.4; Monocytes # (A) 0.3 k/uL (0-1.0); Monocytes % (A) 5 %; Neutrophils # (A) 3.9 k/uL (1.3-7.7); Neutrophils % (A) 63 %; Platelet Count 202 k/uL (150-450); RBC 2.89 m/uL (3.80-5.40); RDW 12.5 % (11.5-15.5); WBC 6.3 k/uL (3.8-10.6)
--- NOTE | 2019-10-11 10:23 | ED ---
Recheck HPI - General Chief Complaint: Recheck/Abnormal Lab/Rx Stated Complaint: Altered Mental Status Time Seen by Provider: 10/11/19 09:58 Source: patient Mode of arrival: EMS Limitations: no limitations - History of Present Illness Initial Comments: 89-year-old female with extensive past medical history including previous myocardial infarction per, COPD presents emergency department today for chief complaint of altered mental status 2-3 days. Family states the patient is probably new pain medication and muscle relaxer they believe that she was taking them at the same time. They state that initially when patient is beginning to confused about this was due to medications. However the symptoms persisted today and patient did not know the date when she was asked by EMS they felt was appropriate this time for transport to the hospital for further evaluation. Denies any slurred speech and facial droop weakness or falls. They deny patient having any specific complaints aside from low back pain a week ago. Family denies her complaining of chest pain shortness of breath. The only stay patient continues to ask for water. Patient upon arrival who is responsive states she has no complaints and does not want to be the hospital. Remaining review systems negative. AAXO x 2 (does not know the year). - Related Data Home Medications Medication Instructions Recorded Confirmed Levothyroxine Sodium [Synthroid] 100 mcg PO MOTUWETHFRSA 01/17/16 10/11/19 Budesonide [Pulmicort] 0.5 mg INHALATION RT-BID 04/02/17 10/11/19 Ferrous Sulfate [Feosol] 325 mg PO DAILY 04/18/18 10/11/19 Ipratropium-Albuterol Nebulize 3 ml INHALATION RT-QID PRN 04/18/18 10/11/19 [Duoneb 0.5 mg-3 mg/3 ml Soln] Multivit with Calcium,Iron,Min 1 tab PO DAILY 04/18/18 10/11/19 [Women's Multivitamin] Spironolactone [Aldactone] 12.5 mg PO DAILY 04/18/18 10/11/19 Aspirin EC [Ecotrin Low Dose] 81 mg PO DAILY 12/10/18 10/11/19 Carvedilol [Coreg] 6.25 mg PO BID 12/10/18 10/11/19 ALPRAZolam [Xanax] 0.25 mg PO DAILY PRN 10/11/19 10/11/19 Baclofen [Lioresal] 10 mg PO TID PRN 10/11/19 10/11/19 Losartan Potassium [Cozaar] 25 mg PO HS 10/11/19 10/11/19 Mirtazapine [Remeron] 15 mg PO HS 10/11/19 10/11/19 traMADol HCl [Ultram] 50 mg PO Q6H PRN 10/11/19 10/11/19 Previous Rx's Medication Instructions Recorded Atorvastatin [Lipitor] 80 mg PO HS #30 tab 04/09/17 Clopidogrel [Plavix] 75 mg PO DAILY #90 tab 04/09/17 Nitroglycerin Sl Tabs [Nitrostat] 0.4 mg SUBLINGUAL Q5M PRN #100 tab 04/09/17 Furosemide [Lasix] 40 mg PO DAILY #30 tab 09/28/17 Allergies Allergy/AdvReac Type Severity Reaction Status Date / Time Penicillins Allergy Unknown Verified 10/11/19 10:48 pneumococcal 23-valent Allergy Rash/Hives Verified 10/11/19 10:48 polysacchari [From Pneumovax ] adhesive tape AdvReac Unknown Verified 10/11/19 10:48 Review of Systems ROS Statement: Those systems with pertinent positive or pertinent negative responses have been documented in the HPI. ROS Other: All systems not noted in ROS Statement are negative. Past Medical History Past Medical History: Cancer, Heart Failure, COPD, Hearing Disorder / Deafness, Hyperlipidemia, Myocardial Infarction (ID), Pneumonia, Respiratory Disorder, Thyroid Disorder Additional Past Medical History / Comment(s): Colon ca with SX, hypothyroid, tracheobronchitis, diverticulitis,[place] bilaterally, wears 2L at home. Pt denies arthritis, HTN or pulmonary HTN that are in PMR. Recent heart stent placement on April 05, 2017. Last Myocardial Infarction Date:: 2016 History of Any Multi-Drug Resistant Organisms: None Reported Past Surgical History: Appendectomy, Bowel Resection, Section, Cholecystectomy, Hysterectomy, Orthopedic Surgery, Tonsillectomy Additional Past Surgical History / Comment(s): colectomy for cancer, thyroi dectomy, bilateral cataract removal with lens implants, C- Sections x 3, L foot fx with surgical repair, colonoscopies with polypectomy. Past Anesthesia/Blood Transfusion Reactions: Motion Sickness Additional Past Anesthesia/Blood Transfusion Reaction / Comment(s): has never had a blood transfusion Past Psychological History: Anxiety Smoking Status: Former smoker Past Alcohol Use History: None Reported Past Drug Use History: None Reported - Past Family History Father Additional Family Medical History / Comment(s): Pt did not know her father well. He was an alcoholic and from it. Mother Family Medical History: Myocardial Infarction (ID) Additional Family Medical History / Comment(s): Mother of an ID at age 51yrs. General Exam - General Exam Comments Initial Comments: General: The patient is awake and alert, in no distress Eye: +3 mm pupils are equal, round and reactive to light, extra-ocular movements are intact. No nystagmus. There is normal conjunctiva bilaterally. No signs of icterus. Ears, nose, mouth and throat: There are moist mucous membranes and no oral lesions. Neck: The neck is supple, there is no tenderness or JVD. Cardiovascular: There is a regular rate and rhythm. No murmur, rub or gallop is appreciated. Respiratory: Diminished lung sounds, slightly increased respiration rate, breath sounds are equal. No wheezes, stridor, rales, or rhonchi. Gastrointestinal: Soft, non-distended, non-tender abdomen without masses or organomegaly noted. There is no rebound or guarding present. Musculoskeletal: Normal ROM, no tenderness. Strength 5/5 of the upper and lower extremities equal and comparison bilaterally. Curriculum Development Manager strength. Sensation in tact face abdomen back upper and lower extremities patient has temperature sensation intact withdrawn and cold stimuli. Radial and DP pulses equal bilaterally 2+. No LE edema. Neurological: A&O x 3. CN II-XII intact, There are no obvious motor or sensory deficits. Coordination appears grossly intact. Speech is normal. No drift of the upper or lower extremities. Skin: Skin is warm and dry and no rashes or lesions are noted. Psychiatric: Cooperative, distracted easily NIH for date, otherwise no abnormalities. Limitations: no limitations Course Vital Signs 10/11/19 10/11/19 10/11/19 09:45 10:56 11:04 Temperature 98.0 F Pulse Rate 77 79 83 Respiratory 24 Rate Blood Pressure 113/77 O2 Sat by Pulse 97 Oximetry 10/11/19 12:39 Temperature 98.4 F Pulse Rate 68 Respiratory 18 Rate Blood Pressure 102/47 O2 Sat by Pulse 96 Oximetry Medical Decision Making - Medical Decision Making 89-year-old feel presents today for chief complaint of confusion. No focal neurological deficits. Patient is confused on the date. Patient's laboratory s tudies reveal acute kidney injury. No signs of urinary tract infection. EKG revealed a nonspecific intraventricular block. Patient is no complete a chest pain shortness of breath. Chest x-ray revealed no acute process. BNP is near baseline previous as high as 9000, no evidence of fluids overload on leg exam. Patient CT brain (-) for acute process. At this time however give patient continues to have global confusion she will be transferred to [facility] where neurology is available for consultation evaluation and MRI. I discussed cause with both attending and IM kayla Nino who are both in agreeable/recommend transfer. Patient family notified patient transferred in stable condition. - Lab Data Result diagrams: 10/11/19 09:55 10/11/19 09:55 Lab Results 10/11/19 10/11/19 10/11/19 Range/Units 09:55 09:55 09:55 WBC 6.3 (3.8-10.6) k/uL RBC 2.89 L (3.80-5.40) m/uL Hgb 9.2 L (11.4-16.0) gm/dL Hct 27.7 L (34.0-46.0) % MCV 95.9 (80.0-100.0) fL MCH 31.8 (25.0-35.0) pg MCHC 33.1 (31.0-37.0) g/dL RDW 12.5 (11.5-15.5) % Plt Count 202 (150-450) k/uL Neutrophils % 63 % Lymphocytes % 28 % Monocytes % 5 % Eosinophils % 2 % Basophils % 0 % Neutrophils # 3.9 (1.3-7.7) k/uL Lymphocytes # 1.7 (1.0-4.8) k/uL Monocytes # 0.3 (0-1.0) k/uL Eosinophils # 0.1 (0-0.7) k/uL Basophils # 0.0 (0-0.2) k/uL PT 10.1 (9.0-12.0) sec INR 0.9 (<1.2) APTT 24.9 (22.0-30.0) sec Sodium 143 (137-145) mmol/L Potassium 4.8 (3.5-5.1) mmol/L Chloride 108 H (98-107) mmol/L Carbon Dioxide 25 (22-30) mmol/L Anion Gap 10 mmol/L BUN 61 H (7-17) mg/dL Creatinine 2.22 H (0.52-1.04) mg/dL Est GFR (CKD-EPI)AfAm 22 (>60 ml/min/1.73 sqM) Est GFR (CKD-EPI)NonAf 19 (>60 ml/min/1.73 sqM) Glucose 101 H (74-99) mg/dL POC Glucose (mg/dL) (75-99) mg/dL POC Glu Locomotive Pipe Fitter ID Plasma Lactic Acid Ethan (0.7-2.0) mmol/L Calcium 9.5 (8.4-10.2) mg/dL Total Bilirubin 0.5 (0.2-1.3) mg/dL AST 30 (14-36) U/L ALT 28 (9-52) U/L Alkaline Phosphatase 105 (38-126) U/L Ammonia (<30) umol/L Troponin I (0.000-0.034) ng/mL NT-Pro-B Natriuret Pep pg/mL Total Protein 6.5 (6.3-8.2) g/dL Albumin 3.7 (3.5-5.0) g/dL Urine Color Urine Appearance (Clear) Urine pH (5.0-8.0) Ur Specific [place] (1.001-1.035) Urine Protein (Negative) Urine Glucose (UA) (Negative) Urine Ketones (Negative) Urine Blood (Negative) Urine Nitrite (Negative) Urine Bilirubin (Negative) Urine Urobilinogen (<2.0) mg/dL Ur Leukocyte Esterase (Negative) Urine Opiates Screen (NotDetected) Ur Oxycodone Screen (NotDetected) Urine Methadone Screen (NotDetected) Ur Propoxyphene Screen (NotDetected) Ur Barbiturates Screen (NotDetected) U Tricyclic Antidepress (NotDetected) Ur Phencyclidine Scrn (NotDetected) Ur Amphetamines Screen (NotDetected) U Methamphetamines Scrn (NotDetected) U Benzodiazepines Scrn (NotDetected) Urine Cocaine Screen (NotDetected) U Marijuana (THC) Screen (NotDetected) 10/11/19 10/11/19 10/11/19 Range/Units 09:55 09:55 09:55 WBC (3.8-10.6) k/uL RBC (3.80-5.40) m/uL Hgb (11.4-16.0) gm/dL Hct (34.0-46.0) % MCV (80.0-100.0) fL MCH (25.0-35.0) pg MCHC (31.0-37.0) g/dL RDW (11.5-15.5) % Plt Count (150-450) k/uL Neutrophils % % Lymphocytes % % Monocytes % % Eosinophils % % Basophils % % Neutrophils # (1.3-7.7) k/uL Lymphocytes # (1.0-4.8) k/uL Monocytes # (0-1.0) k/uL Eosinophils # (0-0.7) k/uL Basophils # (0-0.2) k/uL PT (9.0-12.0) sec INR (<1.2) APTT (22.0-30.0) sec Sodium (137-145) mmol/L Potassium (3.5-5.1) mmol/L Chloride (98-107) mmol/L Carbon Dioxide (22-30) mmol/L Anion Gap mmol/L BUN (7-17) mg/dL Creatinine (0.52-1.04) mg/dL Est GFR (CKD-EPI)AfAm (>60 ml/min/1.73 sqM) Est GFR (CKD-EPI)NonAf (>60 ml/min/1.73 sqM) Glucose (74-99) mg/dL POC Glucose (mg/dL) (75-99) mg/dL POC Glu Locomotive Pipe Fitter ID Plasma Lactic Acid Ethan 1.2 (0.7-2.0) mmol/L Calcium (8.4-10.2) mg/dL Total Bilirubin (0.2-1.3) mg/dL AST (14-36) U/L ALT (9-52) U/L Alkaline Phosphatase (38-126) U/L Ammonia <9 (<30) umol/L Troponin I 0.027 (0.000-0.034) ng/mL NT-Pro-B Natriuret Pep 7100 pg/mL Total Protein (6.3-8.2) g/dL Albumin (3.5-5.0) g/dL Urine Color Urine Appearance (Clear) Urine pH (5.0-8.0) Ur Specific [place] (1.001-1.035) Urine Protein (Negative) Urine Glucose (UA) (Negative) Urine Ketones (Negative) Urine Blood (Negative) Urine Nitrite (Negative) Urine Bilirubin (Negative) Urine Urobilinogen (<2.0) mg/dL Ur Leukocyte Esterase (Negative) Urine Opiates Screen (NotDetected) Ur Oxycodone Screen (NotDetected) Urine Methadone Screen (NotDetected) Ur Propoxyphene Screen (NotDetected) Ur Barbiturates Screen (NotDetected) U Tricyclic Antidepress (NotDetected) Ur Phencyclidine Scrn (NotDetected) Ur Amphetamines Screen (NotDetected) U Methamphetamines Scrn (NotDetected) U Benzodiazepines Scrn (NotDetected) Urine Cocaine Screen (NotDetected) U Marijuana (THC) Screen (NotDetected) 10/11/19 10/11/19 Range/Units 10:25 10:29 WBC (3.8-10.6) k/uL RBC (3.80-5.40) m/uL Hgb (11.4-16.0) gm/dL Hct (34.0-46.0) % MCV (80.0-100.0) fL MCH (25.0-35.0) pg MCHC (31.0-37.0) g/dL RDW (11.5-15.5) % Plt Count (150-450) k/uL Neutrophils % % Lymphocytes % % Monocytes % % Eosinophils % % Basophils % % Neutrophils # (1.3-7.7) k/uL Lymphocytes # (1.0-4.8) k/uL Monocytes # (0-1.0) k/uL Eosinophils # (0-0.7) k/uL Basophils # (0-0.2) k/uL PT (9.0-12.0) sec INR (<1.2) APTT (22.0-30.0) sec Sodium (137-145) mmol/L Potassium (3.5-5.1) mmol/L Chloride (98-107) mmol/L Carbon Dioxide (22-30) mmol/L Anion Gap mmol/L BUN (7-17) mg/dL Creatinine (0.52-1.04) mg/dL Est GFR (CKD-EPI)AfAm (>60 ml/min/1.73 sqM) Est GFR (CKD-EPI)NonAf (>60 ml/min/1.73 sqM) Glucose (74-99) mg/dL POC Glucose (mg/dL) 105 H (75-99) mg/dL POC Glu Locomotive Pipe Fitter ID Pat Burton Plasma Lactic Acid Ethan (0.7-2.0) mmol/L Calcium (8.4-10.2) mg/dL Total Bilirubin (0.2-1.3) mg/dL AST (14-36) U/L ALT (9-52) U/L Alkaline Phosphatase (38-126) U/L Ammonia (<30) umol/L Troponin I (0.000-0.034) ng/mL NT-Pro-B Natriuret Pep pg/mL Total Protein (6.3-8.2) g/dL Albumin (3.5-5.0) g/dL Urine Color Yellow Urine Appearance Clear (Clear) Urine pH 5.0 (5.0-8.0) Ur Specific [place] 1.011 (1.001-1.035) Urine Protein Negative (Negative) Urine Glucose (UA) Negative (Negative) Urine Ketones Negative (Negative) Urine Blood Negative (Negative) Urine Nitrite Negative (Negative) Urine Bilirubin Negative (Negative) Urine Urobilinogen <2.0 (<2.0) mg/dL Ur Leukocyte Esterase Negative (Negative) Urine Opiates Screen Not Detected (NotDetected) Ur Oxycodone Screen Not Detected (NotDetected) Urine Methadone Screen Not Detected (NotDetected) Ur Propoxyphene Screen Not Detected (NotDetected) Ur Barbiturates Screen Not Detected (NotDetected) U Tricyclic Antidepress Not Detected (NotDetected) Ur Phencyclidine Scrn Not Detected (NotDetected) Ur Amphetamines Screen Not Detected (NotDetected) U Methamphetamines Scrn Not Detected (NotDetected) U Benzodiazepines Scrn Not Detected (NotDetected) Urine Cocaine Screen Not Detected (NotDetected) U Marijuana (THC) Screen Not Detected (NotDetected) - EKG Data EKG Comments: Ventricular rate 73 bpm, MS interval 168 ms, QRS duration 138 ms, QT/QTC 448/493 ms. Normal sinus nonspecific interventricular block abnormal QRST angle Disposition Clinical Impression: ANGELES (acute kidney injury), Altered mental status, Confusion Disposition: OTHER INSTITUTION NOT DEFINED Condition: Stable Is patient prescribed a controlled substance at d/c from ED?: No Referrals: Charanjit Torres MD [Primary Care Provider] - 1-2 days Time of Disposition: 13:03 - Out of Hospital Transfer - Req. Specs Out of Hospital Transfer - Requested Specifics: Other Emergency Center ([facility])
[2019-10-11 10:30] LABS: Ammonia <9 umol/L (<30); Lactic Acid, Venous 1.2 mmol/L (0.7-2.0)
[2019-10-11 10:31] LABS: INR 0.9 (<1.2); Partial Thromboplastin Time 24.9 sec (22.0-30.0); Prothrombin Time 10.1 sec (9.0-12.0)
[2019-10-11 10:32] LABS: Glucose,Whole Blood 105 mg/dL (75-99)
[2019-10-11 10:33] LABS: Albumin 3.7 g/dL (3.5-5.0); Calcium 9.5 mg/dL (8.4-10.2); Potassium 4.8 mmol/L (3.5-5.1); Total Bilirubin 0.5 mg/dL (0.2-1.3); Total Protein 6.5 g/dL (6.3-8.2)
[2019-10-11 10:34] LABS: Appearance,Urine Clear (Clear); Bilirubin,Urine Negative (Negative); Blood,Urine Negative (Negative); Color,Urine Yellow; Glucose,Urine (UA) Negative (Negative); Ketones,Urine Negative (Negative); Leukocyte Esterase,Urine Negative (Negative); Nitrite,Urine Negative (Negative); Protein,Urine Negative (Negative); Specific Gravity,Urine 1.011 (1.001-1.035); Urobilinogen,Urine <2.0 mg/dL (<2.0)
[2019-10-11 10:43] LABS: Amphetamine Screen,Urine Not Detected (NotDetected); Barbiturate Screen,Urine Not Detected (NotDetected); Benzodiazepines Screen,Urine Not Detected (NotDetected); Cocaine Screen,Urine Not Detected (NotDetected); Methadone Screen, Urine Not Detected (NotDetected); Opiate Screen,Urine Not Detected (NotDetected); Oxycodone Screen, Urine Not Detected (NotDetected); Phencyclidine Screen,Urine Not Detected (NotDetected); Tricyclic Antidepressant,Urine Not Detected (NotDetected); Urn Cannabinoid Scrn Not Detected (NotDetected)
--- NOTE | 2019-10-11 11:29 | CT ---
EXAMINATION TYPE: CT brain wo con DATE OF EXAM: 10/11/2019 HISTORY: Altered mental status COMPARISON: None TECHNIQUE: 1. Axial CT images of the head without contrast. Bone windows and sagittal and coronal reformats were reviewed. 2. CT DLP: 1094.4 mGycm Automated exposure control for dose reduction was used. FINDINGS: No acute intracranial hemorrhage. Scattered periventricular and deep cortical white matter areas of l ow attenuation, likely representing sequela of chronic microangiopathy. No acute loss of trejo-white m atter differentiation to suggest large territorial infarction. Mild cerebral volume loss with appropriate size and morphology of the ventricular system. No extra-ax ial fluid collections or midline shift of structures. Patent basal cisterns. No depressed or displaced calvarial fracture. Intracranial vascular calcifications. Visualized parana hiram sinuses and temporal bone structures are well aerated. The orbits and skull base are unremarkable . IMPRESSION: 1. No acute intracranial abnormality. 2. Senescent changes including cerebral volume loss and sequale of chronic microangiopathy. 3. If there is sufficient clinical concern for acute ischemia, further evaluation with brain MRI is r ecommended.
--- NOTE | 2019-10-11 12:04 | XR ---
EXAMINATION TYPE: XR chest 1V portable DATE OF EXAM: 10/11/2019 COMPARISON: Chest x-ray 12/30/2018 HISTORY: Shortness of breath, fever, chills TECHNIQUE: Single frontal view of the chest is obtained. FINDINGS: Prominent cardiac silhouettes, unchanged. No pulmonary vascular congestion. Interstitial m arkings are prominent likely chronic. No focal airspace consolidation. Unchanged upper lung nodules. Left diaphragmatic eventration. No sizable pleural effusion or pneumothorax. IMPRESSION: No acute process.
[2019-10-11 12:45] VITALS: RESP 18
[2019-10-11 13:34] VITALS: BP 95/46; PULSE 78; TEMP 98.5
== END 2019-10-11 14:12 | disposition short-term general hospital (02) ==
LOC: EC 09:37
DX: N17.9 Acute kidney failure, unspecified (principal); I45.4 Nonspecific intraventricular block; R09.89 Other specified symptoms and signs involving the circulatory and respiratory systems; M54.5 Low back pain; J44.9 Chronic obstructive pulmonary disease, unspecified; I50.9 Heart failure, unspecified; E03.9 Hypothyroidism, unspecified; H91.93 Unspecified hearing loss, bilateral; Z87.891 Personal history of nicotine dependence; Z88.0 Allergy status to penicillin; Z88.1 Allergy status to other antibiotic agents; Z91.048 Other nonmedicinal substance allergy status; Z79.51 Long term (current) use of inhaled steroids; Z79.82 Long term (current) use of aspirin; Z79.890 Hormone replacement therapy; Z79.899 Other long term (current) drug therapy; Z85.038 Personal history of other malignant neoplasm of large intestine; Z90.49 Acquired absence of other specified parts of digestive tract; Z99.81 Dependence on supplemental oxygen; Z95.818 Presence of other cardiac implants and grafts; Z82.49 Family history of ischemic heart disease and other diseases of the circulatory system
CPT/HCPCS: 36415; 70450; 71045; 80053; 80306; 81003; 82140; 83605; 83880; 84484; 85025; 85610; 85730; 87040; 93005; 94640; 96360; 96361; 99285

== ENCOUNTER 2019-10-14 03:20 | Inpatient (IN) | payer MEDICARE ==
[2019-10-14] MEDS ORDERED: IPRATROPIUM-ALBUTEROL 3 ML NEB ONE (04:25)
[2019-10-14] MEDS ORDERED: methylPREDNISolone SOD SUCCI 125 MG/2 ML VIAL ONE (04:25)
[2019-10-14] MEDS ORDERED: SODIUM CHLORIDE 0.9% 1,000 ML BAG ONE (04:25)
[2019-10-14] MEDS ORDERED: NALOXONE 0.4 MG/ML 1 ML VIAL IV PRN (07:00)
--- NOTE | 2019-10-14 07:13 | P.HPIM ---
History of Present Illness H&P Date: 10/14/19 Patient is an 89-year-old female with a PMH of COPD, chronic hypoxic resp failure (on 2 L NC continuously at home), coronary artery disease status post single stent, significant history of tobacco abuse, systolic and diastolic CHF, and hx of colonic malignancy presented to the hospital with complaints of gradually worsening shortness of breath and nonproductive cough. She notes that her symptoms have been progressively worsening for about a week and that she has had minimal improvement with her breathing despite use of her inhalers. The patient however denied fever, chills, chest pain, dizziness, nausea, vomiting, or diaphoresis. She also denied abdominal pain, diarrhea, or leg pain. She underwent extensive evaluation in the emergency room with chest x-ray that revealed cardiomegaly along with mild bilateral pleural effusions with mild pulmonary edema and left lower lobe opacity concerning for atelectasis versus aspiration. Laboratory evaluation revealed a WBC count of 17, sodium 145, potassium 4.7, BUN 49, creatinine 1.24, with a troponin elevated at 0.64. She is being admitted to the medicine service for acute COPD exacerbation and community acquired pneumonia. Review of Systems Pertinent positives and negatives as discussed in HPI, a complete review of systems was performed and all other systems are negative. Past Medical History Past Medical History: Cancer, Heart Failure, COPD, Hearing Disorder / Deafness, Hyperlipidemia, Myocardial Infarction (NV), Pneumonia, Respiratory Disorder, Thyroid Disorder Additional Past Medical History / Comment(s): Colon ca with SX, hypothyroid, tracheobronchitis, diverticulitis,[place] bilaterally, wears 2L at home. Pt denies arthritis, HTN or pulmonary HTN that are in PMR. Recent heart stent placement on April 05, 2017. Last Myocardial Infarction Date:: 2016 History of Any Multi-Drug Resistant Organisms: None Reported Past Surgical History: Appendectomy, Bowel Resection, Section, Cholecystectomy, Hysterectomy, Orthopedic Surgery, Tonsillectomy Additional Past Surgical History / Comment(s): colectomy for cancer, thyroidectomy, bilateral cataract removal with lens implants, C- Sections x 3, L foot fx with surgical repair, colonoscopies with polypectomy. Past Anesthesia/Blood Transfusion Reactions: Motion Sickness Additional Past Anesthesia/Blood Transfusion Reaction / Comment(s): has never had a blood transfusion Past Psychological History: Anxiety Smoking Status: Former smoker Past Alcohol Use History: None Reported Past Drug Use History: None Reported - Past Family History Father Additional Family Medical History / Comment(s): Pt did not know her father well. He was an alcoholic and from it. Mother Family Medical History: Myocardial Infarction (NV) Additional Family Medical History / Comment(s): Mother of an NV at age 51yrs. Medications and Allergies Home Medications Medication Instructions Recorded Confirmed Type Levothyroxine Sodium [Synthroid] 100 mcg PO MOTUWETHFRSA 01/17/16 10/11/19 History Budesonide [Pulmicort] 0.5 mg INHALATION RT-BID 04/02/17 10/11/19 History Atorvastatin [Lipitor] 80 mg PO HS #30 tab 04/09/17 10/11/19 Rx Clopidogrel [Plavix] 75 mg PO DAILY #90 tab 04/09/17 10/11/19 Rx Nitroglycerin Sl Tabs [Nitrostat] 0.4 mg SUBLINGUAL Q5M PRN #100 tab 04/09/17 10/11/19 Rx Furosemide [Lasix] 40 mg PO DAILY #30 tab 09/28/17 10/11/19 Rx Ferrous Sulfate [Feosol] 325 mg PO DAILY 04/18/18 10/11/19 History Ipratropium-Albuterol Nebulize 3 ml INHALATION RT-QID PRN 04/18/18 10/11/19 History [Duoneb 0.5 mg-3 mg/3 ml Soln] Multivit with Calcium,Iron,Min 1 tab PO DAILY 04/18/18 10/11/19 History [Women's Multivitamin] Spironolactone [Aldactone] 12.5 mg PO DAILY 04/18/18 10/11/19 History Aspirin EC [Ecotrin Low Dose] 81 mg PO DAILY 12/10/18 10/11/19 History Carvedilol [Coreg] 6.25 mg PO BID 12/10/18 10/11/19 History ALPRAZolam [Xanax] 0.25 mg PO DAILY PRN 10/11/19 10/11/19 History Baclofen [Lioresal] 10 mg PO TID PRN 10/11/19 10/11/19 History Losartan Potassium [Cozaar] 25 mg PO HS 10/11/19 10/11/19 History Mirtazapine [Remeron] 15 mg PO HS 10/11/19 10/11/19 History traMADol HCl [Ultram] 50 mg PO Q6H PRN 10/11/19 10/11/19 History Allergies Allergy/AdvReac Type Severity Reaction Status Date / Time Penicillins Allergy Unknown Verified 10/11/19 10:48 pneumococcal 23-valent Allergy Rash/Hives Verified 10/11/19 10:48 polysacchari [From Pneumovax 23] adhesive tape AdvReac Unknown Verified 10/11/19 10:48 Physical Exam Vitals: Vital Signs Pulse 10/14/19 04:52 80 10/14/19 04:42 80 10/14/19 03:37 92 10/14/19 03:27 94 General: Elderly female in mild respiratory distress, appears at stated age, normal weight Derm: no unusual rashes/lesions no unusual ecchymoses, warm, dry Head: atraumatic, normocephalic, symmetric Eyes: EOMI, no lid lag, anicteric sclera, pupils equal round reactive to light ENT: Nose and ears atraumatic, no thrush, no pharyngeal erythema Neck: No thyromegaly, no cervical lymphadenopathy, trachea midline, supple Mouth: no lip lesion, mucus membranes moist Cardiovascular: S1S2 reg, no murmur, positive posterior tibial pulse bilateral, no edema, capillary refill less than 2 seconds Lungs: Poor air entry bilaterally with scattered coarse breath sounds and some wheezing, no rales , no accessory muscle use Abdominal: soft, nontender to palpation, no guarding, no appreciable organomegaly, normal bowel sounds Ext: no gross muscle atrophy, muscle strength 5 out of 5 in all 4 extremities grossly, no contractures, Neuro: CN II-XI grossly intact, light touch intact all 4 extremities, finger to nose within normal limits, Psych: Alert, oriented, appropriate affect Assessment and Plan Plan: Acute COPD exacerbation -Continue with DuoNeb's and Solu-Medrol -Pulmonary consult -Supplemental oxygen Community acquired pneumonia -Start Azithromycin and Ceftriaxone Acute on chronic hypoxic respiratory failure -Supplemental oxygen as needed Troponin elevation -Possibly secondary to demand ischemia due to acute COPD exacerbation -Cardiac monitoring -Continue with aspirin and statin -Trend troponin -Cardiology consult ANGELES, likely prerenal -Judicious use of IV fluids due to history of CHF -Hold home dose of Lasix and Aldactone for now -Monitor BMP Chronic systolic and diastolic CHF, not in acute exacerbation -Cardiac monitoring Chronic conditions: Hyperlipidemia, Hypertension, hypothyroidism -Continue with home meds DVT prophylaxis -Heparin subq The patient is admitted with an anticipated greater than 2 midnight stay for evaluation of acute COPD exacerbation and pneumonia CODE STATUS: Full Code Discussed with: Patient Anticipated discharge date: 2-[address]: Home A total of 40 minutes was spent on the care of this complex patient more than 50% of the time was spent in counseling and care coordination.
[2019-10-14 07:28] LABS: Basophils % (A) 0 %; Eosinophils % (A) 0 %; HCT 26.4 % (34.0-46.0); HGB 8.6 gm/dL (11.4-16.0); Hypochromasia Slight; Lymphocytes # (A) 1.2 k/uL (1.0-4.8); Lymphocytes % (A) 7 %; MCH 32.2 pg (25.0-35.0); MCHC 32.4 g/dL (31.0-37.0); MCV 99.2 fL (80.0-100.0); Mean Platelet Volume 6.9; Monocytes # (A) 0.7 k/uL (0-1.0); Monocytes % (A) 4 %; Neutrophils # (A) 15.5 k/uL (1.3-7.7); Neutrophils % (A) 88 %; Platelet Count 163 k/uL (150-450); RBC 2.66 m/uL (3.80-5.40); RDW 12.9 % (11.5-15.5); WBC 17.6 k/uL (3.8-10.6)
[2019-10-14 07:29] LABS: INR 0.9 (<1.2); Partial Thromboplastin Time 24.5 sec (22.0-30.0)
[2019-10-14 07:34] LABS: Albumin 3.7 g/dL (3.5-5.0); Calcium 9.8 mg/dL (8.4-10.2); Magnesium 2.3 mg/dL (1.6-2.3); Potassium 4.7 mmol/L (3.5-5.1); Total Bilirubin 0.5 mg/dL (0.2-1.3); Total Protein 6.4 g/dL (6.3-8.2)
[2019-10-14] MEDS ORDERED: IPRATROPIUM-ALBUTEROL 3 ML NEB INHALATION PRN ×2 (08:02→15:43)
[2019-10-14] MEDS ORDERED: ASPIRIN 325 MG TAB PO STA (08:02)
--- NOTE | 2019-10-14 08:41 | XR ---
EXAM: XR Chest, 2 Views CLINICAL HISTORY: SOB TECHNIQUE: Frontal and lateral views of the chest. COMPARISON: No relevant prior studies available. IMPRESSION: Cardiomegaly. Mild bilateral pleural effusions. Mild pulmonary edema. Left lower lobe opacity, possibly aspiration versus atelectasis.
[2019-10-14] MEDS: HEPARIN SODIUM,PORCINE 5,000 UNIT/ML 1 ML VIAL SQ SCH ×2 (10:11→16:05)
[2019-10-14] MEDS: AZITHROMYCIN 500 MG TAB PO SCH (10:11)
[2019-10-14] MEDS: IPRATROPIUM-ALBUTEROL 3 ML NEB INHALATION SCH ×3 (11:35→19:07)
[2019-10-14] MEDS ORDERED: NITROGLYCERIN SL TABS 0.4 MG TAB SUBLINGUAL PRN (15:43)
[2019-10-14] MEDS ORDERED: ALPRAZolam 0.25 MG TAB PO PRN (15:43)
[2019-10-14] MEDS ORDERED: traMADol 50 MG TAB PO PRN (15:43)
[2019-10-14] MEDS: methylPREDNISolone SOD SUCCI 125 MG/2 ML VIAL IV SCH ×2 (16:05→23:34)
[2019-10-14] MEDS ORDERED: HEPARIN SODIUM,PORCINE 5,000 UNIT/ML 1 ML VIAL IV ONE (16:21)
[2019-10-14] MEDS ORDERED: HEPARIN SODIUM,PORCINE 5,000 UNIT/ML 1 ML VIAL IV PRN (16:21)
--- NOTE | 2019-10-14 16:28 | P.CNPUL ---
History of Present Illness Consult date: 10/14/19 Requesting physician: Calos Mistry Reason for consult: dyspnea, cough, abnormal CXR/CT Chief complaint: Dyspnea and cough History of present illness: This is a 89-year-old white female patient with extensive medical history that includes COPD on home oxygen at 2 L, coronary artery disease with previous stenting, significant history of tobacco dependence, history of chronic systolic and diastolic congestive heart failure, hypothyroidism, previous history of myocardial infarction, hypertension, previous history of colectomy for colon cancer, anxiety, who presented to the emergency department today on 10/14/2019 for evaluation of worsening shortness of breath and nonproductive cough. Julieth nevarez has been having the symptoms for last week, and she was actually seen in the emergency department on 10/11/2019 for evaluation of altered mental status, brain CT was negative, in view of lack of neurology coverage at the time of this hospital patient was transferred to [facility] for neurological evaluation. Neurological evaluation determined that the cause of altered mentation was encephalopathy related to muscle relaxant and Xanax. Patient was discharged from there yesterday. Patient presented to the emergency department today on 10/14/2019 after she developed increasing shortness of breath, she had episode of midsternal chest pain early in the morning at 4:00 that lasted approximately 20 minutes and was relieved by sublingual nitroglycerin. Patient has denied any fever or chills, no nausea, vomiting or diarrhea. Chest x-ray showed mild bilateral pleural effusions, mild pulmonary edema and left lower lobe opacity concerning for atelectasis versus infiltrate. White blood cell count was 17, hemoglobin is 8.6, coagulation profile is within normal limits, sodium is 145, potassium is 4.7, part is 1:15, CO2 is 21, BUN is 49, creatinine is 1.2 for renal profile is actually improved from a few days ago on 10/11/2019, troponin is positive at 0.642, and 1.080. EKG showed normal sinus rhythm with left bundle branch block. Patient is afebrile, hemodynamically stable, he is on 3 L of oxygen with a pulse ox of 99 -100%. Lung sounds are positive for congestive cough, scattered rhonchi, wheezing. She has been started on nebulized bronchodilators, empiric antibiotics and IV steroids Review of Systems All systems: negative Constitutional: Denies chills, Denies fever Eyes: denies blurred vision, denies pain Ears, nose, mouth and throat: Denies headache, Denies sore throat Cardiovascular: Reports dyspnea on exertion, Denies chest pain, Denies shortness of breath Respiratory: Reports cough, Reports dyspnea Gastrointestinal: Denies abdominal pain, Denies diarrhea, Denies nausea, Denies vomiting Genitourinary: Denies dysuria, Denies hematuria Musculoskeletal: Denies myalgias Integumentary: Denies pruritus, Denies rash Neurological: Denies numbness, Denies weakness Psychiatric: Denies anxiety, Denies depression Endocrine: Denies fatigue, Denies weight change Past Medical History Past Medical History: Cancer, Heart Failure, COPD, Hearing Disorder / Deafness, Hyperlipidemia, Hypertension, Myocardial Infarction (LA), Osteoarthritis (OA), Pneumonia, Respiratory Disorder, Thyroid Disorder Additional Past Medical History / Comment(s): Pt recently came to [facility] on 10/11/19 with altered mental status/confusion/ANGELES and was transferred to [facility]- states she thinks her confusion was d/t medications, colon ca with SX, diverticular disease, hypothyroid, tracheobronchitis, cardiomyopathy, diverticulitis,cachil dehe bilaterally, wears 2L at home ATC, hypothyroid, anemia Last Myocardial Infarction Date:: 2016 History of Any Multi-Drug Resistant Organisms: None Reported Past Surgical History: Appendectomy, Bowel Resection, Section, Cholecystectomy, Hysterectomy, Orthopedic Surgery, Tonsillectomy Additional Past Surgical History / Comment(s): colectomy for cancer, thyroidectomy, bilateral cataract removal with lens implants, C- Sections x 3, L foot fx with surgical repair, colonoscopies with polypectomy. Past Anesthesia/Blood Transfusion Reactions: Motion Sickness Additional Past Anesthesia/Blood Transfusion Reaction / Comment(s): has never had a blood transfusion Smoking Status: Former smoker - Past Family History Father Additional Family Medical History / Comment(s): Pt did not know her father well. He was an alcoholic and from it. Mother Family Medical History: Myocardial Infarction (LA) Additional Family Medical History / Comment(s): Mother of an LA at age 51yrs. Medications and Allergies Home Medications Medication Instructions Recorded Confirmed Type Levothyroxine Sodium [Synthroid] 100 mcg PO MOTUWETHFRSA 01/17/16 10/14/19 History Budesonide [Pulmicort] 0.5 mg INHALATION RT-BID 04/02/17 10/14/19 History Atorvastatin [Lipitor] 80 mg PO HS #30 tab 04/09/17 10/14/19 Rx Clopidogrel [Plavix] 75 mg PO DAILY #90 tab 04/09/17 10/14/19 Rx Nitroglycerin Sl Tabs [Nitrostat] 0.4 mg SUBLINGUAL Q5M PRN #100 tab 04/09/17 10/14/19 Rx Furosemide [Lasix] 40 mg PO DAILY #30 tab 09/28/17 10/14/19 Rx Ferrous Sulfate [Feosol] 325 mg PO DAILY 04/18/18 10/14/19 History Ipratropium-Albuterol Nebulize 3 ml INHALATION RT-QID PRN 04/18/18 10/14/19 History [Duoneb 0.5 mg-3 mg/3 ml Soln] Multivit with Calcium,Iron,Min 1 tab PO DAILY 04/18/18 10/14/19 History [Women's Multivitamin] Aspirin EC [Ecotrin Low Dose] 81 mg PO DAILY 12/10/18 10/14/19 History Carvedilol [Coreg] 6.25 mg PO BID 12/10/18 10/14/19 History ALPRAZolam [Xanax] 0.25 mg PO DAILY PRN 10/11/19 10/14/19 History Losartan Potassium [Cozaar] 25 mg PO HS 10/11/19 10/14/19 History Mirtazapine [Remeron] 15 mg PO HS 10/11/19 10/14/19 History traMADol HCl [Ultram] 50 mg PO Q6H PRN 10/11/19 10/14/19 History predniSONE 20 mg PO DAILY 10/14/19 10/14/19 History Allergies Allergy/AdvReac Type Severity Reaction Status Date / Time Penicillins Allergy Unknown Verified 10/11/19 10:48 pneumococcal 23-valent Allergy Rash/Hives Verified 10/11/19 10:48 polysacchari [From Pneumovax 23] adhesive tape AdvReac Unknown Verified 10/11/19 10:48 Physical Exam Vitals: Vital Signs Temp Pulse Pulse Resp BP BP Pulse Ox 10/14/19 15:31 90 10/14/19 15:20 98.1 F 73 22 130/70 100 10/14/19 11:47 80 10/14/19 11:35 97.3 F L 77 77 24 136/64 99 10/14/19 08:23 92 10/14/19 08:13 92 10/14/19 08:00 97.7 F 89 24 115/63 96 10/14/19 04:52 80 10/14/19 04:42 80 10/14/19 03:37 92 10/14/19 03:27 94 Intake and Output 10/14/19 10/14/19 10/14/19 06:59 14:59 22:59 Intake Total 350 Output Total 300 Balance 50 Intake: IV 50 cefTRIAXone 1 gm In 50 Sodium Chloride 0.9% 50 ml @ 100 mls/hr IVPB Q24HR [facility] Rx#:[id number] Oral 300 Output: Urine 300 Other: Voiding Method Bedside Commode # Voids 1 Weight 50.9 kg GENERAL EXAM: Alert, pleasant, 89-year-old white female, on 3 L of oxygen with a possible subtle 100% comfortable in no apparent distress. HEAD: Normocephalic/atraumatic. EYES: Normal reaction of pupils, equal size. Conjunctiva pink, sclera white. NOSE: Clear with pink turbinates. THROAT: No erythema or exudates. NECK: No masses, positive JVD, no thyroid enlargement, no adenopathy. CHEST: No chest wall deformity. Symmetrical expansion. LUNGS: Equal air entry with diffuse rhonchi and wheezing CVS: Regular rate and rhythm, normal S1 and S2, no gallops, no murmurs, no rubs ABDOMEN: Soft, nontender. No hepatosplenomegaly, normal bowel sounds, no guarding or rigidity. EXTREMITIES: No clubbing, no edema, no cyanosis, 2+ pulses and upper and lower extremities. MUSCULOSKELETAL: Muscle strength and tone normal. SPINE: No scoliosis or deformity SKIN: No rashes CENTRAL NERVOUS SYSTEM: Alert and oriented -3. No focal deficits, tone is normal in all 4 extremities. PSYCHIATRIC: Alert and oriented -3. Appropriate affect. Intact judgment and insight. Results - Laboratory Findings CBC and BMP: 10/14/19 05:09 10/14/19 04:00 PT/INR, D-dimer PT 10.0 sec (9.0-12.0) 10/14/19 05:09 INR 0.9 (<1.2) 10/14/19 05:09 Abnormal lab findings: Abnormal Labs 10/14/19 10/14/19 10/14/19 04:00 04:00 05:09 WBC 17.6 H RBC 2.66 L Hgb 8.6 L Hct 26.4 L Neutrophils # 15.5 H Chloride 115 H Carbon Dioxide 21 L BUN 49 H Creatinine 1.24 H Glucose 148 H AST 42 H Troponin I 0.642 H* 10/14/19 10:45 WBC RBC Hgb Hct Neutrophils # Chloride Carbon Dioxide BUN Creatinine Glucose AST Troponin I 1.080 H* - Diagnostic Findings Chest x-ray: report reviewed, image reviewed Assessment and Plan Plan: Assessment: #1. Acute on chronic hypoxemic respiratory failure multifactorial related to possibility of acute systolic CHF, acute COPD exacerbation and possibility of left lower lobe pneumonia #2. Chest pain lasting 20 minutes, relieved with by nitroglycerin before presentation #3. Positive troponins #4. Acute kidney injury improving #5. Recent hospitalization for altered mental status, patient was transferred to [facility] for neurologic evaluation on 10/11/2019 #6. Extensive history of smoking #7. History of advanced COPD on home oxygen at 2 L #8. Previous history of myocardial infarction #9. Coronary artery disease with previous stenting #10. Hypothyroidism #11. Previous episodes of pneumonia #12. Anxiety Plan: Continue with empiric antibiotics, continue nebulized bronchodilators and IV steroids, obtain a sputum culture, send a procalcitonin level, we'll obtain a proBNP level, previous echocardiogram was reviewed, showing impaired left ventricle systolic function. Blood culture has been sent, and is pending, patient is afebrile. Patient did have a episode of chest pain before presentation that was relieved by sublingual nitroglycerin, she will likely need cardiology evaluation in view of elevated troponins. We will continue to follow. I performed a history & physical examination of the patient and discussed their management with my nurse practitioner, Jessa Galvez. I reviewed the nurse practitioner's note and agree with the documented findings and plan of care. Lung sounds are positive for diffuse rhonchi and wheezes The findings and the impression was discussed with the patient. I attest to the documentation by the nurse practitioner. Time with Patient: Greater than 30
[2019-10-14] MEDS ORDERED: HEPARIN SOD,PORK IN 0.45% NACL 25,000 UNIT in 0.45% NACL 1 250ML.BAG IV SCH (16:30)
[2019-10-14] MEDS: CARVEDILOL 6.25 MG TAB PO SCH (16:59)
[2019-10-14] MEDS ORDERED: FUROSEMIDE 10 MG/ML 4 ML VIAL IV STA (17:55)
--- NOTE | 2019-10-14 18:11 | P.PN ---
Progress Note - Text Progress Note Date: 10/14/19 (Delayed charting patient seen at 10 AM) Hospitalist Interval Note Patient seen and examined at bedside. Breathing is somewhat better. Still very dyspneic and winded. No overt chest pain now. Apparently the patient was hospitalized from Sunday. Yesterday evening at [facility] secondary to acute exacerbation of COPD and pneumonia. She had been sent there for altered mentation, was placed on BiPAP therapy, and had improvement of her mentation. She was only home for several hours prior to worsening of her shortness of breath, chest pain, and dyspnea. Therefore brought her back to the ER. Vital signs reviewed General: Ill appearing, moderate distress, appears at stated age Derm: warm, dry Head: atraumatic, normocephalic, symmetric Eyes: EOMI, no lid lag, anicteric sclera Mouth: no lip lesion, mucus membranes moist Cardiovascular: S1S2 reg, no murmur, positive posterior tibial pulse bilateral, Lungs: Rhonchi and rales bilaterally, 2 word conversational dyspnea, + accessory muscle use Abdominal: soft, nontender to palpation, no guarding, no appreciable organomegaly Ext: no gross muscle atrophy, 1+ edema, no contractures Neuro: CN II-XI grossly intact, no focal neuro deficits Psych: Alert, oriented, appropriate affect Assessment/Plan: Left lower lobe pneumonia with sepsis associated acute exacerbation of COPD -Continue with budesonide and Solu-Medrol, scheduled DuoNeb's, Mucinex, incentive spirometry, and Zithromax and Rocephin -Consult pulmonary. Patient sees S/P ready on a regular basis -Follow chest x-ray until clear -Pulmonary hygiene Acute on chronic hypoxic respiratory failure -Treatment as above Elevated troponin, suspect stress-induced -Serial troponins -Secondary troponin this afternoon came back elevated. Patient started on a heparin drip, cardiology had already been consulted. -Aspirin, statin, beta jf Acute exacerbation of systolic congestive heart failure, ejection fraction 35- 40% with known hypokinesis -Off oral Lasix and started on IV Lasix -Monitor signs of fluid overload -Continue with ARB and beta jf therapy -Strict I's and O's, daily weights -Cardiology consultation A CAT scan, improving. Creatinine was 2.22 on admission 10/11 -Continue with Lasix -Follow BMP closely with diuresis. Continue arm -Avoid additional nephrotoxic agents Chronic: Hypertension Dyslipidemia Hypothyroidism This is an update note for patient , for full note on 10/14 see H and P. There is no charge associated with this note.
[2019-10-14] MEDS: BUDESONIDE 0.5 MG/2 ML NEBU INHALATION SCH (19:07)
[2019-10-14] MEDS: FORMOTEROL FUMARATE 20 MCG/2 ML NEBU INHALATION SCH (19:40)
[2019-10-14] MEDS: LOSARTAN 25 MG TAB PO SCH (20:25)
[2019-10-14] MEDS: MIRTAZAPINE 15 MG TAB PO SCH (20:25)
[2019-10-14] MEDS: ATORVASTATIN 80 MG TAB PO SCH (20:25)
[2019-10-14] MEDS: guaiFENesin 600 MG TABLET.ER PO SCH (20:25)
[2019-10-15] MEDS: LEVOTHYROXINE 100 MCG TAB PO SCH (06:57)
[2019-10-15] MEDS: CARVEDILOL 6.25 MG TAB PO SCH ×2 (06:57→16:41)
[2019-10-15] MEDS: FUROSEMIDE 10 MG/ML 4 ML VIAL IV SCH ×2 (06:57→17:58)
[2019-10-15] MEDS: BUDESONIDE 0.5 MG/2 ML NEBU INHALATION SCH ×2 (07:04→19:32)
[2019-10-15] MEDS: IPRATROPIUM-ALBUTEROL 3 ML NEB INHALATION SCH ×4 (07:04→19:32)
[2019-10-15] MEDS: FORMOTEROL FUMARATE 20 MCG/2 ML NEBU INHALATION SCH ×2 (07:04→19:32)
[2019-10-15 07:15] LABS: Glucose,Whole Blood 158 mg/dL (75-99)
[2019-10-15 07:33] LABS: Basophils % (A) 0 %; Eosinophils % (A) 0 %; HCT 24.2 % (34.0-46.0); HGB 7.8 gm/dL (11.4-16.0); Lymphocytes # (A) 0.7 k/uL (1.0-4.8); Lymphocytes % (A) 6 %; MCH 31.6 pg (25.0-35.0); MCHC 32.3 g/dL (31.0-37.0); MCV 97.7 fL (80.0-100.0); Mean Platelet Volume 7.7; Monocytes # (A) 0.3 k/uL (0-1.0); Monocytes % (A) 3 %; Neutrophils # (A) 9.9 k/uL (1.3-7.7); Neutrophils % (A) 90 %; Platelet Count 149 k/uL (150-450); RBC 2.48 m/uL (3.80-5.40)
[2019-10-15] MEDS: AZITHROMYCIN 500 MG TAB PO SCH (08:13)
[2019-10-15] MEDS: methylPREDNISolone SOD SUCCI 125 MG/2 ML VIAL IV SCH ×3 (08:13→23:29)
[2019-10-15] MEDS: guaiFENesin 600 MG TABLET.ER PO SCH ×2 (08:13→20:39)
[2019-10-15] MEDS: ASPIRIN 81 MG PO SCH (08:13)
[2019-10-15] MEDS: MULTIVITAMINS, THERA 1 EACH TAB PO SCH (08:13)
[2019-10-15] MEDS: FERROUS SULFATE 325 MG TAB PO SCH (08:13)
[2019-10-15] MEDS: CLOPIDOGREL 75 MG TAB PO SCH (08:13)
[2019-10-15] MEDS: INSULIN ASPART (NovoLOG) 100 UNIT/ML VIAL SQ SCH ×4 (08:14→21:00)
--- NOTE | 2019-10-15 08:37 | P.CRDCN ---
History of Present Illness Consult date: 10/15/19 Requesting physician: Calos Mistry Reason for Consult (text): elevated troponins, chest pain Chief complaint: shortness of breath History of present illness: This is a pleasant 89-year-old female patient who follows with Dr. Olguin in the office. She has a history of CAD with prior [place] and stent placement to the RCA in 2017, ischemic cardiomyopathy, COPD, oxygen dependent, left bundle-branch block, atrial tachycardia, hypertension, hyperlipidemia, colon cancer with prior colectomy, former smoker. He was recently in the hospital on the of this month and was transferred to [facility] due to altered mental status and issues with neurology coverage. Was apparently discharged on Sunday and following discharge developed a brief episode of chest discomfort that lasted a few minutes and was relieved with nitroglycerin. Following that her breathing became progressively worse and she presented again to the emergency department. Chest x-ray showed cardiomegaly, mild bilateral pleural effusions, mild pulmonary edema and left lower lobe opacity, possibly aspiration versus atel ectasis. EKG on admission showed sinus rhythm. Bundle-branch block, with known history of left bundle branch block. Labs on admission showed hemoglobin of 8.6, previously 9.2 on 10/11/2019. White blood cell count ELEVATED AT 17,000, BUN 49 WITH CREATININE OF 1.24 WHICH WAS PREVIOUSLY 2.22 ON 10/11/2019 BUT STILL UP FROM BASELINE. Initial troponin came in to be somewhat elevated at 0.642 with subsequent levels of 1.08 and 2.05. NT proBNP is elevated at 28,600. Vital signs have been stable. Upon examination, patient is sitting up in bed. She does complain of significant shortness of breath that has worsened compared to her baseline. She is visibly dyspneic with talking. She also complains of orthopnea which is not new. Denies any edema, weight gain or PND. She's had no further complaints of chest discomfort. Labs this morning showed white blood cell of 11,000 and hemoglobin is down to 7.8. She is currently on aspirin 81 mg by mouth daily, Lipitor 80 mg by mouth daily at bedtime, carvedilol 6.25 mg by mouth twice a day, Plavix 75 mg daily, Lasix 40 mg IV push every 12 hours, losartan 25 mg by mouth daily and IV heparin. Past Medical History Past Medical History: Cancer, Heart Failure, COPD, Hearing Disorder / Deafness, Hyperlipidemia, Hypertension, Myocardial Infarction ([place]), Osteoarthritis (OA), Pneumonia, Respiratory Disorder, Thyroid Disorder Additional Past Medical History / Comment(s): Pt recently came to [facility] on 10/11/19 with altered mental status/confusion/ANGELES and was transferred to [facility]-pt states she thinks her confusion was d/t medications, colon ca with SX, diverticular disease, hypothyroid, tracheobronchitis, cardiomyopathy, diverticulitis,[place] bilaterally, wears 2L at home ATC, hypothyroid, anemia Last Myocardial Infarction Date:: 2016 History of Any Multi-Drug Resistant Organisms: None Reported Past Surgical History: Appendectomy, Bowel Resection, Section, Cholecystectomy, Hysterectomy, Orthopedic Surgery, Tonsillectomy Additional Past Surgical History / Comment(s): colectomy for cancer, thyroidectomy, bilateral cataract removal with lens implants, C- Sections x 3, L foot fx with surgical repair, colonoscopies with polypectomy. Past Anesthesia/Blood Transfusion Reactions: Motion Sickness Additional Past Anesthesia/Blood Transfusion Reaction / Comment(s): has never had a blood transfusion Smoking Status: Former smoker - Past Family History Father Additional Family Medical History / Comment(s): Pt did not know her father well. He was an alcoholic and from it. Mother Family Medical History: Myocardial Infarction ([place]) Additional Family Medical History / Comment(s): Mother of an [place] at age 51yrs. Medications and Allergies Home Medications Medication Instructions Recorded Confirmed Type Levothyroxine Sodium [Synthroid] 100 mcg PO MOTUWETHFRSA 01/17/16 10/14/19 History Budesonide [Pulmicort] 0.5 mg INHALATION RT-BID 04/02/17 10/14/19 History Atorvastatin [Lipitor] 80 mg PO HS #30 tab 04/09/17 10/14/19 Rx Clopidogrel [Plavix] 75 mg PO DAILY #90 tab 04/09/17 10/14/19 Rx Nitroglycerin Sl Tabs [Nitrostat] 0.4 mg SUBLINGUAL Q5M PRN #100 tab 04/09/17 10/14/19 Rx Furosemide [Lasix] 40 mg PO DAILY #30 tab 09/28/17 10/14/19 Rx Ferrous Sulfate [Feosol] 325 mg PO DAILY 04/18/18 10/14/19 History Ipratropium-Albuterol Nebulize 3 ml INHALATION RT-QID PRN 04/18/18 10/14/19 History [Duoneb 0.5 mg-3 mg/3 ml Soln] Multivit with Calcium,Iron,Min 1 tab PO DAILY 04/18/18 10/14/19 History [Women's Multivitamin] Aspirin EC [Ecotrin Low Dose] 81 mg PO DAILY 12/10/18 10/14/19 History Carvedilol [Coreg] 6.25 mg PO BID 12/10/18 10/14/19 History ALPRAZolam [Xanax] 0.25 mg PO DAILY PRN 10/11/19 10/14/19 History Losartan Potassium [Cozaar] 25 mg PO HS 10/11/19 10/14/19 History Mirtazapine [Remeron] 15 mg PO HS 10/11/19 10/14/19 History traMADol HCl [Ultram] 50 mg PO Q6H PRN 10/11/19 10/14/19 History predniSONE 20 mg PO DAILY 10/14/19 10/14/19 History Allergies Allergy/AdvReac Type Severity Reaction Status Date / Time Penicillins Allergy Unknown Verified 10/11/19 10:48 pneumococcal 23-valent Allergy Rash/Hives Verified 10/11/19 10:48 polysacchari [From Pneumovax 23] adhesive tape AdvReac Unknown Verified 10/11/19 10:48 Physical Exam Vitals: Vital Signs Temp Pulse Pulse Resp BP Pulse Ox 10/15/19 07:24 70 10/15/19 07:10 72 10/15/19 07:00 70 10/15/19 04:00 97.8 F 62 20 138/63 98 10/15/19 00:00 97.7 F 68 20 139/65 99 10/14/19 20:00 97.8 F 79 20 120/68 97 10/14/19 19:50 76 10/14/19 19:40 74 10/14/19 19:25 78 10/14/19 19:08 75 10/14/19 16:00 22 10/14/19 15:46 90 10/14/19 15:31 90 10/14/19 15:20 98.1 F 73 22 130/70 100 10/14/19 11:47 80 10/14/19 11:35 97.3 F L 77 77 24 136/64 99 10/14/19 08:23 92 Intake and Output 10/14/19 10/15/19 10/15/19 22:59 06:59 14:59 Intake Total 80 45.606 Balance 80 45.606 Intake: Intake, IV Titration 45.606 Amount Heparin Sod,Pork in 0.45% 45.606 NaCl 25,000 unit In 0.45 % NaCl 1 250ml.bag @ 12 UNITS/KG/HR 6.108 mls/hr IV .Q24H [facility] Rx#: [id number] Oral 80 Other: Voiding Method Toilet Toilet # Voids 1 Weight 53.3 kg PHYSICAL EXAMINATION: HEENT: Head is atraumatic, normocephalic. Pupils equal, round. Neck is supple. There is elevated jugular venous pressure. Hard of hearing. HEART EXAMINATION: Heart sounds regular, S1 and S2 with a systolic murmur. CHEST EXAMINATION: Lungs reveal diminished air entry bilaterally with crackles noted to the bilateral lower lobes. No chest wall tenderness is noted on palpation or with deep breathing. ABDOMEN: Soft, nontender. Bowel sounds are heard. No organomegaly noted. EXTREMITIES: 2+ peripheral pulses with no evidence of peripheral edema and no calf tenderness noted. NEUROLOGIC patient is awake, alert and oriented x3. . Results 10/15/19 07:19 10/14/19 04:00 Cardiac Enzymes 10/14/19 10/14/19 Range/Units 10:45 18:53 Troponin I 1.080 H* 2.050 H* (0.000-0.034) ng/mL Coagulation 10/14/19 Range/Units 22:32 APTT >200.0 H* (22.0-30.0) sec CBC 10/15/19 Range/Units 07:19 WBC 11.0 H (3.8-10.6) k/uL RBC 2.48 L (3.80-5.40) m/uL Hgb 7.8 L (11.4-16.0) gm/dL Hct 24.2 L (34.0-46.0) % Plt Count 149 L (150-450) k/uL Current Medications Generic Name Dose Route Start Last Admin Trade Name Freq PRN Reason Stop Dose Admin Albuterol/Ipratropium 3 ml 10/14/19 12:00 10/15/19 07:04 Duoneb 0.5 Mg-3 Mg/3 Ml Soln INHALATION 3 ml RT-QID [facility] Administration Albuterol/Ipratropium 3 ml 10/14/19 15:43 Duoneb 0.5 Mg-3 Mg/3 Ml Soln INHALATION RT-QID PRN Shortness Of Breath Alprazolam 0.25 mg 10/14/19 15:43 Xanax PO DAILY PRN Anxiety Aspirin 81 mg 10/15/19 09:00 Aspirin PO DAILY [facility] Atorvastatin Calcium 80 mg 10/14/19 21:00 10/14/19 20:25 Lipitor PO 80 mg HS NISHANT Administration Azithromycin 500 mg 10/14/19 09:00 10/14/19 10:11 Zithromax PO 500 mg DAILY NISH[facility] Administration Budesonide 0.5 mg 10/14/19 20:00 10/15/19 07:04 Pulmicort INHALATION 0.5 mg RT-BID [facility] Administration Carvedilol 6.25 mg 10/14/19 17:30 10/15/19 06:57 Coreg PO 6.25 mg BID-W/MEALS [facility] Administration Clopidogrel Bisulfate 75 mg 10/15/19 09:00 Plavix PO DAILY [facility] Ferrous Sulfate 325 mg 10/15/19 09:00 Feosol PO DAILY [facility] Formoterol Fumarate 20 mcg 10/14/19 20:00 10/15/19 07:04 Perforomist INHALATION 20 mcg RT-BID NISH[facility] Administration Furosemide 40 mg 10/15/19 06:00 10/15/19 06:57 Lasix IV 40 mg Q12H [facility] Administration Guaifenesin 1,200 mg 10/14/19 21:00 10/14/19 20:25 Mucinex PO 1,200 mg Q12HR [facility] Administration Heparin Sodium (Porcine) 0 unit 10/14/19 16:21 Heparin IV PER PROTOCOL PRN Low PTT Protocol Ceftriaxone Sodium 1 gm/ 50 mls @ 100 mls/hr 10/14/19 09:00 10/14/19 10:11 Sodium Chloride IVPB 100 mls/hr Q24HR [facility] Administration Heparin Sodium/Sodium Chloride 250 mls @ 6.108 mls/hr 10/14/19 16:30 10/15/19 01:35 25,000 unit/ Sodium Chloride IV 9 units/kg/hr .Q24H [facility] 4.581 mls/hr Titration Protocol 12 UNITS/KG/HR Insulin Aspart 0 unit 10/15/19 07:30 Novolog SQ ACHS [facility] Protocol Levothyroxine Sodium 100 mcg 10/15/19 06:30 10/15/19 06:57 Synthroid PO 100 mcg [id number] [facility] Administration Losartan Potassium 25 mg 10/14/19 21:00 10/14/19 20:25 Cozaar PO 25 mg HS N[facility] Administration Methylprednisolone Sodium Succinate 60 mg 10/14/19 16:00 10/14/19 23:34 Solu-Medrol IV 60 mg Q8HR [facility] Administration Mirtazapine 15 mg 10/14/19 21:00 10/14/19 20:25 Remeron PO 15 mg HS NISH[facility] Administration Multivitamins 1 each 10/15/19 09:00 Theragran PO DAILY [facility] Naloxone HCl 0.2 mg 10/14/19 07:00 Narcan IV Q2M PRN Opioid Reversal Nitroglycerin 0.4 mg 10/14/19 15:43 Nitrostat SUBLINGUAL Q5M PRN Chest Pain Tramadol HCl 50 mg 10/14/19 15:43 Ultram PO Q6H PRN Pain Intake and Output 10/14/19 10/15/19 10/15/19 22:59 06:59 14:59 Intake Total 80 45.606 Balance 80 45.606 Intake: Intake, IV Titration 45.606 Amount Heparin Sod,Pork in 0.45% 45.606 NaCl 25,000 unit In 0.45 % NaCl 1 250ml.bag @ 12 UNITS/KG/HR 6.108 mls/hr IV .Q24H [facility] Rx#: [id number] Oral 80 Other: Voiding Method Toilet Toilet # Voids 1 Weight 53.3 kg 10/15/19 07:19 10/14/19 04:00 EKG Interpretations (text) Sinus rhythm with left bundle branch block Assessment and Plan Assessment: #1 symptoms of shortness of breath, multifactorial due to acute COPD exacerbation, acute on chronic systolic congestive heart failure and possible pneumonia #2 ischemic cardiomyopathy #3 non-ST elevation [place] #4 anemia #5 acute kidney injury #6 CAD with prior stenting to the RCA in 2017 #7 hypertension #8 hyperlipidemia Plan: From cardiology's perspective, we will obtain a 2-D echo with Doppler. We will stop IV heparin due to anemia. Obtain a chest x-ray. Continue IV lasix. Monitor renal function, electrolytes, daily weights and intake/output. At this time we will hold off on any aggressive cardiac work-up due to compromised respiratory status and anemia. From our standpoint the patient would benefit from transfusion of PRBCs. We will continue to follow the patient and provide further recommendations accordingly. LEASING ASSOCIATE note has been reviewed, I agree with a documented findings and plan of care. Patient was seen and examined.
--- NOTE | 2019-10-15 08:53 | XR ---
EXAMINATION TYPE: XR chest 1V DATE OF EXAM: 10/15/2019 CLINICAL HISTORY: Difficulty breathing progress study. TECHNIQUE: Single AP portable upright view of the chest is obtained. COMPARISON: Chest x-ray from one day earlier and older studies. CTA chest December 14, 2018. FINDINGS: There is background chronic emphysematous and parenchymal fibrotic changes with elevated l eft hemidiaphragm. There is persistent left basilar opacity. Cardiac silhouette size is stable and en larged with atherosclerotic aorta. Osseous structures are demineralized with underlying scoliosis. Ch olecystectomy clips are present. IMPRESSION: Overall stable findings, cardiomegaly and chronic emphysematous along with parenchymal fibrotic changes with persistent left lower lobe acute infiltrate and/or atelectasis
[2019-10-15] MEDS ORDERED: ASPIRIN 81 MG PO SCH (09:00)
[2019-10-15] MEDS ORDERED: FUROSEMIDE 40 MG TAB PO SCH (09:00)
[2019-10-15 10:02] LABS: Calcium 9.6 mg/dL (8.4-10.2); Potassium 4.7 mmol/L (3.5-5.1)
[2019-10-15 11:23] VITALS: BMI 21.4
[2019-10-15 12:12] LABS: Glucose,Whole Blood 108 mg/dL (75-99)
--- NOTE | 2019-10-15 13:52 | P.CNPUL ---
History of Present Illness Consult date: 10/15/19 Reason for consult: dyspnea, cough, COPD, hypoxemia Chief complaint: Shortness of breath History of present illness: This is a 89-year-old white female patient with extensive medical history that includes COPD on home oxygen at 2 L, coronary artery disease with previous stenting, significant history of tobacco dependence, history of chronic systolic and diastolic congestive heart failure, hypothyroidism, previous history of myocardial infarction, hypertension, previous history of colectomy for colon cancer, anxiety, Patient presented to the emergency department on 10/14/2019 for evaluation of worsening shortness of breath and nonproductive cough. Patient has been having the symptoms for last week, and she was actually seen in the emergency department on 10/11/2019 for evaluation of altered mental status, brain CT was negative, in view of lack of neurology coverage at the time of this hospital patient was transferred to [facility] for neurological evaluation. Neurological evaluation determined that the cause of altered mentation was encephalopathy related to muscle relaxant and Xanax. Patient was discharged from there 10/13/2019. Patient presented to the emergency department on 10/14/2019 after she developed increasing shortness of breath, she had episode of midsternal chest pain early i n the morning at 4:00 that lasted approximately 20 minutes and was relieved by sublingual nitroglycerin. Patient has denied any fever or chills, no nausea, vomiting or diarrhea. Chest x-ray showed mild bilateral pleural effusions, mild pulmonary edema and left lower lobe opacity concerning for atelectasis versus infiltrate. White blood cell count was 17, hemoglobin is 8.6, coagulation profile is within normal limits, sodium is 145, potassium is 4.7, part is 1:15, CO2 is 21, BUN is 49, creatinine is 1.2 for renal profile is actually improved from a few days ago on 10/11/2019, troponin is positive at 0.642, and 1.080. EKG showed normal sinus rhythm with left bundle branch block. Patient is afebrile, hemodynamically stable, he is on 3 L of oxygen with a pulse ox of 99 -100%. Lung sounds are positive for congestive cough, scattered rhonchi, wheezing. She has been started on nebulized bronchodilators, empiric antibiotics and IV steroids She is extremely hard of hearing cannot get much history from her overall Today she is feeling better is still on supplemental oxygen less short of breath but minimal activity because more short of breath it appears that patient is having exacerbation of COPD along with some component of fluid overload she is off of BiPAP now Review of Systems All systems: negative Past Medical History Past Medical History: Cancer, Heart Failure, COPD, Hearing Disorder / Deafness, Hyperlipidemia, Hypertension, Myocardial Infarction ([place]), Osteoarthritis ([place]), Pneumonia, Respiratory Disorder, Thyroid Disorder Additional Past Medical History / Comment(s): Pt recently came to [facility] on 10/11/19 with altered mental status/confusion/ANGELES and was transferred to [facility]-pt states she thinks her confusion was d/t medications, colon ca with SX, diverticular disease, hypothyroid, tracheobronchitis, cardiomyopathy, diverticulitis,[place] bilaterally, wears 2L at home ATC, hypothyroid, anemia Last Myocardial Infarction Date:: 2016 History of Any Multi-Drug Resistant Organisms: None Reported Past Surgical History: Appendectomy, Bowel Resection, Section, Cholecystectomy, Hysterectomy, Orthopedic Surgery, Tonsillectomy Additional Past Surgical History / Comment(s): colectomy for cancer, thyroidectomy, bilateral cataract removal with lens implants, C- Sections x 3, L foot fx with surgical repair, colonoscopies with polypectomy. Past Anesthesia/Blood Transfusion Reactions: Motion Sickness Additional Past Anesthesia/Blood Transfusion Reaction / Comment(s): has never had a blood transfusion Smoking Status: Former smoker - Past Family History Father Additional Family Medical History / Comment(s): Pt did not know her father well. He was an alcoholic and from it. Mother Family Medical History: Myocardial Infarction ([place]) Additional Family Medical History / Comment(s): Mother of an [place] at age 51yrs. Medications and Allergies Home Medications Medication Instructions Recorded Confirmed Type Levothyroxine Sodium [Synthroid] 100 mcg PO MOTUWETHFRSA 01/17/16 10/14/19 History Budesonide [Pulmicort] 0.5 mg INHALATION RT-BID 04/02/17 10/14/19 History Atorvastatin [Lipitor] 80 mg PO HS #30 tab 04/09/17 10/14/19 Rx Clopidogrel [Plavix] 75 mg PO DAILY #90 tab 04/09/17 10/14/19 Rx Nitroglycerin Sl Tabs [Nitrostat] 0.4 mg SUBLINGUAL Q5M PRN #100 tab 04/09/17 10/14/19 Rx Furosemide [Lasix] 40 mg PO DAILY #30 tab 09/28/17 10/14/19 Rx Ferrous Sulfate [Feosol] 325 mg PO DAILY 04/18/18 10/14/19 History Ipratropium-Albuterol Nebulize 3 ml INHALATION RT-QID PRN 04/18/18 10/14/19 Hist ory [Duoneb 0.5 mg-3 mg/3 ml Soln] Multivit with Calcium,Iron,Min 1 tab PO DAILY 04/18/18 10/14/19 History [Women's Multivitamin] Aspirin EC [Ecotrin Low Dose] 81 mg PO DAILY 12/10/18 10/14/19 History Carvedilol [Coreg] 6.25 mg PO BID 12/10/18 10/14/19 History ALPRAZolam [Xanax] 0.25 mg PO DAILY PRN 10/11/19 10/14/19 History Losartan Potassium [Cozaar] 25 mg PO HS 10/11/19 10/14/19 History Mirtazapine [Remeron] 15 mg PO HS 10/11/19 10/14/19 History traMADol HCl [Ultram] 50 mg PO Q6H PRN 10/11/19 10/14/19 History predniSONE 20 mg PO DAILY 10/14/19 10/14/19 History Allergies Allergy/AdvReac Type Severity Reaction Status Date / Time Penicillins Allergy Unknown Verified 10/11/19 10:48 pneumococcal 23-valent Allergy Rash/Hives Verified 10/11/19 10:48 polysacchari [From Pneumovax 23] adhesive tape AdvReac Unknown Verified 10/11/19 10:48 Physical Exam Vitals: Vital Signs Temp Pulse Pulse Resp BP Pulse Ox 10/15/19 11:39 98.2 F 62 16 122/59 98 10/15/19 11:15 70 10/15/19 11:02 74 10/15/19 08:23 98.2 F 63 18 123/60 97 10/15/19 07:24 70 10/15/19 07:10 72 10/15/19 07:00 70 10/15/19 04:00 97.8 F 62 20 138/63 98 10/15/19 00:00 97.7 F 68 20 139/65 99 10/14/19 20:00 97.8 F 79 20 120/68 97 10/14/19 19:50 76 10/14/19 19:40 74 10/14/19 19:25 78 10/14/19 19:08 75 10/14/19 16:00 22 10/14/19 15:46 90 10/14/19 15:31 90 10/14/19 15:20 98.1 F 73 22 130/70 100 Intake and Output 10/14/19 10/15/19 10/15/19 22:59 06:59 14:59 Intake Total 80 45.606 720 Balance 80 45.606 720 Intake: Intake, IV Titration 45.606 Amount Heparin Sod,Pork in 0.45% 45.606 NaCl 25,000 unit In 0.45 % NaCl 1 250ml.bag @ 12 UNITS/KG/HR 6.108 mls/hr IV .Q24H [facility] Rx#: [id number] Oral 80 720 Other: Voiding Method Toilet Toilet Toilet # Voids 1 1 # Bowel Movements 1 Weight 53.3 kg 53.3 kg - Constitutional General appearance: average body habitus, disheveled, mild distress, no acute distress - EENT Eyes: EOMI, PERRLA, normal appearance ENT: normal oropharynx Ears: bilateral: normal - Neck Neck: normal ROM Carotids: bilateral: upstroke normal Thyroid: bilateral: normal size - Respiratory Respiratory: bilateral: diminished, rales, prolonged expiration, negative: CTA, dullness, rhonchi, wheezing, prolonged inspiration, other - Cardiovascular Rhythm: regular Heart sounds: normal: S1, S2 - Gastrointestinal General gastrointestinal: decreased bowel sounds, soft - Neurologic Neurologic: CNII-XII intact - Musculoskeletal Musculoskeletal: gait normal, generalized weakness, strength equal bilaterally - Psychiatric Psychiatric: A&O x's 3, appropriate affect, intact judgment & insight Results - Laboratory Findings CBC and BMP: 10/15/19 07:19 10/15/19 07:19 PT/INR, D-dimer PT 10.0 sec (9.0-12.0) 10/14/19 05:09 INR 0.9 (<1.2) 10/14/19 05:09 Abnormal lab findings: Abnormal Labs 10/14/19 10/14/19 10/14/19 04:00 04:00 05:09 WBC 17.6 H RBC 2.66 L Hgb 8.6 L Hct 26.4 L Plt Count Neutrophils # 15.5 H Lymphocytes # APTT Sodium Chloride 115 H Carbon Dioxide 21 L BUN 49 H Creatinine 1.24 H Glucose 148 H POC Glucose (mg/dL) AST 42 H Troponin I 0.642 H* 10/14/19 10/14/19 10/14/19 10:45 18:53 22:32 WBC RBC Hgb Hct Plt Count Neutrophils # Lymphocytes # APTT >200.0 H* Sodium Chloride Carbon Dioxide BUN Creatinine Glucose POC Glucose (mg/dL) AST Troponin I 1.080 H* 2.050 H* 10/15/19 10/15/19 10/15/19 07:12 07:19 07:19 WBC 11.0 H RBC 2.48 L Hgb 7.8 L Hct 24.2 L Plt Count 149 L Neutrophils # 9.9 H Lymphocytes # 0.7 L APTT Sodium 147 H Chloride 116 H Carbon Dioxide BUN 49 H Creatinine 1.16 H Glucose 143 H POC Glucose (mg/dL) 158 H AST Troponin I 10/15/19 10/15/19 07:22 11:57 WBC RBC Hgb Hct Plt Count Neutrophils # Lymphocytes # APTT 140.5 H* Sodium Chloride Carbon Dioxide BUN Creatinine Glucose POC Glucose (mg/dL) 108 H AST Troponin I - Diagnostic Findings Chest x-ray: report reviewed, image reviewed (Chest x-ray from October 14 and 2016 compared and reviewed along with cardiomegaly interstitial edema and emphysema patient has some infiltrate/atelectatic changes in the left lower lobe) Assessment and Plan Assessment: Left lower lobe pneumonia Fluid overload and exacerbation of heart failure acute on chronic systolic Ischemic cardiomyopathy Non-ST segment elevated CT 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
[2019-10-15 15:58] LABS: HCT 24.7 % (34.0-46.0); HGB 7.9 gm/dL (11.4-16.0); Hypochromasia Slight; MCH 31.5 pg (25.0-35.0); MCHC 32.1 g/dL (31.0-37.0); MCV 98.1 fL (80.0-100.0); Mean Platelet Volume 7.9; Platelet Count 160 k/uL (150-450); RBC 2.51 m/uL (3.80-5.40); WBC 11.8 k/uL (3.8-10.6)
[2019-10-15 17:00] LABS: Glucose,Whole Blood 154 mg/dL (75-99)
--- NOTE | 2019-10-15 19:13 | P.PN ---
Subjective Progress Note Date: 10/15/19 (delayed charting patient seen at 0930) Principal diagnosis: dyspnea Patient is an 89-year-old female with past medical history of severe COPD with chronic hypoxic respiratory failure on 2 L nasal cannula, coronary artery disease status post stent, history of significant tobacco abuse, systolic and diastolic congestive heart failure, and prior colon cancer who presented to the hospital with complaints of worsening shortness of breath and nonproductive cough. Apparently she presented here on 10/11 and was found to have altered mentation and therefore was transferred to [facility] for neurology evaluation. She was discharged from [facility] on 10/13 intermediate home several hours prior to re-presenting for severe dyspnea. She did have one episode of chest pain at home prior to presentation. On arrival to the ER here she underwent an extensive evaluation. Chest x-ray showed cardiomegaly with mild bilateral pleural effusions and pulmonary edema as well as a left lower lobe opacity concerning for atelectasis versus aspiration. She is on have an elevated white blood cell count at 17, BUN of 49 and a creatinine of 1.24 (this is down trending from creatinine on 10/11). She was also found to have a mildly elevated troponin at 0.64. She was given Solu-Medrol and bronchodilators in the emergency department. Arrangements were made for admission. She was started on Lasix for acute exacerbation of congestive heart failure. Her troponin was trended and continue to elevate with a max of 2. She was started on a heparin drip and cardiology was consulted. She was continued on antibiotics, bronchodilators, steroids, and Lasix. By the morning of 10/15 she reported significant improvement in her dyspnea. She was noted to have some anemia which dropped by half a gram of hemoglobin on heparin drip. Her heparin drip was discontinued by cardiology. Patient seen and examined at bedside. She denies any chest pain, she is still significantly short of breath but greatly improved from admission, her wheezing is at baseline, she denies any nausea, vomiting, or diarrhea. She is tolerating her steroids well. Objective - Vital Signs Vital signs: Vital Signs Temp 98.3 F 10/15/19 16:00 Pulse 70 10/15/19 16:04 Resp 18 10/15/19 16:04 BP 137/60 10/15/19 16:00 Pulse Ox 96 10/15/19 16:00 Intake & Output 10/14/19 10/15/19 10/15/19 18:59 06:59 18:59 Intake Total 350 125.606 960 Output Total 300 Balance 50 125.606 960 Weight 50.9 kg 53.3 kg 53.3 kg Intake: IV 50 cefTRIAXone 1 gm In 50 Sodium Chloride 0.9% 50 ml @ 100 mls/hr IVPB Q24HR NISHANT Rx#:[id number] Intake, IV Titration 45.606 Amount Heparin Sod,Pork in 0.45% 45.606 NaCl 25,000 unit In 0.45 % NaCl 1 250ml.bag @ 12 UNITS/KG/HR 6.108 mls/hr IV .Q24H NISHANT Rx#: [id number] Oral 300 80 960 Output: Urine 300 Other: Voiding Method Bedside Commode Toilet Toilet # Voids 1 1 0 # Bowel Movements 1 - Exam General: non toxic, mild distress, appears at stated age Derm: warm, dry Head: atraumatic, normocephalic, symmetric Eyes: EOMI, no lid lag, anicteric sclera Mouth: no lip lesion, mucus membranes moist Cardiovascular: S1S2 reg, no murmur, positive posterior tibial pulse bilateral, Lungs: Crackles bilateral bases with decreased breath sounds, accessory muscle use, 4 word conversational dyspnea Abdominal: soft, nontender to palpation, no guarding, no appreciable organomegaly Ext: no gross muscle atrophy, no edema, no contractures Neuro: CN II-XI grossly intact, no focal neuro deficits Psych: Alert, oriented, appropriate affect - Labs CBC & Chem 7: 10/15/19 15:45 10/15/19 07:19 Labs: Abnormal Lab Results - Last 24 Hours (Table) 10/14/19 10/14/19 10/15/19 Range/Units 18:53 22:32 07:12 WBC (3.8-10.6) k/uL RBC (3.80-5.40) m/uL Hgb (11.4-16.0) gm/dL Hct (34.0-46.0) % Plt Count (150-450) k/uL Neutrophils # (1.3-7.7) k/uL Lymphocytes # (1.0-4.8) k/uL APTT >200.0 H* (22.0-30.0) sec Sodium (137-145) mmol/L Chloride (98-107) mmol/L BUN (7-17) mg/dL Creatinine (0.52-1.04) mg/dL Glucose (74-99) mg/dL POC Glucose (mg/dL) 158 H (75-99) mg/dL Troponin I 2.050 H* (0.000-0.034) ng/mL 10/15/19 10/15/19 10/15/19 Range/Units 07:19 07:19 07:22 WBC 11.0 H (3.8-10.6) k/uL RBC 2.48 L (3.80-5.40) m/uL Hgb 7.8 L (11.4-16.0) gm/dL Hct 24.2 L (34.0-46.0) % Plt Count 149 L (150-450) k/uL Neutrophils # 9.9 H (1.3-7.7) k/uL Lymphocytes # 0.7 L (1.0-4.8) k/uL APTT 140.5 H* (22.0-30.0) sec Sodium 147 H (137-145) mmol/L Chloride 116 H (98-107) mmol/L BUN 49 H (7-17) mg/dL Creatinine 1.16 H (0.52-1.04) mg/dL Glucose 143 H (74-99) mg/dL POC Glucose (mg/dL) (75-99) mg/dL Troponin I (0.000-0.034) ng/mL 10/15/19 10/15/19 10/15/19 Range/Units 11:57 15:45 16:56 WBC 11.8 H (3.8-10.6) k/uL RBC 2.51 L (3.80-5.40) m/uL Hgb 7.9 L (11.4-16.0) gm/dL Hct 24.7 L (34.0-46.0) % Plt Count (150-450) k/uL Neutrophils # (1.3-7.7) k/uL Lymphocytes # (1.0-4.8) k/uL APTT (22.0-30.0) sec Sodium (137-145) mmol/L Chloride (98-107) mmol/L BUN (7-17) mg/dL Creatinine (0.52-1.04) mg/dL Glucose (74-99) mg/dL POC Glucose (mg/dL) 108 H 154 H (75-99) mg/dL Troponin I (0.000-0.034) ng/mL Microbiology - Last 24 Hours (Table) 10/14/19 06:16 Blood Culture - Preliminary Blood No Growth after 24 hours Assessment and Plan Assessment: Left lower lobe pneumonia with sepsis associated acute exacerbation of COPD -Continue with budesonide/peroformis and Solu-Medrol, scheduled DuoNeb's, Mucinex, incentive spirometry, and Zithromax and Rocephin -Consult pulmonary. Patient sees S/P ready on a regular basis -Follow chest x-ray until clear -Pulmonary hygiene NSTEMI - cardio recs appreciated, no plans for intervention due to pulmonary status - Off heparin gtt secondary to drop in HgB of 0.7 - ASA, consider stopping plavix as was taken off at home due to anemia - on BB and statin - tele Ischemic cardiomyopathy associated with acute exacerbation of systolic congestive heart failure with ejection fraction 35-40% -Continue with IV Lasix -Strict I's and O's, daily weights -ARB and beta jf -Cardiology recommendations appreciated Acute on chronic hypoxic respiratory failure -Treatment as above Acute kidney injury, improving. Creatinine was 2.22 on admission 10/11 -Continue with Lasix -Follow BMP closely with diuresis. Continue ARB -Avoid additional nephrotoxic agents Anemia -Chronic known anemia. Undetermined cause as patient has elected not to undergo EGD or colonoscopy. -Repeat CBC at noon was stable -Repeat CBC in a.m. -Transfuse if hemoglobin less than 7 DVT prophylaxis: SCDs Discussed with: Patient, cardiology Anticipated discharge: 2-[address]: Home with home health until health versus alf facility A total of 35 minutes was spent on the care of this complex patient more than 50% of the time was spent in counseling and care coordination.
[2019-10-15] MEDS: MIRTAZAPINE 15 MG TAB PO SCH (20:39)
[2019-10-15] MEDS: LOSARTAN 25 MG TAB PO SCH (20:39)
[2019-10-15] MEDS: ATORVASTATIN 80 MG TAB PO SCH (20:39)
[2019-10-15 20:55] LABS: Glucose,Whole Blood 193 mg/dL (75-99)
[2019-10-16 06:15] LABS: Glucose,Whole Blood 167 mg/dL (75-99)
[2019-10-16] MEDS: FUROSEMIDE 10 MG/ML 4 ML VIAL IV SCH (06:30)
[2019-10-16] MEDS: INSULIN ASPART (NovoLOG) 100 UNIT/ML VIAL SQ SCH ×4 (06:30→21:14)
[2019-10-16] MEDS: CARVEDILOL 6.25 MG TAB PO SCH ×2 (06:31→17:12)
[2019-10-16] MEDS: LEVOTHYROXINE 100 MCG TAB PO SCH (06:31)
[2019-10-16 07:26] LABS: Basophils % (A) 0 %; Eosinophils % (A) 0 %; HCT 25.4 % (34.0-46.0); HGB 8.1 gm/dL (11.4-16.0); Lymphocytes # (A) 0.6 k/uL (1.0-4.8); Lymphocytes % (A) 7 %; MCH 31.2 pg (25.0-35.0); MCHC 31.8 g/dL (31.0-37.0); MCV 97.9 fL (80.0-100.0); Mean Platelet Volume 8.1; Monocytes # (A) 0.2 k/uL (0-1.0); Monocytes % (A) 2 %; Neutrophils # (A) 8.3 k/uL (1.3-7.7); Neutrophils % (A) 91 %; Platelet Count 166 k/uL (150-450); RBC 2.59 m/uL (3.80-5.40); WBC 9.1 k/uL (3.8-10.6)
[2019-10-16 08:10] LABS: Calcium 9.3 mg/dL (8.4-10.2); Magnesium 2.2 mg/dL (1.6-2.3); Potassium 4.1 mmol/L (3.5-5.1)
[2019-10-16] MEDS: FERROUS SULFATE 325 MG TAB PO SCH (08:47)
[2019-10-16] MEDS: IPRATROPIUM-ALBUTEROL 3 ML NEB INHALATION SCH ×4 (08:47→20:15)
[2019-10-16] MEDS: FORMOTEROL FUMARATE 20 MCG/2 ML NEBU INHALATION SCH ×2 (08:47→20:15)
[2019-10-16] MEDS: BUDESONIDE 0.5 MG/2 ML NEBU INHALATION SCH ×2 (08:47→20:15)
[2019-10-16] MEDS: guaiFENesin 600 MG TABLET.ER PO SCH ×2 (08:47→21:13)
[2019-10-16] MEDS: ASPIRIN 81 MG PO SCH (08:47)
[2019-10-16] MEDS: methylPREDNISolone SOD SUCCI 125 MG/2 ML VIAL IV SCH ×2 (08:47→21:14)
[2019-10-16] MEDS: AZITHROMYCIN 500 MG TAB PO SCH (08:48)
[2019-10-16] MEDS: MULTIVITAMINS, THERA 1 EACH TAB PO SCH (08:48)
[2019-10-16] MEDS: CLOPIDOGREL 75 MG TAB PO SCH (08:48)
[2019-10-16 12:18] LABS: Glucose,Whole Blood 167 mg/dL (75-99)
--- NOTE | 2019-10-16 12:59 | PN ---
PROGRESS NOTE Cherelle is an 89-year-old lady admitted to hospital with shortness of breath secondary to combination of chronic systolic failure, possible pneumonia and COPD exacerbation. Patient has ischemic cardiomyopathy, renal insufficiency, and known CAD. This morning she is feeling better, shortness of breath is getting better. Vital signs are stable. Chest exam reveals diminished air entry at the bases. Heart exam reveals first and second heart sounds. No gallop. Abdomen is soft. Exam of the extremities reveals mild edema. Peripheral pulses are felt. ASSESSMENT: Shortness of breath due to a combination of chronic obstructive pulmonary disease and congestive heart failure exacerbation. PLAN: Continue current medications. MMODL / IJN: [id number] /
--- NOTE | 2019-10-16 14:16 | P.PN ---
Subjective Progress Note Date: 10/16/19 Principal diagnosis: dyspnea Patient is an 89-year-old female with past medical history of severe COPD with chronic hypoxic respiratory failure on 2 L nasal cannula, coronary artery disease status post stent, history of significant tobacco abuse, systolic and diastolic congestive heart failure, and prior colon cancer who presented to the hospital with complaints of worsening shortness of breath and nonproductive cough. Apparently she presented here on 10/11 and was found to have altered mentation and therefore was transferred to [facility] for neurology eval uation. She was discharged from [facility] on 10/13 intermediate home several hours prior to re-presenting for severe dyspnea. She did have one episode of chest pain at home prior to presentation. On arrival to the ER here she underwent an extensive evaluation. Chest x-ray showed cardiomegaly with mild bilateral pleural effusions and pulmonary edema as well as a left lower lobe opacity concerning for atelectasis versus aspiration. She is on have an elevated white blood cell count at 17, BUN of 49 and a creatinine of 1.24 (this is down trending from creatinine on 10/11). She was also found to have a mildly elevated troponin at 0.64. She was given Solu-Medrol and bronchodilators in the emergency department. Arrangements were made for admission. She was started on Lasix for acute exacerbation of congestive heart failure. Her troponin was trended and continue to elevate with a max of 2. She was started on a heparin drip and cardiology was consulted. She was continued on antibiotics, bronchodilators, steroids, and Lasix. By the morning of 10/15 she reported significant improvement in her dyspnea. She was noted to have some anemia which dropped by ~1 gram of hemoglobin on heparin drip. Her heparin drip was discontinued by cardiology. She continued to have some dyspne but it was improving. Patient seen and examined at bedside. Denies any chest pain overnight, nausea, or vomiting. States that she coughed up a lot of phlegm overnight. Reports that her dyspnea is better than when she came in but still not back to baseline. Still feeling very winded. Objective - Vital Signs Vital signs: Vital Signs Temp 98.5 F 10/16/19 12:48 Pulse 63 10/16/19 12:48 Resp 20 10/16/19 12:48 BP 135/61 10/16/19 12:48 Pulse Ox 99 10/16/19 12:48 Intake & Output 10/15/19 10/16/19 10/16/19 18:59 06:59 18:59 Intake Total 960 360 180 Output Total 300 Balance 960 60 180 Weight 53.3 kg 52.5 kg Intake: Oral 960 360 180 Output: Urine 300 Other: Voiding Method Toilet Toilet Toilet # Voids 0 1 2 # Bowel Movements 1 - Exam General: non toxic, no distress, appears at stated age Derm: warm, dry Head: atraumatic, normocephalic, symmetric Eyes: EOMI, no lid lag, anicteric sclera Mouth: no lip lesion, mucus membranes moist Cardiovascular: S1S2 reg, no murmur, positive posterior tibial pulse bilateral, Lungs: Crackles bilateral bases with decreased breath sounds, + accessory muscle use, 4 word conversational dyspnea Abdominal: soft, nontender to palpation, no guarding, no appreciable organomegaly Ext: no gross muscle atrophy, no edema, no contractures Neuro: CN II-XI grossly intact, no focal neuro deficits Psych: Alert, oriented, appropriate affect - Labs CBC & Chem 7: 10/16/19 06:06 10/16/19 06:06 Labs: Abnormal Lab Results - Last 24 Hours (Table) 10/15/19 10/15/19 10/15/19 Range/Units 15:45 16:56 20:54 WBC 11.8 H (3.8-10.6) k/uL RBC 2.51 L (3.80-5.40) m/uL Hgb 7.9 L (11.4-16.0) gm/dL Hct 24.7 L (34.0-46.0) % Neutrophils # (1.3-7.7) k/uL Lymphocytes # (1.0-4.8) k/uL Chloride (98-107) mmol/L BUN (7-17) mg/dL Creatinine (0.52-1.04) mg/dL Glucose (74-99) mg/dL POC Glucose (mg/dL) 154 H 193 H (75-99) mg/dL 10/16/19 10/16/19 10/16/19 Range/Units 06:06 06:06 06:13 WBC (3.8-10.6) k/uL RBC 2.59 L (3.80-5.40) m/uL Hgb 8.1 L (11.4-16.0) gm/dL Hct 25.4 L (34.0-46.0) % Neutrophils # 8.3 H (1.3-7.7) k/uL Lymphocytes # 0.6 L (1.0-4.8) k/uL Chloride 110 H (98-107) mmol/L BUN 54 H (7-17) mg/dL Creatinine 1.36 H (0.52-1.04) mg/dL Glucose 144 H (74-99) mg/dL POC Glucose (mg/dL) 167 H (75-99) mg/dL 10/16/19 Range/Units 11:50 WBC (3.8-10.6) k/uL RBC (3.80-5.40) m/uL Hgb (11.4-16.0) gm/dL Hct (34.0-46.0) % Neutrophils # (1.3-7.7) k/uL Lymphocytes # (1.0-4.8) k/uL Chloride (98-107) mmol/L BUN (7-17) mg/dL Creatinine (0.52-1.04) mg/dL Glucose (74-99) mg/dL POC Glucose (mg/dL) 167 H (75-99) mg/dL Microbiology - Last 24 Hours (Table) 10/14/19 06:16 Blood Culture - Preliminary Blood No Growth after 48 hours Assessment and Plan Assessment: Left lower lobe pneumonia with sepsis associated acute exacerbation of COPD -Continue with budesonide/peroformis and Solu-Medrol, scheduled DuoNeb's, Mucinex, incentive spirometry, and Zithromax and Rocephin -Consult pulmonary. Patient sees Isma Ceballos on a regular basis -Follow chest x-ray until clear -Pulmonary hygiene NSTEMI - cardio recs appreciated, no plans for intervention due to pulmonary status - Off heparin gtt secondary to drop in HgB of 0.7 - ASA, consider stopping plavix as was taken off at home due to anemia - on BB and statin - tele Ischemic cardiomyopathy associated with acute exacerbation of systolic congestive heart failure with ejection fraction 35-40% -Continue with IV Lasix decrease to once daily -Strict I's and O's, daily weights -ARB (on hold due to ANGELES) and beta jf -Cardiology recommendations appreciated Acute on chronic hypoxic respiratory failure -Treatment as above Acute kidney injury, improving. Creatinine was 2.22 on admission 10/11 -Continue with Lasix, slight increase in Cr will decrease to once daily -Follow BMP closely with diuresis. Hold ARB -Avoid additional nephrotoxic agents Anemia -Chronic known anemia. Undetermined cause as patient has elected not to undergo EGD or colonoscopy. -Check iron studies -Repeat CBC in a.m. -Transfuse if hemoglobin less than 7 Chronic: Dyslipidemia Hypothyroidism Hard of hearing Coronary artery disease DVT prophylaxis: SCDs Discussed with: Patient Anticipated discharge: 2-[address]: Home with home health [facility] versus senior care facility A total of 35 minutes was spent on the care of this complex patient more than 50% of the time was spent in counseling and care coordination.
[2019-10-16 17:14] LABS: Glucose,Whole Blood 219 mg/dL (75-99)
[2019-10-16 21:05] LABS: Glucose,Whole Blood 165 mg/dL (75-99)
[2019-10-16] MEDS: ATORVASTATIN 80 MG TAB PO SCH (21:13)
[2019-10-16] MEDS: MIRTAZAPINE 15 MG TAB PO SCH (21:14)
[2019-10-17 06:14] LABS: Glucose,Whole Blood 185 mg/dL (75-99)
[2019-10-17] MEDS: CARVEDILOL 6.25 MG TAB PO SCH ×2 (06:34→17:29)
[2019-10-17] MEDS: INSULIN ASPART (NovoLOG) 100 UNIT/ML VIAL SQ SCH ×4 (06:34→20:25)
[2019-10-17] MEDS: LEVOTHYROXINE 100 MCG TAB PO SCH (06:34)
[2019-10-17 06:57] LABS: Basophils % (A) 0 %; Eosinophils % (A) 0 %; HCT 26.2 % (34.0-46.0); HGB 8.3 gm/dL (11.4-16.0); Lymphocytes # (A) 0.6 k/uL (1.0-4.8); Lymphocytes % (A) 7 %; MCH 31.2 pg (25.0-35.0); MCHC 31.8 g/dL (31.0-37.0); Monocytes # (A) 0.3 k/uL (0-1.0); Monocytes % (A) 3 %; Neutrophils # (A) 7.1 k/uL (1.3-7.7); Neutrophils % (A) 89 %; Platelet Count 172 k/uL (150-450); RBC 2.68 m/uL (3.80-5.40); WBC 7.9 k/uL (3.8-10.6)
[2019-10-17 07:13] LABS: Calcium 9.2 mg/dL (8.4-10.2); Magnesium 2.2 mg/dL (1.6-2.3); Potassium 4.2 mmol/L (3.5-5.1)
[2019-10-17] MEDS: FORMOTEROL FUMARATE 20 MCG/2 ML NEBU INHALATION SCH ×2 (07:44→19:37)
[2019-10-17] MEDS: IPRATROPIUM-ALBUTEROL 3 ML NEB INHALATION SCH ×4 (07:44→19:38)
[2019-10-17] MEDS: BUDESONIDE 0.5 MG/2 ML NEBU INHALATION SCH ×2 (07:44→19:37)
[2019-10-17] MEDS: CLOPIDOGREL 75 MG TAB PO SCH (08:52)
[2019-10-17] MEDS: FERROUS SULFATE 325 MG TAB PO SCH (08:52)
[2019-10-17] MEDS: guaiFENesin 600 MG TABLET.ER PO SCH ×2 (08:52→20:25)
[2019-10-17] MEDS: ASPIRIN 81 MG PO SCH (08:52)
[2019-10-17] MEDS: AZITHROMYCIN 500 MG TAB PO SCH (08:52)
[2019-10-17] MEDS: methylPREDNISolone SOD SUCCI 125 MG/2 ML VIAL IV SCH (08:59)
[2019-10-17] MEDS: MULTIVITAMINS, THERA 1 EACH TAB PO SCH (08:59)
[2019-10-17] MEDS ORDERED: FUROSEMIDE 10 MG/ML 4 ML VIAL IV SCH (09:00)
--- NOTE | 2019-10-17 11:33 | P.PN ---
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 Objective - Vital Signs Vital signs: Vital Signs Temp 97.8 F 10/17/19 08:00 Pulse 93 10/17/19 11:25 Resp 18 10/17/19 08:00 BP 107/46 10/17/19 08:00 Pulse Ox 96 10/17/19 08:00 Intake & Output 10/16/19 10/17/19 10/17/19 18:59 06:59 18:59 Intake Total 180 10 250 Output Total 200 Balance 180 -190 250 Weight 52.5 kg Intake: IV 10 0.9 10 Oral 180 250 Output: Urine 200 Other: Voiding Method Toilet Toilet Toilet # Voids 1 1 - Exam - Constitutional General appearance: average body habitus, disheveled, mild distress, no acute distress - EENT Eyes: EOMI, PERRLA, normal appearance ENT: normal oropharynx Ears: bilateral: normal - Neck Neck: normal ROM Carotids: bilateral: upstroke normal Thyroid: bilateral: normal size - Respiratory Respiratory: bilateral: diminished, rales, prolonged expiration, negative: CTA, dullness, rhonchi, wheezing, prolonged inspiration, other - Cardiovascular Rhythm: regular Heart sounds: normal: S1, S2 - Gastrointestinal General gastrointestinal: decreased bowel sounds, soft - Neurologic Neurologic: CNII-XII intact - Musculoskeletal Musculoskeletal: gait normal, generalized weakness, strength equal bilaterally - Psychiatric Psychiatric: A&O x's 3, appropriate affect, intact judgment & insight - Labs CBC & Chem 7: 10/17/19 05:57 10/17/19 05:57 Labs: Abnormal Lab Results - Last 24 Hours (Table) 10/16/19 10/16/19 10/16/19 Range/Units 11:50 17:01 21:03 RBC (3.80-5.40) m/uL Hgb (11.4-16.0) gm/dL Hct (34.0-46.0) % Lymphocytes # (1.0-4.8) k/uL Chloride (98-107) mmol/L BUN (7-17) mg/dL Creatinine (0.52-1.04) mg/dL Glucose (74-99) mg/dL POC Glucose (mg/dL) 167 H 219 H 165 H (75-99) mg/dL 10/17/19 10/17/19 10/17/19 Range/Units 05:57 05:57 06:13 RBC 2.68 L (3.80-5.40) m/uL Hgb 8.3 L (11.4-16.0) gm/dL Hct 26.2 L (34.0-46.0) % Lymphocytes # 0.6 L (1.0-4.8) k/uL Chloride 109 H (98-107) mmol/L BUN 56 H (7-17) mg/dL Creatinine 1.34 H (0.52-1.04) mg/dL Glucose 156 H (74-99) mg/dL POC Glucose (mg/dL) 185 H (75-99) mg/dL Microbiology - Last 24 Hours (Table) 10/14/19 06:16 Blood Culture - Preliminary Blood No Growth after 72 hours Assessment and Plan Assessment: Left lower lobe pneumonia Fluid overload and exacerbation of heart failure acute on chronic systolic Ischemic cardiomyopathy Non-ST segment elevated DC 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
[2019-10-17 11:58] LABS: Glucose,Whole Blood 130 mg/dL (75-99)
[2019-10-17 12:20] LABS: % Iron Saturation 30.58 (12.00-45.00)
[2019-10-17] MEDS: predniSONE 20 MG TAB PO SCH (12:32)
[2019-10-17 12:52] LABS: Ferritin 538.5 ng/mL (10.0-291.0)
--- NOTE | 2019-10-17 16:35 | P.PN ---
Subjective Progress Note Date: 10/17/19 (delayed charting seen at 1030) Principal diagnosis: dyspnea Patient is an 89-year-old female with past medical history of severe COPD with chronic hypoxic respiratory failure on 2 L nasal cannula, coronary artery disease status post stent, history of significant tobacco abuse, systolic and diastolic congestive heart failure, and prior colon cancer who presented to the hospital with complaints of worsening shortness of breath and nonproductive cough. Apparently she presented here on 10/11 and was found to have altered mentation and therefore was transferred to [facility] for neurology evaluation. She was discharged from [facility] on 10/13 intermediate home several hours prior to re-presenting for severe dyspnea. She did have one episode of chest pain at home prior to presentation. On arrival to the ER here she underwent an extensive evaluation. Chest x-ray showed cardiomegaly with mild bilateral pleural effusions and pulmonary edema as well as a left lower lobe opacity concerning for atelectasis versus aspiration. She is on have an elevated white blood cell count at 17, BUN of 49 and a creatinine of 1.24 (this is down trending from creatinine on 10/11). She was also found to have a mildly elevated troponin at 0.64. She was given Solu-Medrol and bronchodilators in the emergency department. Arrangements were made for admission. She was started on Lasix for acute exacerbation of congestive heart failure. Her troponin was trended and continue to elevate with a max of 2. She was started on a heparin drip and cardiology was consulted. She was continued on antibiotics, bronchodilators, steroids, and Lasix. By the morning of 10/15 she reported significant improvement in her dyspnea. She was noted to have some anemia which dropped by ~1 gram of hemoglobin on heparin drip. Her heparin drip was discontinued by cardiology. She continued to have some dyspnea but it was improving. Has slowly been improving. Initially had talked with the patient about her getting ready for discharge. Initially plan was home with home health an palliative care- patient wanted to go home. However, daughters state that she has been getting weaker and weaker at home and not doing well. They would like evaluation for rehab. PT and OT Consu lted. Patient seen and examined at bedside. Feeling better today. Breathing much easier. No chest pain. Still some wheezing and coughing but improving daily. Objective - Vital Signs Vital signs: Vital Signs Temp 97.8 F 10/17/19 12:00 Pulse 68 10/17/19 15:42 Resp 18 10/17/19 15:42 BP 120/60 10/17/19 14:40 Pulse Ox 99 10/17/19 14:40 Intake & Output 10/16/19 10/17/19 10/17/19 18:59 06:59 18:59 Intake Total 180 10 250 Output Total 200 201 Balance 180 -190 49 Weight 52.5 kg Intake: IV 10 0.9 10 Oral 180 250 Output: Urine 200 200 Urine/Stool Mix 1 Other: Voiding Method Toilet Toilet Toilet # Voids 1 1 1 # Bowel Movements 1 - Exam General: non toxic, no distress, appears at stated age Derm: warm, dry Head: atraumatic, normocephalic, symmetric Eyes: EOMI, no lid lag, anicteric sclera Mouth: no lip lesion, mucus membranes moist Cardiovascular: S1S2 reg, no murmur, positive posterior tibial pulse bilateral, Lungs: decreased bs bilateral bases with decreased breath sounds, no accessory muscle use Abdominal: soft, nontender to palpation, no guarding, no appreciable organomegaly Ext: no gross muscle atrophy, no edema, no contractures Neuro: CN II-XI grossly intact, no focal neuro deficits Psych: Alert, oriented, appropriate affect - Labs CBC & Chem 7: 10/17/19 05:57 10/17/19 05:57 Labs: Abnormal Lab Results - Last 24 Hours (Table) 10/16/19 10/16/19 10/17/19 Range/Units 17:01 21:03 05:57 RBC 2.68 L (3.80-5.40) m/uL Hgb 8.3 L (11.4-16.0) gm/dL Hct 26.2 L (34.0-46.0) % Lymphocytes # 0.6 L (1.0-4.8) k/uL Chloride (98-107) mmol/L BUN (7-17) mg/dL Creatinine (0.52-1.04) mg/dL Glucose (74-99) mg/dL POC Glucose (mg/dL) 219 H 165 H (75-99) mg/dL TIBC (228-460) ug/dL Ferritin (10.0-291.0) ng/mL 10/17/19 10/17/19 10/17/19 Range/Units 05:57 06:13 11:57 RBC (3.80-5.40) m/uL Hgb (11.4-16.0) gm/dL Hct (34.0-46.0) % Lymphocytes # (1.0-4.8) k/uL Chloride 109 H (98-107) mmol/L BUN 56 H (7-17) mg/dL Creatinine 1.34 H (0.52-1.04) mg/dL Glucose 156 H (74-99) mg/dL POC Glucose (mg/dL) 185 H 130 H (75-99) mg/dL TIBC 206 L (228-460) ug/dL Ferritin 538.5 H (10.0-291.0) ng/mL Microbiology - Last 24 Hours (Table) 10/14/19 06:16 Blood Culture - Preliminary Blood No Growth after 72 hours Assessment and Plan Assessment: Left lower lobe pneumonia with sepsis associated acute exacerbation of COPD -Continue with budesonide/peroformist, Solu-Medrol changed to prednisone 10/17, scheduled DuoNeb's, Mucinex, incentive spirometry, and Zithromax and Rocephin -Pulmonary recs. Patient sees Isma Ceballos on a regular basis -Follow chest x-ray until clear repeat 10/17 -Pulmonary hygiene NSTEMI - cardio recs appreciated, no plans for intervention due to pulmonary status - Off heparin gtt secondary to drop in HgB of 0.7 - ASA, Stopping plavix as was taken off at home due to anemia (as per cardio records from office and verbal report from Dr. Torres) - on BB and statin - tele Ischemic cardiomyopathy associated with acute exacerbation of systolic congestive heart failure with ejection fraction 35-40% -Change lasix to oral daily -Strict I's and O's, daily weights -ARB (on hold due to ANGELES) and beta jf -Cardiology recommendations appreciated Acute on chronic hypoxic respiratory failure -Treatment as above Acute kidney injury, improving. Creatinine was 2.22 on admission 10/11 -Continue with Lasix -Follow BMP closely with diuresis. Hold ARB -Avoid additional nephrotoxic agents Anemia -Chronic known anemia. Undetermined cause as patient has elected not to undergo EGD or colonoscopy. -Check iron studies -Repeat CBC in a.m. -Transfuse if hemoglobin less than 7 Chronic: Dyslipidemia Hypothyroidism Hard of hearing Coronary artery disease DVT prophylaxis: SCDs Discussed with: Patient Anticipated discharge: 2-[address]: [facility] 10/20. A total of 35 minutes was spent on the care of this complex patient more than 50% of the time was spent in counseling and care coordination.
[2019-10-17 16:56] LABS: Glucose,Whole Blood 212 mg/dL (75-99)
[2019-10-17 20:09] LABS: Glucose,Whole Blood 191 mg/dL (75-99)
[2019-10-17] MEDS: ATORVASTATIN 80 MG TAB PO SCH (20:24)
[2019-10-17] MEDS: CEFDINIR 300 MG CAP PO SCH (20:25)
[2019-10-17] MEDS: MIRTAZAPINE 15 MG TAB PO SCH (20:37)
[2019-10-18] MEDS: LEVOTHYROXINE 100 MCG TAB PO SCH (06:09)
[2019-10-18 06:56] LABS: Glucose,Whole Blood 127 mg/dL (75-99)
--- NOTE | 2019-10-18 06:56 | XR ---
EXAMINATION TYPE: XR chest 1V portable DATE OF EXAM: 10/18/2019 CLINICAL HISTORY: Difficulty breathing and pneumonia progress study. TECHNIQUE: Single AP portable upright view of the chest is obtained. COMPARISON: Chest x-ray from 3 days earlier and older studies. CTA chest December 14, 2018. FINDINGS: Osseous structures remain demineralized with underlying scoliosis. Cholecystectomy clips ar e redemonstrated. Background cardiomegaly with atherosclerotic thoracic aorta again seen. Background chronic emphysematous change with left basilar diaphragmatic herniation and left basilar opacity silh ouetting left hemidiaphragm remain present. Right lung remains clear. No pleural effusion or pneumoth orax is noted. IMPRESSION: Overall stable findings from most recent x-ray, chronic changes and cardiomegaly with p ersistent left basilar acute infiltrate and/or atelectasis
[2019-10-18] MEDS: FORMOTEROL FUMARATE 20 MCG/2 ML NEBU INHALATION SCH ×2 (08:00→20:13)
[2019-10-18] MEDS: BUDESONIDE 0.5 MG/2 ML NEBU INHALATION SCH ×2 (08:00→20:13)
[2019-10-18] MEDS: IPRATROPIUM-ALBUTEROL 3 ML NEB INHALATION SCH ×4 (08:00→20:13)
[2019-10-18] MEDS: FERROUS SULFATE 325 MG TAB PO SCH (08:06)
[2019-10-18] MEDS: FUROSEMIDE 40 MG TAB PO SCH (08:06)
[2019-10-18] MEDS: AZITHROMYCIN 500 MG TAB PO SCH (08:06)
[2019-10-18] MEDS: ASPIRIN 81 MG PO SCH (08:06)
[2019-10-18] MEDS: CEFDINIR 300 MG CAP PO SCH ×2 (08:06→19:52)
[2019-10-18] MEDS: guaiFENesin 600 MG TABLET.ER PO SCH ×2 (08:06→19:52)
[2019-10-18] MEDS: predniSONE 20 MG TAB PO SCH (08:06)
[2019-10-18] MEDS: MULTIVITAMINS, THERA 1 EACH TAB PO SCH (08:06)
[2019-10-18] MEDS: INSULIN ASPART (NovoLOG) 100 UNIT/ML VIAL SQ SCH ×4 (08:21→19:53)
[2019-10-18] MEDS: CARVEDILOL 6.25 MG TAB PO SCH ×2 (08:22→17:22)
[2019-10-18 10:20] LABS: Basophils % (A) 0 %; Eosinophils % (A) 0 %; HCT 26.7 % (34.0-46.0); HGB 8.5 gm/dL (11.4-16.0); Lymphocytes # (A) 0.9 k/uL (1.0-4.8); Lymphocytes % (A) 9 %; MCH 31.4 pg (25.0-35.0); Monocytes # (A) 0.6 k/uL (0-1.0); Monocytes % (A) 6 %; Neutrophils # (A) 7.9 k/uL (1.3-7.7); Neutrophils % (A) 84 %; Platelet Count 189 k/uL (150-450); RBC 2.73 m/uL (3.80-5.40); WBC 9.5 k/uL (3.8-10.6)
--- NOTE | 2019-10-18 10:35 | P.PN ---
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 Coronary artery disease with history of stent in RCA in 2017 Acute renal failure likely related to intravascular volume depletion dehydration 10/18/2019, patient seen eval reexamined during the rounds undergoing nebulizer treatment feeling better denies any cough or sputum production, agree with discharge planning 10/17/2019, patient seen eval reexamined during the round labs reviewed medications reviewed still shortness of breath is present but severity has improved denies any cough or sputum production labs reviewed medications r eviewed, white cell count is normalized at 7.9, BUN/creatinine slightly up 56 and 1.34 but overall stable, patient remains on 2 L nasal cannula saturations 96%. Objective - Vital Signs Vital signs: Vital Signs Temp 97.6 F 10/18/19 05:00 Pulse 68 10/18/19 08:29 Resp 17 10/18/19 05:00 BP 134/57 10/18/19 05:00 Pulse Ox 98 10/18/19 05:00 Intake & Output 10/17/19 10/18/19 10/18/19 18:59 06:59 18:59 Intake Total 250 Output Total 201 Balance 49 Intake: Oral 250 Output: Urine 200 Urine/Stool Mix 1 Other: Voiding Method Toilet Toilet Toilet # Voids 1 1 # Bowel Movements 1 - Exam - Constitutional General appearance: average body habitus, disheveled, mild distress, no acute distress - EENT Eyes: EOMI, PERRLA, normal appearance ENT: normal oropharynx Ears: bilateral: normal - Neck Neck: normal ROM Carotids: bilateral: upstroke normal Thyroid: bilateral: normal size - Respiratory Respiratory: bilateral: diminished, rales, prolonged expiration, negative: CTA, dullness, rhonchi, wheezing, prolonged inspiration, other - Cardiovascular Rhythm: regular Heart sounds: normal: S1, S2 - Gastrointestinal General gastrointestinal: decreased bowel sounds, soft - Neurologic Neurologic: CNII-XII intact - Musculoskeletal Musculoskeletal: gait normal, generalized weakness, strength equal bilaterally - Psychiatric Psychiatric: A&O x's 3, appropriate affect, intact judgment & insight - Labs CBC & Chem 7: 10/18/19 09:36 10/17/19 05:57 Labs: Abnormal Lab Results - Last 24 Hours (Table) 10/17/19 10/17/19 10/17/19 Range/Units 05:57 11:57 16:52 RBC (3.80-5.40) m/uL Hgb (11.4-16.0) gm/dL Hct (34.0-46.0) % Neutrophils # (1.3-7.7) k/uL Lymphocytes # (1.0-4.8) k/uL POC Glucose (mg/dL) 130 H 212 H (75-99) mg/dL TIBC 206 L (228-460) ug/dL Ferritin 538.5 H (10.0-291.0) ng/mL 10/17/19 10/18/19 10/18/19 Range/Units 20:08 06:55 09:36 RBC 2.73 L (3.80-5.40) m/uL Hgb 8.5 L (11.4-16.0) gm/dL Hct 26.7 L (34.0-46.0) % Neutrophils # 7.9 H (1.3-7.7) k/uL Lymphocytes # 0.9 L (1.0-4.8) k/uL POC Glucose (mg/dL) 191 H 127 H (75-99) mg/dL TIBC (228-460) ug/dL Ferritin (10.0-291.0) ng/mL Microbiology - Last 24 Hours (Table) 10/14/19 06:16 Blood Culture - Preliminary Blood No Growth after 96 hours Assessment and Plan Assessment: Left lower lobe pneumonia Fluid overload and exacerbation of heart failure acute on chronic systolic Ischemic cardiomyopathy Non-ST segment elevated MD 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
[2019-10-18 11:58] LABS: Glucose,Whole Blood 128 mg/dL (75-99)
[2019-10-18 17:11] LABS: Glucose,Whole Blood 198 mg/dL (75-99)
[2019-10-18 19:28] LABS: Glucose,Whole Blood 207 mg/dL (75-99)
[2019-10-18] MEDS: MIRTAZAPINE 15 MG TAB PO SCH (19:52)
[2019-10-18] MEDS: ATORVASTATIN 80 MG TAB PO SCH (19:52)
[2019-10-19 06:50] LABS: Glucose,Whole Blood 95 mg/dL (75-99)
[2019-10-19] MEDS: IPRATROPIUM-ALBUTEROL 3 ML NEB INHALATION SCH ×4 (07:30→20:03)
[2019-10-19] MEDS: FORMOTEROL FUMARATE 20 MCG/2 ML NEBU INHALATION SCH ×2 (07:30→20:04)
[2019-10-19] MEDS: BUDESONIDE 0.5 MG/2 ML NEBU INHALATION SCH ×2 (07:30→20:04)
--- NOTE | 2019-10-19 07:40 | P.PN ---
Subjective Progress Note Date: 10/18/19 Principal diagnosis: Patient is an 89-year-old female with past medical history of severe COPD with chronic hypoxic respiratory failure on 2 L nasal cannula, coronary art sruthi disease status post stent, history of significant tobacco abuse, systolic and diastolic congestive heart failure, and prior colon cancer who presented to the hospital with complaints of worsening shortness of breath and nonproductive cough. Apparently she presented here on 10/11 and was found to have altered mentation and therefore was transferred to [facility] for neurology evaluation. She was discharged from [facility] on 10/13 intermediate home several hours prior to re-presenting for severe dyspnea. She did have one episode of chest pain at home prior to presentation. On arrival to the ER here she underwent an extensive evaluation. Chest x-ray showed cardiomegaly with m ild bilateral pleural effusions and pulmonary edema as well as a left lower lobe opacity concerning for atelectasis versus aspiration. She is on have an elevated white blood cell count at 17, BUN of 49 and a creatinine of 1.24 (this is down trending from creatinine on 10/11). She was also found to have a mildly elevated troponin at 0.64. She was given Solu-Medrol and bronchodilators in the emergency department. Arrangements were made for admission. She was started on Lasix for acute exacerbation of congestive heart failure. Her troponin was trended and continue to elevate with a max of 2. She was started on a heparin drip and cardiology was consulted. She was continued on antibiotics, bronchodilators, steroids, and Lasix. By the morning of 10/15 she reported significant improvement in her dyspnea. She was noted to have some anemia which dropped by ~1 gram of hemoglobin on heparin drip. Her heparin drip was discontinued by cardiology. She continued to have some dyspnea but it was improving. Has slowly been improving. Patient seen and examined at bedside, reporting her breathing is improved, has not been up and ambulatory, reports nonproductive cough. No acute events ov ernight Objective - Vital Signs Vital signs: Vital Signs Temp 97.6 F 10/18/19 05:00 Pulse 68 10/18/19 08:29 Resp 17 10/18/19 05:00 BP 134/57 10/18/19 05:00 Pulse Ox 98 10/18/19 05:00 Intake & Output 10/17/19 10/18/1910/18/19 18:59 06:59 18:59 Intake Total 250 Output Total 201 Balance 49 Intake: Oral 250 Output: Urine 200 Urine/Stool Mix 1 Other: Voiding Method Toilet Toilet Toilet # Voids 1 1 # Bowel Movements 1 - Exam General: non toxic, no distress, appears at stated age Derm: warm, dry Head: atraumatic, normocephalic, symmetric Eyes: EOMI, no lid lag, anicteric sclera Mouth: no lip lesion, mucus membranes moist Cardiovascular: S1S2 reg, no murmur, positive posterior tibial pulse bilateral, Lungs: decreased bs bilateral bases with decreased breath sounds, no accessory muscle use Abdominal: soft, nontender to palpation, no guarding, no appreciable organomegaly Ext: no gross muscle atrophy, no edema, no contractures Neuro: CN II-XI grossly intact, no focal neuro deficits Psych: Alert, oriented, appropriate affect - Labs CBC & Chem 7: 10/18/19 09:36 10/17/19 05:57 Labs: Abnormal Lab Results - Last 24 Hours (Table) 10/17/19 10/17/19 10/17/19 Range/Units 05:57 11:57 16:52 POC Glucose (mg/dL) 130 H 212 H (75-99) mg/dL TIBC 206 L (228-460) ug/dL Ferritin 538.5 H (10.0-291.0) ng/mL 10/17/19 10/18/19 Range/Units 20:08 06:55 POC Glucose (mg/dL) 191 H 127 H (75-99) mg/dL TIBC (228-460) ug/dL Ferritin (10.0-291.0) ng/mL Microbiology - Last 24 Hours (Table) 10/14/19 06:16 Blood Culture - Preliminary Blood No Growth after 72 hours Assessment and Plan Assessment: Left lower lobe pneumonia with sepsis associated acute exacerbation of COPD -Continue with budesonide/peroformist, Solu-Medrol changed to prednisone 10/17, scheduled DuoNeb's, Mucinex, incentive spirometry, and Zithromax and Rocephin -Pulmonary recs. Patient sees Isma Ceballos on a regular basis -Follow chest x-ray until clear repeat 10/17 -Pulmonary hygiene NSTEMI - cardio recs appreciated, no plans for intervention due to pulmonary status - Off heparin gtt secondary to drop in HgB of 0.7 - ASA, Stopping plavix as was taken off at home due to anemia (as per cardio records from office and verbal report from Dr. Torres) - on BB and statin - tele Ischemic cardiomyopathy associated with acute exacerbation of systolic congestive heart failure with ejection fraction 35-40% -Change lasix to oral daily -Strict I's and O's, daily weights -ARB (on hold due to ANGELES) and beta jf -Cardiology recommendations appreciated Acute on chronic hypoxic respiratory failure -Treatment as above Acute kidney injury, improving. Creatinine was 2.22 on admission 10/11 -Continue with Lasix -Follow BMP closely with diuresis. Hold ARB -Avoid additional nephrotoxic agents Anemia -Chronic known anemia. Undetermined cause as patient has elected not to undergo EGD or colonoscopy. -Check iron studies -Repeat CBC in a.m. -Transfuse if hemoglobin less than 7 Chronic: Dyslipidemia Hypothyroidism Hard of hearing Coronary artery disease DVT prophylaxis: SCDs Discussed with: Patient Anticipated discharge: 2-[address]: [facility], [place] 10/20. A total of 35 minutes was spent on the care of this complex patient more than 50% of the time was spent in counseling and care coordination.
[2019-10-19] MEDS: INSULIN ASPART (NovoLOG) 100 UNIT/ML VIAL SQ SCH ×4 (07:51→20:50)
[2019-10-19] MEDS: predniSONE 20 MG TAB PO SCH (08:05)
[2019-10-19] MEDS: AZITHROMYCIN 500 MG TAB PO SCH (08:05)
[2019-10-19] MEDS: FUROSEMIDE 40 MG TAB PO SCH (08:05)
[2019-10-19] MEDS: ASPIRIN 81 MG PO SCH (08:05)
[2019-10-19] MEDS: FERROUS SULFATE 325 MG TAB PO SCH (08:05)
[2019-10-19] MEDS: guaiFENesin 600 MG TABLET.ER PO SCH ×2 (08:05→20:50)
[2019-10-19] MEDS: MULTIVITAMINS, THERA 1 EACH TAB PO SCH (08:05)
[2019-10-19] MEDS: CEFDINIR 300 MG CAP PO SCH (08:05)
[2019-10-19] MEDS: CARVEDILOL 6.25 MG TAB PO SCH ×2 (08:06→17:25)
--- NOTE | 2019-10-19 09:58 | P.PN ---
Subjective Progress Note Date: 10/19/19 Principal diagnosis: Patient is an 89-year-old female with past medical history of severe COPD with chronic hypoxic respiratory failure on 2 L nasal cannula, coronary art sruthi disease status post stent, history of significant tobacco abuse, systolic and diastolic congestive heart failure, and prior colon cancer who presented to the hospital with complaints of worsening shortness of breath and nonproductive cough. Apparently she presented here on 10/11 and was found to have altered mentation and therefore was transferred to [facility] for neurology evaluation. She was discharged from [facility] on 10/13 intermediate home several hours prior to re-presenting for severe dyspnea. She did have one episode of chest pain at home prior to presentation. On arrival to the ER here she underwent an extensive evaluation. Chest x-ray showed cardiomegaly with m ild bilateral pleural effusions and pulmonary edema as well as a left lower lobe opacity concerning for atelectasis versus aspiration. She is on have an elevated white blood cell count at 17, BUN of 49 and a creatinine of 1.24 (this is down trending from creatinine on 10/11). She was also found to have a mildly elevated troponin at 0.64. She was given Solu-Medrol and bronchodilators in the emergency department. Arrangements were made for admission. She was started on Lasix for acute exacerbation of congestive heart failure. Her troponin was trended and continue to elevate with a max of 2. She was started on a heparin drip and cardiology was consulted. She was continued on antibiotics, bronchodilators, steroids, and Lasix. By the morning of 10/15 she reported significant improvement in her dyspnea. She was noted to have some anemia which dropped by ~1 gram of hemoglobin on heparin drip. Her heparin drip was discontinued by cardiology. She continued to have some dyspnea but it was improving. Has slowly been improving. Patient seen and examined at bedside, reporting her breathing is improved, patient worked well with physical therapy so requiring assistance and having dexter e balance issues recommended subacute rehab, reports nonproductive cough. No acute events overnight Objective - Vital Signs Vital signs: Vital Signs Temp 97.9 F 10/19/19 05:46 Pulse 60 10/19/19 07:53 Resp 18 10/19/19 08:00 BP 131/63 10/19/19 05:46 Pulse Ox 98 10/19/19 05:46 Intake & Output 10/18/19 10/19/19 10/19/19 18:59 06:59 18:59 Intake Total 580 Balance 580 Intake: Oral 580 Other: Voiding Method Toilet Toilet Toilet # Voids 3 3 # Bowel Movements 1 1 - Exam General: non toxic, no distress, appears at stated age Derm: warm, dry Head: atraumatic, normocephalic, symmetric Eyes: EOMI, no lid lag, anicteric sclera Mouth: no lip lesion, mucus membranes moist Cardiovascular: S1S2 reg, no murmur, positive posterior tibial pulse bilateral, Lungs: Diffuse wheezes in the bilateral lower lung reyes, decreased bs bilateral bases with decreased breath sounds, no accessory muscle use Abdominal: soft, nontender to palpation, no guarding, no appreciable organomegaly Ext: no gross muscle atrophy, no edema, no contractures Neuro: CN II-XI grossly intact, no focal neuro deficits Psych: Alert, oriented, appropriate affect - Labs CBC & Chem 7: 10/18/19 09:36 10/17/19 05:57 Labs: Abnormal Lab Results - Last 24 Hours (Table) 10/18/19 10/18/19 10/18/19 Range/Units 09:36 11:55 17:10 RBC 2.73 L (3.80-5.40) m/uL Hgb 8.5 L (11.4-16.0) gm/dL Hct 26.7 L (34.0-46.0) % Neutrophils # 7.9 H (1.3-7.7) k/uL Lymphocytes # 0.9 L (1.0-4.8) k/uL POC Glucose (mg/dL) 128 H 198 H (75-99) mg/dL 10/18/19 Range/Units 19:26 RBC (3.80-5.40) m/uL Hgb (11.4-16.0) gm/dL Hct (34.0-46.0) % Neutrophils # (1.3-7.7) k/uL Lymphocytes # (1.0-4.8) k/uL POC Glucose (mg/dL) 207 H (75-99) mg/dL Microbiology - Last 24 Hours (Table) 10/14/19 06:16 Blood Culture - Preliminary Blood No Growth after 96 hours Assessment and Plan Assessment: Left lower lobe pneumonia with sepsis associated acute exacerbation of COPD -Continue with budesonide/peroformist, Solu-Medrol changed to prednisone 10/17, scheduled DuoNeb's, Mucinex, incentive spirometry, and Zithromax and Rocephin -Appreciate pulmonary recommendations we'll change to oral antibiotics on discharge likely tomorrow -Follow chest x-ray 10/18 indicates persistent left basilar acute infiltrate -Pulmonary hygiene NSTEMI - cardio recs appreciated, no plans for intervention due to pulmonary status - Off heparin gtt secondary to drop in HgB of 0.7 - ASA, Stopping plavix as was taken off at home due to anemia (as per cardio records from office and verbal report from Dr. Torres) - on BB and statin - tele Ischemic cardiomyopathy associated with acute exacerbation of systolic congestive heart failure with ejection fraction 35-40% -Change lasix to oral daily -Strict I's and O's, daily weights -ARB (on hold due to ANGELES) and beta jf -Cardiology recommendations appreciated Acute on chronic hypoxic respiratory failure -Treatment as above Acute kidney injury, improving. Creatinine was 2.22 on admission 10/11 -Continue with Lasix -Follow BMP closely with diuresis. Hold ARB -Avoid additional nephrotoxic agents Anemia -Chronic known anemia. Undetermined cause as patient has elected not to undergo EGD or colonoscopy. -Check iron studies -Repeat CBC in a.m. -Transfuse if hemoglobin less than 7 Chronic: Dyslipidemia Hypothyroidism Hard of hearing Coronary artery disease DVT prophylaxis: SCDs Discussed with: Patient Anticipated discharge: Tomorrow Anticipated discharge place: [facility], ju[place] 10/20. A total of 35 minutes was spent on the care of this complex patient more than 50% of the time was spent in counseling and care coordination.
--- NOTE | 2019-10-19 10:31 | P.PN ---
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 Coronary artery disease with history of stent in RCA in 2017 Acute renal failure likely related to intravascular volume depletion dehydration 10/19/2019, patient seen eval reexamined during the rounds labs reviewed medications reviewed patient is feeling better in terms of breathing less cough congestion is present, remains on broad-spectrum antibiotics breathing treatments patient will require follow up on outpatient basis 10/18/2019, patient seen eval reexamined during the rounds undergoing nebulizer treatment feeling better denies any cough or sputum production, agree with discharge planning 10/17/2019, patient seen eval reexamined during the round labs reviewed medications reviewed still shortness of breath is present but severity has improved denies any cough or sputum production labs reviewed medications reviewed, white cell count is normalized at 7.9, BUN/creatinine slightly up 56 and 1.34 but overall stable, patient remains on 2 L nasal cannula saturations 96%. Objective - Vital Signs Vital signs: Vital Signs Temp 97.9 F 10/19/19 05:46 Pulse 60 10/19/19 07:53 Resp 18 10/19/19 08:00 BP 131/63 10/19/19 05:46 Pulse Ox 98 10/19/19 05:46 Intake & Output 10/18/19 10/19/19 10/19/19 18:59 06:59 18:59 Intake Total 580 Balance 580 Intake: Oral 580 Other: Voiding Method Toilet Toilet Toilet # Voids 3 3 # Bowel Movements 1 1 - Exam - Constitutional General appearance: average body habitus, disheveled, mild distress, no acute distress - EENT Eyes: EOMI, PERRLA, normal appearance ENT: normal oropharynx Ears: bilateral: normal - Neck Neck: normal ROM Carotids: bilateral: upstroke normal Thyroid: bilateral: normal size - Respiratory Respiratory: bilateral: diminished, rales, prolonged expiration, negative: CTA, dullness, rhonchi, wheezing, prolonged inspiration, other - Cardiovascular Rhythm: regular Heart sounds: normal: S1, S2 - Gastrointestinal General gastrointestinal: decreased bowel sounds, soft - Neurologic Neurologic: CNII-XII intact - Musculoskeletal Musculoskeletal: gait normal, generalized weakness, strength equal bilaterally - Psychiatric Psychiatric: A&O x's 3, appropriate affect, intact judgment & insight - Labs CBC & Chem 7: 10/18/19 09:36 10/17/19 05:57 Labs: Abnormal Lab Results - Last 24 Hours (Table) 10/18/19 10/18/19 10/18/19 Range/Units 11:55 17:10 19:26 POC Glucose (mg/dL) 128 H 198 H 207 H (75-99) mg/dL Microbiology - Last 24 Hours (Table) 10/14/19 06:16 Blood Culture - Preliminary Blood No Growth after 120 hours Assessment and Plan Assessment: Left lower lobe pneumonia Fluid overload and exacerbation of heart failure acute on chronic systolic Ischemic cardiomyopathy Non-ST segment elevated MT 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
[2019-10-19 11:22] LABS: Glucose,Whole Blood 196 mg/dL (75-99)
[2019-10-19 17:01] LABS: Glucose,Whole Blood 130 mg/dL (75-99)
[2019-10-19 20:40] LABS: Glucose,Whole Blood 255 mg/dL (75-99)
[2019-10-19] MEDS: ATORVASTATIN 80 MG TAB PO SCH (20:50)
[2019-10-19] MEDS: MIRTAZAPINE 15 MG TAB PO SCH (20:50)
[2019-10-19 21:25] VITALS: RESP 18
[2019-10-20 04:51] VITALS: BP 124/51; TEMP 97.7
[2019-10-20] MEDS: LEVOTHYROXINE 100 MCG TAB PO SCH (05:11)
[2019-10-20 06:50] LABS: Glucose,Whole Blood 120 mg/dL (75-99)
[2019-10-20 07:32] LABS: Basophils % (A) 0 %; Eosinophils % (A) 0 %; HCT 25.7 % (34.0-46.0); HGB 8.5 gm/dL (11.4-16.0); Lymphocytes % (A) 10 %; MCH 31.6 pg (25.0-35.0); MCHC 32.9 g/dL (31.0-37.0); MCV 96.2 fL (80.0-100.0); Mean Platelet Volume 7.2; Monocytes # (A) 0.6 k/uL (0-1.0); Monocytes % (A) 6 %; Neutrophils # (A) 8.3 k/uL (1.3-7.7); Neutrophils % (A) 82 %; Platelet Count 184 k/uL (150-450); RBC 2.68 m/uL (3.80-5.40); WBC 10.1 k/uL (3.8-10.6)
[2019-10-20 07:47] LABS: Calcium 8.9 mg/dL (8.4-10.2); Potassium 3.9 mmol/L (3.5-5.1)
[2019-10-20] MEDS: BUDESONIDE 0.5 MG/2 ML NEBU INHALATION SCH (07:47)
[2019-10-20] MEDS: FORMOTEROL FUMARATE 20 MCG/2 ML NEBU INHALATION SCH (07:47)
[2019-10-20] MEDS: IPRATROPIUM-ALBUTEROL 3 ML NEB INHALATION SCH ×3 (07:47→15:30)
[2019-10-20] MEDS: INSULIN ASPART (NovoLOG) 100 UNIT/ML VIAL SQ SCH ×2 (08:45→14:54)
[2019-10-20] MEDS: predniSONE 20 MG TAB PO SCH ×2 (08:46→08:47)
[2019-10-20] MEDS: MULTIVITAMINS, THERA 1 EACH TAB PO SCH (08:47)
[2019-10-20] MEDS: FERROUS SULFATE 325 MG TAB PO SCH (08:47)
[2019-10-20] MEDS: FUROSEMIDE 40 MG TAB PO SCH (08:47)
[2019-10-20] MEDS: guaiFENesin 600 MG TABLET.ER PO SCH (08:47)
[2019-10-20] MEDS: CARVEDILOL 6.25 MG TAB PO SCH (08:47)
[2019-10-20] MEDS: ASPIRIN 81 MG PO SCH (08:48)
[2019-10-20] MEDS: AZITHROMYCIN 500 MG TAB PO SCH (08:48)
[2019-10-20] MEDS ORDERED: CEFDINIR 300 MG CAP PO SCH (09:00)
--- NOTE | 2019-10-20 09:41 | P.DS ---
Providers Date of admission: 10/14/19 06:40 Expected date of discharge: 10/20/19 Attending physician: Calos Mistry MD Consults: 10/14/19 16:10 Consult Physician Routine Consulting Provider: Corey Corado Consult Reason/Comments: elevated troponens, chest pain Do you want consulting provider notified?: Yes 10/14/19 16:21 Consult Physician Routine Consulting Provider: Gabriel Ceballos Consult Reason/Comments: AE COPD Do you want consulting provider notified?: Yes Primary care physician: Charanjit Torres Hospital Course: Discharge diagnosis Sepsis Left lower lobe pneumonia Acute on chronic hypoxic respiratory failure Acute COPD exacerbation Acute on chronic systolic CHF exacerbation Acute kidney injury Non-STEMI Ischemic cardiomyopathy Chronic anemia Hospital course Patient is an 89-year-old female with past medical history of severe COPD with chronic hypoxic respiratory failure on 2 L nasal cannula, coronary artery disease status post stent, history of significant tobacco abuse, systolic and diastolic congestive heart failure, and prior colon cancer who presented to the hospital with complaints of worsening shortness of breath and nonproductive cough. Apparently she presented here on 10/11 and was found to have altered mentation and therefore was transferred to [facility] for neurology evaluation. She was discharged from [facility] on 10/13 intermediate home several hours prior to re-presenting for severe dyspnea. She did have one episode of chest pain at home prior to presentation. On arrival to the ER here she underwent an extensive evaluation. Chest x-ray showed cardiomegaly with mild bilateral pleural effusions and pulmonary edema as well as a left lower lobe opacity concerning for atelectasis versus aspiration. She is on have an elevated white blood cell count at 17, BUN of 49 and a creatinine of 1.24 (this is down trending from creatinine on 10/11). She was also found to have a mildly elevated troponin at 0.64. She was given Solu-Medrol and bronchodilators in the emergency department. Arrangements were made for admission. She was started on Lasix for acute exacerbation of congestive heart failure. Her troponin was trended and continue to elevate with a max of 2. She was started on a heparin drip and cardiology was consulted. She was continued on antibiotics, bronchodilators, steroids, and Lasix. By the morning of 10/15 she reported significant improvement in her dyspnea. She was noted to have some anemia which dropped by ~1 gram of hemoglobin on heparin drip. Her heparin drip was discontinued by cardiology. Her hemoglobin remained stable at approximately 8.5 g. The patient's dyspnea gradually improved she was weaned back to her baseline O2 requirement of 2 L via nasal cannula the patient was transitioned to oral antibiotics and steroids and subsequently discharged tomorrow in stable condition. This discharge process took approximately 35 minutes Focused exam Respiratory: Mild expiratory wheezes, unlabored on 2 L via nasal cannula Plan - Discharge Summary Discharge Rx Participant: No New Discharge Prescriptions: New Cefdinir [Omnicef] 300 mg PO DAILY #5 cap Azithromycin [Zithromax] 500 mg PO DAILY #5 tab Continue Levothyroxine Sodium [Synthroid] 100 mcg PO MOTUWETHFRSA Budesonide [Pulmicort] 0.5 mg INHALATION RT-BID Atorvastatin [Lipitor] 80 mg PO HS #30 tab Clopidogrel [Plavix] 75 mg PO DAILY #90 tab Nitroglycerin Sl Tabs [Nitrostat] 0.4 mg SUBLINGUAL Q5M PRN #100 tab PRN Reason: Chest Pain Furosemide [Lasix] 40 mg PO DAILY #30 tab Ferrous Sulfate [Iron (65 MG Elemental)] 325 mg PO DAILY Ipratropium-Albuterol Nebulize [Duoneb 0.5 mg-3 mg/3 ml Soln] 3 ml INHALATION RT-QID PRN PRN Reason: Shortness Of Breath Multivit with Calcium,Iron,Min [Women's Multivitamin] 1 tab PO DAILY Carvedilol [Coreg] 6.25 mg PO BID Aspirin EC [Ecotrin Low Dose] 81 mg PO DAILY traMADol HCl [Ultram] 50 mg PO Q6H PRN PRN Reason: Pain Losartan Potassium [Cozaar] 25 mg PO HS ALPRAZolam [Xanax] 0.25 mg PO DAILY PRN PRN Reason: Anxiety Mirtazapine [Remeron] 15 mg PO HS predniSONE 20 mg PO DAILY Discharge Medication List Levothyroxine Sodium [Synthroid] 100 mcg PO MOTUWETHFRSA 01/17/16 [History] Budesonide [Pulmicort] 0.5 mg INHALATION RT-BID 04/02/17 [History] Atorvastatin [Lipitor] 80 mg PO HS #30 tab 04/09/17 [Rx] Clopidogrel [Plavix] 75 mg PO DAILY #90 tab 04/09/17 [Rx] Nitroglycerin Sl Tabs [Nitrostat] 0.4 mg SUBLINGUAL Q5M PRN #100 tab 04/09/17 [Rx] Furosemide [Lasix] 40 mg PO DAILY #30 tab 09/28/17 [Rx] Ferrous Sulfate [Iron (65 MG Elemental)] 325 mg PO DAILY 04/18/18 [History] Ipratropium-Albuterol Nebulize [Duoneb 0.5 mg-3 mg/3 ml Soln] 3 ml INHALATION RT-QID PRN 04/18/18 [History] Multivit with Calcium,Iron,Min [Women's Multivitamin] 1 tab PO DAILY 04/18/18 [History] Aspirin EC [Ecotrin Low Dose] 81 mg PO DAILY 12/10/18 [History] Carvedilol [Coreg] 6.25 mg PO BID 12/10/18 [History] ALPRAZolam [Xanax] 0.25 mg PO DAILY PRN 10/11/19 [History] Losartan Potassium [Cozaar] 25 mg PO HS 10/11/19 [History] Mirtazapine [Remeron] 15 mg PO HS 10/11/19 [History] traMADol HCl [Ultram] 50 mg PO Q6H PRN 10/11/19 [History] predniSONE 20 mg PO DAILY 10/14/19 [History] Azithromycin [Zithromax] 500 mg PO DAILY #5 tab 10/20/19 [Rx] Cefdinir [Omnicef] 300 mg PO DAILY #5 cap 10/20/19 [Rx] Follow up Appointment(s)/Referral(s): Charanjit Torres MD [Primary Care Provider] - [facility], [NON-STAFF] - (With palliative care.)
[2019-10-20 11:11] LABS: Glucose,Whole Blood 132 mg/dL (75-99)
[2019-10-20 15:43] VITALS: PULSE 62
--- NOTE | 2019-10-20 23:08 | PN ---
PROGRESS NOTE DATE OF SERVICE: 10/20/2019 Cherelle Benítez was seen on 10/20/2019. She is at her baseline as far as shortness of breath is concerned. Discharge planning is in progress. On physical examination, her respiratory rate is 18, pulse rate 58, blood pressure 124/51. Oxygen saturation on 2 L by nasal cannula is 95%. HEENT is unremarkable. Chest reveals prolonged exhalation with no wheeze. Cardiovascular system is in S1, S2. Abdomen is soft. There is no pedal edema. Labs and medications were reviewed. IMPRESSION AT THIS TIME: 1. Chronic obstructive pulmonary disease with acute exacerbation. 2. Coronary artery disease. 3. Sepsis. 4. Left lower lobe pneumonia. 5. [id number] myocardial infarction. 6. Ischemic cardiomyopathy. I agree with discharge planning to the [facility] with close outpatient followup and rehab. YVAN / SHAY: [phone] /
== END 2019-10-20 16:30 | DRG 871 ==
LOC: EC 03:20 → 3SCARD 06:40 → 3NMEDONC 10-17 14:01
PROVIDERS: ADMIT Internal Medicine; ATTEND Internal Medicine
DX: A41.9 Sepsis, unspecified organism (principal); G92 Toxic encephalopathy; I21.4 Non-ST elevation (NSTEMI) myocardial infarction; I50.43 Acute on chronic combined systolic (congestive) and diastolic (congestive) heart failure; J18.9 Pneumonia, unspecified organism; J96.21 Acute and chronic respiratory failure with hypoxia; N17.9 Acute kidney failure, unspecified; D64.9 Anemia, unspecified; E78.5 Hyperlipidemia, unspecified; E86.0 Dehydration; E89.0 Postprocedural hypothyroidism; F41.9 Anxiety disorder, unspecified; T42.4X5A Adverse effect of benzodiazepines, initial encounter; T48.205A Adverse effect of unspecified drugs acting on muscles, initial encounter; H91.90 Unspecified hearing loss, unspecified ear; I11.0 Hypertensive heart disease with heart failure; I25.10 Atherosclerotic heart disease of native coronary artery without angina pectoris; I25.2 Old myocardial infarction; I25.5 Ischemic cardiomyopathy; I44.7 Left bundle-branch block, unspecified; J43.9 Emphysema, unspecified; Z79.02 Long term (current) use of antithrombotics/antiplatelets; Z79.82 Long term (current) use of aspirin; Z79.890 Hormone replacement therapy; Z79.899 Other long term (current) drug therapy; Z82.49 Family history of ischemic heart disease and other diseases of the circulatory system; Z85.038 Personal history of other malignant neoplasm of large intestine; Z87.01 Personal history of pneumonia (recurrent); Z87.891 Personal history of nicotine dependence; Z90.49 Acquired absence of other specified parts of digestive tract; Z90.710 Acquired absence of both cervix and uterus; Z95.5 Presence of coronary angioplasty implant and graft; Z96.1 Presence of intraocular lens; Z98.41 Cataract extraction status, right eye; Z98.42 Cataract extraction status, left eye; Z99.81 Dependence on supplemental oxygen; Z88.0 Allergy status to penicillin; Z88.7 Allergy status to serum and vaccine; Z86.010 Personal history of colon polyps
CPT/HCPCS: 71045; 71046; 80048; 80053; 82550; 82607; 82728; 82747; 83540; 83550; 83735; 83880; 84145; 84484; 85025; 85027; 85610; 85730; 87040; 94640; 94760; 96365; 96366; 96367; 96372; 96374; 96375; 96376; 99285

== ENCOUNTER → 2020-03-26 | Outpatient (CLI) | payer MEDICARE ==
--- NOTE | 2020-03-26 12:07 | XR ---
EXAMINATION TYPE: XR chest 2V DATE OF EXAM: 03/26/2020 COMPARISON: 10/18/2019 HISTORY: Shortness of breath with history of COPD. TECHNIQUE: Frontal and lateral views of the chest are obtained. FINDINGS: Retrocardiac consolidation is seen with intervening partially aerated lung between left up per lung atelectasis and the left basilar consolidation. There is partial obscuration of the enlarged cardiomediastinal silhouette. Pulmonary hyperinflation of underlying COPD. Chronic interstitial prom inence. Dextroscoliosis of the thoracic spine. Cholecystectomy clips seen. Diffuse osseous mineraliza tion. IMPRESSION: Retrocardiac opacity may represent a small pleural effusion and associated atelectasis o r pneumonia. New left midlung atelectasis is also seen in comparison to the prior. Chronic emphysemat ous change and interstitial prominence.
== END | disposition home or self-care (01) ==
LOC: RADXRMAIN 11:19
PROVIDERS: ATTEND Internal Medicine
DX: J44.9 Chronic obstructive pulmonary disease, unspecified (principal); J98.11 Atelectasis; R04.2 Hemoptysis; I50.22 Chronic systolic (congestive) heart failure
CPT/HCPCS: 71046

== ENCOUNTER 2020-07-21 04:14 | Inpatient (IN) | payer MEDICARE ==
[2020-07-21 04:32] LABS: Glucose,Whole Blood 376 mg/dL (75-99)
[2020-07-21] MEDS ORDERED: IPRATROPIUM-ALBUTEROL 3 ML NEB INHALATION STA (04:47)
--- NOTE | 2020-07-21 05:03 | XR ---
EXAMINATION TYPE: XR chest 1V portable DATE OF EXAM: 07/21/2020 COMPARISON: 03/26/2020 HISTORY: Short of breath TECHNIQUE: FINDINGS: There is moderate pulmonary edema. There is blunting of the costophrenic angles. There are chest leads. Thoracic aorta is atheromatous. IMPRESSION: Pulmonary edema significantly increased compared to old exam and consistent with congesti ve heart failure. There is probably underlying COPD and pulmonary fibrosis.
[2020-07-21 05:14] LABS: Basophils # (A) 0.1 k/uL (0-0.2); Basophils % (A) 0 %; Calcium 9.4 mg/dL (8.4-10.2); Eosinophils # (A) 0.2 k/uL (0-0.7); Eosinophils % (A) 1 %; HCT 32.6 % (34.0-46.0); HGB 9.8 gm/dL (11.4-16.0); Hypochromasia Marked; Lymphocytes # (A) 7.5 k/uL (1.0-4.8); Lymphocytes % (A) 45 %; MCH 30.1 pg (25.0-35.0); MCV 100.4 fL (80.0-100.0); Magnesium 2.3 mg/dL (1.6-2.3); Mean Platelet Volume 8.6; Monocytes # (A) 0.7 k/uL (0-1.0); Monocytes % (A) 4 %; Neutrophils # (A) 7.9 k/uL (1.3-7.7); Neutrophils % (A) 48 %; Platelet Count 230 k/uL (150-450); Potassium 4.5 mmol/L (3.5-5.1); RBC 3.24 m/uL (3.80-5.40); RDW 13.5 % (11.5-15.5); Total Bilirubin 0.5 mg/dL (0.2-1.3); Total Protein 6.5 g/dL (6.3-8.2); WBC 16.6 k/uL (3.8-10.6)
[2020-07-21 05:14] LABS: VBG PH 7.1 (7.31-7.41)
[2020-07-21] MEDS ORDERED: FUROSEMIDE 10 MG/ML 4 ML VIAL IV STA (05:23)
[2020-07-21] MEDS ORDERED: INSULIN REGULAR 100 UNIT/ML VIAL SQ ONE (05:24)
--- NOTE | 2020-07-21 05:25 | ED ---
SOB HPI - General Chief Complaint: Shortness of Breath Stated Complaint: GEORGE Time Seen by Provider: 07/21/20 04:35 Source: patient, EMS Mode of arrival: EMS - History of Present Illness Initial Comments: Cherelle is an 89yo female with extensive past medical history most significant for CHF and COPD. Patient is brought to the ER today by EMS in acute respiratory distress. Patient called 911 reporting she can breathe EMS arrived on scene patient was awake alert able to answer questions but in significant respiratory distress. She was found to have an oxygen saturation the low 80s. She was treated with breathing treatments en route to the hospital. Arrival the hospital patient reports she just can't breathe she denies chest pain she denies fever she denies productive cough she denies recent illness. She states she does not want to be intubated does not want life support she is aware that if her breathing doesn't improve she will . She asks to be made comfortable. - Related Data Home Medications Medication Instructions Recorded Confirmed Levothyroxine Sodium [Synthroid] 100 mcg PO MOTUWETHFRSA 01/17/16 10/14/19 Budesonide [Pulmicort] 0.5 mg INHALATION RT-BID 04/02/17 10/14/19 Ferrous Sulfate [Iron (65 MG 325 mg PO DAILY 04/18/18 10/14/19 Elemental)] Ipratropium-Albuterol Nebulize 3 ml INHALATION RT-QID PRN 04/18/18 10/14/19 [Duoneb 0.5 mg-3 mg/3 ml Soln] Multivit with Calcium,Iron,Min 1 tab PO DAILY 04/18/18 10/14/19 [Women's Multivitamin] Aspirin EC [Ecotrin Low Dose] 81 mg PO DAILY 12/10/18 10/14/19 carvediloL [Coreg] 6.25 mg PO BID 12/10/18 10/14/19 Losartan Potassium [Cozaar] 25 mg PO HS 10/11/19 10/14/19 Mirtazapine [Remeron] 15 mg PO HS 10/11/19 10/14/19 predniSONE [Deltasone] 20 mg PO DAILY 10/14/19 10/14/19 Previous Rx's Medication Instructions Recorded Atorvastatin [Lipitor] 80 mg PO HS #30 tab 04/09/17 Clopidogrel [Plavix] 75 mg PO DAILY #90 tab 04/09/17 Nitroglycerin Sl Tabs [Nitrostat] 0.4 mg SUBLINGUAL Q5M PRN #100 tab 04/09/17 Furosemide [Lasix] 40 mg PO DAILY #30 tab 09/28/17 ALPRAZolam [Xanax] 0.25 mg PO DAILY PRN #5 tab 10/20/19 Azithromycin [Zithromax] 500 mg PO DAILY #5 tab 10/20/19 Cefdinir [Omnicef] 300 mg PO DAILY #5 cap 10/20/19 traMADol HCl [Ultram] 50 mg PO Q6H PRN #20 tab 10/20/19 Allergies Allergy/AdvReac Type Severity Reaction Status Date / Time Penicillins Allergy Unknown Verified 07/21/20 04:25 pneumococcal 23-valent Allergy Rash/Hives Verified 07/21/20 04:25 polysacchari [From Pneumovax 23] adhesive tape AdvReac Unknown Verified 07/21/20 04:25 Review of Systems ROS Statement: Those systems with pertinent positive or pertinent negative responses have been documented in the HPI. ROS Other: All systems not noted in ROS Statement are negative. Past Medical History Past Medical History: Cancer, Heart Failure, COPD, Hearing Disorder / Deafness, Hyperlipidemia, Hypertension, Myocardial Infarction (NV), Osteoarthritis (OA), Pneumonia, Respiratory Disorder, Thyroid Disorder Additional Past Medical History / Comment(s): Pt recently came to [facility] on 10/11/19 with altered mental status/confusion/ANGELES and was transferred to [facility]-pt states she thinks her confusion was d/t medications, colon ca with SX, diverticular disease, hypothyroid, tracheobronchitis, cardiomyopathy, diverticulitis,[place] bilaterally, wears 2L at home ATC, hypothyroid, anemia Last Myocardial Infarction Date:: 2017 History of Any Multi-Drug Resistant Organisms: None Reported Past Surgical History: Appendectomy, Bowel Resection, Section, Cholecystectomy, Hysterectomy, Orthopedic Surgery, Tonsillectomy Additional Past Surgical History / Comment(s): colectomy for cancer, thyroidectomy, bilateral cataract removal with lens implants, C- Sections x 3, L foot fx with surgical repair, colonoscopies with polypectomy. Past Anesthesia/Blood Transfusion Reactions: Motion Sickness Additional Past Anesthesia/Blood Transfusion Reaction / Comment(s): has never had a blood transfusion Past Psychological History: Anxiety, Depression Smoking Status: Former smoker Past Alcohol Use History: None Reported Past Drug Use History: None Reported - Past Family History Father Additional Family Medical History / Comment(s): Pt did not know her father well. He was an alcoholic and from it. Mother Family Medical History: Myocardial Infarction (NV) Additional Family Medical History / Comment(s): Mother of an NV at age 51yrs. General Exam - General Exam Comments Initial Comments: Physical Exam GENERAL: Chronically ill appearing HENT: Normocephalic, Atraumatic. EYES: PERRL, EOMI No conjunctival pallor PULMONARY: Silent chest, no air movement on exam CARDIOVASCULAR: Tacycardia, regular ABDOMEN: Soft and nontender with normal bowel sounds. SKIN: Skin is clear with no lesions or rashes and otherwise unremarkable. : Normal external genitalia NEUROLOGIC: Patient is alert and oriented to person and place MUSCULOSKELETAL: Normal extremities with adequate strength and full range of motion. PSYCHIATRIC: Normal psychiatric evaluation. Course Vital Signs 07/21/20 07/21/20 07/21/20 04:18 04:26 04:27 Temperature 97.8 F Pulse Rate 122 H 121 H Respiratory 18 42 H Rate Blood Pressure 134/81 O2 Sat by Pulse 97 Oximetry 07/21/20 07/21/20 07/21/20 04:36 04:53 05:40 Temperature Pulse Rate 118 H 128 H 118 H Respiratory 28 H Rate Blood Pressure 124/78 O2 Sat by Pulse 96 Oximetry Medical Decision Making - Medical Decision Making The patient was seen and evaluated immediately upon arrival to emergency Department patient was noted to be in moderate respiratory distress Patient is awake and alert able to answer questions appropriately able to provi de minimal medical history, patient is adamant that she does not want life support, adamant that she does not want a breathing tube, states that if she is going to she wants to be made comfortable. At this time I do feel the patient does have decision-making capability she does understand that she may from respiratory failure. Patient was placed on BiPAP for respiratory support, work of breathing improved somewhat but patient became more agitated Labs resulted multiple significant abnormalities, leukocytosis likely reactive, chronic kidney disease, mildly elevated troponin, lactic acidosis Respiratory acidosis on venous blood gas with hypercapnia Patient becoming more agitated despite being on BiPAP. Ativan was ordered. Treatment for congestive heart failure was ordered including nitro paste, IV Lasix, Morales catheter to monitor urine output, continued BiPAP Patient care was discussed with admitting physician Dr. Mistry who accepts admission for respiratory failure. He is aware that the patient has worsening respiratory failure on BiPap, high risk for decompensation. Dr Mistry at bedside to evaluate patient. - Lab Data Result diagrams: 07/21/20 04:35 07/21/20 04:35 Lab Results 07/21/20 07/21/20 07/21/20 Range/Units 04:31 04:33 04:35 WBC 16.6 H (3.8-10.6) k/uL RBC 3.24 L (3.80-5.40) m/uL Hgb 9.8 L (11.4-16.0) gm/dL Hct 32.6 L (34.0-46.0) % MCV 100.4 H (80.0-100.0) fL MCH 30.1 (25.0-35.0) pg MCHC 30.0 L (31.0-37.0) g/dL RDW 13.5 (11.5-15.5) % Plt Count 230 (150-450) k/uL Neutrophils % 48 % Lymphocytes % 45 % Monocytes % 4 % Eosinophils % 1 % Basophils % 0 % Neutrophils # 7.9 H (1.3-7.7) k/uL Lymphocytes # 7.5 H (1.0-4.8) k/uL Monocytes # 0.7 (0-1.0) k/uL Eosinophils # 0.2 (0-0.7) k/uL Basophils # 0.1 (0-0.2) k/uL Manual Slide Review Performed Large Platelets Present Hypochromasia Marked Poikilocytosis (manual Present Ovalocytes Present Fragmented RBCs Present PT (9.0-12.0) sec INR (<1.2) APTT (22.0-30.0) sec VBG pH (7.31-7.41) VBG pCO2 (37-51) mmHg VBG HCO3 (24-28) mmol/L Sodium (137-145) mmol/L Potassium (3.5-5.1) mmol/L Chloride (98-107) mmol/L Carbon Dioxide (22-30) mmol/L Anion Gap mmol/L BUN (7-17) mg/dL Creatinine (0.52-1.04) mg/dL Est GFR (CKD-EPI)AfAm (>60 ml/min/1.73 sqM) Est GFR (CKD-EPI)NonAf (>60 ml/min/1.73 sqM) Glucose (74-99) mg/dL POC Glucose (mg/dL) 376 H (75-99) mg/dL POC Glu Flowers Salesperson ID David Fierro Plasma Lactic Acid Ethan (0.7-2.0) mmol/L Calcium (8.4-10.2) mg/dL Magnesium (1.6-2.3) mg/dL Total Bilirubin (0.2-1.3) mg/dL AST (14-36) U/L ALT (4-34) U/L Alkaline Phosphatase (38-126) U/L Troponin I (0.000-0.034) ng/mL NT-Pro-B Natriuret Pep pg/mL Total Protein (6.3-8.2) g/dL Albumin (3.5-5.0) g/dL Blood Type Blood Type Confirm A Positive Blood Type Recheck Bld Type Recheck Status Antibody Screen Spec Expiration Date 07/21/20 07/21/20 07/21/20 Range/Units 04:35 04:35 04:35 WBC (3.8-10.6) k/uL RBC (3.80-5.40) m/uL Hgb (11.4-16.0) gm/dL Hct (34.0-46.0) % MCV (80.0-100.0) fL MCH (25.0-35.0) pg MCHC (31.0-37.0) g/dL RDW (11.5-15.5) % Plt Count (150-450) k/uL Neutrophils % % Lymphocytes % % Monocytes % % Eosinophils % % Basophils % % Neutrophils # (1.3-7.7) k/uL Lymphocytes # (1.0-4.8) k/uL Monocytes # (0-1.0) k/uL Eosinophils # (0-0.7) k/uL Basophils # (0-0.2) k/uL Manual Slide Review Large Platelets Hypochromasia Poikilocytosis (manual Ovalocytes Fragmented RBCs PT 10.1 (9.0-12.0) sec INR 1.0 (<1.2) APTT 26.8 (22.0-30.0) sec VBG pH (7.31-7.41) VBG pCO2 (37-51) mmHg VBG HCO3 (24-28) mmol/L Sodium 139 (137-145) mmol/L Potassium 4.5 (3.5-5.1) mmol/L Chloride 101 (98-107) mmol/L Carbon Dioxide 28 (22-30) mmol/L Anion Gap 10 mmol/L BUN 49 H (7-17) mg/dL Creatinine 1.47 H (0.52-1.04) mg/dL Est GFR (CKD-EPI)AfAm 36 (>60 ml/min/1.73 sqM) Est GFR (CKD-EPI)NonAf 32 (>60 ml/min/1.73 sqM) Glucose 324 H (74-99) mg/dL POC Glucose (mg/dL) (75-99) mg/dL POC Glu [employer] Salesperson ID Plasma Lactic Acid Ethan 3.8 H* (0.7-2.0) mmol/L Calcium 9.4 (8.4-10.2) mg/dL Magnesium 2.3 (1.6-2.3) mg/dL Total Bilirubin 0.5 (0.2-1.3) mg/dL AST 43 H (14-36) U/L ALT 25 (4-34) U/L Alkaline Phosphatase 112 (38-126) U/L Troponin I (0.000-0.034) ng/mL NT-Pro-B Natriuret Pep pg/mL Total Protein 6.5 (6.3-8.2) g/dL Albumin 4.0 (3.5-5.0) g/dL Blood Type Blood Type Confirm Blood Type Recheck Bld Type Recheck Status Antibody Screen Spec Expiration Date 07/21/20 07/21/20 07/21/20 Range/Units 04:35 04:35 04:39 WBC (3.8-10.6) k/uL RBC (3.80-5.40) m/uL Hgb (11.4-16.0) gm/dL Hct (34.0-46.0) % MCV (80.0-100.0) fL MCH (25.0-35.0) pg MCHC (31.0-37.0) g/dL RDW (11.5-15.5) % Plt Count (150-450) k/uL Neutrophils % % Lymphocytes % % Monocytes % % Eosinophils % % Basophils % % Neutrophils # (1.3-7.7) k/uL Lymphocytes # (1.0-4.8) k/uL Monocytes # (0-1.0) k/uL Eosinophils # (0-0.7) k/uL Basophils # (0-0.2) k/uL Manual Slide Review Large Platelets Hypochromasia Poikilocytosis (manual Ovalocytes Fragmented RBCs PT (9.0-12.0) sec INR (<1.2) APTT (22.0-30.0) sec VBG pH 7.10 L* (7.31-7.41) VBG pCO2 92 H* (37-51) mmHg VBG HCO3 27 (24-28) mmol/L Sodium (137-145) mmol/L Potassium (3.5-5.1) mmol/L Chloride (98-107) mmol/L Carbon Dioxide (22-30) mmol/L Anion Gap mmol/L BUN (7-17) mg/dL Creatinine (0.52-1.04) mg/dL Est GFR (CKD-EPI)AfAm (>60 ml/min/1.73 sqM) Est GFR (CKD-EPI)NonAf (>60 ml/min/1.73 sqM) Glucose (74-99) mg/dL POC Glucose (mg/dL) (75-99) mg/dL POC Glu [employer] Salesperson ID Plasma Lactic Acid Ethan (0.7-2.0) mmol/L Calcium (8.4-10.2) mg/dL Magnesium (1.6-2.3) mg/dL Total Bilirubin (0.2-1.3) mg/dL AST (14-36) U/L ALT (4-34) U/L Alkaline Phosphatase (38-126) U/L Troponin I 0.048 H* (0.000-0.034) ng/mL NT-Pro-B Natriuret Pep 05229 pg/mL Total Protein (6.3-8.2) g/dL Albumin (3.5-5.0) g/dL Blood Type Blood Type Confirm Blood Type Recheck Bld Type Recheck Status Antibody Screen Spec Expiration Date 07/21/20 Range/Units 04:39 WBC (3.8-10.6) k/uL RBC (3.80-5.40) m/uL Hgb (11.4-16.0) gm/dL Hct (34.0-46.0) % MCV (80.0-100.0) fL MCH (25.0-35.0) pg MCHC (31.0-37.0) g/dL RDW (11.5-15.5) % Plt Count (150-450) k/uL Neutrophils % % Lymphocytes % % Monocytes % % Eosinophils % % Basophils % % Neutrophils # (1.3-7.7) k/uL Lymphocytes # (1.0-4.8) k/uL Monocytes # (0-1.0) k/uL Eosinophils # (0-0.7) k/uL Basophils # (0-0.2) k/uL Manual Slide Review Large Platelets Hypochromasia Poikilocytosis (manual Ovalocytes Fragmented RBCs PT (9.0-12.0) sec INR (<1.2) APTT (22.0-30.0) sec VBG pH (7.31-7.41) VBG pCO2 (37-51) mmHg VBG HCO3 (24-28) mmol/L Sodium (137-145) mmol/L Potassium (3.5-5.1) mmol/L Chloride (98-107) mmol/L Carbon Dioxide (22-30) mmol/L Anion Gap mmol/L BUN (7-17) mg/dL Creatinine (0.52-1.04) mg/dL Est GFR (CKD-EPI)AfAm (>60 ml/min/1.73 sqM) Est GFR (CKD-EPI)NonAf (>60 ml/min/1.73 sqM) Glucose (74-99) mg/dL POC Glucose (mg/dL) (75-99) mg/dL POC Glu [employer] Salesperson ID Plasma Lactic Acid Ethan (0.7-2.0) mmol/L Calcium (8.4-10.2) mg/dL Magnesium (1.6-2.3) mg/dL Total Bilirubin (0.2-1.3) mg/dL AST (14-36) U/L ALT (4-34) U/L Alkaline Phosphatase (38-126) U/L Troponin I (0.000-0.034) ng/mL NT-Pro-B Natriuret Pep pg/mL Total Protein (6.3-8.2) g/dL Albumin (3.5-5.0) g/dL Blood Type A Positive Blood Type Confirm Blood Type Recheck No Previous Record Bld Type Recheck Status CABO Indicated Antibody Screen NEGATIVE Spec Expiration Date 07/24/2020 - 2338 Critical Care Time Critical Care Time: Yes Total Critical Care Time: 30 Critical Care Time: Critical Care Time 30 min Critical care time was exclusive of separately billable procedures and treating other patients and teaching time. Critical care was necessary to treat or prevent imminent or life-threatening deterioration. Given the critical condition in which the patient arrived, the patient was immediately assessed by myself and the nurse, and cardiac monitoring initiated due to the potential for rapid decompensation of the patient's clinical condition. During the course of the patients stay, I spent a considerable amount of time at the bedside performing serial re-evaluations of the patient's hemodynamic and clinical status because of the recognized potential threat to life or limb in this condition. I then had a chance to review not only all of the available current laboratory and radiographic studies obtained today, but I also reviewed old records available to me at the time. Additionally, any ancillary information available including diesel engine engineer records were reviewed. Sequential vital signs were obtained. Disposition Clinical Impression: Respiratory failure, CHF (congestive heart failure), COPD (chronic obstructive pulmonary disease), HTN (hypertension) Disposition: ADMITTED IP TO THIS [facility] Condition: Critical Referrals: None,Stated [Primary Care Provider] - 1-2 days
[2020-07-21 05:30] LABS: Partial Thromboplastin Time 26.8 sec (22.0-30.0); Prothrombin Time 10.1 sec (9.0-12.0)
[2020-07-21] MEDS ORDERED: FUROSEMIDE 10 MG/ML 4 ML VIAL IV SCH ×2 (05:30→14:00)
[2020-07-21] MEDS ORDERED: LORazepam 2 MG/ML INJ IV STA (05:31)
[2020-07-21] MEDS ORDERED: NITROGLYCERIN OINT 1 INCH/GM PACKET TOPICAL STA (05:42)
[2020-07-21 05:44] LABS: Ovalocytes Present; Poikilocytosis (M) Present
[2020-07-21 05:52] LABS: Large Platelets Present; RBC Fragments Present
[2020-07-21] MEDS ORDERED: IPRATROPIUM-ALBUTEROL 3 ML NEB INHALATION PRN (06:52)
--- NOTE | 2020-07-21 06:54 | P.HPIM ---
History of Present Illness H&P Date: 07/21/20 The patient is an 89-year-old female with a PMH of CAD, systolic and diastolic CHF, COPD, chronic hypoxic respiratory failure on 2 L of continuous nasal cannula oxygen at home, hyperlipidemia, and hypothyroidism who presented to the ED with shortness of breath. EMS found the patient to be in significant respiratory distress upon arrival with SpO2 in the low 80s and tachycardic to 140s. At time of interview, the patient was stuporous and thereby no history could be obtained. As per the ED physician and RN, a lengthy discussion was had with the patient regarding the CODE STATUS in which she had expressed her wishes to the not be placed on life support including a ventilator and that she was aware she may be actively dying. She had expressed her wishes to be made comfortable. The patient was given 0.5 mg of Ativan IV push as her mental status deteriorated and she began to pull off her BiPAP. Chest x-ray revealed significant pulmonary edema with laboratory evaluation showing a VBG pH of 7.10 with a pCO2 of 92, lactic acid 3.8, troponin 0.048, BNP 18,000. Attempted to contact the daughter (Zulma Betancourt [phone]) with no answer. Review of Systems ROS unobtainable: due to mental status Past Medical History Past Medical History: Cancer, Heart Failure, COPD, Hearing Disorder / Deafness, Hyperlipidemia, Hypertension, Myocardial Infarction ([place]), Osteoarthritis (OA), Pneumonia, Respiratory Disorder, Thyroid Disorder Additional Past Medical History / Comment(s): Pt recently came to [facility] on 10/11/19 with altered mental status/confusion/ANGELES and was transferred to [facility]-pt states she thinks her confusion was d/t medications, colon ca with SX, diverticular disease, hypothyroid, tracheobronchitis, cardiomyopathy, diverticulitis,[place] bilaterally, wears 2L at home ATC, hypothyroid, anemia Last Myocardial Infarction Date:: 2016 History of Any Multi-Drug Resistant Organisms: None Reported Past Surgical History: Appendectomy, Bowel Resection, Section, Cholecystectomy, Hysterectomy, Orthopedic Surgery, Tonsillectomy Additional Past Surgical History / Comment(s): colectomy for cancer, thyroidectomy, bilateral cataract removal with lens implants, C- Sections x 3, L foot fx with surgical repair, colonoscopies with polypectomy. Past Anesthesia/Blood Transfusion Reactions: Motion Sickness Additional Past Anesthesia/Blood Transfusion Reaction / Comment(s): has never had a blood transfusion Past Psychological History: Anxiety, Depression Smoking Status: Former smoker Past Alcohol Use History: None Reported Past Drug Use History: None Reported - Past Family History Father Additional Family Medical History / Comment(s): Pt did not know her father well. He was an alcoholic and from it. Mother Family Medical History: Myocardial Infarction ([place]) Additional Family Medical History / Comment(s): Mother of an [place] at age 51yrs. Medications and Allergies Home Medications Medication Instructions Recorded Confirmed Type Levothyroxine Sodium [Synthroid] 100 mcg PO MOTUWETHFRSA 01/17/16 07/21/20 History Budesonide [Pulmicort] 0.5 mg INHALATION RT-BID 04/02/17 07/21/20 History Atorvastatin [Lipitor] 80 mg PO HS #30 tab 04/09/17 07/21/20 Rx Clopidogrel [Plavix] 75 mg PO DAILY #90 tab 04/09/17 07/21/20 Rx Nitroglycerin Sl Tabs [Nitrostat] 0.4 mg SUBLINGUAL Q5M PRN #100 tab 04/09/17 07/21/20 Rx Furosemide [Lasix] 40 mg PO DAILY #30 tab 09/28/17 07/21/20 Rx Ferrous Sulfate [Iron (65 MG 325 mg PO DAILY 04/18/18 07/21/20 History Elemental)] Ipratropium-Albuterol Nebulize 3 ml INHALATION RT-QID 04/18/18 07/21/20 History [Duoneb 0.5 mg-3 mg/3 ml Soln] Multivit with Calcium,Iron,Min 1 tab PO DAILY 04/18/18 07/21/20 History [Women's Multivitamin] Aspirin EC [Ecotrin Low Dose] 81 mg PO DAILY 12/10/18 07/21/20 History carvediloL [Coreg] 6.25 mg PO BID-W/MEALS 12/10/18 07/21/20 History Losartan Potassium [Cozaar] 25 mg PO DAILY 10/11/19 07/21/20 History Mirtazapine [Remeron] 15 mg PO HS 10/11/19 07/21/20 History ALPRAZolam [Xanax] 0.25 mg PO TID 07/21/20 07/21/20 History Spironolactone [Aldactone] 12.5 mg PO DAILY 07/21/20 07/21/20 History Allergies Allergy/AdvReac Type Severity Reaction Status Date / Time Penicillins Allergy Unknown Verified 07/21/20 06:23 pneumococcal 23-valent Allergy Rash/Hives Verified 07/21/20 06:23 polysacchari [From Pneumovax 23] adhesive tape AdvReac Unknown Verified 07/21/20 06:23 Physical Exam Vitals: Vital Signs Temp Pulse Resp BP Pulse Ox 07/21/20 06:28 107 H 28 H 124/61 95 07/21/20 05:40 118 H 28 H 124/78 96 07/21/20 04:53 128 H 07/21/20 04:36 118 H 07/21/20 04:27 42 H 07/21/20 04:26 121 H 07/21/20 04:18 97.8 F 122 H 18 134/81 97 Intake and Output 07/20/20 07/20/20 07/21/20 14:59 22:59 06:59 Other: Weight 49.895 kg General: Frail female in respiratory distress, using accessory muscles of respiration, on BiPAP, appears at stated age Derm: no unusual rashes/lesions no unusual ecchymoses, cold bilateral lower extremities to knees and cold hands bilaterally Head: atraumatic, normocephalic, symmetric Eyes: Anicteric sclera, pupils equal round reactive to light ENT: Nose and ears atraumatic Neck: No thyromegaly, no cervical lymphadenopathy, trachea midline, supple Mouth: no lip lesion, mucus membranes moist Cardiovascular: S1S2 reg, tachycardic, no murmur, positive posterior tibial pulse bilateral, no edema, capillary refill less than 2 seconds Lungs: Poor air entry dimitrios with rales, no wheezing, accessory muscle use present Abdominal: soft, no guarding, no appreciable organomegaly Ext: no gross muscle atrophy, no contractures, Neuro: Limited as patient stuporous, minimal withdrawing to noxious stimuli Results CBC & Chem 7: 07/21/20 04:35 07/21/20 04:35 Labs: Abnormal Lab Results - Last 24 Hours (Table) 07/21/20 07/21/20 07/21/20 Range/Units 04:31 04:35 04:35 WBC 16.6 H (3.8-10.6) k/uL RBC 3.24 L (3.80-5.40) m/uL Hgb 9.8 L (11.4-16.0) gm/dL Hct 32.6 L (34.0-46.0) % MCV 100.4 H (80.0-100.0) fL MCHC 30.0 L (31.0-37.0) g/dL Neutrophils # 7.9 H (1.3-7.7) k/uL Lymphocytes # 7.5 H (1.0-4.8) k/uL VBG pH (7.31-7.41) VBG pCO2 (37-51) mmHg BUN 49 H (7-17) mg/dL Creatinine 1.47 H (0.52-1.04) mg/dL Glucose 324 H (74-99) mg/dL POC Glucose (mg/dL) 376 H (75-99) mg/dL Plasma Lactic Acid Ethan (0.7-2.0) mmol/L AST 43 H (14-36) U/L Troponin I (0.000-0.034) ng/mL 07/21/20 07/21/20 07/21/20 Range/Units 04:35 04:35 04:39 WBC (3.8-10.6) k/uL RBC (3.80-5.40) m/uL Hgb (11.4-16.0) gm/dL Hct (34.0-46.0) % MCV (80.0-100.0) fL MCHC (31.0-37.0) g/dL Neutrophils # (1.3-7.7) k/uL Lymphocytes # (1.0-4.8) k/uL VBG pH 7.10 L* (7.31-7.41) VBG pCO2 92 H* (37-51) mmHg BUN (7-17) mg/dL Creatinine (0.52-1.04) mg/dL Glucose (74-99) mg/dL POC Glucose (mg/dL) (75-99) mg/dL Plasma Lactic Acid Ethan 3.8 H* (0.7-2.0) mmol/L AST (14-36) U/L Troponin I 0.048 H* (0.000-0.034) ng/mL Assessment and Plan Plan: Acute on chronic hypoxic and hypercapnic respiratory failure in setting of COPD and CHF -Continue with BiPAP -Patient had expressed her wishes to not be placed on life support including ventilator and to focus on her comfort -Continue with DuoNeb's -Continue with Lasix 40 mg every 8 hourly -Solu-Medrol 60 mg every 6 hourly -Cardiology consult -Cardiac monitoring -Hold oral home medications Acute metabolic encephalopathy likely due to respiratory failure versus sedation from benzodiazepine -Continue with above management Lactic acidosis -Monitor for resolution Troponin elevated, likely demand ischemia -Cardiac monitoring -Cardiology consulted ANGELES on chronic kidney disease -Monitor BMP Leukocytosis, likely secondary to acute stressor -Monitor for now Chronic conditions: Type II DM, hyperlipidemia, hypothyroidism -Lispro insulin sliding scale and blood glucose monitoring -Hold home oral meds due to mental status DVT prophylaxis -IPCDs The patient is admitted with an anticipated more than 2 midnight stay for evaluation of respiratory failure CODE STATUS: No Code Prognosis: Grave A total of 45 minutes was spent on the care of this complex patient more than 50% of the time was spent in counseling and care coordination.
[2020-07-21] MEDS ORDERED: methylPREDNISolone SOD SUCCI 125 MG/2 ML VIAL IV SCH (08:00)
--- NOTE | 2020-07-21 08:22 | P.PN ---
Progress Note - Text Progress Note Date: 07/21/20 Patient seen and examined at bedside. Daughter at bedside, who is also her DURABLE POWER OF DUMPER BULK SYSTEM. Patient will be placed in hospice today. BiPAP taken off patient. Patient is currently actively dying and gasping for air. Family is in agreement with hospice to make patient comfortable.
[2020-07-21] MEDS: INSULIN ASPART (NovoLOG) 100 UNIT/ML VIAL SQ SCH ×2 (08:47→13:06)
[2020-07-21] MEDS ORDERED: ASPIRIN 81 MG PO SCH (09:00)
--- NOTE | 2020-07-21 10:20 | CDI ---
Documentation Clarification Form Date: 07/21/2020 09:32:09 AM From: Yu Noel RN CCDS Admit Date: 07/21/2020 05:28:00 AM Patient Name: Cherelle Benítez Visit Number: [id number] Discharge Date: ATTENTION: The Clinical Documentation Specialists (CDI) and [facility] Coding Staff appreciate your assistance in clarifying documentation. Please respond to the clarification below the line at the bottom and electronically sign. The CDI & [facility] Coding staff will review the response and follow-up if needed. Please note: Queries are made part of the Legal Health Record. If you have any questions, please contact the author of this message via ITS. Dr. Patti Phillip Troponin elevated, likely demand ischemia is documented in the H&P 07/21 Patient History/Risk Factors: 89-year-old female presents to the ED via EMS in significant respiratory distress, upon arrival SpO2 in the low 80s and tachycardic to 140s. Medical history: COPD, Heart Failure, [place], COPD and home oxygen ATC. Clinical Indicators: 07/21 VSS: B/P: 134/81, HR: 122, RR: 18, SpO2 97% 4L nasal cannula changed to BiPap 07/21 Troponin: 0.048 07/21 Labs: Lactic acid 3.8, BNP 99709, Cr 1.47, Bun 49, Wbc 16.6, Blood Gas pH 7.10, pCO2 92, HCO3 27 07/21 EKG Results: Sinus Tachycardia, left bundle branch block 2CXR: Pulmonary edema significantly increased compared to old exam consistent with congestive heart failure 07/21 HP Lung assessment: Poor air entry dimitrios with rales, no wheezing, accessory muscle use present. Treatment: Duoneb x1, Lasix IV, Solu-Medrol IV, Nitro Bid Oint x1 In your professional opinion, can you please clarify the clinical significance of the Troponins? Type 2 [place] secondary to demand ischemia in the setting of Respiratory Failure and Heart Failure Type 2 [place] secondary to demand ischemia in the setting of (please specify) Unable to determine Other Condition, please specify (Last Revision: November 2019) Type 2 [place] secondary to demand ischemia in the setting of Respiratory Failure and Heart Failure [facility]
[2020-07-21 10:39] VITALS: BMI 18.8
[2020-07-21] MEDS: IPRATROPIUM-ALBUTEROL 3 ML NEB INHALATION SCH ×2 (11:05→11:06)
[2020-07-21 11:23] VITALS: BP 100/51; PULSE 90; RESP 16; TEMP 97.9
--- NOTE | 2020-07-23 08:20 | CDI ---
Documentation Clarification Form Date: 07/23/20 From: Nasreen Duncan Phone: If you have a question about this query, please contact Kathia Davila, Shake Out Worker at [phone] between 8am and 5pm. Admit Date: 07/21/20 Discharge Date: 07/21/20 Patient Name: MIGUELITO BERG Visit Number: [id number] ATTENTION: The Clinical Documentation Specialists (CDI) and [facility] Coding Staff appreciate your assistance in clarifying documentation. Please respond to the clarification below the line at the bottom and electronically sign. The CDI & [facility] Coding staff will review the response and follow-up if needed. Please note: Queries are made part of the Legal Health Record. If you have any questions, please contact the author of this message via ITS. Dear Dr. Patti Phillip, Systolic and diastolic CHF is documented in the H&P and ED note. History/Risk Factors: HTN w CHF & CKD, acute and chronic respiratory failure w hypercapnia and hypoxia, Type 2 [place], metabolic encephalopathy, acidosis, ANGELES, cardiomyopathy, anemia in CKD, DM w CKD, COPD Clinical Indicators: Patient brought in by EMS in acute respiratory distress. Tachycardia, regular. Silent chest, no air movement on exam. VS/Pulse OX: T-97.8, P-122, R-18, BP-134/81, O2-97 BNP: 12602 VBG: pH-7010, pCO2-92, HCO3-27 Chest X Ray: Pulmonary edema significantly increased compared to old exam and consistent with congestive heart failure. There is probably underlying COPD and pulmonary fibrosis. Treatment: BIPAP, nitropaste, IV Lasix, Morales to monitor urine output In your professional opinion, can you please clarify the acuity of systolic and diastolic CHF? Acute Chronic Acute on Chronic Unable to Determine Other, please specify acute on chronic systolic and diastolic heart failure MTDD
--- NOTE | 2020-07-23 08:36 | CDI ---
Documentation Clarification Form Date: 07/23/20 From: Nasreen Duncan Phone: If you have a question about this query, please contact Kathia Davila, Java Enterprise Architect at [phone] between 8am and 5pm. Admit Date: 07/21/20 Discharge Date: 07/21/20 Patient Name: MIGUELITO BERG Visit Number: [id number] ATTENTION: The Clinical Documentation Specialists (CDI) and [facility] Coding Staff appreciate your assistance in clarifying documentation. Please respond to the clarification below the line at the bottom and electronically sign. The CDI & [facility] Coding staff will review the response and follow-up if needed. Please note: Queries are made part of the Legal Health Record. If you have any questions, please contact the author of this message via ITS. Dear Dr. Patti Phillip, CKD is documented in the ED Note and H&P. History/Risk Factors: HTN w CHF & CKD, acute and chronic respiratory failure w hypercapnia and hypoxia, Type 2 [place], metabolic encephalopathy, acidosis, ANGELES, cardiomyopathy, anemia in CKD, DM w CKD, COPD Patients Historical BUN/CR/GFR [be sure to date and specify where obtained]: Clinical Indicators: 07/21/20 Current BUN: 49 Current CR: 1.41 Current GFR: 32 Treatment: Monitor BMP In order to capture the severity of condition, please clarify the stage of the CKD, if known: CKD Stage 1 (GFR > 90) CKD Stage 2 (GFR 60-89) CKD Stage 3 (GFR 30-59) CKD Stage 4 (GFR 15-29) CKD Stage 5 (GFR <15) ESRD Other, please specify Unable to determine CKD stage 3 MTDD
== END 2020-07-21 14:02 | disposition hospice, inpatient (51) | DRG 280 ==
LOC: SUPCPDRO 04:14 → EC 04:14 → 3SCARD 05:28
PROVIDERS: ADMIT Internal Medicine; ATTEND Internal Medicine
PROC: 5A09357 Assistance with Respiratory Ventilation, Less than 24 Consecutive Hours, Continuous Positive Airway Pressure (ICD-10-PCS; principal; 2020-07-21)
DX: I13.0 Hypertensive heart and chronic kidney disease with heart failure and stage 1 through stage 4 chronic kidney disease, or unspecified chronic kidney disease (principal); J96.22 Acute and chronic respiratory failure with hypercapnia; I21.A1 Myocardial infarction type 2; J96.21 Acute and chronic respiratory failure with hypoxia; G93.41 Metabolic encephalopathy; I50.43 Acute on chronic combined systolic (congestive) and diastolic (congestive) heart failure; E87.2 Acidosis; N17.9 Acute kidney failure, unspecified; D63.1 Anemia in chronic kidney disease; I42.9 Cardiomyopathy, unspecified; E11.22 Type 2 diabetes mellitus with diabetic chronic kidney disease; J44.9 Chronic obstructive pulmonary disease, unspecified; N18.3 Chronic kidney disease, stage 3 (moderate); Z66 Do not resuscitate; Z51.5 Encounter for palliative care; I25.10 Atherosclerotic heart disease of native coronary artery without angina pectoris; E89.0 Postprocedural hypothyroidism; D72.829 Elevated white blood cell count, unspecified; E78.5 Hyperlipidemia, unspecified; I25.2 Old myocardial infarction; F41.9 Anxiety disorder, unspecified; M19.90 Unspecified osteoarthritis, unspecified site; F32.9 Major depressive disorder, single episode, unspecified; H91.90 Unspecified hearing loss, unspecified ear; Z79.82 Long term (current) use of aspirin; Z79.02 Long term (current) use of antithrombotics/antiplatelets; Z79.890 Hormone replacement therapy; Z79.899 Other long term (current) drug therapy; Z79.51 Long term (current) use of inhaled steroids; Z87.01 Personal history of pneumonia (recurrent); Z85.038 Personal history of other malignant neoplasm of large intestine; Z90.49 Acquired absence of other specified parts of digestive tract; Z87.19 Personal history of other diseases of the digestive system; Z98.891 History of uterine scar from previous surgery; Z90.710 Acquired absence of both cervix and uterus; Z87.891 Personal history of nicotine dependence; Z87.42 Personal history of other diseases of the female genital tract; Z90.89 Acquired absence of other organs; Z98.890 Other specified postprocedural states; Z98.42 Cataract extraction status, left eye; Z98.41 Cataract extraction status, right eye; Z96.1 Presence of intraocular lens; Z87.39 Personal history of other diseases of the musculoskeletal system and connective tissue; Z86.010 Personal history of colon polyps; Z88.0 Allergy status to penicillin; Z88.7 Allergy status to serum and vaccine; Z91.018 Allergy to other foods; Z82.49 Family history of ischemic heart disease and other diseases of the circulatory system; Z81.1 Family history of alcohol abuse and dependence
CPT/HCPCS: 36415; 71045; 80053; 82803; 83605; 83735; 83880; 84484; 85025; 85610; 85730; 86850; 86900; 86901; 93005; 94640; 94660

== ENCOUNTER 2020-07-21 13:17 | Inpatient (IN) | payer MEDICAID ==
[2020-07-21] MEDS ORDERED: ACETAMINOPHEN SUPPOSITORY 650 MG SUPP RECTAL PRN (13:23)
[2020-07-21] MEDS ORDERED: SCOPOLAMINE 1.5MG/72HR PATCH TRANSDERM PRN (13:23)
[2020-07-21] MEDS ORDERED: LORazepam 2 MG/ML INJ IV PRN (13:23)
[2020-07-21] MEDS ORDERED: MORPHINE SULFATE 2 MG/ML SYRINGE IV PRN (13:23)
[2020-07-21] MEDS: MORPHINE CONC SOLN 10mg/0.5mL ORAL SYRG PO PRN (14:29)
--- NOTE | 2020-07-21 15:48 | P.HPIM ---
History of Present Illness H&P Date: 07/21/20 Chief Complaint: Hypoxic respiratory failure going into hospice care This is an 89-year-old female with a past medical history of CAD, systolic and diastolic CHF, COPD, chronic hypoxic respiratory failure on 2 L nasal cannula, hyperlipidemia and hypothyroid who presents to the ED with shortness of breath. EMS found patient to be in significant respiratory distress upon arrival with SpO2 in the low 80s and tachycardic in the 140s. Patient was brought to the ER CODE STATUS was addressed and patient is a DO NOT RESUSCITATE. BiPAP was placed and patient was admitted. Discussion with the family concluded with hospice care. BiPAP removed because patient did not want. Patient admitted to hospice with comfort measures. Review of Systems A 14 point review systems was assessed patient is in acute respiratory distress actively dying. Past Medical History Past Medical History: Cancer, Heart Failure, COPD, Hearing Disorder / Deafness, Hyperlipidemia, Hypertension, Myocardial Infarction ([place]), Osteoarthritis (OA), Pneumonia, Respiratory Disorder, Thyroid Disorder Additional Past Medical History / Comment(s): Pt recently came to [facility] on 10/11/19 with altered mental status/confusion/ANGELES and was transferred to [facility] states she thinks her confusion was d/t medications, colon ca with SX, diverticular disease, hypothyroid, tracheobronchitis, cardiomyopathy, diverticulitis,[place] bilaterally, wears 2L at home ATC, anemia Last Myocardial Infarction Date:: 2016 History of Any Multi-Drug Resistant Organisms: None Reported Past Surgical History: Appendectomy, Bowel Resection, Section, Cholecystectomy, Hysterectomy, Orthopedic Surgery, Tonsillectomy Additional Past Surgical History / Comment(s): colectomy for cancer, thyroidectomy, bilateral cataract removal with lens implants, C- Sections x 3, L foot fx with surgical repair, colonoscopies with polypectomy. Past Anesthesia/Blood Transfusion Reactions: Motion Sickness Additional Past Anesthesia/Blood Transfusion Reaction / Comment(s): has never had a blood transfusion Past Psychological History: Anxiety, Depression Additional Psychological History / Comment(s): Pt has her daughter Roula residing with her. She uses walker. She drives occasionally. She has a nebulizer and home oxygen. She lives in a single level home with 4 steps to get inside. Smoking Status: Former smoker Past Alcohol Use History: None Reported Additional Past Alcohol Use History / Comment(s): Pt quit smoking in 1977. She has one alcoholic drink on her birthday each year and a rare beer otherwise. Past Drug Use History: None Reported - Past Family History Father Additional Family Medical History / Comment(s): Pt did not know her father well. He was an alcoholic and from it. Mother Family Medical History: Myocardial Infarction ([place]) Additional Family Medical History / Comment(s): Mother of an [place] at age 51yrs. Medications and Allergies Home Medications Medication Instructions Recorded Confirmed Type Levothyroxine Sodium [Synthroid] 100 mcg PO MOTUWETHFRSA 01/17/16 07/21/20 History Budesonide [Pulmicort] 0.5 mg INHALATION RT-BID 04/02/17 07/21/20 History Atorvastatin [Lipitor] 80 mg PO HS #30 tab 04/09/17 07/21/20 Rx Clopidogrel [Plavix] 75 mg PO DAILY #90 tab 04/09/17 07/21/20 Rx Nitroglycerin Sl Tabs [Nitrostat] 0.4 mg SUBLINGUAL Q5M PRN #100 tab 04/09/17 07/21/20 Rx Furosemide [Lasix] 40 mg PO DAILY #30 tab 09/28/17 07/21/20 Rx Ferrous Sulfate [Iron (65 MG 325 mg PO DAILY 04/18/18 07/21/20 History Elemental)] Ipratropium-Albuterol Nebulize 3 ml INHALATION RT-QID 04/18/18 07/21/20 History [Duoneb 0.5 mg-3 mg/3 ml Soln] Multivit with Calcium,Iron,Min 1 tab PO DAILY 04/18/18 07/21/20 History [Women's Multivitamin] Aspirin EC [Ecotrin Low Dose] 81 mg PO DAILY 12/10/18 07/21/20 History carvediloL [Coreg] 6.25 mg PO BID-W/MEALS 12/10/18 07/21/20 History Losartan Potassium [Cozaar] 25 mg PO DAILY 10/11/19 07/21/20 History Mirtazapine [Remeron] 15 mg PO HS 10/11/19 07/21/20 History ALPRAZolam [Xanax] 0.25 mg PO TID 07/21/20 07/21/20 History Spironolactone [Aldactone] 12.5 mg PO DAILY 07/21/20 07/21/20 History Allergies Allergy/AdvReac Type Severity Reaction Status Date / Time Penicillins Allergy Unknown Verified 07/21/20 15:09 pneumococcal 23-valent Allergy Rash/Hives Verified 07/21/20 15:09 polysacchari [From Pneumovax 23] adhesive tape AdvReac Unknown Verified 07/21/20 15:09 Physical Exam Osteopathic Statement: *. No significant issues noted on an osteopathic structural exam other than those noted in the History and Physical/Consult. Vitals: Intake and Output 07/21/20 07/21/20 07/21/20 06:59 14:59 22:59 Other: Weight 50 kg General: [toxic], [acute respiratory distress], [appears at stated age] Derm: [warm], [dry] Head: [atraumatic], [normocephalic], [symmetric] Eyes: [EOMI], [no lid lag], [anicteric sclera] Mouth: [no lip lesion], [mucus membranes moist] Cardiovascular: Tachycardic], [no murmur], [positive posterior tibial pulse bilateral], Lungs: [bilateral crackles], [no rhonchi, no rales] , [accessory muscle use tachypnea ] Abdominal: [soft], [ nontender to palpation], [no guarding], [no appreciable organomegaly] Ext: [no gross muscle atrophy], [no edema], [no contractures] Neuro: [ CN II-XI grossly intact], [no focal neuro deficits] Psych: [Not very alert], [disorientated] Assessment and Plan Assessment: Acute on chronic hypoxic respiratory failure secondary to CHF and COPD Patient is a DO NOT RESUSCITATE Patient placed into hospice with comfort measures Hospice recommendations appreciated Time with Patient: Greater than 30
[2020-07-21] MEDS: ATROPINE OPHTH SOLN 1% 5ML BTL SUBLINGUAL PRN (17:46)
[2020-07-21] MEDS ORDERED: IPRATROPIUM-ALBUTEROL 3 ML NEB INHALATION SCH (21:15)
[2020-07-21] MEDS: IPRATROPIUM-ALBUTEROL 3 ML NEB INHALATION PRN (22:00)
[2020-07-22] MEDS: ATROPINE OPHTH SOLN 1% 5ML BTL SUBLINGUAL PRN (04:56)
[2020-07-22] MEDS: IPRATROPIUM-ALBUTEROL 3 ML NEB INHALATION PRN ×4 (07:48→23:07)
--- NOTE | 2020-07-22 10:19 | P.PN ---
Subjective Progress Note Date: 07/22/20 Principal diagnosis: Hypoxic respiratory failure Patient seen and examined at bedside. Patient is awake alert and conversing appropriately. Patient was asking to be fed breakfast. Patient denies chest pain. Patient does admit to her chronic shortness of breath. Hospice was consulted yesterday. Further assessment today to discuss home with hospice. Objective - Vital Signs Vital signs: Vital Signs Temp 97.9 F 07/22/20 08:09 Pulse 78 07/22/20 08:09 Resp 21 07/22/20 08:09 BP 97/54 07/22/20 08:09 Pulse Ox 100 07/22/20 08:09 Intake & Output 07/21/20 07/22/20 07/22/20 18:59 06:59 18:59 Intake Total 40 Output Total 625 Balance -625 40 Weight 50 kg 49.2 kg Intake: Oral 40 Output: Urine 625 Other: Voiding Method Indwelling Catheter Indwelling Catheter - Exam General: [non toxic], [no distress], [appears at stated age] Derm: [warm], [dry] Head: [atraumatic], [normocephalic], [symmetric] Eyes: [EOMI], [no lid lag], [anicteric sclera] Mouth: [no lip lesion], [mucus membranes moist] Cardiovascular: [S1S2 reg], [no murmur], [positive posterior tibial pulse bilateral], Lungs: [CTA bilateral], [no rhonchi, no rales] , [no accessory muscle use] Abdominal: [soft], [ nontender to palpation], [no guarding], [no appreciable organomegaly] Ext: [no gross muscle atrophy], [no edema], [no contractures] Neuro: [ CN II-XI grossly intact], [no focal neuro deficits] Psych: [Alert], [oriented], [appropriate affect] Assessment and Plan Assessment: Acute on chronic hypoxic respiratory failure secondary to CHF and COPD Patient is a DO NOT RESUSCITATE Patient placed into hospice with comfort measures Hospice recommendations appreciated Possible discharge today or tomorrow home with hospice
[2020-07-22] MEDS: MORPHINE CONC SOLN 10mg/0.5mL ORAL SYRG PO PRN (18:35)
[2020-07-22] MEDS: LORazepam 0.5 MG TAB PO PRN (22:43)
[2020-07-23] MEDS: IPRATROPIUM-ALBUTEROL 3 ML NEB INHALATION PRN ×2 (04:03→07:52)
[2020-07-23 05:04] VITALS: BP 117/69; RESP 24; TEMP 98
[2020-07-23 11:10] VITALS: BMI 18.6
--- NOTE | 2020-07-23 11:13 | P.DS ---
Providers Date of admission: 07/21/20 14:11 Expected date of discharge: 07/23/20 Attending physician: Patti Phillip DO Primary care physician: Stated None Hospital Course: Discharge Diagnosis: Exacerbation of systolic and diastolic congestive heart failure, ejection fraction 35-40% Acute exacerbation of COPD Acute on chronic hypoxic respiratory failure Dyslipidemia Hypertension Hypothyroidism Diverticular disease Anemia, chronic Lactic acidosis Hyperglycemia Chronic kidney disease Hospital Course: Patient is an 89-year-old female with a past medical history of systolic and diastolic congestive heart failure, COPD, chronic hypoxic respiratory failure on 2 L nasal cannula, dyslipidemia, coronary artery disease who presented to the emergency department with shortness of breath. She was diagnosed with acute exacerbation of congestive heart failure. Initially she was started on BiPAP but this was removed because patient did not want it. Ultimately was discussed with the family the patient and they decided on hospice care. She was subsequently admitted to inpatient hospice. She was started on morphine and Ativan. She did well and her breathing and respiratory status stabilized. She was determined appropriate for home hospice and arrangements were made. Patient seen and examined at bedside. She states she is doing well. Denies any nausea, vomiting, chest pain. States that her breathing is stable. Is asking for she and want to go home. Vital signs reviewed and stable. General: non toxic, no distress, appears at stated age Derm: warm, dry Head: atraumatic, normocephalic, symmetric Eyes: EOMI, no lid lag, anicteric sclera Mouth: no lip lesion, mucus membranes moist Cardiovascular: S1S2 reg, no murmur, positive posterior tibial pulse bilateral, Lungs coarse breath sounds bilateral, no accessory muscle use Abdominal: soft, nontender to palpation, no guarding, no appreciable organomegaly Ext: no gross muscle atrophy, 2+ edema, no contractures Psych: Alert, oriented, appropriate affect A total of 25 minutes of time were spent preparing this complex discharge summary . Patient Condition at Discharge: Poor Plan - Discharge Summary New Discharge Prescriptions: New Scopolamine 1.5MG/72Hr Patch [TransDerm Scop] 1 patch TRANSDERM Q72H PRN #10 patch PRN Reason: Secretions Continue Levothyroxine Sodium [Synthroid] 100 mcg PO MOTUWETHFRSA Budesonide [Pulmicort] 0.5 mg INHALATION RT-BID Clopidogrel [Plavix] 75 mg PO DAILY #90 tab Nitroglycerin Sl Tabs [Nitrostat] 0.4 mg SUBLINGUAL Q5M PRN #100 tab PRN Reason: Chest Pain Furosemide [Lasix] 40 mg PO DAILY #30 tab Ipratropium-Albuterol Nebulize [Duoneb 0.5 mg-3 mg/3 ml Soln] 3 ml INHALATION RT-QID Multivit with Calcium,Iron,Min [Women's Multivitamin] 1 tab PO DAILY Mirtazapine [Remeron] 15 mg PO HS Spironolactone [Aldactone] 12.5 mg PO DAILY ALPRAZolam [Xanax] 0.25 mg PO TID Discontinued Atorvastatin [Lipitor] 80 mg PO HS #30 tab Ferrous Sulfate [Iron (65 MG Elemental)] 325 mg PO DAILY carvediloL [Coreg] 6.25 mg PO BID-W/MEALS Aspirin EC [Ecotrin Low Dose] 81 mg PO DAILY Losartan Potassium [Cozaar] 25 mg PO DAILY Discharge Medication List Levothyroxine Sodium [Synthroid] 100 mcg PO MOTUWETHFRSA 01/17/16 [History] Budesonide [Pulmicort] 0.5 mg INHALATION RT-BID 04/02/17 [History] Clopidogrel [Plavix] 75 mg PO DAILY #90 tab 04/09/17 [Rx] Nitroglycerin Sl Tabs [Nitrostat] 0.4 mg SUBLINGUAL Q5M PRN #100 tab 04/09/17 [Rx] Furosemide [Lasix] 40 mg PO DAILY #30 tab 09/28/17 [Rx] Ipratropium-Albuterol Nebulize [Duoneb 0.5 mg-3 mg/3 ml Soln] 3 ml INHALATION RT-QID 04/18/18 [History] Multivit with Calcium,Iron,Min [Women's Multivitamin] 1 tab PO DAILY 04/18/18 [History] Mirtazapine [Remeron] 15 mg PO HS 10/11/19 [History] ALPRAZolam [Xanax] 0.25 mg PO TID 07/21/20 [History] Spironolactone [Aldactone] 12.5 mg PO DAILY 07/21/20 [History] Scopolamine 1.5MG/72Hr Patch [TransDerm Scop] 1 patch TRANSDERM Q72H PRN #10 patch 07/23/20 [Rx] Discharge Disposition: HOME WITH HOSPICE
[2020-07-23 11:43] VITALS: PULSE 96
[2020-07-23] MEDS ORDERED: IPRATROPIUM-ALBUTEROL 3 ML NEB INHALATION SCH (12:00)
[2020-07-23] MEDS: LORazepam 0.5 MG TAB PO PRN (12:20)
== END 2020-07-23 12:54 | disposition hospice, home (50) | DRG 951 ==
LOC: 3SCARD 14:11 → 6NMEDSUR 07-22 20:07
PROVIDERS: ADMIT Internal Medicine; ATTEND Internal Medicine
DX: Z51.5 Encounter for palliative care (principal); J96.21 Acute and chronic respiratory failure with hypoxia; I50.43 Acute on chronic combined systolic (congestive) and diastolic (congestive) heart failure; I13.0 Hypertensive heart and chronic kidney disease with heart failure and stage 1 through stage 4 chronic kidney disease, or unspecified chronic kidney disease; J44.1 Chronic obstructive pulmonary disease with (acute) exacerbation; I42.9 Cardiomyopathy, unspecified; E87.2 Acidosis; I25.10 Atherosclerotic heart disease of native coronary artery without angina pectoris; N18.9 Chronic kidney disease, unspecified; Z66 Do not resuscitate; E78.5 Hyperlipidemia, unspecified; F32.9 Major depressive disorder, single episode, unspecified; F41.9 Anxiety disorder, unspecified; Z96.1 Presence of intraocular lens; M19.90 Unspecified osteoarthritis, unspecified site; H91.90 Unspecified hearing loss, unspecified ear; E89.0 Postprocedural hypothyroidism; K57.90 Diverticulosis of intestine, part unspecified, without perforation or abscess without bleeding; D64.9 Anemia, unspecified; R73.9 Hyperglycemia, unspecified; Z98.41 Cataract extraction status, right eye; Z98.42 Cataract extraction status, left eye; Z99.81 Dependence on supplemental oxygen; Z79.899 Other long term (current) drug therapy; Z79.890 Hormone replacement therapy; Z79.02 Long term (current) use of antithrombotics/antiplatelets; Z79.82 Long term (current) use of aspirin; Z85.038 Personal history of other malignant neoplasm of large intestine; I25.2 Old myocardial infarction; Z90.89 Acquired absence of other organs; Z98.891 History of uterine scar from previous surgery; Z90.710 Acquired absence of both cervix and uterus; Z87.891 Personal history of nicotine dependence; Z90.49 Acquired absence of other specified parts of digestive tract; Z82.49 Family history of ischemic heart disease and other diseases of the circulatory system; Z88.0 Allergy status to penicillin; Z91.09 Other allergy status, other than to drugs and biological substances; Z87.01 Personal history of pneumonia (recurrent)
CPT/HCPCS: 94640; 94760